=== PATIENT | male | born 1955 | race Asian ===

== ENCOUNTER 2021-05-03 14:34 | Inpatient (IN) | payer OTHER ==
--- NOTE | 2021-05-03 15:52 | Event Note ---
Date of service: 05/03/21 Face to Face: For this encounter I have reviewed the PA/MEAT APPRENTICE documentation, treatment plan, medical decision making, and I had face to face time with this patient. Patient had presented with discoloration of toes on the right foot. This has been an ongoing issue. There was no history of recent travel or trauma. He did complain of localized pain. On exam, patient has warm extremities. The dorsalis pedis and posterior tibial pulses on the right foot cannot be palpated. There appears to be evidence of necrosis with dry gangrene involving the right first and second toes. There is some mild erythema involving the skin proximal. Patient does not have any similar findings on the left foot. Labs and ultrasound have been ordered. 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
--- NOTE | 2021-05-03 16:16 | XRay Report ---
Right foot 3 views INDICATION: Right foot pain without injury IMPRESSION: There is evidence of a wound identified involving the great toe soft tissues with some un derlying soft tissue gas. No underlying fracture, subluxation or osseous destruction is identified. Signer Name: Mike Lynch MD Signed: 05/03/2021 4:12 PM Workstation Name: [id number]
[2021-05-03 16:20] LABS: Basophils # (Auto) 0.1 K/mm3 (0.0-0.1); Basophils % (Auto) 1.1 % (0.0-1.8); Eosinophils # (Auto) 0.2 K/mm3 (0.0-0.4); Eosinophils % (Auto) 2.4 % (0.0-4.3); Hematocrit 37.6 % (35.5-45.6); Hemoglobin 12.5 gm/dl (11.8-15.2); Lymphocytes # (Auto) 1.6 K/mm3 (1.2-5.4); Lymphocytes % (Auto) 16.7 % (13.4-35.0); Mean Corpuscular HGB Conc 33 % (32-34); Mean Corpuscular Volume 93 fl (84-94); Monocytes # (Auto) 0.6 K/mm3 (0.0-0.8); Monocytes % (Auto) 6.2 % (0.0-7.3); Platelet Count 238 K/mm3 (140-440); Red Blood Count 4.05 M/mm3 (3.65-5.03); Red Cell Distribution Width 14.3 % (13.2-15.2)
[2021-05-03 16:28] LABS: INR 0.97 (0.87-1.13)
[2021-05-03 16:29] LABS: Partial Thromboplastin Time 31.3 Sec. (24.2-36.6)
[2021-05-03 16:37] LABS: Alanine Aminotransferase 30 units/L (7-56); Albumin 3.2 g/dL (3.9-5); Blood Urea Nitrogen 8 mg/dL (9-20); Calcium 9.2 mg/dL (8.4-10.2); Hemolysis Index 6
[2021-05-03 16:40] LABS: BUN/Creatinine Ratio 13
--- NOTE | 2021-05-03 18:02 | Vascular Lab Report ---
DUPLEX DOPPLER LOWER EXTREMITY ARTERIAL, RIGHT BILATERAL YANNICK INDICATION / CLINICAL INFORMATION: non palpable pulses, 1st/2nd toe. TECHNIQUE: Arterial duplex examination of both lower extremities performed using B-mode, color flow a nd spectral Doppler assessment. FINDINGS: RIGHT: Common Femoral Artery: PSV 130 cm/sec. Triphasic waveform. Proximal SFA: PSV 115 cm/sec. Triphasic waveform. Mid SFA: PSV 50 cm/sec. Monophasic waveform. Distal SFA: Occluded Popliteal artery: PSV 7 cm/sec. Monophasic waveform. Posterior tibial artery: PSV 18 cm/sec. Monophasic waveform. Dorsalis Pedis Artery: PSV 60 cm/sec. Monophasic waveform. Right YANNICK: 0.47 Left YANNICK: 0.72 IMPRESSION: 1. 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 The ABIs are abnormal bilaterally. Ankle-Brachial Index (YANNICK): - Calcified arteries > 1.4 - Normal = 0.9-1.4 - Mild PAD = 0.7-0.89 - Moderate PAD = 0.51-0.69 - Severe PAD < 0.5 Doppler Waveform: - Triphasic is normal. - Biphasic is abnormal if clear transition from triphasic signal along vascular tree. - Monophasic is abnormal. Signer Name: Estevan Julian MD Signed: 05/03/2021 5:58 PM Workstation Name: [id number]
--- NOTE | 2021-05-03 18:18 | Emergency Department Report ---
- General Chief Complaint: Wound/Laceration Stated Complaint: TOE BLACK Time Seen by Provider: 05/03/21 15:35 Source: patient, family Mode of arrival: Ambulatory Limitations: Language Barrier - History of Present Illness Initial Comments: Patient is a 65-year-old male who presents emergency room with complaints of "black toes." Patient states that initially it began as a small ulcer to his right big toe. States that he was scratching it and did not appear to be healing. He states this initially occurred approximately 3 weeks ago. He states then his toe began to turn black in coloration and he had swelling and redness to the foot. He denies any drainage, fever, vomiting, chills. Past medical history of hypertension. No known allergies. Spoke with patient's sonGume with the patient's permission he provided phone number, and he was able to confirm history - Related Data Allergies Allergy/AdvReac Type Severity Reaction Status Date / Time No Known Allergies Allergy Verified 05/03/21 19:54 ED Review of Systems ROS: Stated complaint: TOE BLACK Other details as noted in HPI Comment: All other systems reviewed and negative ED Past Medical Hx - Past Medical History Previous Medical History?: Yes Hx Hypertension: Yes - Surgical History Past Surgical History?: No - Social History Smoking Status: Former Smoker Substance Use Type: Alcohol ED Physical Exam - General Limitations: Language Barrier General appearance: alert, in no apparent distress - Head Head exam: Present: atraumatic, normocephalic - Eye Eye exam: Present: normal appearance - ENT ENT exam: Present: mucous membranes moist - Extremities Exam Extremities exam: Present: other (there is necrosis present to the entire right big toe, there is necrosis present to half of the distal 2nd toe, erythema and increased warmth present to the right dorsal foot, unable to palpalate dp or pt pulses on exam) - Neurological Exam Neurological exam: Present: alert, oriented X3 - Psychiatric Psychiatric exam: Present: normal affect, normal mood - Skin Skin exam: Present: warm, dry ED Course Vital Signs 05/03/21 05/03/21 05/03/21 16:25 16:31 16:32 Temperature 98.6 F 98.6 F Pulse Rate 96 H 96 H Respiratory 16 16 Rate Blood Pressure 139/70 Blood Pressure 139/70 [Left] O2 Sat by Pulse 100 100 100 Oximetry 05/03/21 18:11 Temperature Pulse Rate 94 H Respiratory 17 Rate Blood Pressure Blood Pressure 146/68 [Left] O2 Sat by Pulse 100 Oximetry - Reevaluation(s) Reevaluation #1: 05/03/21 18:58 Crane Hoist Or Lift Operator paged vascular approximately one hour ago still no callback, she states that she will page again for the second time - Consultations Consultation #1: 05/03/21 19:[address] Soto, vascular surgery regarding patient history and results, advised n.p.o. at midnight, admit to hospitalist service and he will consult on patient tomorrow 05/03/21 19:[address] Wise, hospitalist who will accept and resume care of patient, will admit to hospitalist service ED Medical Decision Making - Lab Data Result diagrams: 05/03/21 15:57 05/03/21 15:57 Lab Results 05/03/21 05/03/21 05/03/21 Range/Units 15:57 15:57 15:57 WBC 9.5 (4.5-11.0) K/mm3 RBC 4.05 (3.65-5.03) M/mm3 Hgb 12.5 (11.8-15.2) gm/dl Hct 37.6 (35.5-45.6) % MCV 93 (84-94) fl MCH 31 (28-32) pg MCHC 33 (32-34) % RDW 14.3 (13.2-15.2) % Plt Count 238 (140-440) K/mm3 Lymph % (Auto) 16.7 (13.4-35.0) % Wagoner % (Auto) 6.2 (0.0-7.3) % Eos % (Auto) 2.4 (0.0-4.3) % Baso % (Auto) 1.1 (0.0-1.8) % Lymph # (Auto) 1.6 (1.2-5.4) K/mm3 Wagoner # (Auto) 0.6 (0.0-0.8) K/mm3 Eos # (Auto) 0.2 (0.0-0.4) K/mm3 Baso # (Auto) 0.1 (0.0-0.1) K/mm3 Seg Neutrophils % 73.6 H (40.0-70.0) % Seg Neutrophils # 7.0 (1.8-7.7) K/mm3 ESR TNR PT 13.5 (12.2-14.9) Sec. INR 0.97 (0.87-1.13) APTT 31.3 (24.2-36.6) Sec. Sodium 133 L (137-145) mmol/L Potassium 4.1 (3.6-5.0) mmol/L Chloride 97.2 L (98-107) mmol/L Carbon Dioxide 22 (22-30) mmol/L Anion Gap 18 mmol/L BUN 8 L (9-20) mg/dL Creatinine 0.6 L (0.8-1.3) mg/dL Estimated GFR > 60 ml/min BUN/Creatinine Ratio 13 % Glucose 227 H (75-100) mg/dL Lactic Acid (0.7-2.0) mmol/L Calcium 9.2 (8.4-10.2) mg/dL Total Bilirubin 0.40 (0.1-1.2) mg/dL AST 23 (5-40) units/L ALT 30 (7-56) units/L Alkaline Phosphatase 99 (35-129) units/L Total Protein 8.3 H (6.3-8.2) g/dL Albumin 3.2 L (3.9-5) g/dL Albumin/Globulin Ratio 0.6 % 05/03/ Range/Units 15:57 WBC (4.5-11.0) K/mm3 RBC (3.65-5.03) M/mm3 Hgb (11.8-15.2) gm/dl Hct (35.5-45.6) % MCV (84-94) fl MCH (28-32) pg MCHC (32-34) % RDW (13.2-15.2) % Plt Count (140-440) K/mm3 Lymph % (Auto) (13.4-35.0) % Wagoner % (Auto) (0.0-7.3) % Eos % (Auto) (0.0-4.3) % Baso % (Auto) (0.0-1.8) % Lymph # (Auto) (1.2-5.4) K/mm3 Wagoner # (Auto) (0.0-0.8) K/mm3 Eos # (Auto) (0.0-0.4) K/mm3 Baso # (Auto) (0.0-0.1) K/mm3 Seg Neutrophils % (40.0-70.0) % Seg Neutrophils # (1.8-7.7) K/mm3 ESR PT (12.2-14.9) Sec. INR (0.87-1.13) APTT (24.2-36.6) Sec. Sodium (137-145) mmol/L Potassium (3.6-5.0) mmol/L Chloride (98-107) mmol/L Carbon Dioxide (22-30) mmol/L Anion Gap mmol/L BUN (9-20) mg/dL Creatinine (0.8-1.3) mg/dL Estimated GFR ml/min BUN/Creatinine Ratio % Glucose (75-100) mg/dL Lactic Acid 1.70 (0.7-2.0) mmol/L Calcium (8.4-10.2) mg/dL Total Bilirubin (0.1-1.2) mg/dL AST (5-40) units/L ALT (7-56) units/L Alkaline Phosphatase (35-129) units/L Total Protein (6.3-8.2) g/dL Albumin (3.9-5) g/dL Albumin/Globulin Ratio % - Radiology Data Radiology results: report reviewed Ordering Physician: ABISAI ALVES Date of Service: 05/03/21 Procedure(s): XR foot 3+V RT Accession Number(s): [id number] cc: ABISAI ALVES Fluoro Time In Minutes: Right foot 3 views INDICATION: Right foot pain without injury IMPRESSION: There is evidence of a wound identified involving the great toe soft tissues with some underlying soft tissue gas. No underlying fracture, subluxation or osseous destruction is identified. Signer Name: Mike Lynch MD Signed: 05/03/2021 4:12 PM Workstation Name: [id number] Transcribed By: Dictated By: Mike Lynch MD Electronically Authenticated By: Mike Lynch MD Signed Date/Time: 05/03/211611 DD/ 10 TD/TT: Ordering Physician: ABISAI ALVES Date of Service: 05/03/21 Procedure(s): VL arterial duplex LE RT Accession Number(s): [id number] cc: ABISAI ALVES DUPLEX DOPPLER LOWER EXTREMITY ARTERIAL, RIGHT BILATERAL YANNICK INDICATION / CLINICAL INFORMATION: non palpable pulses, 1st/2nd toe. TECHNIQUE: Arterial duplex examination of both lower extremities performed using B-mode, color flow and spectral Doppler assessment. FINDINGS: RIGHT: Common Femoral Artery: PSV 130 cm/sec. Triphasic waveform. Proximal SFA: PSV 115 cm/sec. Triphasic waveform. Mid SFA: PSV 50 cm/sec. Monophasic waveform. Distal SFA: Occluded Popliteal artery: PSV 7 cm/sec. Monophasic waveform. Posterior tibial artery: PSV 18 cm/sec. Monophasic waveform. Dorsalis Pedis Artery: PSV 60 cm/sec. Monophasic waveform. Right YANNICK: 0.47 Left YANNICK: 0.72 IMPRESSION: 1. 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 The ABIs are abnormal bilaterally. Ankle-Brachial Index (YANNICK): - Calcified arteries > 1.4 - Normal = 0.9-1.4 - Mild PAD = 0.7-0.89 - Moderate PAD = 0.51-0.69 - Severe PAD < 0.5 Doppler Waveform: - Triphasic is normal. - Biphasic is abnormal if clear transition from triphasic signal along vascular tree. - Monophasic is abnormal. Signer Name: Estevan Julian MD Signed: 05/03/2021 5:58 PM Workstation Name: [id number] Transcribed By: SS Dictated By: Estevan Julian MD Electronically Authenticated By: Estevan Julian MD Signed Date/Time: 05/03/211757 DD/ 54 TD/TT: Print - Medical Decision Making Patient is a 65-year-old male who presents emergency room with complaints of "black toes." Patient states that initially it began as a small ulcer to his right big toe. States that he was scratching it and did not appear to be healing. He states this initially occurred approximately 3 weeks ago. He states then his toe began to turn black in coloration and he had swelling and redness to the foot. He denies any drainage, fever, vomiting, chills. Past medical history of hypertension. No known allergies. Spoke with patient's sonGume with the patient's permission he provided phone number, and he was able to confirm history Vitals are stable. On exam:there is necrosis present to the entire right big toe, there is necrosis present to half of the distal 2nd toe, erythema and increased warmth present to the right dorsal foot, unable to palpalate dp or pt pulses on exam. Lab significant for mild hyponatremia and elevated blood glucose at 227. No leukocytosis, lactic acid is normal. X-ray right foot There is evidence of a wound identified involving the great toe soft tissues with some underlying soft tissue gas. No underlying fracture, subluxation or osseous destruction is identified. Arterial ultrasound of the lower extremity 1. 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 The ABIs are abnormal bilaterally. Spoke to Dr. Soto, vascular surgery regarding patient history and results, advised n.p.o. at midnight, admit to hospitalist service and he will consult on patient tomorrow.Spoke to Dr. Wise, hospitalist who will accept and resume care of patient, will admit to hospitalist service. Dr. Lara, ER attending evaluated patient at bedside and is agreeable with plan. Discussed findings with patient and patient's son with the patient's permission and patient is agreeable with admission. Critical care attestation.: If time is entered above; I have spent that time in minutes in the direct care of this critically ill patient, excluding procedure time. ED Disposition Clinical Impression: Arterial occlusion, Necrotic toes, Hyperglycemia Disposition: ADMITTED INPATIENT Is pt being admited?: Yes Does the pt Need Aspirin: No Condition: Fair Time of Disposition: 19:24
--- NOTE | 2021-05-03 19:23 | History and Physical Report ---
History of Present Illness Chief complaint: My toes are black History of present illness: 65 YO Male with HTN, PVD presents to ED for evaluation. Patient reports "my toes are black". Patient states that he has experienced darkening of his toes over the past 1 month with persistent and worsening symptoms over the same timeframe. Patient states that he has experienced redness and right foot tenderness as well over the past 3 weeks with worsening symptoms over the same timeframe. Patient was seen and evaluated in his primary care physician's office and was instructed to seek further care. Patient transported to [facility] via private vehicle for further care and evaluation of the aforementioned symptoms. The patient was seen and evaluated in the emergency department. All lab and imaging studies reviewed. Patient underwent right lower extremity duplex as well as arterial brachial index measurement and was found to have right lower extremity arterial occlusion complicated by right foot cellulitis, hyponatremia. Patient admitted to medical floor due to increased risk of worsening symptoms. Vascular surgery team con sulted in ED. Patient is pending surgical intervention. Patient initiated on IV antibiotic therapy. Patient has fever, chills, chest pain, palpitation, adductive cough, recent ill contacts, known exposure to COVID-19. No prior admission for review. No medication listed at time of admission for recon ciliation. Advanced care planning conducted in the ED. Past History Past Medical History: hypertension, other (See HPI) Past Surgical History: No surgical history, Other (Reviewed) Social history: , lives with family. denies: smoking, alcohol abuse, prescription drug abuse Family history: diabetes, hypertension Review of Systems Constitutional: no weight loss, no weight gain Ears, nose, mouth and throat: no ear pain, no ear discharge Cardiovascular: no chest pain, no palpitations, no edema, no lightheadedness Respiratory: no cough, no cough with sputum, no shortness of breath, no dyspnea on exertion Gastrointestinal: no abdominal pain, no vomiting, no constipation, no change in bowel habits Genitourinary Male: no dysuria, no hematuria, no flank pain, no urinary frequency, no nocturia, no incontinence Rectal: no pain, no incontinence, no bleeding Musculoskeletal: other (Right foot redness, black toes), no neck stiffness, no shooting arm pain, no arm numbness/tingling, no low back pain Integumentary: no pruritis, no sores, no wounds, no jaundice Neurological: no transient paralysis, no weakness, no numbness, no tingling, no syncope Psychiatric: no anxiety, no change in sleep habits, no insomnia Endocrine: no cold intolerance, no polyphagia, no excessive thirst, no polydipsia, no excessive sweating Hematologic/Lymphatic: no easy bruising, no easy bleeding Allergic/Immunologic: no urticaria, no allergic rhinitis Exam - Constitutional Vitals: Temp Pulse Resp BP Pulse Ox 98.6 F 94 H 17 146/68 100 05/03/21 16:32 05/03/21 18:11 05/03/21 18:11 05/03/21 18:11 05/03/21 18:11 General appearance: Present: mild distress - EENT Eyes: Present: PERRL ENT: hearing intact, clear oral mucosa - Neck Neck: Present: supple, normal ROM - Respiratory Respiratory effort: normal Respiratory: bilateral: CTA - Cardiovascular Heart Sounds: Present: S1 & S2. Absent: rub, click - Extremities Extremities: pulses symmetrical, No edema Extremity abnormal: erythema, black, pulses diminished Peripheral Pulses: abnormal (Right lower extremity pulses absent) - Abdominal General gastrointestinal: Present: soft, non-tender, non-distended, normal bowel sounds Male genitourinary: Present: normal - Integumentary Integumentary: Present: clear, warm, dry - Musculoskeletal Musculoskeletal: gait normal, strength equal bilaterally - Psychiatric Psychiatric: appropriate mood/affect, intact judgment & insight - Neurologic Neurologic: CNII-XII intact, moves all extremities Results - Labs CBC & Chem 7: 05/03/21 15:57 05/03/21 15:57 Labs: Abnormal lab results 05/03/21 05/03/21 Range/Units 15:57 15:57 Seg Neutrophils % 73.6 H (40.0-70.0) % Sodium 133 L (137-145) mmol/L Chloride 97.2 L (98-107) mmol/L BUN 8 L (9-20) mg/dL Creatinine 0.6 L (0.8-1.3) mg/dL Glucose 227 H (75-100) mg/dL Total Protein 8.3 H (6.3-8.2) g/dL Albumin 3.2 L (3.9-5) g/dL Assessment and Plan - Patient Problems (1) Arterial occlusion, lower extremity Status: Acute Plan to address problem: Vascular surgery service consulted, patient pending surgical revascularization procedure in a.m., pain control, supportive care. N.p.o., IV fluid resuscitation therapy. (2) Cellulitis of right foot Status: Acute Plan to address problem: CBC, IV antibiotic therapy, supportive care. Repeat CBC in a.m. (3) Hyponatremia Status: Acute Plan to address problem: IV fluid resuscitation therapy, BMP, repeat BMP in a.m. (4) Diabetes Status: Acute Plan to address problem: Consistent carbohydrate diet, Accu-Chek, insulin protocol, hypoglycemia protocol, hemoglobin A1c (5) DVT prophylaxis Status: Acute Plan to address problem: SCD to bilateral lower extremities, patient pending surgical intervention as per vascular surgery team. (6) Advance care planning Status: Acute Plan to address problem: Disease education conducted, care plan discussed, diagnosis discussed, prognosis discussed, patient is full code, patient knowledges understanding and agreement with care plan, +30 minutes.
[2021-05-03] MEDS ORDERED: ALBUTEROL 2.5 MG/3 ML NEBU IH PRN (19:25)
[2021-05-03] MEDS ORDERED: ONDANSETRON 4 MG/2 ML INJ IV PRN (19:25)
[2021-05-03] MEDS ORDERED: HYDROmorphone 1 MG/1 ML INJ IV PRN ×2 (19:25→19:44)
[2021-05-03] MEDS ORDERED: ACETAMINOPHEN 325 MG TAB PO PRN ×2 (19:25→19:44)
[2021-05-03] MEDS ORDERED: DEXTROSE 50% IN WATER (25GM) 50 ML SYRINGE IV PRN (19:27)
[2021-05-03 19:40] LABS: Erythrocyte Sedimentation Rate TNR mm/Hr (0-20)
[2021-05-03] MEDS ORDERED: VANCOMYCIN 1,500 MG in SODIUM CHLORIDE 0.9% 500 ML 500 ML IV ONE (19:44)
[2021-05-03] MEDS ORDERED: VANCOMYCIN PHARMACY TO DOSE IV SCH (20:00)
--- NOTE | 2021-05-03 20:07 | Consultation ---
History of Present Illness - Reason for Consult Consult date: 05/03/21 Necrotic right toes Requesting physician: YOSELYN RIOS - History of Present Illness 65-year-old male with HTN, PVD presents to ED for evaluation. Patient reports "my toes are black". Patient states that he has experienced darkening of his toes over the past 1 month with persistent and worsening symptoms over the same timeframe. Patient states that he has experienced redness and right foot tende rness as well over the past 3 weeks with worsening symptoms over the same timeframe. Patient was seen and evaluated in his primary care physician's office and was instructed to seek further care. Patient transported to [facility] via private vehicle for further care and evaluation of the aforementioned symptoms. The patient was seen and evaluated in the emergency department. All lab and imaging studies reviewed. Patient underwent right lower extremity duplex as well as arterial brachial index measurement and was found to have right lower extremity arterial occlusion complicated by right foot cellulitis, hyponatremia. Vascular consulted for evaluation. Patient found to have nonpalpable right peda l pulses and necrosis of the right first digit, tip of the second digit, and dorsum of the MTP region with erythema of the rest of the forefoot and midfoot. The area is not very painful. This occurred over the last month, and patient denies pre-existing claudication prior to this event, but history is difficult to obtain due to using telephone fluxer. Discussed endovascular revascularization. Risks, benefits, and alternatives discussed. Patient agrees with procedure. Past History Past Medical History: hypertension, other (See HPI) Past Surgical History: No surgical history, Other (Reviewed) Social history: , lives with family. denies: smoking, alcohol abuse, prescription drug abuse Family history: diabetes, hypertension Review of Systems Constitutional: no weight loss, no weight gain Ears, nose, mouth and throat: no ear pain, no ear discharge Cardiovascular: no chest pain, no palpitations, no edema, no lightheadedness Respiratory: no cough, no cough with sputum, no shortness of breath, no dyspnea on exertion Gastrointestinal: no abdominal pain, no vomiting, no constipation, no change in bowel habits Genitourinary Male: no dysuria, no hematuria, no flank pain, no urinary frequency, no nocturia, no incontinence Rectal: no pain, no incontinence, no bleeding Musculoskeletal: other (Right foot redness, black toes), no neck stiffness, no shooting arm pain, no arm numbness/tingling, no low back pain Integumentary: no pruritis, no sores, no wounds, no jaundice Neurological: no transient paralysis, no weakness, no numbness, no tingling, no syncope Psychiatric: no anxiety, no change in sleep habits, no insomnia Endocrine: no cold intolerance, no polyphagia, no excessive thirst, no polydipsia, no excessive sweating Hematologic/Lymphatic: no easy bruising, no easy bleeding Allergic/Immunologic: no urticaria, no allergic rhinitis Past History Past Medical History: hypertension, other (See HPI) Past Surgical History: No surgical history, Other (Reviewed) Social history: , lives with family. denies: smoking, alcohol abuse, prescription drug abuse Family history: diabetes, hypertension Medications and Allergies Allergies Allergy/AdvReac Type Severity Reaction Status Date / Time No Known Allergies Allergy Verified 05/03/21 19:54 Active Meds: Active Medications Acetaminophen (Acetaminophen 325 Mg Tab) 650 mg PO Q4H PRN PRN Reason: Pain MILD(1-3)/Fever >100.5/PACHECO Acetaminophen (Acetaminophen 325 Mg Tab) 650 mg PO Q6H PRN PRN Reason: Pain, Mild (1-3) Albuterol (Albuterol 2.5 Mg/3 Ml Nebu) 2.5 mg IH Q4HRT PRN PRN Reason: Shortness Of Breath Dextrose (Dextrose 50% In Water (25gm) 50 Ml Syringe) 50 ml IV Q30MIN PRN; Protocol PRN Reason: Hypoglycemia Hydromorphone HCl (Hydromorphone 1 Mg/1 Ml Inj) 0.5 mg IV Q12H PRN PRN Reason: Pain , Severe (7-10) Hydromorphone HCl (Hydromorphone 1 Mg/1 Ml Inj) 0.25 mg IV Q4H PRN PRN Reason: Pain, Moderate (4-6) Sodium Chloride (Nacl 0.9% 1000 Ml) 1,000 mls @ 100 mls/hr IV DIRECT LYNDSAY Vancomycin HCl 1,500 mg/ (Sodium Chloride) 530 mls @ 333 mls/hr IV ONCE ONE; Protocol Stop: 05/03/21 21:19 Piperacillin Sod/Tazobactam Sod (Zosyn/Ns 4.5gm/100ml) 4.5 gm in 100 mls @ 200 mls/hr IV Q8H LYNDSAY; Protocol Insulin Human Regular (Insulin Regular, Human 100 Units/1 Ml) 0 units SUB-Q Q6H LYNDSAY; Protocol Ondansetron HCl (Ondansetron 4 Mg/2 Ml Inj) 4 mg IV Q8H PRN PRN Reason: Nausea And Vomiting Oxycodone/Acetaminophen (Oxycodone /Acetaminophen 5-325mg Tab) 1 tab PO Q6H PRN PRN Reason: Pain, Moderate (4-6) Sodium Chloride (Sodium Chloride 0.9% 10 Ml Flush Syringe) 10 ml IV BID LYNDSAY Sodium Chloride (Sodium Chloride 0.9% 10 Ml Flush Syringe) 10 ml IV PRN PRN PRN Reason: LINE FLUSH Review of Systems All systems: negative (see HPI) Exam - Constitutional Vitals: Temp Pulse Resp BP Pulse Ox 98.6 F 94 H 17 146/68 100 05/03/21 16:32 05/03/21 18:11 05/03/21 18:11 05/03/21 18:11 05/03/21 18:11 General appearance: Present: no acute distress - EENT Eyes: Present: EOM intact ENT: hearing intact - Neck Neck: Present: supple - Respiratory Respiratory effort: normal - Extremities Extremities: abnormal (see HPI) Extremity abnormal: pulses diminished Peripheral Pulses: abnormal - Abdominal General gastrointestinal: Present: deferred, soft - Psychiatric Psychiatric: appropriate mood/affect, cooperative Results - Labs CBC & Chem 7: 05/03/21 15:57 05/03/21 15:57 Labs: Abnormal lab results 05/03/21 05/03/21 05/03/21 Range/Units 15:57 15:57 19:32 Seg Neutrophils % 73.6 H (40.0-70.0) % Sodium 133 L (137-145) mmol/L Chloride 97.2 L (98-107) mmol/L BUN 8 L (9-20) mg/dL Creatinine 0.6 L (0.8-1.3) mg/dL Glucose 227 H (75-100) mg/dL Hemoglobin A1c 10.1 H (4-6) % Total Protein 8.3 H (6.3-8.2) g/dL Albumin 3.2 L (3.9-5) g/dL Assessment and Plan 65-year-old male with gangrene of the right first and second digit compatible with critical limb ischemia. I reviewed the arterial ultrasound demonstrating popliteal artery stenosis and distal superficial femoral artery occlusion. Discussed with patient that he requires revascularization in order to attempt to salvage the foot. Without revascularization, the patient would not even be able to heal a below-knee amputation. Patient has a long history of smoking. Discussed smoking cessation with patient. Patient agrees with smoking cessation. Plan for endovascular revascularization of the right lower extremity tomorrow through left groin and possibly right pedal approach. Risks, benefits, and alternatives discussed. Patient agrees to procedure. Patient will need wound care consult and general surgery consult for management of the gangrene which will require at minimum multiple minor amputations.
[2021-05-03] MEDS: INSULIN REGULAR, HUMAN 100 UNITS/1 ML SUB-Q SCH (21:00)
[2021-05-03] MEDS: PIPERACIL/TAZOBACTA 4.5/NS 100 4.5 GM/100 ML VIAL IV SCH (21:10)
[2021-05-04] MEDS: INSULIN REGULAR, HUMAN 100 UNITS/1 ML SUB-Q SCH ×2 (03:25→22:54)
[2021-05-04] MEDS: PIPERACIL/TAZOBACTA 4.5/NS 100 4.5 GM/100 ML VIAL IV SCH (03:40)
[2021-05-04] MEDS: SODIUM CHLORIDE 0.9% 1000 ML 1,000 ML IV SCH ×2 (04:20→22:54)
[2021-05-04 05:18] LABS: Basophils % (Auto) 0.6 % (0.0-1.8); Eosinophils # (Auto) 0.5 K/mm3 (0.0-0.4); Hematocrit 35.6 % (35.5-45.6); Lymphocytes # (Auto) 1.9 K/mm3 (1.2-5.4); Lymphocytes % (Auto) 25.6 % (13.4-35.0); Mean Corpuscular HGB Conc 34 % (32-34); Mean Corpuscular Volume 92 fl (84-94); Monocytes # (Auto) 0.7 K/mm3 (0.0-0.8); Monocytes % (Auto) 9.1 % (0.0-7.3); Platelet Count 233 K/mm3 (140-440); Red Blood Count 3.87 M/mm3 (3.65-5.03); Red Cell Distribution Width 13.9 % (13.2-15.2)
[2021-05-04 05:37] LABS: Blood Urea Nitrogen 7 mg/dL (9-20); Calcium 8.7 mg/dL (8.4-10.2); Hemolysis Index 4
[2021-05-04 05:42] LABS: BUN/Creatinine Ratio 14
--- NOTE | 2021-05-04 08:54 | Progress Note ---
Assessment and Plan Assessment and plan: 65 YO Male with HTN, PVD presents to ED for evaluation. Patient reports "my toes are black". Patient states that he has experienced darkening of his toes over the past 1 month with persistent and worsening symptoms over the same timeframe. Patient states that he has experienced redness and right foot tenderness as well over the past 3 weeks with worsening symptoms over the same timeframe. Patient was seen and evaluated in his primary care physician's office and was instructed to seek further care. Patient transported to [facility] via private vehicle for further care and evaluation of the aforementioned symptoms. The patient was seen and evaluated in the emergency department. All lab and imaging studies reviewed. Patient underwent right lower extremity duplex as well as arterial brachial index measurement and was found to have right lower extremity arterial occlusion complicated by right foot cellulitis, hyponatremia. Patient admitted to medical floor due to increased risk of worsening symptoms. Vascular surgery team consulted in ED. Patient is pending surgical intervention. Patient initiated on IV antibiotic therapy. Patient has fever, chills, chest pain, palpitation, adductive cough, recent ill contacts, known exposure to COVID-19. No prior admission for review. No medication listed at time of admission for reconciliation. Advanced care planning conducted in the ED. 05/04: Patient seen and examined, will Vascular input noted, Wound care consult, ID and General surgery consult- concern for Osteomylitis. awaiting vascular report. Will continue heparin. (1) Arterial occlusion, lower extremity Status: Acute Plan to address problem: Vascular surgery service consulted, patient pending surgical revascularization procedure in a.m., pain control, supportive care. N.p.o., IV fluid resuscitation therapy. (2) Cellulitis of right foot- ? Gas collection underneath Status: Acute Plan to address problem: CBC, IV antibiotic therapy, supportive care. Repeat CBC in a.m. (3) Hyponatremia Status: Acute Plan to address problem: IV fluid resuscitation therapy, BMP, repeat BMP in a.m. (4) Diabetes Status: Acute Plan to address problem: Consistent carbohydrate diet, Accu-Chek, insulin protocol, hypoglycemia protocol, hemoglobin A1c (5) DVT prophylaxis Status: Acute Plan to address problem: SCD to bilateral lower extremities, patient pending surgical intervention as per vascular surgery team. (6) Advance care planning Status: Acute Plan to address problem: Disease education conducted, care plan discussed, diagnosis discussed, prognosis discussed, patient is full code, patient knowledges understanding and agreement with care plan, +30 minutes. History Interval history: Patient seen and examine Hospitalist Physical - Physical exam Narrative exam: General appearance: Present: mild distress - EENT Eyes: Present: PERRL ENT: hearing intact, clear oral mucosa - Neck Neck: Present: supple, normal ROM - Respiratory Respiratory effort: normal Respiratory: bilateral: CTA - Cardiovascular Heart Sounds: Present: S1 & S2. Absent: rub, click - Extremities Extremities: pulses symmetrical, No edema Extremity abnormal: erythema, black, pulses diminished Peripheral Pulses: abnormal (Right lower extremity pulses absent) - Abdominal General gastrointestinal: Present: soft, non-tender, non-distended, normal bowel sounds Male genitourinary: Present: normal - Integumentary Integumentary: Present: clear, warm, dry - Musculoskeletal Musculoskeletal: gait normal, strength equal bilaterally - Psychiatric Psychiatric: appropriate mood/affect, intact judgment & insight - Neurologic Neurologic: CNII-XII intact, moves all extremities - Constitutional Vitals: Temp Pulse Resp BP Pulse Ox 98.6 F 93 H 17 137/65 100 05/03/21 16:32 05/03/21 23:07 05/03/21 18:11 05/04/21 06:41 05/04/21 06:41 General appearance: Present: no acute distress Results - Labs CBC & Chem 7: 05/04/21 13:39 05/04/21 04:36 Labs: Laboratory Last Values WBC 7.6 K/mm3 (4.5-11.0) 05/04/21 04:36 RBC 3.87 M/mm3 (3.65-5.03) 05/04/21 04:36 Hgb 12.0 gm/dl (11.8-15.2) 05/04/21 04:36 Hct 35.6 % (35.5-45.6) 05/04/21 04:36 MCV 92 fl (84-94) 05/04/21 04:36 MCH 31 pg (28-32) 05/04/21 04:36 MCHC 34 % (32-34) 05/04/21 04:36 RDW 13.9 % (13.2-15.2) 05/04/21 04:36 Plt Count 233 K/mm3 (140-440) 05/04/21 04:36 Lymph % (Auto) 25.6 % (13.4-35.0) 05/04/21 04:36 [place] % (Auto) 9.1 % (0.0-7.3) H 05/04/21 04:36 Eos % (Auto) 7.0 % (0.0-4.3) H 05/04/21 04:36 Baso % (Auto) 0.6 % (0.0-1.8) 05/04/21 04:36 Lymph # (Auto) 1.9 K/mm3 (1.2-5.4) 05/04/21 04:36 [place] # (Auto) 0.7 K/mm3 (0.0-0.8) 05/04/21 04:36 Eos # (Auto) 0.5 K/mm3 (0.0-0.4) H 05/04/21 04:36 Baso # (Auto) 0.0 K/mm3 (0.0-0.1) 05/04/21 04:36 Seg Neutrophils % 57.7 % (40.0-70.0) 05/04/21 04:36 Seg Neutrophils # 4.4 K/mm3 (1.8-7.7) 05/04/21 04:36 ESR TNR 05/03/21 15:57 PT 13.5 Sec. (12.2-14.9) 05/03/21 15:57 INR 0.97 (0.87-1.13) 05/03/21 15:57 APTT 31.3 Sec. (24.2-36.6) 05/03/21 15:57 Sodium 135 mmol/L (137-145) L 05/04/21 04:36 Potassium 3.7 mmol/L (3.6-5.0) 05/04/21 04:36 Chloride 99.5 mmol/L (98-107) 05/04/21 04:36 Carbon Dioxide 24 mmol/L (22-30) 05/04/21 04:36 Anion Gap 15 mmol/L 05/04/21 04:36 BUN 7 mg/dL (9-20) L 05/04/21 04:36 Creatinine 0.5 mg/dL (0.8-1.3) L 05/04/21 04:36 Estimated GFR > 60 ml/min 05/04/21 04:36 BUN/Creatinine Ratio 14 % 05/04/21 04:36 Glucose 165 mg/dL (75-100) H 05/04/21 04:36 POC Glucose 172 mg/dL (70-105) H 05/04/21 03:17 Hemoglobin A1c 10.1 % (4-6) H 05/03/21 19:32 Lactic Acid 1.70 mmol/L (0.7-2.0) 05/03/21 15:57 Calcium 8.7 mg/dL (8.4-10.2) 05/04/21 04:36 Total Bilirubin 0.40 mg/dL (0.1-1.2) 05/03/21 15:57 AST 23 units/L (5-40) 05/03/21 15:57 ALT 30 units/L (7-56) 05/03/21 15:57 Alkaline Phosphatase 99 units/L (35-129) 05/03/21 15:57 Total Protein 8.3 g/dL (6.3-8.2) H 05/03/21 15:57 Albumin 3.2 g/dL (3.9-5) L 05/03/21 15:57 Albumin/Globulin Ratio 0.6 % 05/03/21 15:57 Microbiology: Microbiology 05/03/21 15:57 Peripheral/Venous Blood Culture - Preliminary Culture in Progress 05/03/21 16:05 Peripheral/Venous Blood Culture - Preliminary Culture in Progress Active Medications - Current Medications Current Medications: Generic Name Dose Route Start Last Admin Trade Name Freq PRN Reason Stop Dose Admin Acetaminophen 650 mg 05/03/21 19:25 Acetaminophen 325 Mg Tab PO Q4H PRN Pain MILD(1-3)/Fever >100.5/PACHECO Acetaminophen 650 mg 05/03/21 19:44 Acetaminophen 325 Mg Tab PO Q6H PRN Pain, Mild (1-3) Albuterol 2.5 mg 05/03/21 19:25 Albuterol 2.5 Mg/3 Ml Nebu IH Q4HRT PRN Shortness Of Breath Dextrose 50 ml 05/03/21 19:27 Dextrose 50% In Water (25gm) 50 Ml Syringe IV Q30MIN PRN Hypoglycemia Protocol Hydromorphone HCl 0.5 mg 05/03/21 19:25 Hydromorphone 1 Mg/1 Ml Inj IV Q12H PRN Pain , Severe (7-10) Hydromorphone HCl 0.25 mg 05/03/21 19:44 Hydromorphone 1 Mg/1 Ml Inj IV Q4H PRN Pain, Moderate (4-6) Sodium Chloride 1,000 mls @ 100 mls/hr 05/03/21 19:30 05/04/21 04:20 Nacl 0.9% 1000 Ml IV 100 mls/hr DIRECT LYNDSAY Administration Piperacillin Sod/Tazobactam Sod 4.5 gm in 100 mls @ 200 mls/hr 05/03/21 20:00 05/04/21 03:40 Zosyn/Ns 4.5gm/100ml IV 200 mls/hr Q8H LYNDSAY Administration Protocol Vancomycin HCl 1 gm in 250 mls @ 166.667 mls/hr 05/04/21 10:00 Vancomycin/Ns 1 Gm/250 Ml IV Q12H LYNDSAY Insulin Human Regular 0 units 05/03/21 20:00 05/04/21 03:25 Insulin Regular, Human 100 Units/1 Ml SUB-Q 2 units Q6H LYNDSAY Administration Protocol Ondansetron HCl 4 mg 05/03/21 19:25 Ondansetron 4 Mg/2 Ml Inj IV Q8H PRN Nausea And Vomiting Oxycodone/Acetaminophen 1 tab 05/03/21 19:25 Oxycodone /Acetaminophen 5-325mg Tab PO Q6H PRN Pain, Moderate (4-6) Sodium Chloride 10 ml 05/03/21 22:00 05/03/21 22:00 Sodium Chloride 0.9% 10 Ml Flush Syringe IV 10 ml BID LYNDSAY Administration Sodium Chloride 10 ml 05/03/21 19:25 Sodium Chloride 0.9% 10 Ml Flush Syringe IV PRN PRN LINE FLUSH
[2021-05-04] MEDS ORDERED: HEPARIN 10,000 UNITS/10 ML VIAL ONE (09:12)
[2021-05-04] MEDS ORDERED: HEPARIN/NS 5000 UNIT/500ML 1,000 ML IR ONE (09:12)
[2021-05-04] MEDS ORDERED: VERAPAMIL 5 MG/2 ML INJ ONE (09:12)
[2021-05-04] MEDS ORDERED: LIDOCAINE (2%) 20 MG/1 ML VIAL 20 ML MDV INFILTRATI ONE ×2 (09:13→10:30)
[2021-05-04] MEDS ORDERED: NITROGLYCERIN SYRINGE 3 ML ONE ×4 (09:13→12:08)
[2021-05-04] MEDS ORDERED: fentaNYL 100 MCG/2 ML INJ ONE ×2 (09:37→11:49)
[2021-05-04] MEDS: MIDAZOLAM 2 MG/2 ML INJ ONE ×2 (09:58→10:05)
[2021-05-04] MEDS ORDERED: ceFAZolin/Water 2 GM/20 ML 2 GM/20 ML SYRINGE IV ONE (09:58)
[2021-05-04] MEDS ORDERED: fentaNYL 100 MCG/2 ML INJ IV ONE ×4 (10:05→11:55)
[2021-05-04] MEDS ORDERED: NITROGLYCERIN 600 MCG/3 ML SYRINGE IV ONE (10:38)
[2021-05-04] MEDS ORDERED: VERAPAMIL 5 MG/2 ML INJ IV ONE (10:38)
[2021-05-04] MEDS ORDERED: NITROGLYCERIN 600 MCG/3 ML SYRINGE UD ONE ×3 (10:45→10:55)
[2021-05-04] MEDS ORDERED: HEPARIN 10,000 UNITS/10 ML VIAL IV ONE ×2 (10:47→11:24)
[2021-05-04] MEDS ORDERED: MIDAZOLAM 2 MG/2 ML INJ IV ONE ×3 (10:49→11:55)
[2021-05-04] MEDS ORDERED: MIDAZOLAM 2 MG/2 ML INJ ONE (11:49)
[2021-05-04] MEDS ORDERED: CLOPIDOGREL 300 MG TAB ONE (12:07)
[2021-05-04] MEDS ORDERED: ASPIRIN 81 MG TAB CHEW ONE (12:07)
--- NOTE | 2021-05-04 12:11 | Consultation ---
History of Present Illness - Reason for Consult Consult date: 05/04/21 - History of Present Illness 65-year-old male past medical history hypertension, peripheral vascular disease presented to hospital i complaining of darkening skin color of his toes. He notes this began approximate 1 month prior to admission has been worsening over that timeframe, to the point where his toes are now black. He also complains of redness and right foot tenderness. He went to his primary care doctor, who instructed him to follow-up in the emergency room for therapy. He was evaluated by vascular surgery who was planning on doing a right lower extremity revascularization today. Afebrile, normal white count. Blood cultures no growth so far. Currently on Zosyn and vancomycin. Imaging personally reviewed: Foot x-ray: Evidence of wound with soft tissue infection and gas. Review of Systems: Bold if positive, otherwise negative General: fevers, chills, rigors HEENT: visual disturbance, diplopia, eye pain Respiratory: cough, sputum, hemoptysis, shortness of breath Cardiovascular: chest pain, syncope Gastrointestinal: nausea, vomiting, diarrhea, abdominal pain Genitourinary: dysuria, hematuria, flank pain Musculoskeletal: neck pain, back pain, joint pain, edema Neurologic: headaches, seizures Hematologic: easy bruising or bleeding Endocrine: night sweats, acute weight loss Skin: rash, jaundice, redness Psychiatric: suicidal, homicidal ideation Past History Past Medical History: hypertension, other (See HPI) Past Surgical History: No surgical history, Other (Reviewed) Social history: , lives with family. denies: smoking, alcohol abuse, prescription drug abuse Family history: diabetes, hypertension Medications and Allergies Allergies Allergy/AdvReac Type Severity Reaction Status Date / Time No Known Allergies Allergy Verified 05/03/21 19:54 Active Meds: Active Medications Acetaminophen (Acetaminophen 325 Mg Tab) 650 mg PO Q4H PRN PRN Reason: Pain MILD(1-3)/Fever >100.5/PACHECO Acetaminophen (Acetaminophen 325 Mg Tab) 650 mg PO Q6H PRN PRN Reason: Pain, Mild (1-3) Albuterol (Albuterol 2.5 Mg/3 Ml Nebu) 2.5 mg IH Q4HRT PRN PRN Reason: Shortness Of Breath Dextrose (Dextrose 50% In Water (25gm) 50 Ml Syringe) 50 ml IV Q30MIN PRN; Protocol PRN Reason: Hypoglycemia Hydromorphone HCl (Hydromorphone 1 Mg/1 Ml Inj) 0.5 mg IV Q12H PRN PRN Reason: Pain , Severe (7-10) Hydromorphone HCl (Hydromorphone 1 Mg/1 Ml Inj) 0.25 mg IV Q4H PRN PRN Reason: Pain, Moderate (4-6) Last Admin: 05/04/21 07:25 Dose: 0.25 mg Documented by: Sodium Chloride (Nacl 0.9% 1000 Ml) 1,000 mls @ 100 mls/hr IV DIRECT LYNDSAY Last Admin: 05/04/21 04:20 Dose: 100 mls/hr Documented by: Piperacillin Sod/Tazobactam Sod (Zosyn/Ns 4.5gm/100ml) 4.5 gm in 100 mls @ 200 mls/hr IV Q8H LYNDSAY; Protocol Last Admin: 05/04/21 03:40 Dose: 200 mls/hr Documented by: Vancomycin HCl (Vancomycin/Ns 1 Gm/250 Ml) 1 gm in 250 mls @ 166.667 mls/hr IV Q12H LYNDSAY Insulin Human Regular (Insulin Regular, Human 100 Units/1 Ml) 0 units SUB-Q Q6H LYNDSAY; Protocol Last Admin: 05/04/21 03:25 Dose: 2 units Documented by: Ondansetron HCl (Ondansetron 4 Mg/2 Ml Inj) 4 mg IV Q8H PRN PRN Reason: Nausea And Vomiting Oxycodone/Acetaminophen (Oxycodone /Acetaminophen 5-325mg Tab) 1 tab PO Q6H PRN PRN Reason: Pain, Moderate (4-6) Sodium Chloride (Sodium Chloride 0.9% 10 Ml Flush Syringe) 10 ml IV BID LYNDSAY Last Admin: 05/03/21 22:00 Dose: 10 ml Documented by: Sodium Chloride (Sodium Chloride 0.9% 10 Ml Flush Syringe) 10 ml IV PRN PRN PRN Reason: LINE FLUSH Physical Examination - Physical Exam Narrative exam: Physical Exam: Constitutional: Alert, cooperative. No acute distress Head, Ears, Nose: Normocephalic, atraumatic. External ears, nose normal Eyes: Conjunctivae/corneas clear. No icterus. No ptosis. Neck: Supple, no meningeal signs Oral: dentition fair, no thrush Cardiovascular: S1, S2 normal. Respiratory: Good air entry, clear to auscultation bilaterally GI: Soft, non-tender; bowel sounds normal. No peritoneal signs. Musculoskeletal: Right foot with multiple black toes, wounds. Skin: No rash or abscess Hem/Lymphatic: No palpable cervical or supraclavicular nodes. No lymphangitis Psych: Mood ok. Affect normal Neurological: Awake, alert, oriented. No gross abnormality - Constitutional Vitals: Vital Signs Temp Pulse Resp BP Pulse Ox 98.6 F 93 H 17 137/65 100 05/03/21 16:32 05/03/21 23:07 05/03/21 18:11 05/04/21 06:41 05/04/21 06:41 Temperature -Last 24 Hours Temperature 98.6 F Temperature 98.6 F Results - Labs CBC & Chem 7: 05/04/21 04:36 05/04/21 04:36 Labs: Abnormal lab results 05/03/21 05/03/21 05/03/21 Range/Units 15:57 15:57 19:32 [place] % (Auto) (0.0-7.3) % Eos % (Auto) (0.0-4.3) % Eos # (Auto) (0.0-0.4) K/mm3 Seg Neutrophils % 73.6 H (40.0-70.0) % Sodium 133 L (137-145) mmol/L Chloride 97.2 L (98-107) mmol/L BUN 8 L (9-20) mg/dL Creatinine 0.6 L (0.8-1.3) mg/dL Glucose 227 H (75-100) mg/dL POC Glucose (70-105) mg/dL Hemoglobin A1c 10.1 H (4-6) % Total Protein 8.3 H (6.3-8.2) g/dL Albumin 3.2 L (3.9-5) g/dL 05/03/21 05/04/21 05/04/21 Range/Units 20:54 03:17 04:36 [place] % (Auto) 9.1 H (0.0-7.3) % Eos % (Auto) 7.0 H (0.0-4.3) % Eos # (Auto) 0.5 H (0.0-0.4) K/mm3 Seg Neutrophils % (40.0-70.0) % Sodium (137-145) mmol/L Chloride (98-107) mmol/L BUN (9-20) mg/dL Creatinine (0.8-1.3) mg/dL Glucose (75-100) mg/dL POC Glucose 198 H 172 H (70-105) mg/dL Hemoglobin A1c (4-6) % Total Protein (6.3-8.2) g/dL Albumin (3.9-5) g/dL 05/04/21 Range/Units 04:36 [place] % (Auto) (0.0-7.3) % Eos % (Auto) (0.0-4.3) % Eos # (Auto) (0.0-0.4) K/mm3 Seg Neutrophils % (40.0-70.0) % Sodium 135 L (137-145) mmol/L Chloride (98-107) mmol/L BUN 7 L (9-20) mg/dL Creatinine 0.5 L (0.8-1.3) mg/dL Glucose 165 H (75-100) mg/dL POC Glucose (70-105) mg/dL Hemoglobin A1c (4-6) % Total Protein (6.3-8.2) g/dL Albumin (3.9-5) g/dL Assessment and Plan Cultures: Blood culture no growth so far A/P: 65-year-old male past medical history hypertension, peripheral vascular disease admitted with right foot gangrene #Right foot gangrene: Pending revascularization with vascular surgery. Presumable osteomyelitis, recommend MRI to investigate. #PVD: Pending revascularization #Tobacco abuse: Recommend smoking cessation. Recs: -Continue vancomycin dosed per pharmacy. -De-escalate Zosyn to ceftriaxone -Ordered MRI of the right foot to evaluate for osteomyelitis -Recommend general surgery consult for potential amputation Thank you for the consult, we will continue to follow. MD Jing [facility] ([facility] O: [phone] F: [phone]
[2021-05-04] MEDS ORDERED: CLOPIDOGREL 300 MG TAB PO ONE (12:15)
--- NOTE | 2021-05-04 12:31 | Post Operative Note ---
Date of procedure: 05/04/21 Pre-op diagnosis: Critical limb ischemia Post-op diagnosis: same Procedure: 1. Ultrasound-guided access of the left common femoral artery. 2. Angiography of the left lower extremity. 3. Selection of the abdominal aorta with angiography. 4. Selection of the right external iliac artery, common femoral artery, and profundofemoral artery with angiography of the right lower extremity. 5. Ultrasound-guided access of the right dorsalis pedis artery. 6. Body flossing the right popliteal and proximal tibial occlusion. 7. Penumbra thrombectomy of the right popliteal artery and proximal anterior tibial artery with a CAT Rx device 8. Angioplasty of the right proximal anterior tibial artery and popliteal artery with a 3 mm x 220 mm angioplasty balloon, and 4 mm x 150 mm angioplasty balloon 9. Angioplasty of the right popliteal artery with a 5 mm x 220 mm angioplasty balloon 10. Repeat penumbra thrombectomy of the right popliteal artery and proximal anterior tibial artery with a CAT Rx device 11. Angioplasty of the right proximal anterior tibial artery and distal popliteal artery with a 4 mm x 150 mm iNPACT balloon 12. Angioplasty of the right above the knee and below the knee popliteal artery with a 6 mm x 150 mm iNPACT balloon x 2 13. Closure of the left common femoral artery with a 6 [place] ProGlide Anesthesia: local (With conscious sedation) Surgeon: DAVIDE FRAUSTO Estimated blood loss: minimal Condition: stable Disposition: floor
[2021-05-04] MEDS ORDERED: ALUM-MAG HYDROXIDE-SIMETHICONE 200-200-20MG/5ML ORAL LIQD 30 ML ONE (12:37)
--- NOTE | 2021-05-04 12:49 | Event Note ---
Date: 05/04/21 65-year-old male with severe peripheral vascular disease with critical limb ischemia and necrotic right forefoot. Angiogram demonstrated that thrombus (chronic) is involved with the patient's severe peripheral vascular disease. Suspect this is atheroembolic rather than cardioembolic, but patient will need cardiac work-up. Recommend cardiology consult with echocardiogram and possible Holter monitor as an outpatient. Started patient on heparin drip. Will ultimately need to be transition to Eliquis. This will need to be performed for at least 6 to 12 weeks. Await wound care/general surgery evaluation before transitioning to Eliquis.
[2021-05-04] MEDS ORDERED: CEFEPIME/NS 2 GM/100 ML 2 GM/100 ML BAG IV SCH (13:00)
[2021-05-04] MEDS: HEPARIN/ 0.45% NACL DRIP 25,000 UNIT/500 ML BAG IV SCH (13:35)
[2021-05-04 14:23] LABS: Hematocrit 33.7 % (35.5-45.6); Hemoglobin 11.8 gm/dl (11.8-15.2)
[2021-05-04 14:34] LABS: INR 1.05 (0.87-1.13)
[2021-05-04 14:39] LABS: Partial Thromboplastin Time 65.5 Sec. (24.2-36.6)
[2021-05-04] MEDS ORDERED: HEPARIN 10,000 UNITS/10 ML VIAL IV PRN (18:00)
[2021-05-04] MEDS: CILOSTAZOL 100 MG TAB PO SCH (22:53)
[2021-05-04] MEDS: VANCOMYCIN/NS 1 GM/250 ML 1 GM/250 ML BAG IV SCH (22:56)
[2021-05-05] MEDS: INSULIN REGULAR, HUMAN 100 UNITS/1 ML SUB-Q SCH ×4 (02:38→21:24)
--- NOTE | 2021-05-05 10:06 | Progress Note ---
Assessment and Plan Assessment and plan: 65 YO Male with HTN, PVD presents to ED for evaluation. Patient reports "my toes are black". Patient states that he has experienced darkening of his toes over the past 1 month with persistent and worsening symptoms over the same timeframe. Patient states that he has experienced redness and right foot tenderness as well over the past 3 weeks with worsening symptoms over the same timeframe. Patient was seen and evaluated in his primary care physician's office and was instructed to seek further care. Patient transported to [facility] via private vehicle for further care and evaluation of the aforementioned symptoms. The patient was seen and evaluated in the emergency department. All lab and imaging studies reviewed. Patient underwent right lower extremity duplex as well as arterial brachial index measurement and was found to have right lower extremity arterial occlusion complicated by right foot cellulitis, hyponatremia. Patient admitted to medical floor due to increased risk of worsening symptoms. Vascular surgery team consulted in ED. Patient is pending surgical intervention. Patient initiated on IV antibiotic therapy. Patient has fever, chills, chest pain, palpitation, adductive cough, recent ill contacts, known exposure to COVID-19. No prior admission for review. No medication listed at time of admission for reconciliation. Advanced care planning conducted in the ED. 05/04: Patient seen and examined, will Vascular input noted, Wound care consult, ID and General surgery consult- concern for Osteomylitis. Underwent revascularization and placed on heparin drip awaiting for report and also for vascular (1) Arterial occlusion, lower extremity Status: Acute Plan to address problem: Vascular surgery service consulted, patient pending surgical revascularization procedure in a.m., pain control, supportive care. N.p.o., IV fluid resuscitation therapy. (2) Cellulitis of right foot- ? Gas collection underneath Status: Acute Plan to address problem: CBC, IV antibiotic therapy, supportive care. Repeat CBC in a.m. (3) Hyponatremia Status: Acute Plan to address problem: IV fluid resuscitation therapy, BMP, repeat BMP in a.m. (4) Diabetes Status: Acute Plan to address problem: Consistent carbohydrate diet, Accu-Chek, insulin protocol, hypoglycemia protocol, hemoglobin A1c (5) DVT prophylaxis Status: Acute Plan to address problem: SCD to bilateral lower extremities, patient pending surgical intervention as per vascular surgery team. (6) Advance care planning Status: Acute Plan to address problem: Disease education conducted, care plan discussed, diagnosis discussed, prognosis discussed, patient is full code, patient knowledges understanding and agreement with care plan, +30 minutes. The patient is post procedure day #1 status post revascularization of his right lower extremity. There was evidence of thrombus in his right lower extremity so he will require anticoagulation. He will remain on a heparin drip until he undergoes definitive management of his right foot gangrene. After that has been completed he can be converted to Eliquis 5 mg p.o. twice daily and the duration of treatment will be determined by the work-up and because of his thrombus. History Interval history: Patient seen and examine Hospitalist Physical - Physical exam Narrative exam: General appearance: Present: mild distress - EENT Eyes: Present: PERRL ENT: hearing intact, clear oral mucosa - Neck Neck: Present: supple, normal ROM - Respiratory Respiratory effort: normal Respiratory: bilateral: CTA - Cardiovascular Heart Sounds: Present: S1 & S2. Absent: rub, click - Extremities Extremities: pulses symmetrical, No edema Extremity abnormal: erythema, black, pulses diminished Peripheral Pulses: abnormal (Right lower extremity pulses absent) - Abdominal General gastrointestinal: Present: soft, non-tender, non-distended, normal bowel sounds Male genitourinary: Present: normal - Integumentary Integumentary: Present: clear, warm, dry - Musculoskeletal Musculoskeletal: gait normal, strength equal bilaterally - Psychiatric Psychiatric: appropriate mood/affect, intact judgment & insight - Neurologic Neurologic: CNII-XII intact, moves all extremities - Constitutional Vitals: Temp Pulse Resp BP Pulse Ox 97.7 F 99 H 20 144/71 94 05/05/21 04:51 05/05/21 04:51 05/05/21 04:51 05/05/21 04:51 05/05/21 04:51 General appearance: Present: no acute distress Results - Labs CBC & Chem 7: 05/04/21 13:39 05/04/21 04:36 Labs: Laboratory Last Values WBC 7.6 K/mm3 (4.5-11.0) 05/04/21 04:36 RBC 3.87 M/mm3 (3.65-5.03) 05/04/21 04:36 Hgb 11.8 gm/dl (11.8-15.2) 05/04/21 13:39 Hct 33.7 % (35.5-45.6) L 05/04/21 13:39 MCV 92 fl (84-94) 05/04/21 04:36 MCH 31 pg (28-32) 05/04/21 04:36 MCHC 34 % (32-34) 05/04/21 04:36 RDW 13.9 % (13.2-15.2) 05/04/21 04:36 Plt Count 225 K/mm3 (140-440) 05/04/21 13:39 Lymph % (Auto) 25.6 % (13.4-35.0) 05/04/21 04:36 [place] % (Auto) 9.1 % (0.0-7.3) H 05/04/21 04:36 Eos % (Auto) 7.0 % (0.0-4.3) H 05/04/21 04:36 Baso % (Auto) 0.6 % (0.0-1.8) 05/04/21 04:36 Lymph # (Auto) 1.9 K/mm3 (1.2-5.4) 05/04/21 04:36 [place] # (Auto) 0.7 K/mm3 (0.0-0.8) 05/04/21 04:36 Eos # (Auto) 0.5 K/mm3 (0.0-0.4) H 05/04/21 04:36 Baso # (Auto) 0.0 K/mm3 (0.0-0.1) 05/04/21 04:36 Seg Neutrophils % 57.7 % (40.0-70.0) 05/04/21 04:36 Seg Neutrophils # 4.4 K/mm3 (1.8-7.7) 05/04/21 04:36 ESR TNR 05/03/21 15:57 PT 14.2 Sec. (12.2-14.9) 05/04/21 13:39 INR 1.05 (0.87-1.13) 05/04/21 13:39 APTT 65.5 Sec. (24.2-36.6) H* 05/04/21 13:39 Heparin Anti-Xa Level 0.21 U.I./ml (0.3-0.7) L 05/04/21 19:54 Sodium 135 mmol/L (137-145) L 05/04/21 04:36 Potassium 3.7 mmol/L (3.6-5.0) 05/04/21 04:36 Chloride 99.5 mmol/L (98-107) 05/04/21 04:36 Carbon Dioxide 24 mmol/L (22-30) 05/04/21 04:36 Anion Gap 15 mmol/L 05/04/21 04:36 BUN 7 mg/dL (9-20) L 05/04/21 04:36 Creatinine 0.5 mg/dL (0.8-1.3) L 05/04/21 04:36 Estimated GFR > 60 ml/min 05/04/21 04:36 BUN/Creatinine Ratio 14 % 05/04/21 04:36 Glucose 165 mg/dL (75-100) H 05/04/21 04:36 POC Glucose 82 mg/dL (70-105) 05/05/21 02:08 Hemoglobin A1c 10.1 % (4-6) H 05/03/21 19:32 Lactic Acid 1.70 mmol/L (0.7-2.0) 05/03/21 15:57 Calcium 8.7 mg/dL (8.4-10.2) 05/04/21 04:36 Total Bilirubin 0.40 mg/dL (0.1-1.2) 05/03/21 15:57 AST 23 units/L (5-40) 05/03/21 15:57 ALT 30 units/L (7-56) 05/03/21 15:57 Alkaline Phosphatase 99 units/L (35-129) 05/03/21 15:57 Total Protein 8.3 g/dL (6.3-8.2) H 05/03/21 15:57 Albumin 3.2 g/dL (3.9-5) L 05/03/21 15:57 Albumin/Globulin Ratio 0.6 % 05/03/21 15:57 Microbiology: Microbiology 05/03/21 15:57 Peripheral/Venous Blood Culture - Preliminary NO GROWTH AFTER 24 HOURS 05/03/21 16:05 Peripheral/Venous Blood Culture - Preliminary NO GROWTH AFTER 24 HOURS Active Medications - Current Medications Current Medications: Generic Name Dose Route Start Last Admin Trade Name Freq PRN Reason Stop Dose Admin Acetaminophen 650 mg 05/03/21 19:25 Acetaminophen 325 Mg Tab PO Q4H PRN Pain MILD(1-3)/Fever >100.5/PACHECO Acetaminophen 650 mg 05/03/21 19:44 Acetaminophen 325 Mg Tab PO Q6H PRN Pain, Mild (1-3) Albuterol 2.5 mg 05/03/21 19:25 Albuterol 2.5 Mg/3 Ml Nebu IH Q4HRT PRN Shortness Of Breath Cilostazol 100 mg 05/04/21 22:00 05/04/21 22:53 Cilostazol 100 Mg Tab PO 100 mg BID LYNDSAY Administration Clopidogrel Bisulfate 75 mg 05/05/21 10:00 Clopidogrel 75 Mg Tab PO QDAY LYNDSAY Dextrose 50 ml 05/03/21 19:27 Dextrose 50% In Water (25gm) 50 Ml Syringe IV Q30MIN PRN Hypoglycemia Protocol Heparin Sodium (Porcine) 2,800 unit 05/04/21 18:00 Heparin 10,000 Units/10 Ml Vial 40 unit/kg (2800 unit) IV Q6H PRN Anti-Xa Assay<0.1 units/ml Hydromorphone HCl 0.5 mg 05/03/21 19:25 Hydromorphone 1 Mg/1 Ml Inj IV Q12H PRN Pain , Severe (7-10) Hydromorphone HCl 0.25 mg 05/03/21 19:44 05/04/21 07:25 Hydromorphone 1 Mg/1 Ml Inj IV 0.25 mg Q4H PRN Administration Pain, Moderate (4-6) Sodium Chloride 1,000 mls @ 100 mls/hr 05/03/21 19:30 05/04/21 22:54 Nacl 0.9% 1000 Ml IV 100 mls/hr DIRECT LYNDSAY Administration Vancomycin HCl 1 gm in 250 mls @ 166.667 mls/hr 05/04/21 10:00 05/04/21 22:56 Vancomycin/Ns 1 Gm/250 Ml IV 166.667 mls/hr Q12H LYNDSAY Administration Heparin Sodium/Sodium Chloride 25,000 unit in 500 mls @ 20 mls/hr 05/04/21 13:00 05/04/21 21:10 Heparin/ 0.45% Nacl-25,000 Unit/500 Ml IV 1,050 units/hr TITR LYNDSAY 21 mls/hr Titration Protocol 1,000 UNITS/HR Ceftriaxone Sodium 2 gm in 100 mls @ 200 mls/hr 05/04/21 18:00 Rocephin/Ns 2 Gm/100 Ml IV Q24H [facility] Insulin Human Regular 0 units 05/03/21 20:00 05/05/21 02:38 Insulin Regular, Human 100 Units/1 Ml SUB-Q Not Given Q6H [facility] Protocol Ondansetron HCl 4 mg 05/03/21 19:25 Ondansetron 4 Mg/2 Ml Inj IV Q8H PRN Nausea And Vomiting Oxycodone/Acetaminophen 1 tab 05/03/21 19:25 Oxycodone /Acetaminophen 5-325mg Tab PO Q6H PRN Pain, Moderate (4-6) Pantoprazole Sodium 40 mg 05/04/21 16:30 Pantoprazole 40 Mg Tab PO BIDAC LYNDSAY Sodium Chloride 10 ml 05/03/21 22:00 05/04/21 22:57 Sodium Chloride 0.9% 10 Ml Flush Syringe IV 10 ml BID LYNDSAY Administration Sodium Chloride 10 ml 05/03/21 19:25 Sodium Chloride 0.9% 10 Ml Flush Syringe IV PRN PRN LINE FLUSH
[2021-05-05] MEDS: SODIUM CHLORIDE 0.9% 1000 ML 1,000 ML IV SCH (10:30)
[2021-05-05] MEDS: CLOPIDOGREL 75 MG TAB PO SCH (10:30)
[2021-05-05] MEDS: PANTOPRAZOLE 40 MG TAB PO SCH ×3 (10:31→21:22)
--- NOTE | 2021-05-05 11:02 | Consultation ---
History of Present Illness Consult date: 05/05/21 Chief complaint: Gangrenous right great and 2nd toes - History of present illness History of present illness: 65 yo male with HTN, PVOD and gangrenous right great and 2nd toes. Vascular surgery has seen pt. Past History Past Medical History: hypertension, other (See HPI) Past Surgical History: No surgical history, Other (Reviewed) Social history: , lives with family. denies: smoking, alcohol abuse, prescription drug abuse Family history: diabetes, hypertension Medications and Allergies Allergies Allergy/AdvReac Type Severity Reaction Status Date / Time No Known Allergies Allergy Verified 05/03/21 19:54 Active Meds: Active Medications Acetaminophen (Acetaminophen 325 Mg Tab) 650 mg PO Q4H PRN PRN Reason: Pain MILD(1-3)/Fever >100.5/PACHECO Acetaminophen (Acetaminophen 325 Mg Tab) 650 mg PO Q6H PRN PRN Reason: Pain, Mild (1-3) Albuterol (Albuterol 2.5 Mg/3 Ml Nebu) 2.5 mg IH Q4HRT PRN PRN Reason: Shortness Of Breath Cilostazol (Cilostazol 100 Mg Tab) 100 mg PO BID [facility] Last Admin: 05/04/21 22:53 Dose: 100 mg Documented by: Clopidogrel Bisulfate (Clopidogrel 75 Mg Tab) 75 mg PO QDAY [facility] Last Admin: 05/05/21 10:30 Dose: 75 mg Documented by: Dextrose (Dextrose 50% In Water (25gm) 50 Ml Syringe) 50 ml IV Q30MIN PRN; Protocol PRN Reason: Hypoglycemia Heparin Sodium (Porcine) (Heparin 10,000 Units/10 Ml Vial) 2,800 unit 40 unit/kg (2800 unit) IV Q6H PRN PRN Reason: Anti-Xa Assay<0.1 units/ml Hydromorphone HCl (Hydromorphone 1 Mg/1 Ml Inj) 0.5 mg IV Q12H PRN PRN Reason: Pain , Severe (7-10) Hydromorphone HCl (Hydromorphone 1 Mg/1 Ml Inj) 0.25 mg IV Q4H PRN PRN Reason: Pain, Moderate (4-6) Last Admin: 05/04/21 07:25 Dose: 0.25 mg Documented by: Sodium Chloride (Nacl 0.9% 1000 Ml) 1,000 mls @ 100 mls/hr IV DIRECT [facility] Last Admin: 05/05/21 10:30 Dose: 100 mls/hr Documented by: Vancomycin HCl (Vancomycin/Ns 1 Gm/250 Ml) 1 gm in 250 mls @ 166.667 mls/hr IV Q12H [facility] Last Admin: 05/04/21 22:56 Dose: 166.667 mls/hr Documented by: Heparin Sodium/Sodium Chloride (Heparin/ 0.45% Nacl-25,000 Unit/500 Ml) 25,000 unit in 500 mls @ 20 mls/hr IV TITR [facility]; Protocol Last Titration: 05/04/21 21:10 Dose: 1,050 units/hr, 21 mls/hr Documented by: Ceftriaxone Sodium (Rocephin/Ns 2 Gm/100 Ml) 2 gm in 100 mls @ 200 mls/hr IV Q24H LYNDSAY Insulin Human Regular (Insulin Regular, Human 100 Units/1 Ml) 0 units SUB-Q Q6H [facility]; Protocol Last Admin: 05/05/21 02:38 Dose: Not Given Documented by: Ondansetron HCl (Ondansetron 4 Mg/2 Ml Inj) 4 mg IV Q8H PRN PRN Reason: Nausea And Vomiting Oxycodone/Acetaminophen (Oxycodone /Acetaminophen 5-325mg Tab) 1 tab PO Q6H PRN PRN Reason: Pain, Moderate (4-6) Pantoprazole Sodium (Pantoprazole 40 Mg Tab) 40 mg PO BIDAC [facility] Last Admin: 05/05/21 10:31 Dose: 40 mg Documented by: Sodium Chloride (Sodium Chloride 0.9% 10 Ml Flush Syringe) 10 ml IV BID [facility] Last Admin: 05/04/21 22:57 Dose: 10 ml Documented by: Sodium Chloride (Sodium Chloride 0.9% 10 Ml Flush Syringe) 10 ml IV PRN PRN PRN Reason: LINE FLUSH Review of Systems All systems: negative (none) Exam Vital Signs Temp Pulse Resp BP Pulse Ox 98.6 F 96 H 16 139/70 100 05/03/21 16:25 05/03/21 16:25 05/03/21 16:25 05/03/21 16:25 05/03/21 16:25 - General physical appearance Positive: well developed, well nourished, no distress - Eyes Positive: PERRL, normal occular movement - ENT Positive: normal pinna, normal nares, normal mucosa, no hearing loss, no congestion - Neck Positive: no masses, no bruits, trachea midline, no venous distension - Respiratory Positive: normal expansion, normal respiratory effort, clear to auscultation - Cardiovascular Rhythm: regular Heart Sounds: Present: S1 & S2. Absent: rub, click - Extremities Extremities: no ischemia, pulses symmetrical, No edema - Breasts Breasts: normal, no mass, no skin changes - Abdomen Abdomen: Present: soft, bowel sounds normal. Absent: tender, distended Hernia: none - Genitourinary Male Genitourinary: normal Female Genitourinary: normal - Integumentary no rash, no growths, no abnormal pigmentation, other (There is dry gangrene involving the entire right great toe and distal phalanx of the right 2nd toe.) - Neurologic Neurologic: alert and oriented to time, place and person, motor strength and sensation are grossly intact - Musculoskeletal normal gait, normal posture - Psychiatric Psychiatric: appropriate mood/affect, intact judgment & insight Results - Labs 05/04/21 13:39 05/04/21 04:36 Abnormal lab results 05/04/21 05/04/21 05/04/21 Range/Units 13:39 13:39 19:54 Hct 33.7 L (35.5-45.6) % APTT 65.5 H* (24.2-36.6) Sec. Heparin Anti-Xa Level 0.21 L (0.3-0.7) U.I./ml POC Glucose (70-105) mg/dL 05/04/21 Range/Units 21:10 Hct (35.5-45.6) % APTT (24.2-36.6) Sec. Heparin Anti-Xa Level (0.3-0.7) U.I./ml POC Glucose 314 H (70-105) mg/dL - Imaging Additional studies: X-ray of the right foot was reviewed. 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 3) NPO after MN 4) Hold IV Heparin 4 hours before procedure. 5) I have read all of Dr. Soto's notes, gerardo re the need for outpt cardiology eval to include an echo.
--- NOTE | 2021-05-05 13:52 | Magnetic Resonance Report ---
MRI RIGHT FOOT WITHOUT CONTRAST INDICATION / CLINICAL INFORMATION: eval for osteomyelitis. TECHNIQUE: Multiplanar, multisequence MR images were obtained. COMPARISON: Radiographs dated 05/03/2021. FINDINGS: BONES: No significant bone marrow edema. No fracture. No osseous lesion. Specifically, no MR evidence of osteomyelitis. JOINTS: No significant arthritis. No significant joint effusion or synovitis. MUSCLES: No significant abnormality. FLEXOR TENDONS: Mild edema in the flexor muscles of foot is nonspecific. EXTENSOR TENDONS: No significant abnormality. PERONEAL TENDONS: No significant abnormality. LIGAMENTS: No significant abnormality. SOFT TISSUES: There is soft tissue irregularity of the great toe but no definite ulcer or fluid colle ction seen. ADDITIONAL FINDINGS: None. IMPRESSION: 1. No MR evidence of osteomyelitis. Report dictated by: Blake Kraus MD Report dictated on: 05/05/2021 12:05 PM I have reviewed the images, agree with this report, and edited this report as needed. Signer Name: Hardy Doshi MD Signed: 05/05/2021 1:47 PM Workstation Name: [employer]
--- NOTE | 2021-05-05 14:42 | Anesthesia Consultation ---
Anesthesia Consult and Med Hx Date of service: 05/06/21 - Airway Anesthetic Teeth Evaluation: Edentulous ROM Head & Neck: Adequate Mental/Hyoid Distance: Adequate Mallampati Class: Class II Intubation Access Assessment: Probably Good - Pulmonary Exam CTA: Yes - Cardiac Exam Cardiac Exam: RRR - Pre-Operative Health Status ASA Pre-Surgery Classification: ASA3 Proposed Anesthetic Plan: General - Pulmonary Hx Smoking: No Hx Asthma: No Hx Sleep Apnea: No - Cardiovascular System Hx Hypertension: Yes Hx Peripheral Vascular Disease: Yes - Central Nervous System Hx Neuromuscular Disorder: No - Gastrointestinal Hx Gastroesophageal Reflux Disease: No - Endocrine Hx Renal Disease: No Hx Non-Insulin Dependent Diabetes: Yes (Recently diagnosed) Hx Thyroid Disease: No - Other Systems Hx Alcohol Use: No Hx Substance Use: No Hx Cancer: No Hx Obesity: No - Additional Comments Anesthesia Medical History Comments: No hx of anesthetic complications.
--- NOTE | 2021-05-05 14:43 | Operative Report ---
Operative Report Operative Report: EXAM: 1. Ultrasound-guided access of the left common femoral artery. 2. Angiography of the left lower extremity. 3. Selection of the abdominal aorta with angiography. 4. Selection of the right external iliac artery, common femoral artery, and profundofemoral artery with angiography of the right lower extremity. 5. Ultrasound-guided access of the right dorsalis pedis artery. 6. Body flossing the right popliteal and proximal tibial occlusion. 7. Penumbra thrombectomy of the right popliteal artery and proximal anterior tibial artery with a CAT Rx device 8. Angioplasty of the right proximal anterior tibial artery and popliteal artery with a 3 mm x 220 mm angioplasty balloon, and 4 mm x 150 mm angioplasty balloon 9. Angioplasty of the right popliteal artery with a 5 mm x 220 mm angioplasty balloon 10. Repeat penumbra thrombectomy of the right popliteal artery and proximal anterior tibial artery with a CAT Rx device 11. Angioplasty of the right proximal anterior tibial artery and distal popliteal artery with a 4 mm x 150 mm iNPACT balloon 12. Angioplasty of the right above the knee and below the knee popliteal artery with a 6 mm x 150 mm iNPACT balloon x 2 13. 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 DEVICES: 3 mm x 220 mm angioplasty balloon 4 mm x 150 mm angioplasty balloon 5 mm x 220 mm angioplasty balloon 4 mm 150 mm iNPACT balloon 6 mm x 150 mm iNPACT balloon (x2) Indigo CAT Rx device PROCEDURE: The risks, benefits, and alternatives of the procedure were discussed and written informed consent was obtained. The patient was transported in stable condition to the angiography suite. The groins were prepped and draped in a sterile fashion. Ultrasound was used to evaluate the left common femoral artery which was patent. Under direct ultrasound guidance, the left common femoral artery was accessed with a 21-gauge micropuncture needle. 0.018 inch wire was passed into the aorta. Needle was exchanged for transitional dilator. Wire was exchanged for a 0.035 inch wire. Digital subtraction angiography was performed demonstrating an appropriate puncture, above the bifurcation below the inferior epigastric artery. Digital subtraction angiography demonstrated patency of the left external iliac artery, common femoral artery, proximal superficial femoral artery, and profunda femoral artery. Wire and catheter used to select the abdominal aorta, the right external iliac artery, and the right superficial femoral artery. The infrarenal abdominal aorta is patent. The bilateral common iliac arteries, external iliac arteries, and internal iliac arteries are patent. The right common femoral artery is patent. The right profunda femoral artery is patent. The right proximal superficial femoral artery is patent. The right mid superficial femoral artery is patent. The right distal superficial femoral artery has a 30 to 40% stenosis. The above the knee popliteal artery is occluded. There is reconstitution at the mid popliteal artery which has intermittent high-grade stenosis. The distal popliteal artery is occluded which looks an embolic/thrombotic occlusion. This occlusion extends into the proximal anterior tibial artery and proximal tibioperoneal trunk. The posterior tibial artery is atretic throughout the rest of its course. The peroneal artery is patent, but supplies no significant collateral supply to the foot. The anterior tibial artery is the dominant flow to the foot. The mid to distal anterior tibial artery demonstrates tandem 40% stenoses. Rest of the anterior tibial artery is patent. After the diagnostic imaging was reviewed, I determined the patient required an intervention for limb salvage given his large area of gangrene. The patient was heparinized. Sheath was exchanged for a 7 Estonian sheath positioned in the right superficial femoral artery. Wire and catheter were used to attempt to cross the lesion in an up and over fashion with the use of multiple wires and catheters, but this was ultimately unsuccessful. At that point, I prepped the foot and used ultrasound to evaluate the right dorsalis pedis artery. The right dorsalis pedis artery was patent. Under direct ultrasound guidance, the right dorsalis pedis artery was accessed with a 21-gauge micropuncture needle. 0.018 inch wire was passed into the anterior tibial artery. Needle was exchanged for a inner portion of a transitional dilator. Radial cocktail was then administered. Digital subtraction angiography was performed demonstrating the anterior tibial artery and the occlusive lesion in the proximal anterior tibial artery. With the use of a Gladius wire and a 018 trailblazer, I crossed the anterior ti bial artery occlusion, and the popliteal artery occlusion. The wire was then snared with a 10 mm 4 Estonian snare and subsequently the wire was externalized. CAT Rx device was then advanced over the wire and used to perform thrombectomy of the popliteal artery and proximal anterior tibial artery. Special attention was made to the below the knee popliteal artery. 3 mm x 220 mm angioplasty balloon was then used to predilate the channel with angioplasty performed of the proximal anterior tibial artery and the entire popliteal artery. Next a 4 mm x 150 mm angioplasty balloon was used to perform angioplasty of the popliteal artery. Digital subtraction angiography was performed demonstrating flow through the popliteal artery and proximal anterior tibial artery but residual stenosis due to undersizing. This is likely due to underfilling from lack of inline flow. There appeared to be some residual thrombus in the below the knee popliteal artery and proximal anterior tibial artery. CAT Rx device was then advanced over the wire and used to perform additional thrombectomy of the below the knee popliteal artery and proximal anterior tibial artery. I then decided to use a 4 mm x 150 mm iNPACT balloon in the proximal anterior tibial artery and afterwards a 6 mm x 150 mm iNPACT balloon in the popliteal artery and the distal superficial femoral artery. Final angiogram demonstrates approximately 20 to 30% residual stenosis of the above-knee popliteal artery and 20 to 30% residual stenosis of the below-knee popliteal artery. The anterior tibial artery is proximally patent. The rest of the anterior tibial artery is unchanged with no evidence of distal embolization. There is slight spasm at the dorsalis pedis access site which improved after nitroglycerin infusion. At this point, all wires, catheters, and sheaths were removed. The left femoral site was closed with a ProGlide device which obtained near immediate hemostasis. The right dorsalis pedis access site was closed by removing the micro sheath and holding pressure until hemostasis was achieved. Patient tolerated the procedure well. No immediate postprocedural complications. The right dorsalis pedis artery was palpable at the conclusion of the procedure. IMPRESSION: 1. Successful primary thrombectomy of the right popliteal artery and successful thrombectomy of the right proximal anterior tibial artery. 2. Successful angioplasty of the right popliteal artery and right proximal anterior tibial artery.
[2021-05-05] MEDS: VANCOMYCIN/NS 1 GM/250 ML 1 GM/250 ML BAG IV SCH ×4 (15:17→22:00)
--- NOTE | 2021-05-05 16:17 | Progress Note ---
Assessment and Plan Cultures: Blood culture no growth so far A/P: 65-year-old male past medical history hypertension, peripheral vascular disease admitted with right foot gangrene #Right foot gangrene: Pending revascularization with vascular surgery. Presu shahbaz osteomyelitis, recommend MRI to investigate. #PVD: Pending revascularization #Tobacco abuse: Recommend smoking cessation. Recs: -Continue vancomycin dosed per pharmacy. -ceftriaxone -Pending amputation of first and second toe. -No evidence of osteomyelitis, does not need antibiotics past amputation. Thank you for the consult, we will continue to follow. Chriss Parmar MD [facility], [place], [facility] ([facility]) O: [phone] F: [phone] Subjective Date of service: 05/05/21 Interval history: Afebrile, normal white count. Imaging personally reviewed: Right foot MRI with no osteomyelitis. Objective - Exam Narrative Exam: Physical Exam: Constitutional: Alert, cooperative. No acute distress Head, Ears, Nose: Normocephalic, atraumatic. External ears, nose normal Eyes: Conjunctivae/corneas clear. No icterus. No ptosis. Neck: Supple, no meningeal signs Oral: dentition fair, no thrush Cardiovascular: S1, S2 normal. Respiratory: Good air entry, clear to auscultation bilaterally GI: Soft, non-tender; bowel sounds normal. No peritoneal signs. Musculoskeletal: Right foot with multiple black toes, wounds. Skin: No rash or abscess Hem/Lymphatic: No palpable cervical or supraclavicular nodes. No lymphangitis Psych: Mood ok. Affect normal Neurological: Awake, alert, oriented. No gross abnormality - Constitutional Vitals: Vital Signs Temp Pulse Resp BP Pulse Ox 98.7 F 106 H 20 138/76 100 05/05/21 15:13 05/05/21 15:13 05/05/21 15:13 05/05/21 15:13 05/05/21 15:13 Temperature -Last 24 Hours Temperature 98.7 F Temperature 97.7 F Temperature 99.1 F - Labs CBC & Chem 7: 05/04/21 13:39 05/04/21 04:36 Labs: Abnormal lab results 05/04/21 05/04/21 05/05/21 Range/Units 19:54 21:10 13:08 Heparin Anti-Xa Level 0.21 L < 0.10 L (0.3-0.7) U.I./ml POC Glucose 314 H (70-105) mg/dL 05/05/21 Range/Units 15:12 Heparin Anti-Xa Level (0.3-0.7) U.I./ml POC Glucose 316 H (70-105) mg/dL
--- NOTE | 2021-05-05 16:43 | Progress Note ---
Assessment and Plan The patient is post procedure day #1 status post revascularization of his right lower extremity. There was evidence of thrombus in his right lower extremity so he will require anticoagulation. He will remain on a heparin drip until he un dergoes definitive management of his right foot gangrene. After that has been completed he can be converted to Eliquis 5 mg p.o. twice daily and the duration of treatment will be determined by the work-up and because of his thrombus. Subjective Date of service: 05/05/21 Interval history: The patient has no current complaints. He states his right foot feels good and he denies any pain. Objective - Constitutional Vitals: Vital Signs - 12hr 05/05/21 05/05/21 05/05/21 04:51 13:00 15:13 Temperature 97.7 F 98.7 F Pulse Rate 99 H 106 H Respiratory 20 20 Rate Blood Pressure 144/71 138/76 O2 Sat by Pulse 94 94 100 Oximetry General appearance: Present: no acute distress Extremities: pulses intact (Palpable right dorsalis pedis pulse) Extremity abnormal: other (Left femoral access site is soft and without evidence of hematoma or pseudoaneurysm) - Labs CBC & Chem 7: 05/04/21 13:39 05/04/21 04:36 Labs: Abnormal lab results 05/04/21 05/04/21 05/05/21 Range/Units 19:54 21:10 13:08 Heparin Anti-Xa Level 0.21 L < 0.10 L (0.3-0.7) U.I./ml POC Glucose 314 H (70-105) mg/dL 05/05/21 Range/Units 15:12 Heparin Anti-Xa Level (0.3-0.7) U.I./ml POC Glucose 316 H (70-105) mg/dL Medications & Allergies - Medications Allergies/Adverse Reactions: Allergies No Known Allergies Allergy (Verified 05/03/21 19:54) Active Medications: Generic Name Dose Route Start Last Admin Trade Name Freq PRN Reason Stop Dose Admin Acetaminophen 650 mg 05/03/21 19:25 Acetaminophen 325 Mg Tab PO Q4H PRN Pain MILD(1-3)/Fever >100.5/PACHECO Acetaminophen 650 mg 05/03/21 19:44 Acetaminophen 325 Mg Tab PO Q6H PRN Pain, Mild (1-3) Albuterol 2.5 mg 05/03/21 19:25 Albuterol 2.5 Mg/3 Ml Nebu IH Q4HRT PRN Shortness Of Breath Cilostazol 100 mg 05/04/21 22:00 05/04/21 22:53 Cilostazol 100 Mg Tab PO 100 mg BID LYNDSAY Administration Clopidogrel Bisulfate 75 mg 05/05/21 10:00 05/05/21 10:30 Clopidogrel 75 Mg Tab PO 75 mg QDAY LYNDSAY Administration Dextrose 50 ml 05/03/21 19:27 Dextrose 50% In Water (25gm) 50 Ml Syringe IV Q30MIN PRN Hypoglycemia Protocol Heparin Sodium (Porcine) 2,800 unit 05/04/21 18:00 Heparin 10,000 Units/10 Ml Vial 40 unit/kg (2800 unit) IV Q6H PRN Anti-Xa Assay<0.1 units/ml Hydromorphone HCl 0.5 mg 05/03/21 19:25 Hydromorphone 1 Mg/1 Ml Inj IV Q12H PRN Pain , Severe (7-10) Hydromorphone HCl 0.25 mg 05/03/21 19:44 05/04/21 07:25 Hydromorphone 1 Mg/1 Ml Inj IV 0.25 mg Q4H PRN Administration Pain, Moderate (4-6) Sodium Chloride 1,000 mls @ 100 mls/hr 05/03/21 19:30 05/05/21 10:30 Nacl 0.9% 1000 Ml IV 100 mls/hr DIRECT LYNDSAY Administration Vancomycin HCl 1 gm in 250 mls @ 166.667 mls/hr 05/04/21 10:00 05/05/21 15:19 Vancomycin/Ns 1 Gm/250 Ml IV 166.667 mls/hr Q12H LYNDSAY Administration Heparin Sodium/Sodium Chloride 25,000 unit in 500 mls @ 20 mls/hr 05/04/21 13:00 05/05/21 15:43 Heparin/ 0.45% Nacl-25,000 Unit/500 Ml IV Infused TITR LYNDSAY Titration Protocol 1,000 UNITS/HR Ceftriaxone Sodium 2 gm in 100 mls @ 200 mls/hr 05/04/21 18:00 Rocephin/Ns 2 Gm/100 Ml IV Q24H LYNDSAY Insulin Human Regular 0 units 05/03/21 20:00 05/05/21 15:31 Insulin Regular, Human 100 Units/1 Ml SUB-Q 6 units Q6H LYNDSAY Administration Protocol Ondansetron HCl 4 mg 05/03/21 19:25 Ondansetron 4 Mg/2 Ml Inj IV Q8H PRN Nausea And Vomiting Oxycodone/Acetaminophen 1 tab 05/03/21 19:25 Oxycodone /Acetaminophen 5-325mg Tab PO Q6H PRN Pain, Moderate (4-6) Pantoprazole Sodium 40 mg 05/04/21 16:30 05/05/21 15:34 Pantoprazole 40 Mg Tab PO 40 mg BIDAC LYNDSAY Administration Sodium Chloride 10 ml 05/03/21 22:00 05/05/21 15:19 Sodium Chloride 0.9% 10 Ml Flush Syringe IV Not Given BID LYNDSAY Sodium Chloride 10 ml 05/03/21 19:25 Sodium Chloride 0.9% 10 Ml Flush Syringe IV PRN PRN LINE FLUSH
[2021-05-05] MEDS: HEPARIN/ 0.45% NACL DRIP 25,000 UNIT/500 ML BAG IV SCH (19:27)
[2021-05-05] MEDS: cefTRIAXone/NS 2 GM/100 ML 2 GM/100 ML BAG IV SCH ×2 (20:10→21:59)
[2021-05-05] MEDS: CILOSTAZOL 100 MG TAB PO SCH ×2 (21:24→22:23)
[2021-05-05] MEDS: oxyCODONE /ACETAMINOPHEN 5-325MG TAB PO PRN (22:00)
[2021-05-06] MEDS: INSULIN REGULAR, HUMAN 100 UNITS/1 ML SUB-Q SCH ×5 (00:03→22:13)
[2021-05-06] MEDS: VANCOMYCIN/NS 1 GM/250 ML 1 GM/250 ML BAG IV SCH ×3 (00:06→18:00)
[2021-05-06] MEDS: PANTOPRAZOLE 40 MG TAB PO SCH ×2 (07:52→16:55)
[2021-05-06 08:41] LABS: Hematocrit 31.7 % (35.5-45.6); Hemoglobin 10.7 gm/dl (11.8-15.2)
[2021-05-06 08:57] LABS: Blood Urea Nitrogen 5 mg/dL (9-20); Calcium 8.4 mg/dL (8.4-10.2); Hemolysis Index 1
[2021-05-06 09:06] LABS: BUN/Creatinine Ratio 10
[2021-05-06] MEDS: CLOPIDOGREL 75 MG TAB PO SCH ×2 (10:30→10:42)
[2021-05-06] MEDS: CILOSTAZOL 100 MG TAB PO SCH ×2 (10:30→22:12)
--- NOTE | 2021-05-06 12:34 | Progress Note ---
Assessment and Plan Patient doing well status post revascularization. Noted that he has planned amputation today with Dr. Monterroso. The patient to follow-up in our office after discharge. Subjective Date of service: 05/06/21 Principal diagnosis: PVD with gangrene Interval history: Patient resting comfortably in bed. Postop day 2 status post revascularization for gangrene of his first and second toes. Palpable dorsalis pedis pulse. Patient has no complaints at this time. Objective - Constitutional Vitals: Vital Signs - 12hr 05/06/21 05/06/21 05/06/21 01:00 04:42 12:23 Temperature 98.8 F 99.0 F Pulse Rate 101 H 98 H Respiratory 18 18 Rate Blood Pressure 147/79 138/70 O2 Sat by Pulse 94 98 100 Oximetry General appearance: Present: no acute distress - EENT Eyes: EOM intact ENT: hearing intact - Neck Neck: supple - Respiratory Respiratory effort: normal Extremities: abnormal - Gastrointestinal General gastrointestinal: Present: deferred Rectal Exam: deferred - Genitourinary Male genitourinary: deferred - Psychiatric Psychiatric: appropriate mood/affect, cooperative - Labs CBC & Chem 7: 05/06/21 08:20 05/06/21 08:20 Labs: Abnormal lab results 05/05/21 05/05/21 05/05/21 Range/Units 13:08 15:12 17:46 Hgb (11.8-15.2) gm/dl Hct (35.5-45.6) % Heparin Anti-Xa Level < 0.10 L (0.3-0.7) U.I./ml Sodium (137-145) mmol/L BUN (9-20) mg/dL Creatinine (0.8-1.3) mg/dL Glucose (75-100) mg/dL POC Glucose 316 H 172 H (70-105) mg/dL Vancomycin Trough (5.0-20.0) ug/mL 05/05/21 05/05/21 05/06/21 Range/Units 23:05 23:30 05:25 Hgb (11.8-15.2) gm/dl Hct (35.5-45.6) % Heparin Anti-Xa Level 0.16 L (0.3-0.7) U.I./ml Sodium (137-145) mmol/L BUN (9-20) mg/dL Creatinine (0.8-1.3) mg/dL Glucose (75-100) mg/dL POC Glucose 295 H 139 H (70-105) mg/dL Vancomycin Trough (5.0-20.0) ug/mL 05/06/21 05/06/21 05/06/21 Range/Units 08:20 08:20 08:20 Hgb 10.7 L (11.8-15.2) gm/dl Hct 31.7 L (35.5-45.6) % Heparin Anti-Xa Level (0.3-0.7) U.I./ml Sodium 136 L (137-145) mmol/L BUN 5 L (9-20) mg/dL Creatinine 0.5 L (0.8-1.3) mg/dL Glucose 171 H (75-100) mg/dL POC Glucose (70-105) mg/dL Vancomycin Trough 21.6 H (5.0-20.0) ug/mL 05/06/21 05/06/21 Range/Units 08:20 12:21 Hgb (11.8-15.2) gm/dl Hct (35.5-45.6) % Heparin Anti-Xa Level < 0.10 L (0.3-0.7) U.I./ml Sodium (137-145) mmol/L BUN (9-20) mg/dL Creatinine (0.8-1.3) mg/dL Glucose (75-100) mg/dL POC Glucose 191 H (70-105) mg/dL Vancomycin Trough (5.0-20.0) ug/mL Medications & Allergies - Medications Allergies/Adverse Reactions: Allergies No Known Allergies Allergy (Verified 05/03/21 19:54) Active Medications: Generic Name Dose Route Start Last Admin Trade Name Freq PRN Reason Stop Dose Admin Acetaminophen 650 mg 05/03/21 19:25 Acetaminophen 325 Mg Tab PO Q4H PRN Pain MILD(1-3)/Fever >100.5/PACHECO Acetaminophen 650 mg 05/03/21 19:44 Acetaminophen 325 Mg Tab PO Q6H PRN Pain, Mild (1-3) Albuterol 2.5 mg 05/03/21 19:25 Albuterol 2.5 Mg/3 Ml Nebu IH Q4HRT PRN Shortness Of Breath Cilostazol 100 mg 05/04/21 22:00 05/06/21 10:30 Cilostazol 100 Mg Tab PO 100 mg BID LYNDSAY Administration Clopidogrel Bisulfate 75 mg 05/05/21 10:00 05/06/21 10:42 Clopidogrel 75 Mg Tab PO Not Given QDAY LYNDSAY Dextrose 50 ml 05/03/21 19:27 Dextrose 50% In Water (25gm) 50 Ml Syringe IV Q30MIN PRN Hypoglycemia Protocol Heparin Sodium (Porcine) 2,800 unit 05/04/21 18:00 Heparin 10,000 Units/10 Ml Vial 40 unit/kg (2800 unit) IV Q6H PRN Anti-Xa Assay<0.1 units/ml Hydromorphone HCl 0.5 mg 05/03/21 19:25 Hydromorphone 1 Mg/1 Ml Inj IV Q12H PRN Pain , Severe (7-10) Hydromorphone HCl 0.25 mg 05/03/21 19:44 05/04/21 07:25 Hydromorphone 1 Mg/1 Ml Inj IV 0.25 mg Q4H PRN Administration Pain, Moderate (4-6) Sodium Chloride 1,000 mls @ 100 mls/hr 05/03/21 19:30 05/05/21 21:26 Nacl 0.9% 1000 Ml IV Infused DIRECT LYNDSAY Infusion Heparin Sodium/Sodium Chloride 25,000 unit in 500 mls @ 20 mls/hr 05/04/21 13:00 05/06/21 02:31 Heparin/ 0.45% Nacl-25,000 Unit/500 Ml IV 1,200 units/hr TITR LYNDSAY 24 mls/hr Titration Protocol 1,000 UNITS/HR Ceftriaxone Sodium 2 gm in 100 mls @ 200 mls/hr 05/04/21 18:00 05/05/21 21:59 Rocephin/Ns 2 Gm/100 Ml IV Not Given Q24H LYNDSAY Vancomycin HCl 1 gm in 250 mls @ 167.007 mls/hr 05/06/21 18:00 Vancomycin/Ns 1 Gm/250 Ml IV Q12H [facility] Insulin Human Regular 0 units 05/03/21 20:00 05/06/21 09:21 Insulin Regular, Human 100 Units/1 Ml SUB-Q Not Given Q6H [facility] Protocol Ondansetron HCl 4 mg 05/03/21 19:25 Ondansetron 4 Mg/2 Ml Inj IV Q8H PRN Nausea And Vomiting Oxycodone/Acetaminophen 1 tab 05/03/21 19:25 05/05/21 22:00 Oxycodone /Acetaminophen 5-325mg Tab PO 1 tab Q6H PRN Administration Pain, Moderate (4-6) Pantoprazole Sodium 40 mg 05/04/21 16:30 05/06/21 07:52 Pantoprazole 40 Mg Tab PO Not Given BIDAC LYNDSAY Sodium Chloride 10 ml 05/03/21 22:00 05/06/21 10:31 Sodium Chloride 0.9% 10 Ml Flush Syringe IV 10 ml BID LYNDSAY Administration Sodium Chloride 10 ml 05/03/21 19:25 Sodium Chloride 0.9% 10 Ml Flush Syringe IV PRN PRN LINE FLUSH
--- NOTE | 2021-05-06 15:26 | Progress Note ---
Assessment and Plan Cultures: Blood culture no growth so far A/P: 65-year-old male past medical history hypertension, peripheral vascular disease admitted with right foot gangrene #Right foot gangrene: Pending revascularization with vascular surgery. Presu shahbaz osteomyelitis, recommend MRI to investigate. #PVD: Pending revascularization #Tobacco abuse: Recommend smoking cessation. Recs: -Continue vancomycin dosed per pharmacy. -ceftriaxone -Pending amputation of first and second toe. -No evidence of osteomyelitis, does not need antibiotics past amputation. Thank you for the consult, we will continue to follow. Chriss Parmar MD [facility] ([facility]) O: [phone] F: [phone] Subjective Date of service: 05/06/21 Principal diagnosis: PVD with gangrene Interval history: Afebrile, white count 10.7. Had YANNICK performed yesterday. Plan for amputation. Objective - Exam Narrative Exam: Physical Exam: Constitutional: Alert, cooperative. No acute distress Head, Ears, Nose: Normocephalic, atraumatic. External ears, nose normal Eyes: Conjunctivae/corneas clear. No icterus. No ptosis. Neck: Supple, no meningeal signs Oral: dentition fair, no thrush Cardiovascular: S1, S2 normal. Respiratory: Good air entry, clear to auscultation bilaterally GI: Soft, non-tender; bowel sounds normal. No peritoneal signs. Musculoskeletal: Right foot with multiple black toes, wounds. Skin: No rash or abscess Hem/Lymphatic: No palpable cervical or supraclavicular nodes. No lymphangitis Psych: Mood ok. Affect normal Neurological: Awake, alert, oriented. No gross abnormality - Constitutional Vitals: Vital Signs Temp Pulse Resp BP Pulse Ox 99.0 F 98 H 18 138/70 100 05/06/21 12:23 05/06/21 12:23 05/06/21 12:23 05/06/21 12:23 05/06/21 12:23 Temperature -Last 24 Hours Temperature 99.0 F Temperature 98.8 F Temperature 99.1 F Temperature 98.1 F - Labs CBC & Chem 7: 05/06/21 08:20 05/06/21 08:20 Labs: Abnormal lab results 05/05/21 05/05/21 05/05/21 Range/Units 17:46 23:05 23:30 Hgb (11.8-15.2) gm/dl Hct (35.5-45.6) % Heparin Anti-Xa Level 0.16 L (0.3-0.7) U.I./ml Sodium (137-145) mmol/L BUN (9-20) mg/dL Creatinine (0.8-1.3) mg/dL Glucose (75-100) mg/dL POC Glucose 172 H 295 H (70-105) mg/dL Vancomycin Trough (5.0-20.0) ug/mL 05/06/21 05/06/21 05/06/21 Range/Units 05:25 08:20 08:20 Hgb 10.7 L (11.8-15.2) gm/dl Hct 31.7 L (35.5-45.6) % Heparin Anti-Xa Level (0.3-0.7) U.I./ml Sodium 136 L (137-145) mmol/L BUN 5 L (9-20) mg/dL Creatinine 0.5 L (0.8-1.3) mg/dL Glucose 171 H (75-100) mg/dL POC Glucose 139 H (70-105) mg/dL Vancomycin Trough (5.0-20.0) ug/mL 05/06/21 05/06/21 05/06/21 Range/Units 08:20 08:20 12:21 Hgb (11.8-15.2) gm/dl Hct (35.5-45.6) % Heparin Anti-Xa Level < 0.10 L (0.3-0.7) U.I./ml Sodium (137-145) mmol/L BUN (9-20) mg/dL Creatinine (0.8-1.3) mg/dL Glucose (75-100) mg/dL POC Glucose 191 H (70-105) mg/dL Vancomycin Trough 21.6 H (5.0-20.0) ug/mL
--- NOTE | 2021-05-06 16:01 | Progress Note ---
Assessment and Plan Assessment and plan: 65 YO Male with HTN, PVD presents to ED for evaluation. Patient reports "my toes are black". Patient states that he has experienced darkening of his toes over the past 1 month with persistent and worsening symptoms over the same timeframe. Patient states that he has experienced redness and right foot tenderness as well over the past 3 weeks with worsening symptoms over the same timeframe. Patient was seen and evaluated in his primary care physician's office and was instructed to seek further care. Patient transported to [facility] via private vehicle for further care and evaluation of the aforementioned symptoms. The patient was seen and evaluated in the emergency department. All lab and imaging studies reviewed. Patient underwent right lower extremity duplex as well as arterial brachial index measurement and was found to have right lower extremity arterial occlusion complicated by right foot cellulitis, hyponatremia. Patient admitted to medical floor due to increased risk of worsening symptoms. Vascular surgery team consulted in ED. Patient is pending surgical intervention. Patient initiated on IV antibiotic therapy. Patient has fever, chills, chest pain, palpitation, adductive cough, recent ill contacts, known exposure to COVID-19. No prior admission for review. No medication listed at time of admission for reconciliation. Advanced care planning conducted in the ED. 05/05: Patient seen and examined, will Vascular input noted, Wound care consult, ID and General surgery consult- concern for Osteomylitis. awaiting vascular report. Will continue heparin. 05/06: Patient seen and examined resting comfortably. His palpitation today he is doing well post revascularization. Antibiotics per ID. Discharge based on recommendation by ID and surgery. Patient will be discharged on Eliquis 5 mg p.o. twice daily on discharge. Will need to follow with vascular, ID and surgery outpatient (1) Arterial occlusion, lower extremity Status: Acute Plan to address problem: Vascular surgery service consulted, patient pending surgical revascularization procedure in a.m., pain control, supportive care. N.p.o., IV fluid resuscitation therapy. (2) Cellulitis of right foot- ? Gas collection underneath Status: Acute Plan to address problem: CBC, IV antibiotic therapy, supportive care. Repeat CBC in a.m. (3) Hyponatremia Status: Acute Plan to address problem: IV fluid resuscitation therapy, BMP, repeat BMP in a.m. (4) Diabetes Status: Acute Plan to address problem: Consistent carbohydrate diet, Accu-Chek, insulin protocol, hypoglycemia protocol, hemoglobin A1c (5) DVT prophylaxis Status: Acute Plan to address problem: SCD to bilateral lower extremities, patient pending surgical intervention as per vascular surgery team. (6) Advance care planning Status: Acute Plan to address problem: Disease education conducted, care plan discussed, diagnosis discussed, prognosis discussed, patient is full code, patient knowledges understanding and agreement with care plan, +30 minutes. History Interval history: Patient seen and examine no new complaints, continues to await amputation Hospitalist Physical - Physical exam Narrative exam: General appearance: Present: mild distress - EENT Eyes: Present: PERRL ENT: hearing intact, clear oral mucosa - Neck Neck: Present: supple, normal ROM - Respiratory Respiratory effort: normal Respiratory: bilateral: CTA - Cardiovascular Heart Sounds: Present: S1 & S2. Absent: rub, click - Extremities Extremities: pulses symmetrical, No edema Extremity abnormal: erythema, black right foot first two toes pulses diminished Peripheral Pulses: abnormal (Right lower extremity pulses absent) - Abdominal General gastrointestinal: Present: soft, non-tender, non-distended, normal bowel sounds Male genitourinary: Present: normal - Integumentary Integumentary: Present: clear, warm, dry - Musculoskeletal Musculoskeletal: gait normal, strength equal bilaterally - Psychiatric Psychiatric: appropriate mood/affect, intact judgment & insight - Neurologic Neurologic: CNII-XII intact, moves all extremities - Constitutional Vitals: Temp Pulse Resp BP Pulse Ox 99.0 F 98 H 18 138/70 100 05/06/21 12:23 05/06/21 12:23 05/06/21 12:23 05/06/21 12:23 05/06/21 12:23 General appearance: Present: no acute distress Results - Labs CBC & Chem 7: 05/06/21 08:20 05/06/21 08:20 Labs: Laboratory Last Values WBC 7.6 K/mm3 (4.5-11.0) 05/04/21 04:36 RBC 3.87 M/mm3 (3.65-5.03) 05/04/21 04:36 Hgb 10.7 gm/dl (11.8-15.2) L 05/06/21 08:20 Hct 31.7 % (35.5-45.6) L 05/06/21 08:20 MCV 92 fl (84-94) 05/04/21 04:36 MCH 31 pg (28-32) 05/04/21 04:36 MCHC 34 % (32-34) 05/04/21 04:36 RDW 13.9 % (13.2-15.2) 05/04/21 04:36 Plt Count 255 K/mm3 (140-440) 05/06/21 08:20 Lymph % (Auto) 25.6 % (13.4-35.0) 05/04/21 04:36 Davie % (Auto) 9.1 % (0.0-7.3) H 05/04/21 04:36 Eos % (Auto) 7.0 % (0.0-4.3) H 05/04/21 04:36 Baso % (Auto) 0.6 % (0.0-1.8) 05/04/21 04:36 Lymph # (Auto) 1.9 K/mm3 (1.2-5.4) 05/04/21 04:36 Davie # (Auto) 0.7 K/mm3 (0.0-0.8) 05/04/21 04:36 Eos # (Auto) 0.5 K/mm3 (0.0-0.4) H 05/04/21 04:36 Baso # (Auto) 0.0 K/mm3 (0.0-0.1) 05/04/21 04:36 Seg Neutrophils % 57.7 % (40.0-70.0) 05/04/21 04:36 Seg Neutrophils # 4.4 K/mm3 (1.8-7.7) 05/04/21 04:36 ESR TNR 05/03/21 15:57 PT 14.2 Sec. (12.2-14.9) 05/04/21 13:39 INR 1.05 (0.87-1.13) 05/04/21 13:39 APTT 65.5 Sec. (24.2-36.6) H* 05/04/21 13:39 Heparin Anti-Xa Level < 0.10 U.I./ml (0.3-0.7) L 05/06/21 08:20 Sodium 136 mmol/L (137-145) L 05/06/21 08:20 Potassium 3.9 mmol/L (3.6-5.0) 05/06/21 08:20 Chloride 100.7 mmol/L (98-107) 05/06/21 08:20 Carbon Dioxide 24 mmol/L (22-30) 05/06/21 08:20 Anion Gap 15 mmol/L 05/06/21 08:20 BUN 5 mg/dL (9-20) L 05/06/21 08:20 Creatinine 0.5 mg/dL (0.8-1.3) L 05/06/21 08:20 Estimated GFR > 60 ml/min 05/06/21 08:20 BUN/Creatinine Ratio 10 % 05/06/21 08:20 Glucose 171 mg/dL (75-100) H 05/06/21 08:20 POC Glucose 191 mg/dL (70-105) H 05/06/21 12:21 Hemoglobin A1c 10.1 % (4-6) H 05/03/21 19:32 Lactic Acid 1.70 mmol/L (0.7-2.0) 05/03/21 15:57 Calcium 8.4 mg/dL (8.4-10.2) 05/06/21 08:20 Total Bilirubin 0.40 mg/dL (0.1-1.2) 05/03/21 15:57 AST 23 units/L (5-40) 05/03/21 15:57 ALT 30 units/L (7-56) 05/03/21 15:57 Alkaline Phosphatase 99 units/L (35-129) 05/03/21 15:57 Total Protein 8.3 g/dL (6.3-8.2) H 05/03/21 15:57 Albumin 3.2 g/dL (3.9-5) L 05/03/21 15:57 Albumin/Globulin Ratio 0.6 % 05/03/21 15:57 Vancomycin Trough 21.6 ug/mL (5.0-20.0) H 05/06/21 08:20 Microbiology: Microbiology 05/03/21 15:57 Peripheral/Venous Blood Culture - Preliminary NO GROWTH AFTER 48 HOURS 05/03/21 16:05 Peripheral/Venous Blood Culture - Preliminary NO GROWTH AFTER 48 HOURS Doss/IV: Voiding Method Urinal Active Medications - Current Medications Current Medications: Generic Name Dose Route Start Last Admin Trade Name Freq PRN Reason Stop Dose Admin Acetaminophen 650 mg 05/03/21 19:25 Acetaminophen 325 Mg Tab PO Q4H PRN Pain MILD(1-3)/Fever >100.5/PACHECO Acetaminophen 650 mg 05/03/21 19:44 Acetaminophen 325 Mg Tab PO Q6H PRN Pain, Mild (1-3) Albuterol 2.5 mg 05/03/21 19:25 Albuterol 2.5 Mg/3 Ml Nebu IH Q4HRT PRN Shortness Of Breath Cilostazol 100 mg 05/04/21 22:00 05/06/21 10:30 Cilostazol 100 Mg Tab PO 100 mg BID LYNDSAY Administration Clopidogrel Bisulfate 75 mg 05/05/21 10:00 05/06/21 10:42 Clopidogrel 75 Mg Tab PO Not Given QDAY LYNDSAY Dextrose 50 ml 05/03/21 19:27 Dextrose 50% In Water (25gm) 50 Ml Syringe IV Q30MIN PRN Hypoglycemia Protocol Heparin Sodium (Porcine) 2,800 unit 05/04/21 18:00 Heparin 10,000 Units/10 Ml Vial 40 unit/kg (2800 unit) IV Q6H PRN Anti-Xa Assay<0.1 units/ml Hydromorphone HCl 0.5 mg 05/03/21 19:25 Hydromorphone 1 Mg/1 Ml Inj IV Q12H PRN Pain , Severe (7-10) Hydromorphone HCl 0.25 mg 05/03/21 19:44 05/04/21 07:25 Hydromorphone 1 Mg/1 Ml Inj IV 0.25 mg Q4H PRN Administration Pain, Moderate (4-6) Sodium Chloride 1,000 mls @ 100 mls/hr 05/03/21 19:30 05/05/21 21:26 Nacl 0.9% 1000 Ml IV Infused DIRECT [facility] Infusion Heparin Sodium/Sodium Chloride 25,000 unit in 500 mls @ 20 mls/hr 05/04/21 13:00 05/06/21 02:31 Heparin/ 0.45% Nacl-25,000 Unit/500 Ml IV 1,200 units/hr TITR LYNDSAY 24 mls/hr Titration Protocol 1,000 UNITS/HR Ceftriaxone Sodium 2 gm in 100 mls @ 200 mls/hr 05/04/21 18:00 05/05/21 21:59 Rocephin/Ns 2 Gm/100 Ml IV Not Given Q24H LYNDSAY Vancomycin HCl 1 gm in 250 mls @ 167.007 mls/hr 05/06/21 18:00 Vancomycin/Ns 1 Gm/250 Ml IV Q12H [facility] Insulin Human Regular 0 units 05/03/21 20:00 05/06/21 14:50 Insulin Regular, Human 100 Units/1 Ml SUB-Q Not Given Q6H [facility] Protocol Ondansetron HCl 4 mg 05/03/21 19:25 Ondansetron 4 Mg/2 Ml Inj IV Q8H PRN Nausea And Vomiting Oxycodone/Acetaminophen 1 tab 05/03/21 19:25 05/05/21 22:00 Oxycodone /Acetaminophen 5-325mg Tab PO 1 tab Q6H PRN Administration Pain, Moderate (4-6) Pantoprazole Sodium 40 mg 05/04/21 16:30 05/06/21 07:52 Pantoprazole 40 Mg Tab PO Not Given BIDAC LYNDSAY Sodium Chloride 10 ml 05/03/21 22:00 05/06/21 10:31 Sodium Chloride 0.9% 10 Ml Flush Syringe IV 10 ml BID LYNDSAY Administration Sodium Chloride 10 ml 05/03/21 19:25 Sodium Chloride 0.9% 10 Ml Flush Syringe IV PRN PRN LINE FLUSH
[2021-05-06] MEDS: cefTRIAXone/NS 2 GM/100 ML 2 GM/100 ML BAG IV SCH (17:02)
[2021-05-06] MEDS ORDERED: HYDROmorphone 1 MG/1 ML INJ ONE (18:49)
[2021-05-06] MEDS ORDERED: LIDOCAINE MPF (2%) 20 MG/1 ML VIAL 5 ML ONE (18:50)
[2021-05-06] MEDS ORDERED: propofoL 200 MG/20 ML VIAL IV ONE (18:50)
[2021-05-06] MEDS ORDERED: LIDOCAINE (1%) 10 MG/1 ML VIAL 20 ML MDV ONE (18:57)
[2021-05-06] MEDS ORDERED: BUPIVACAINE/PF (0.5%) 5 MG/1 ML 30 ML VIAL INFILTRATI ONE (18:58)
[2021-05-06] MEDS ORDERED: PHENYLEPHRINE/NS 1,000 MCG/10 ML SYRINGE (OR USE) IV ONE (19:20)
[2021-05-06] MEDS ORDERED: SODIUM CHLORIDE 0.9% IRR 1,500 ML BOTTLE IR ONE ×2 (19:26)
[2021-05-06] MEDS ORDERED: HYDROmorphone 1 MG/1 ML INJ IV PRN (19:26)
--- NOTE | 2021-05-06 19:26 | Anesthesia Day of Surgery ---
Anesthesia Day of Surgery - Day of Surgery Patient Examined: Yes Patient H&P Reviewed: Yes Patient is NPO: Yes
[2021-05-06] MEDS ORDERED: ONDANSETRON 4 MG/2 ML INJ ONE (20:04)
[2021-05-06] MEDS ORDERED: SODIUM CHLORIDE 0.9% 1000 ML 1,000 ML ONE (20:04)
--- NOTE | 2021-05-06 20:12 | Procedure Note ---
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 General anesthesia was administered. Right foot was prepped and draped. A tear drop incision was made about the right great and 2nd toes and the toes amputated at the MTP joints. Hemostasis of bleeding was obtained with the Bovie. Periosteum was elevated off of the distal 1st and 2nd metatarsal shafts and the metatarsal heads amputated with a bone saw. Wound was irrigated with warm saline. The wound was then closed with several interrupted vertical mattress sutures of 3-0 Nylon with Iodoform wick placed between the Nylon sutures. Wound was covered with dry 4 X 4's, Kerlix wrap and Coban wrap. Pt tolerated the procedure well. Pt was taken to PACU in stable condition. Anesthesia: other (LMA) Surgeon: ARMAND JUSTIN Estimated blood loss: minimal Pathology: list (1) Right great and 2nd toes 2) Right 1st metatarsal head 3) Right 2nd metatarsal head) Specimen disposition: to lab Condition: stable Disposition: PACU
--- NOTE | 2021-05-06 20:47 | Post Anesthesia Evaluation ---
- Post Anesthesia Evaluation Patient Participated: Yes Airway Patent: Yes Stable Respiratory Function: Yes Nausea/Vomiting: No Temp > 96.8F: Yes Pain Manageable: Yes Adequeate Hydration: Yes Anesthesia Complications: No
[2021-05-07] MEDS: INSULIN REGULAR, HUMAN 100 UNITS/1 ML SUB-Q SCH ×2 (02:14→08:49)
[2021-05-07] MEDS: VANCOMYCIN/NS 1 GM/250 ML 1 GM/250 ML BAG IV SCH (05:46)
[2021-05-07] MEDS: SODIUM CHLORIDE 0.9% 1000 ML 1,000 ML IV SCH (05:47)
[2021-05-07 08:35] LABS: Blood Urea Nitrogen 6 mg/dL (9-20); Calcium 8.4 mg/dL (8.4-10.2); Hemolysis Index 8
[2021-05-07 08:45] LABS: BUN/Creatinine Ratio 12
--- NOTE | 2021-05-07 08:57 | Discharge Summary ---
Providers - Providers Date of Admission: 05/03/21 19:25 Attending physician: MAURO FROST MD 05/03/21 19:21 Consult to Physician [CONS] Stat Comment: Consulting Provider: DAVIDE FRAUSTO Physician Instructions: Reason For Exam: arterial occlusion, necrotic toes 05/04/21 08:51 Consult to Physician [CONS] Routine Comment: Consulting Provider: ARMAND JUSTIN Physician Instructions: Reason For Exam: RIGHT TOE INFECTION 05/04/21 08:52 Consult to Physician [CONS] Routine Comment: Consulting Provider: ALLA QUINTERO Physician Instructions: Reason For Exam: POSSIBLE OSTEOMYLITIS Consult to Wound/ET Nurse [CONS] Routine Reason For Exam: wound eval Primary care physician: MANAGER OF [facility]ULATORY AFFAIRS Hospitalization Reason for admission: Gangrene right first and second toe Condition: Stable Hospital course: 65 YO Male with HTN, PVD presents to ED for evaluation. Patient reports "my toes are black". Patient states that he has experienced darkening of his toes over the past 1 month with persistent and worsening symptoms over the same timeframe. Patient states that he has experienced redness and right foot tenderness as well over the past 3 weeks with worsening symptoms over the same timeframe. Patient was seen and evaluated in his primary care physician's office and was instructed to seek further care. Patient transported to [facility] via private vehicle for further care and evaluation of the aforementioned symptoms. The patient was seen and evaluated in the emergency department. All lab and imaging studies reviewed. Patient underwent right lower extremity duplex as well as arterial brachial index measurement and was found to have right lower extremity arterial occlusion complicated by right foot cellulitis, hyponatremia. Patient admitted to medical floor due to increased risk of worsening symptoms. Vascular surgery team consulted in ED. Patient is pending surgical intervention. Patient initiated on IV antibiotic therapy. Patient has fever, chills, chest pain, palpitation, adductive cough, recent ill contacts, known exposure to COVID-19. No prior admission for review. No medication listed at time of admission for reconciliation. Advanced care planning conducted in the ED. 05/05: Patient seen and examined, will Vascular input noted, Wound care consult, ID and General surgery consult- concern for Osteomylitis. awaiting vascular report. Will continue heparin. 05/06: Patient seen and examined resting comfortably. His palpitation today he is doing well post revascularization. Antibiotics per ID. Discharge based on recommendation by ID and surgery. Patient will be discharged on Eliquis 5 mg p.o. twice daily on discharge. Will need to follow with vascular, ID and surgery outpatient 05/07: Patient is postop day 1 of successful 1) TMA of right great toe, and 2) TMA of right 2nd toe. I discussed with surgery today and he recommended patient can be discharged. ID did not recommend any further antibiotics as no osteomyelitis was noted. Counseling and follow-ups were discussed extensively with the patient he verbalized understanding. He was placed on Eliquis on discharge counseling on the medication use was also provided patient verbalized understanding. (1) Arterial occlusion, lower extremity Status: Acute Plan to address problem: Vascular surgery service consulted, patient pending surgical revascularization procedure in a.m., pain control, supportive care. N.p.o., IV fluid resuscitation therapy. (2) Cellulitis of right foot- ? Gas collection underneath Status: Acute Plan to address problem: CBC, IV antibiotic therapy, supportive care. Repeat CBC in a.m. (3) Hyponatremia Status: Acute Plan to address problem: IV fluid resuscitation therapy, BMP, repeat BMP in a.m. (4) Diabetes Status: Acute Plan to address problem: Consistent carbohydrate diet, Accu-Chek, insulin protocol, hypoglycemia protocol, hemoglobin A1c (5) right first and second great toe gangrene status post amputation Disposition: [address] [place] [address] CARE SERVICE Final Discharge Diagnosis (Prints w/discharge instructions): Arterial occlusion, lower extremity with critical limb ischemia status post amputation of right second toe Time spent for discharge: 35 minutes Core Measure Documentation - Palliative Care Palliative Care/ Comfort Measures: Not Applicable - Core Measures Any of the following diagnoses?: none Exam - Physical Exam Narrative exam: General appearance: Present: mild distress - EENT Eyes: Present: PERRL ENT: hearing intact, clear oral mucosa - Neck Neck: Present: supple, normal ROM - Respiratory Respiratory effort: normal Respiratory: bilateral: CTA - Cardiovascular Heart Sounds: Present: S1 & S2. Absent: rub, click - Extremities Extremities: pulses symmetrical, No edema Extremity abnormal: Status post amputation right first and second toe dressing in place Peripheral Pulses: abnormal (Right lower extremity pulses absent) - Abdominal General gastrointestinal: Present: soft, non-tender, non-distended, normal bowel sounds Male genitourinary: Present: normal - Integumentary Integumentary: Present: clear, warm, dry - Musculoskeletal Musculoskeletal: gait normal, strength equal bilaterally - Psychiatric Psychiatric: appropriate mood/affect, intact judgment & insight - Neurologic Neurologic: CNII-XII intact, moves all extremities - Constitutional Vitals: Temp Pulse Resp BP Pulse Ox 98.8 F 119 H 18 140/64 96 05/07/21 05:23 05/07/21 05:23 05/07/21 05:23 05/07/21 05:23 05/07/21 05:23 Plan Activity: advance as tolerated, fall precautions Diet: diabetic Wound: per your surgeon's advice, per wound nurse instructions Special Instructions: record daily weights, record daily BP diary, record blood sugar diary, physical therapy, occupational therapy, home health RN Follow up with: PRIMARY CARE, [Primary Care Provider] - 7 Days ARMAND JUSTIN MD [Staff Physician] - 7 Days DAVIDE FREY MD [Staff Physician] - 7 Days Prescriptions: Apixaban [Eliquis] 5 mg PO BID #60 tablet oxyCODONE /ACETAMINOPHEN [Percocet 5/325 mg] 1 tab PO Q6H PRN #10 tablet PRN Reason: Pain, Moderate (4-6) Clopidogrel [Plavix] 75 mg PO QDAY #30 tablet cilostazoL [Pletal] 100 mg PO BID #60 tablet Pantoprazole [Protonix TAB] 40 mg PO DAILY #60 tablet
[2021-05-07] MEDS ORDERED: APIXABAN 5 MG TAB PO SCH (10:00)
[2021-05-07 10:10] LABS: Hematocrit 30.9 % (35.5-45.6); Mean Corpuscular HGB Conc 36 % (32-34); Mean Corpuscular Volume 89 fl (84-94); Platelet Count 255 K/mm3 (140-440); Red Blood Count 3.49 M/mm3 (3.65-5.03); Red Cell Distribution Width 13.9 % (13.2-15.2)
[2021-05-07] MEDS: CLOPIDOGREL 75 MG TAB PO SCH (10:37)
[2021-05-07] MEDS: PANTOPRAZOLE 40 MG TAB PO SCH (10:37)
[2021-05-07] MEDS: CILOSTAZOL 100 MG TAB PO SCH (11:04)
[2021-05-07 11:18] LABS: Hematocrit 32.8 % (35.5-45.6); Hemoglobin 11.2 gm/dl (11.8-15.2); Mean Corpuscular HGB Conc 34 % (32-34); Mean Corpuscular Volume 90 fl (84-94); Platelet Count 283 K/mm3 (140-440); Red Blood Count 3.66 M/mm3 (3.65-5.03); Red Cell Distribution Width 13.8 % (13.2-15.2)
[2021-05-07 11:39] LABS: INR 0.98 (0.87-1.13)
[2021-05-07 11:40] LABS: Partial Thromboplastin Time 31.4 Sec. (24.2-36.6)
[2021-05-07 12:13] VITALS: BP 149/77
[2021-05-07] MEDS: oxyCODONE /ACETAMINOPHEN 5-325MG TAB PO PRN (12:37)
== END 2021-05-07 14:17 | disposition home health service (06) | DRG 240 ==
LOC: ED 14:34 → 3A 19:25
PROVIDERS: ADMIT Internal Medicine; ATTEND Internal Medicine
PROC: 04CM0ZZ Extirpation of Matter from Right Popliteal Artery, Open Approach (ICD-10-PCS; principal; 2021-05-05)
PROC: 04CP0ZZ Extirpation of Matter from Right Anterior Tibial Artery, Open Approach (ICD-10-PCS; 2021-05-05)
PROC: 047 Lower Arteries, Dilation (ICD-10-PCS; 2021-05-05)
PROC: 047 Lower Arteries, Dilation (ICD-10-PCS; 2021-05-05)
PROC: 0Y6M0Z9 Detachment at Right Foot, Partial 1st Ray, Open Approach (ICD-10-PCS; 2021-05-06)
PROC: 0Y6M0ZB Detachment at Right Foot, Partial 2nd Ray, Open Approach (ICD-10-PCS; 2021-05-06)
DX: I70.261 Atherosclerosis of native arteries of extremities with gangrene, right leg (principal); L03.115 Cellulitis of right lower limb; E87.1 Hypo-osmolality and hyponatremia; E11.51 Type 2 diabetes mellitus with diabetic peripheral angiopathy without gangrene; I10 Essential (primary) hypertension; Z83.3 Family history of diabetes mellitus; Z82.49 Family history of ischemic heart disease and other diseases of the circulatory system; Z20.822 Contact with and (suspected) exposure to COVID-19
CPT/HCPCS: 36415; 37184; 37185; 37224; 37228; 75710; 76937; 80048; 80053; 80202; 82140; 82565; 82962; 83036; 85014; 85018; 85025; 85027; 85049; 85520; 85610; 85730; 87040; 88302; 88304; 88305; 88307; 88311; 93922; 99406; G0378; C1725; C1760; C1769; C1773; C1887; C1894; C2623; J0690; J0696; J1170; J1644; J1815; J2250; J2370; J2405; J2543; J2704; J3010; J3370; J7030; J7040; Q9967

== ENCOUNTER 2021-06-03 04:01 | Emergency (ER) | payer OTHER ==
--- NOTE | 2021-06-03 04:16 | Emergency Department Report ---
ED Shortness of Breath HPI - General Stated Complaint: SHORTNESS OF BREATH Time Seen by Provider: 06/03/21 04:05 Source: patient, EMS - History of Present Illness Initial Comments: Patient is 65 years old male with history of asthma, hypertension and diabetes. Patient brought to the emergency room via EMS for evaluation of shortness of breath that started last night. Patient stated that he is out of his rescue inhaler. EMS stated that patient initial oxygen saturation was 98% on room air. Patient denied any fever or chills. No chest pain. No nausea or vomiting. No bilateral lower extremity swelling. MD Complaint: shortness of breath -: Last night Known History Of: asthma, diabetes Associated Symptoms: denies other symptoms - Related Data Previous Rx's Medication Instructions Recorded Last Taken Type Apixaban [Eliquis] 5 mg PO BID #60 tablet 05/07/21 Unknown Rx Clopidogrel [Plavix] 75 mg PO QDAY #30 tablet 05/07/21 Unknown Rx Pantoprazole [Protonix TAB] 40 mg PO DAILY #60 tablet 05/07/21 Unknown Rx cilostazoL [Pletal] 100 mg PO BID #60 tablet 05/07/21 Unknown Rx oxyCODONE /ACETAMINOPHEN [Percocet 1 tab PO Q6H PRN #10 tablet 05/07/21 Unknown Rx 5/325 mg] Albuterol Mdi (or & Nicu Only) 2 puff IH QID PRN #1 inhalation 06/03/21 Unknown Rx [ProAir HFA Inhaler] Furosemide [Lasix TAB] 40 mg PO QDAY #30 tablet 06/03/21 Unknown Rx Potassium Chloride [K-Dur] 10 meq PO QDAY #30 tablet 06/03/21 Unknown Rx Allergies Allergy/AdvReac Type Severity Reaction Status Date / Time No Known Allergies Allergy Verified 06/03/21 04:15 ED Review of Systems ROS: Stated complaint: SHORTNESS OF BREATH Other details as noted in HPI Comment: All other systems reviewed and negative Constitutional: denies: chills, fever Respiratory: shortness of breath, SOB with exertion, SOB at rest, wheezing. de nies: cough Cardiovascular: denies: chest pain, palpitations Gastrointestinal: denies: abdominal pain, nausea, vomiting Musculoskeletal: denies: back pain Neurological: denies: headache, weakness ED Past Medical Hx - Past Medical History Hx Hypertension: Yes Hx Congestive Heart Failure: No Hx Diabetes: Yes Hx Renal Disease: No Hx Asthma: No Hx COPD: No - Social History Smoking Status: Current Every Day Smoker - Medications Home Medications: Home Medications Medication Instructions Recorded Confirmed Last Taken Type Apixaban [Eliquis] 5 mg PO BID #60 tablet 05/07/21 Unknown Rx Clopidogrel [Plavix] 75 mg PO QDAY #30 tablet 05/07/21 Unknown Rx Pantoprazole [Protonix TAB] 40 mg PO DAILY #60 tablet 05/07/21 Unknown Rx cilostazoL [Pletal] 100 mg PO BID #60 tablet 05/07/21 Unknown Rx oxyCODONE /ACETAMINOPHEN [Percocet 1 tab PO Q6H PRN #10 tablet 05/07/21 Unknown Rx 5/325 mg] Albuterol Mdi (or & Nicu Only) 2 puff IH QID PRN #1 inhalation 06/03/21 Unknown Rx [ProAir HFA Inhaler] Furosemide [Lasix TAB] 40 mg PO QDAY #30 tablet 06/03/21 Unknown Rx Potassium Chloride [K-Dur] 10 meq PO QDAY #30 tablet 06/03/21 Unknown Rx ED Physical Exam - General General appearance: alert, in no apparent distress - Head Head exam: Present: atraumatic, normocephalic, normal inspection - Eye Eye exam: Present: normal appearance, PERRL - ENT ENT exam: Present: normal exam, normal orophraynx, mucous membranes moist - Neck Neck exam: Present: normal inspection, full ROM. Absent: tenderness, meningismus - Respiratory Respiratory exam: Present: normal lung sounds bilaterally. Absent: respiratory distress, wheezes, rales, rhonchi, stridor, chest wall tenderness, accessory muscle use, decreased breath sounds, prolonged expiratory - Cardiovascular Cardiovascular Exam: Present: regular rate, normal rhythm, normal heart sounds - GI/Abdominal GI/Abdominal exam: Present: soft, normal bowel sounds. Absent: distended, tenderness, guarding, rebound, rigid, organomegaly, mass, bruit, pulsatile mass, hernia - Extremities Exam Extremities exam: Present: normal inspection, normal capillary refill. Absent: pedal edema - Back Exam Back exam: Present: normal inspection, full ROM. Absent: CVA tenderness (R), CVA tenderness (L) - Neurological Exam Neurological exam: Present: alert, oriented X3, CN II-XII intact - Psychiatric Psychiatric exam: Present: normal mood - Skin Skin exam: Present: warm, intact, normal color ED Course Vital Signs 06/03/21 06/03/21 04:14 04:43 Temperature 98.6 F Pulse Rate 111 H Respiratory 19 Rate Blood Pressure 149/62 [Left] O2 Sat by Pulse 100 100 Oximetry ED Medical Decision Making - Lab Data Result diagrams: 06/03/21 04:18 06/03/21 04:18 - EKG Data -: EKG Interpreted by Co EKG shows normal: sinus rhythm Rate: normal - EKG Data Interpretation: no acute changes - Radiology Data Radiology results: report reviewed - Medical Decision Making Patient is 65 years old male with history of asthma, hypertension and diabetes. Patient brought to the emergency room via EMS for evaluation of shortness of breath that started last night. Patient stated that he is out of his rescue inhaler. EMS stated that patient initial oxygen saturation was 98% on room air. Patient denied any fever or chills. No chest pain. No nausea or vomiting. No bilateral lower extremity swelling. Patient remained stable in the ER with a stable vital sign and oxygen saturation of 100% on room air. Chest x-ray showed mild pulmonary edema. BNP is more than 2000. Patient given prescription for Lasix and albuterol and advised to follow- up with his primary care physician for outpatient cardiac work-up and to return to the ER if he develop any new symptoms. Critical care attestation.: If time is entered above; I have spent that time in minutes in the direct care of this critically ill patient, excluding procedure time. ED Disposition Clinical Impression: Acute exacerbation of CHF (congestive heart failure), Asthma exacerbation Disposition: 01 HOME / SELF CARE / HOMELESS Is pt being admited?: No Condition: Stable Instructions: Asthma, Adult, Heart Failure Exacerbation Prescriptions: Potassium Chloride [K-Dur] 10 meq PO QDAY #30 tablet Furosemide [Lasix TAB] 40 mg PO QDAY #30 tablet Albuterol Mdi (or & Nicu Only) [ProAir HFA Inhaler] 2 puff IH QID PRN #1 inhalation PRN Reason: Shortness Of Breath Referrals: GARRICK PRESLEY MD [Staff Physician] - 3-5 Days
[2021-06-03 04:39] LABS: Basophils # (Auto) 0.1 K/mm3 (0.0-0.1); Basophils % (Auto) 0.9 % (0.0-1.8); Eosinophils # (Auto) 0.1 K/mm3 (0.0-0.4); Eosinophils % (Auto) 1.6 % (0.0-4.3); Hematocrit 29.5 % (35.5-45.6); Lymphocytes # (Auto) 1.4 K/mm3 (1.2-5.4); Lymphocytes % (Auto) 18.1 % (13.4-35.0); Mean Corpuscular HGB Conc 34 % (32-34); Mean Corpuscular Volume 88 fl (84-94); Monocytes # (Auto) 0.7 K/mm3 (0.0-0.8); Monocytes % (Auto) 8.3 % (0.0-7.3); Platelet Count 276 K/mm3 (140-440); Red Blood Count 3.36 M/mm3 (3.65-5.03); Red Cell Distribution Width 14.3 % (13.2-15.2)
--- NOTE | 2021-06-03 04:59 | XRay Report ---
CHEST 1 VIEW 06/03/2021 3:41 AM INDICATION / CLINICAL INFORMATION: Dyspnea. COMPARISON: None available. FINDINGS: SUPPORT DEVICES: None. HEART / MEDIASTINUM: Heart is upper normal size. LUNGS / PLEURA: Mild bilateral pulmonary opacities. No pneumothorax. ADDITIONAL FINDINGS: No significant additional findings. IMPRESSION: 1. Mild bilateral pulmonary opacities which could represent early edema or atypical pneumonia. Signer Name: Morgan Granados MD Signed: 06/03/2021 4:54 AM Workstation Name: [id number]
[2021-06-03 05:02] LABS: Alanine Aminotransferase 32 units/L (7-56); Albumin 3.3 g/dL (3.9-5); Blood Urea Nitrogen 8 mg/dL (9-20); Calcium 8.7 mg/dL (8.4-10.2); Hemolysis Index 0
[2021-06-03 05:06] LABS: BUN/Creatinine Ratio 13; Bilirubin,Direct < 0.2 mg/dL (0-0.2)
[2021-06-03 06:32] VITALS: BP 138/69
--- NOTE | 2021-06-03 12:00 | Electrocardiograph Report ---
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
== END 2021-06-03 06:32 | disposition home or self-care (01) ==
LOC: ED 04:01
DX: I50.21 Acute systolic (congestive) heart failure (principal); J45.901 Unspecified asthma with (acute) exacerbation; I10 Essential (primary) hypertension; E11.8 Type 2 diabetes mellitus with unspecified complications; F17.200 Nicotine dependence, unspecified, uncomplicated
CPT/HCPCS: 36415; 71045; 80048; 80076; 83880; 84484; 85025; 93005; 99284

== ENCOUNTER 2021-08-20 11:40 | Emergency (ER) | payer SELFPAY ==
--- NOTE | 2021-08-20 11:45 | Emergency Department Report ---
Stated Complaint: MED REFILL Time Seen by Provider: 08/20/21 11:43 - HPI History of Present Illness: 65-year-old [place] male presents to the emergency room stating he was discharged yesterday with no pain medication. Patient reports he had a right AKA done on August 122016 and was discharged from our facility on August 19, 2021. Spoke with Dr. Monterroso surgeon he states he wanted patient on Percocet 10 mg p.o. every 4 hours dispense 40. Patient will follow up with Dr. Monterroso in 10 days. - Exam Physical Exam: General: Awake, appropriately interactive, no acute distress. Neck: Supple. Full range of motion intact. Cardiovascular: Normal peripheral perfusion. Pulmonary: No respiratory distress. Patient is speaking normally without use of accessory muscles. Skin: No apparent rashes or lesions. Neurological: No facial asymmetry. Speech is clear. Follows commands. Patient is alert and oriented. Musculoskeletal: Right AKA justa are still intact, not erythematous mild tenderness to touch patient is cooperative no pain distress nontoxic in appearance accompanied with family MSE screening note: Focused history and physical exam performed. Due to findings the following was ordered: Patient discussed with doctor:: RADHA ARZATE (Spoke with Dr. Arzate regarding patient's case of needing a refill. Attending agreed to sign prescription.) ED Disposition for MSE Clinical Impression: Right thigh pain, Ischemia of right BKA site, Peripheral arterial disease Disposition: HOME / SELF CARE / HOMELESS Is pt being admited?: No Does the pt Need Aspirin: No Condition: Stable Additional Instructions: Take medication as prescribed. Keep appointment with your surgeon in 14 days. Increase fluids. Prescriptions: Oxycodone HCl/Acetaminophen [Oxycodone-Acetaminophen 10-325] 1 each PO Q4H PRN 10 Days #40 tab PRN Reason: Pain , Severe (7-10) Referrals: ARMAND MONTERROSO MD [Staff Physician] - 3-5 Days Time of Disposition: 11:55
[2021-08-20 11:46] VITALS: BP 152/83
== END 2021-08-20 12:25 | disposition home or self-care (01) ==
LOC: ED 11:40
DX: I73.9 Peripheral vascular disease, unspecified (principal); Z89.511 Acquired absence of right leg below knee
CPT/HCPCS: 99282

== ENCOUNTER 2021-09-08 14:24 | Outpatient (CLI) | payer OTHER ==
--- NOTE | 2021-09-08 16:23 | Vascular Lab Report ---
DUPLEX DOPPLER LOWER EXTREMITY ARTERIAL, LEFT INDICATION / CLINICAL INFORMATION: LEFT LEG PAIN I70.202. TECHNIQUE: Arterial duplex examination of both lower extremities performed using B-mode, color flow a nd spectral Doppler assessment. FINDINGS: LEFT: - Atherosclerotic Plaque: No significant atherosclerotic plaque. - Elevated Velocity (>200 cm/s): None. - Abnormal Waveform: Abnormal waveforms are noted from the proximal superficial femoral artery to the ankle. ADDITIONAL FINDINGS: There is minimal flow noted from the mid superficial femoral artery to the ankle vasculature Left YANNICK: Not performed IMPRESSION: 1. Advanced peripheral vascular disease of the left lower extremity as above.Dr. Monterroso was notified at 2435. Ankle-Brachial Index (YANNICK): - Calcified arteries > 1.4 - Normal = 0.9-1.4 - Mild PAD = 0.7-0.89 - Moderate PAD = 0.51-0.69 - Severe PAD < 0.5 Doppler Waveform: - Triphasic is normal. - Biphasic is abnormal if clear transition from triphasic signal along vascular tree. - Monophasic is abnormal. Signer Name: Hiram Art DO Signed: 09/08/2021 4:18 PM Workstation Name: [id number]
== END 2021-09-08 14:25 | disposition home or self-care (01) ==
LOC: VAS 14:24
PROVIDERS: ATTEND Surgery
DX: I70.202 Unspecified atherosclerosis of native arteries of extremities, left leg (principal)

== ENCOUNTER 2021-10-21 22:09 | Inpatient (IN) | payer OTHER ==
--- NOTE | 2021-10-21 22:59 | Emergency Department Report ---
ED General Adult HPI - General Chief complaint: Pain General Stated complaint: EDEMA/GENERAL PAIN Time Seen by Provider: 10/21/21 22:46 Source: EMS Mode of arrival: Stretcher Limitations: Language Barrier - History of Present Illness Initial comments: This patient presents to the emergency department for evaluation of swelling from his feet to his abdomen. The patient has a history of congestive heart failure. He complains of pain secondary to the swelling. At the time of evaluation initially the patient denied chest pain. He is [place] and co mmunication is difficult. It is not clear whether or not the patient is compliant with his medications. -: Gradual Severity scale (0 -10): 10 Improves with: none Worsens with: none - Related Data Home Medications Medication Instructions Recorded Confirmed Last Taken Multivit-Min/Iron/Folic Acid/K 1 tab PO DAILY 08/11/21 10/23/21 10/20/21 [Adults Multivitamin Caplet] Omeprazole 40 mg PO DAILY 08/11/21 10/23/21 10/20/21 Dextran 70/Hypromellose [Natural 1 drop OU QDAY 08/19/21 10/23/21 10/20/21 Balance Tears Eye Drop] Previous Rx's Medication Instructions Recorded Last Taken Type Albuterol Mdi (or & Nicu Only) 2 puff IH QID PRN #1 inhalation 06/03/21 10/20/21 Rx [ProAir HFA Inhaler] Aspirin EC [Halfprin EC] 81 mg PO QDAY #30 tablet 07/08/21 10/20/21 Rx Apixaban [Eliquis] 5 mg PO Q12HR 30 Days #60 tablet 10/28/21 Unknown Rx AtorvaSTATin [Lipitor] 40 mg PO QHS 30 Days #30 tablet 10/28/21 Unknown Rx Clopidogrel [Plavix] 75 mg PO QDAY 30 Days #30 tablet 10/28/21 Unknown Rx Furosemide [Lasix TAB] 40 mg PO QDAY #30 tablet 10/28/21 Unknown Rx Metoprolol [Lopressor TAB] 25 mg PO BID 30 Days #60 tablet 10/28/21 Unknown Rx Potassium Chloride [K-Dur] 40 meq PO QDAY 3 Days #3 tablet 10/28/21 Unknown Rx Spironolactone [Aldactone] 25 mg PO QDAY 30 Days #30 tablet 10/28/21 Unknown Rx lisinopriL [Zestril TAB] 5 mg PO QDAY 30 Days #30 tablet 10/28/21 Unknown Rx Allergies Allergy/AdvReac Type Severity Reaction Status Date / Time No Known Allergies Allergy Verified 08/19/21 15:15 ED Review of Systems ROS: Stated complaint: EDEMA/GENERAL PAIN Other details as noted in HPI Comment: Unobtainable due to pts medical conditions Constitutional: denies: chills, fever Eyes: denies: eye pain, eye discharge, vision change ENT: denies: ear pain, throat pain Respiratory: denies: cough, shortness of breath, wheezing Cardiovascular: denies: chest pain, palpitations Endocrine: no symptoms reported Gastrointestinal: abdominal pain. denies: nausea, vomiting Genitourinary: denies: urgency, dysuria, frequency Musculoskeletal: denies: back pain, joint swelling, arthralgia Skin: denies: rash, lesions Neurological: denies: headache, weakness, paresthesias Psychiatric: denies: anxiety, depression Hematological/Lymphatic: denies: easy bleeding ED Past Medical Hx - Past Medical History Hx Hypertension: Yes (Had acute CHF exacerbation 06/2021) Hx Heart Attack/AMI: Yes (02/10) Hx Congestive Heart Failure: Yes (H/X CHF. RESOLVED NOW.) Hx Diabetes: Yes (DOES NOT USE INSULIN DUE TO COST) Hx Deep Vein Thrombosis: Yes (RIGHT LEG) Hx Renal Disease: No Hx Asthma: Yes Hx COPD: No Hx HIV: No - Social History Smoking Status: Never Smoker - Medications Home Medications: Home Medications Medication Instructions Recorded Confirmed Last Taken Type Albuterol Mdi (or & Nicu Only) 2 puff IH QID PRN #1 inhalation 06/03/21 10/23/21 10/20/21 Rx [ProAir HFA Inhaler] Aspirin EC [Halfprin EC] 81 mg PO QDAY #30 tablet 07/08/21 10/23/21 10/20/21 Rx Multivit-Min/Iron/Folic Acid/K 1 tab PO DAILY 08/11/21 10/23/21 10/20/21 History [Adults Multivitamin Caplet] Omeprazole 40 mg PO DAILY 08/11/21 10/23/21 10/20/21 History Dextran 70/Hypromellose [Natural 1 drop OU QDAY 08/19/21 10/23/21 10/20/21 History Balance Tears Eye Drop] Apixaban [Eliquis] 5 mg PO Q12HR 30 Days #60 tablet 10/28/21 Unknown Rx AtorvaSTATin [Lipitor] 40 mg PO QHS 30 Days #30 tablet 10/28/21 Unknown Rx Clopidogrel [Plavix] 75 mg PO QDAY 30 Days #30 tablet 10/28/21 Unknown Rx Furosemide [Lasix TAB] 40 mg PO QDAY #30 tablet 10/28/21 Unknown Rx Metoprolol [Lopressor TAB] 25 mg PO BID 30 Days #60 tablet 10/28/21 Unknown Rx Potassium Chloride [K-Dur] 40 meq PO QDAY 3 Days #3 tablet 10/28/21 Unknown Rx Spironolactone [Aldactone] 25 mg PO QDAY 30 Days #30 tablet 10/28/21 Unknown Rx lisinopriL [Zestril TAB] 5 mg PO QDAY 30 Days #30 tablet 10/28/21 Unknown Rx ED Physical Exam - General Limitations: Language Barrier General appearance: alert, obtunded - Head Head exam: Present: atraumatic, normocephalic - Eye Eye exam: Present: normal appearance, PERRL, EOMI - ENT ENT exam: Present: mucous membranes moist - Neck Neck exam: Present: normal inspection, full ROM. Absent: tenderness - Respiratory Respiratory exam: Present: rales (At the bases of his lungs). Absent: respiratory distress - Cardiovascular Cardiovascular Exam: Present: regular rate, normal rhythm. Absent: systolic murmur, diastolic murmur, rubs, gallop - GI/Abdominal GI/Abdominal exam: Present: soft, tenderness (Mild and generalized), normal bowel sounds. Absent: guarding, rebound - Rectal Rectal exam: Present: deferred - Extremities Exam Extremities exam: Present: other (There is swelling of the lower extremities including the stump, the scrotum and the lower abdominal wall) - Neurological Exam Neurological exam: Present: alert, oriented X3 - Psychiatric Psychiatric exam: Present: normal affect, normal mood - Skin Skin exam: Present: warm, dry, intact, normal color. Absent: rash ED Course Vital Signs 10/21/21 10/21/21 10/22/21 22:27 23:58 03:42 Temperature 97.8 F Pulse Rate 95 H 93 H Respiratory 16 16 16 Rate Blood Pressure 146/87 147/95 [Right] O2 Sat by Pulse 97 98 98 Oximetry 10/22/21 06:04 Temperature Pulse Rate 95 H Respiratory 16 Rate Blood Pressure 148/79 [Right] O2 Sat by Pulse 98 Oximetry ED Medical Decision Making - Lab Data Result diagrams: 10/26/21 05:13 10/28/21 06:06 reviewed - EKG Data EKG shows normal: sinus rhythm, QRS complexes (low voltage) Rate: normal (95) - EKG Data Interpretation: no acute changes - Radiology Data Radiology results: report reviewed, image reviewed The patient's chest x-ray was consistent with congestive heart failure. - Medical Decision Making Based on this patient's evaluation with the swelling of the lower extremities and involving the abdomen as well as the back overlying the lumbar spine is patient is in need for diuresis. This was explained to the patient and he understood. The patient was given 40 mg of Lasix while being evaluated in the emergency department. His cardiac enzymes showed a slight bump in the troponin. I discussed the case with the hospitalist service and there is agreement to admission of the patient Critical Care Time: Yes Critical care time in (mins) excluding proc time.: 40 Critical care attestation.: If time is entered above; I have spent that time in minutes in the direct care of this critically ill patient, excluding procedure time. ED Disposition Clinical Impression: Anasarca, Lower extremity pain, bilateral Congestive heart failure Qualifiers: Heart failure type: combined systolic and diastolic Heart failure chronicity: acute on chronic Qualified Code(s): I50.43 - Acute on chronic combined systolic (congestive) and diastolic (congestive) heart failure Disposition: 09 ADMITTED INPATIENT Is pt being admited?: Yes Condition: Stable
[2021-10-21] MEDS ORDERED: FUROSEMIDE 40 MG/4 ML INJ IV ONE (23:12)
[2021-10-21 23:53] LABS: Basophils % (Auto) 0.9 % (0.0-1.8); Eosinophils # (Auto) 0.4 K/mm3 (0.0-0.4); Eosinophils % (Auto) 8.7 % (0.0-4.3); Hematocrit 42.5 % (35.5-45.6); Hemoglobin 13.7 gm/dl (11.8-15.2); Lymphocytes # (Auto) 0.9 K/mm3 (1.2-5.4); Lymphocytes % (Auto) 17.7 % (13.4-35.0); Mean Corpuscular HGB Conc 32 % (32-34); Mean Corpuscular Volume 89 fl (84-94); Monocytes # (Auto) 0.3 K/mm3 (0.0-0.8); Monocytes % (Auto) 6.5 % (0.0-7.3); Platelet Count 148 K/mm3 (140-440); Red Blood Count 4.78 M/mm3 (3.65-5.03); Red Cell Distribution Width 17.4 % (13.2-15.2)
--- NOTE | 2021-10-21 23:56 | XRay Report ---
CHEST 1 VIEW INDICATION / CLINICAL INFORMATION: Altered mental status. COMPARISON: Chest x-ray 06/23/2021 FINDINGS: SUPPORT DEVICES: None. HEART / MEDIASTINUM: Heart size appears enlarged, this is likely an close follow lung volumes and AP technique. LUNGS / PLEURA: Bilateral interstitial and airspace opacities in the bases are more prevalent on the left. Trace fluid minor fissure with blunting of the right costophrenic angle [id number] left pleural effusion. No pneumothorax. BONES: No significant osseous abnormality. ADDITIONAL FINDINGS: No significant additional findings. IMPRESSION: 1. Differential considerations for the appearance of the chest could include infectious etiologies as well as pulmonary edema. Left greater than right pleural effusions are present. A component of atele ctasis is also thought to be likely. Signer Name: Trev Soni II, MD Signed: 10/21/2021 11:51 PM Workstation Name: [id number]
[2021-10-22 00:09] LABS: Alanine Aminotransferase 54 units/L (7-56); Albumin 3.3 g/dL (3.9-5); BUN/Creatinine Ratio 19; Blood Urea Nitrogen 19 mg/dL (9-20); Calcium 8.5 mg/dL (8.4-10.2); Hemolysis Index 41
[2021-10-22 03:24] LABS: Chol/HDL Ratio 2.26 %
[2021-10-22] MEDS ORDERED: ASPIRIN 325 MG TAB PO ONE (04:40)
[2021-10-22] MEDS ORDERED: ACETAMINOPHEN 325 MG TAB PO PRN (05:22)
[2021-10-22] MEDS ORDERED: ONDANSETRON 4 MG/2 ML INJ IV PRN (05:22)
[2021-10-22] MEDS ORDERED: ALBUTEROL 2.5 MG/3 ML NEBU IH PRN ×2 (05:22→12:00)
--- NOTE | 2021-10-22 05:32 | History and Physical Report ---
History of Present Illness Date of examination: 10/22/21 Date of admission: 10/22/21 Chief complaint: Leg edema Pain History of present illness: 65 years old male with history of hypertension, hyperlipidemia, GERD, peripheral vascular disease and diabetes was brought to the hospital because of leg edema and generalized pain. Patient also complained of shortness of breath. Subsequently patient is brought to the ER in the ER patient is found to have acute CHF exacerbation. Patient BNP is 9831 and troponin 0 0.037. We are going to admit the patient we will put the patient on CHF pathway Past History Past Medical History: diabetes, hypertension, hyperlipidemia, PVD Past Surgical History: Other (Right AKA)) Social history: other (single. denies: smoking, alcohol abuse, prescription drug abuse) Family history: hypertension Medications and Allergies Allergies Allergy/AdvReac Type Severity Reaction Status Date / Time No Known Allergies Allergy Verified 08/19/21 15:15 Home Medications Medication Instructions Recorded Confirmed Last Taken Type Albuterol Mdi (or & Nicu Only) 2 puff IH QID PRN #1 inhalation 06/03/21 08/11/21 Unknown Rx [ProAir HFA Inhaler] Apixaban [Eliquis] 5 mg PO Q12HR #60 tablet 07/08/21 08/16/21 08/09/21 09:00 Rx Aspirin EC [Halfprin EC] 81 mg PO QDAY #30 tablet 07/08/21 08/16/21 08/09/21 09:00 Rx Clopidogrel [Plavix] 75 mg PO QDAY #30 tablet 07/08/21 08/16/21 08/09/21 09:00 Rx Furosemide [Lasix TAB] 40 mg PO QDAY #30 tablet 07/08/21 08/16/21 08/15/21 09:00 Rx HYDROcodone/APAP 7.5-325 [[place] 1 each PO Q6H PRN #30 tablet 07/08/21 08/16/21 08/16/21 07:00 Rx 7.5-325 mg TAB] Metoprolol [Lopressor TAB] 25 mg PO BID #60 tablet 07/08/21 08/16/21 08/16/21 07:00 Rx lisinopriL [Zestril TAB] 5 mg PO QDAY #30 tablet 07/08/21 08/16/21 08/15/21 09:00 Rx Multivit-Min/Iron/Folic Acid/K 1 tab PO DAILY 08/11/21 08/16/21 08/15/21 09:00 History [Adults Multivitamin Caplet] Omeprazole 40 mg PO DAILY 08/11/21 08/16/21 08/16/21 07:00 History Dextran 70/Hypromellose [Natural 1 drop OU QDAY 08/19/21 08/19/21 Unknown History Balance Tears Eye Drop] Oxycodone HCl/Acetaminophen 1 each PO Q4H PRN 10 Days #40 tab 08/20/21 Unknown Rx [Oxycodone-Acetaminophen 10-325] AtorvaSTATin [Lipitor] 40 mg PO QHS #30 tablet 09/09/21 Unknown Rx cephALEXin [Keflex] 500 mg PO Q8HR #15 cap 09/09/21 Unknown Rx Active Meds: Active Medications Acetaminophen (Acetaminophen 325 Mg Tab) 650 mg PO Q4H PRN PRN Reason: Pain MILD(1-3)/Fever >100.5/PACHECO Albuterol (Albuterol 2.5 Mg/3 Ml Nebu) 2.5 mg IH Q3HRT PRN PRN Reason: Shortness Of Breath Albuterol/Ipratropium (Ipratropium/Albuterol Sulfate 3 Ml Ampul.Neb) 1 ampul IH Q6HRT LYNDSAY Aspirin (Aspirin Ec 81 Mg Tab) 81 mg PO QDAY LYNDSAY Atorvastatin Calcium (Atorvastatin 40 Mg Tab) 40 mg PO QHS LYNDSAY Cephalexin (Cephalexin 500 Mg Cap) 500 mg PO Q8HR LYNDSAY; Protocol Clopidogrel Bisulfate (Clopidogrel 75 Mg Tab) 75 mg PO QDAY LYNDSAY Dextrose (Dextrose 50% In Water (25gm) 50 Ml Syringe) 50 ml IV Q30MIN PRN; Protocol PRN Reason: Hypoglycemia Famotidine (Famotidine 20 Mg Tab) 20 mg PO BID LYNDSAY Furosemide (Furosemide 40 Mg/4 Ml Inj) 40 mg IV BID@0600,1800 LYNDSAY Heparin Sodium (Porcine) (Heparin 5,000 Unit/1 Ml Vial) 5,000 unit SUB-Q Q12HR LYNDSAY Hydromorphone HCl (Hydromorphone 1 Mg/1 Ml Inj) 0.5 mg IV Q3H PRN PRN Reason: Pain , Severe (7-10) Insulin Human Lispro (Insulin Lispro 100 Unit/Ml) 0 unit SUB-Q ACHS LYNDSAY; Prot ocol Lisinopril (Lisinopril 5 Mg Tab) 5 mg PO QDAY LYNDSAY Metoprolol Tartrate (Metoprolol Tartrate 25 Mg Tab) 25 mg PO BID LYNDSAY Miscellaneous Medication (Apixaban) 5 mg PO Q12HR LYNDSAY Morphine Sulfate (Morphine 2 Mg/1 Ml Inj) 2 mg IV Q4H PRN PRN Reason: Pain, Moderate (4-6) Ondansetron HCl (Ondansetron 4 Mg/2 Ml Inj) 4 mg IV Q8H PRN PRN Reason: Nausea And Vomiting Sodium Chloride (Sodium Chloride 0.9% 10 Ml Flush Syringe) 10 ml IV BID LYNDSAY Sodium Chloride (Sodium Chloride 0.9% 10 Ml Flush Syringe) 10 ml IV PRN PRN PRN Reason: LINE FLUSH Review of Systems All systems: negative Cardiovascular: edema, shortness of breath, dyspnea on exertion, leg edema Respiratory: shortness of breath, dyspnea on exertion Exam - Constitutional Vitals: Temp Pulse Resp BP Pulse Ox 97.8 F 93 H 16 147/95 98 10/21/21 22:27 10/22/21 03:42 10/22/21 03:42 10/22/21 03:42 10/22/21 03:42 General appearance: Present: no acute distress, well-nourished - EENT Eyes: Present: PERRL ENT: hearing intact, clear oral mucosa - Neck Neck: Present: supple, normal ROM - Respiratory Respiratory effort: normal Respiratory: bilateral: rales - Cardiovascular Heart Sounds: Present: S1 & S2. Absent: rub, click - Extremities Extremities: pulses symmetrical, No edema Extremity abnormal: edema Peripheral Pulses: within normal limits - Abdominal General gastrointestinal: Present: soft, non-tender, non-distended, normal bowel sounds Male genitourinary: Present: normal - Integumentary Integumentary: Present: clear, warm, dry - Musculoskeletal Musculoskeletal: gait normal, strength equal bilaterally - Psychiatric Psychiatric: appropriate mood/affect, intact judgment & insight - Neurologic Neurologic: CNII-XII intact, moves all extremities HEART Score - HEART Score Troponin: Troponin T 0.037 ng/mL (0.00-0.029) H 10/22/21 02:20 Results - Labs CBC & Chem 7: 10/21/21 23:16 10/21/21 23:16 Labs: Laboratory Last Values WBC 4.9 K/mm3 (4.5-11.0) 10/21/21 23:16 RBC 4.78 M/mm3 (3.65-5.03) 10/21/21 23:16 Hgb 13.7 gm/dl (11.8-15.2) 10/21/21 23:16 Hct 42.5 % (35.5-45.6) 10/21/21 23:16 MCV 89 fl (84-94) 10/21/21 23:16 MCH 29 pg (28-32) 10/21/21 23:16 MCHC 32 % (32-34) 10/21/21 23:16 RDW 17.4 % (13.2-15.2) H 10/21/21 23:16 Plt Count 148 K/mm3 (140-440) 10/21/21 23:16 Lymph % (Auto) 17.7 % (13.4-35.0) 10/21/21 23:16 [place] % (Auto) 6.5 % (0.0-7.3) 10/21/21 23:16 Eos % (Auto) 8.7 % (0.0-4.3) H 10/21/21 23:16 Baso % (Auto) 0.9 % (0.0-1.8) 10/21/21 23:16 Lymph # (Auto) 0.9 K/mm3 (1.2-5.4) L 10/21/21 23:16 [place] # (Auto) 0.3 K/mm3 (0.0-0.8) 10/21/21 23:16 Eos # (Auto) 0.4 K/mm3 (0.0-0.4) 10/21/21 23:16 Baso # (Auto) 0.0 K/mm3 (0.0-0.1) 10/21/21 23:16 Seg Neutrophils % 66.2 % (40.0-70.0) 10/21/21 23:16 Seg Neutrophils # 3.2 K/mm3 (1.8-7.7) 10/21/21 23:16 Sodium 138 mmol/L (137-145) 10/21/21 23:16 Potassium 3.8 mmol/L (3.6-5.0) 10/21/21 23:16 Chloride 100.2 mmol/L (98-107) 10/21/21 23:16 Carbon Dioxide 27 mmol/L (22-30) 10/21/21 23:16 Anion Gap 15 mmol/L 10/21/21 23:16 BUN 19 mg/dL (9-20) 10/21/21 23:16 Creatinine 1.0 mg/dL (0.8-1.3) 10/21/21 23:16 Estimated GFR > 60 ml/min 10/21/21 23:16 BUN/Creatinine Ratio 19 % 10/21/21 23:16 Glucose 274 mg/dL (75-100) H 10/21/21 23:16 Calcium 8.5 mg/dL (8.4-10.2) 10/21/21 23:16 Total Bilirubin 0.60 mg/dL (0.1-1.2) 10/21/21 23:16 AST 57 units/L (5-40) H 10/21/21 23:16 ALT 54 units/L (7-56) 10/21/21 23:16 Alkaline Phosphatase 189 units/L (35-129) H 10/21/21 23:16 Troponin T 0.037 ng/mL (0.00-0.029) H 10/22/21 02:20 NT-Pro-B Natriuret Pep 9831 pg/mL (0-900) H 10/21/21 23:16 Total Protein 7.7 g/dL (6.3-8.2) 10/21/21 23:16 Albumin 3.3 g/dL (3.9-5) L 10/21/21 23:16 Albumin/Globulin Ratio 0.8 % 10/21/21 23:16 Triglycerides 131 mg/dL (2-149) 10/22/21 02:20 Cholesterol 156 mg/dL (50-199) 10/22/21 02:20 LDL Cholesterol Direct 74 mg/dL (50-130) 10/22/21 02:20 HDL Cholesterol 69 mg/dL (40-59) H 10/22/21 02:20 Cholesterol/HDL Ratio 2.26 % 10/22/21 02:20 - Imaging and Cardiology Chest x-ray: report reviewed Assessment and Plan VTE prophylaxis?: Chemical Plan of care discussed with patient/family: Yes - Patient Problems (1) Acute HFrEF (heart failure with reduced ejection fraction) Current Visit: No Status: Acute Plan to address problem: Admit the patient to the medical floor. Cardiac diet. Lasix 40 mg IV every 12 hours. DuoNeb by nebulizer every 4 hours. Maintain input output. Daily weight. Fluid restriction. Echocardiogram. Consult cardiology if needed (2) Asthma Current Visit: No Status: Acute Plan to address problem: Oxygen by nasal cannula 3 L/min. DuoNeb by nebulizer every 4 hours. Albuterol via nebulizer every 4 hours as needed (3) Diabetes Current Visit: No Status: Acute (4) Hyperlipidemia Current Visit: No Status: Acute Qualifiers: Plan to address problem: Lipitor 40 mg p.o. daily. We will recheck the lipid panel (5) Hypertension Current Visit: No Status: Acute Qualifiers: Plan to address problem: Lisinopril 5 mg p.o. daily. Lopressor 25 mg p.o. twice daily. We continue the home medication (6) Peripheral vascular disease Current Visit: No Status: Acute Plan to address problem: Supportive care, continue medical management. Vascular surgery follow-up as outpatient (7) GERD (gastroesophageal reflux disease) Current Visit: No Status: Acute Qualifiers: Esophagitis presence: without esophagitis Qualified Code(s): K21.9 - Gastro-esophageal reflux disease without esophagitis Plan to address problem: Pepcid 20 mg p.o. twice daily for GI prophylaxis. We will continue the home medication (8) DVT prophylaxis Current Visit: No Status: Acute Plan to address problem: Apixaban 5 mg p.o. twice daily for the DVT prophylaxis. Pepcid 20 mg p.o. twice daily for GI prophylaxis. Patient is a full code
[2021-10-22] MEDS ORDERED: DEXTROSE 10% *Hypoglycemia IV PRN (05:34)
[2021-10-22] MEDS ORDERED: IPRATROPIUM/ALBUTEROL SULFATE 3 ML AMPUL.NEB IH SCH (08:00)
[2021-10-22] MEDS: FUROSEMIDE 40 MG/4 ML INJ IV SCH ×2 (08:09→17:38)
[2021-10-22] MEDS: cephALEXin 500 MG CAP PO SCH ×3 (08:09→21:27)
[2021-10-22] MEDS: INSULIN LISPRO 100 UNIT/ML SUB-Q SCH ×4 (08:18→21:31)
[2021-10-22] MEDS ORDERED: ASPIRIN 325 MG TAB PO SCH (10:00)
[2021-10-22] MEDS ORDERED: HEPARIN 5,000 UNIT/1 ML VIAL SUB-Q SCH (10:00)
[2021-10-22] MEDS: FAMOTIDINE 20 MG TAB PO SCH ×2 (10:10→21:27)
[2021-10-22] MEDS: ASPIRIN EC 81 MG TAB PO SCH (10:10)
[2021-10-22] MEDS: CLOPIDOGREL 75 MG TAB PO SCH (10:10)
[2021-10-22] MEDS: APIXABAN 5 MG TAB PO SCH ×2 (10:11→21:27)
[2021-10-22] MEDS: LISINOPRIL 5 MG TAB PO SCH (10:11)
[2021-10-22] MEDS: METOPROLOL TARTRATE 25 MG TAB PO SCH ×2 (10:11→21:27)
--- NOTE | 2021-10-22 10:18 | Progress Note ---
Assessment and Plan Assessment and plan: 65 years old male with history of hypertension, hyperlipidemia, GERD, peripheral vascular disease and diabetes was brought to the hospital because of leg edema and generalized pain. Patient also complained of shortness of breath. Subsequently patient is brought to the ER in the ER patient is found to have acute CHF exacerbation. 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 We will continue the patient on the heart failure pathway. Continue Lasix 40 mg IV twice daily, Zestril 5 mg daily and metoprolol 25 mg p.o. twice daily. Patient had a previous echocardiogram June 2021 that revealed LVEF of 30-35% with some impaired relaxation. Await cardiology consultation. Continue Accu-Cheks and SSRI. Resume statin History Interval history: No new issues overnight Hospitalist Physical - Constitutional Vitals: Temp Pulse Resp BP Pulse Ox 97.5 F L 88 18 148/87 99 10/22/21 09:12 10/22/21 09:16 10/22/21 09:16 10/22/21 09:12 10/22/21 09:25 General appearance: Present: no acute distress, well-nourished - EENT Eyes: Present: PERRL, EOM intact ENT: hearing intact, clear oral mucosa, dentition normal - Neck Neck: Present: supple, normal ROM - Respiratory Respiratory effort: normal Respiratory: bilateral: CTA - Cardiovascular Rhythm: regular Heart Sounds: Present: S1 & S2. Absent: gallop, rub - Extremities Extremities: no ischemia, No edema, Full ROM - Abdominal General gastrointestinal: soft, non-tender, non-distended, normal bowel sounds - Integumentary Integumentary: Present: clear, warm, dry - Neurologic Neurologic: CNII-XII intact, moves all extremities HEART Score - HEART Score Troponin: Troponin T 0.037 ng/mL (0.00-0.029) H 10/22/21 02:20 Results - Labs CBC & Chem 7: 10/21/21 23:16 10/21/21 23:16 Labs: Laboratory Last Values WBC 4.9 K/mm3 (4.5-11.0) 10/21/21 23:16 RBC 4.78 M/mm3 (3.65-5.03) 10/21/21 23:16 Hgb 13.7 gm/dl (11.8-15.2) 10/21/21 23:16 Hct 42.5 % (35.5-45.6) 10/21/21 23:16 MCV 89 fl (84-94) 10/21/21 23:16 MCH 29 pg (28-32) 10/21/21 23:16 MCHC 32 % (32-34) 10/21/21 23:16 RDW 17.4 % (13.2-15.2) H 10/21/21 23:16 Plt Count 148 K/mm3 (140-440) 10/21/21 23:16 Lymph % (Auto) 17.7 % (13.4-35.0) 10/21/21 23:16 [place] % (Auto) 6.5 % (0.0-7.3) 10/21/21 23:16 Eos % (Auto) 8.7 % (0.0-4.3) H 10/21/21 23:16 Baso % (Auto) 0.9 % (0.0-1.8) 10/21/21 23:16 Lymph # (Auto) 0.9 K/mm3 (1.2-5.4) L 10/21/21 23:16 [place] # (Auto) 0.3 K/mm3 (0.0-0.8) 10/21/21 23:16 Eos # (Auto) 0.4 K/mm3 (0.0-0.4) 10/21/21 23:16 Baso # (Auto) 0.0 K/mm3 (0.0-0.1) 10/21/21 23:16 Seg Neutrophils % 66.2 % (40.0-70.0) 10/21/21 23:16 Seg Neutrophils # 3.2 K/mm3 (1.8-7.7) 10/21/21 23:16 Sodium 138 mmol/L (137-145) 10/21/21 23:16 Potassium 3.8 mmol/L (3.6-5.0) 10/21/21 23:16 Chloride 100.2 mmol/L (98-107) 10/21/21 23:16 Carbon Dioxide 27 mmol/L (22-30) 10/21/21 23:16 Anion Gap 15 mmol/L 10/21/21 23:16 BUN 19 mg/dL (9-20) 10/21/21 23:16 Creatinine 1.0 mg/dL (0.8-1.3) 10/21/21 23:16 Estimated GFR > 60 ml/min 10/21/21 23:16 BUN/Creatinine Ratio 19 % 10/21/21 23:16 Glucose 274 mg/dL (75-100) H 10/21/21 23:16 Calcium 8.5 mg/dL (8.4-10.2) 10/21/21 23:16 Total Bilirubin 0.60 mg/dL (0.1-1.2) 10/21/21 23:16 AST 57 units/L (5-40) H 10/21/21 23:16 ALT 54 units/L (7-56) 10/21/21 23:16 Alkaline Phosphatase 189 units/L (35-129) H 10/21/21 23:16 Troponin T 0.037 ng/mL (0.00-0.029) H 10/22/21 02:20 NT-Pro-B Natriuret Pep 9831 pg/mL (0-900) H 10/21/21 23:16 Total Protein 7.7 g/dL (6.3-8.2) 10/21/21 23:16 Albumin 3.3 g/dL (3.9-5) L 10/21/21 23:16 Albumin/Globulin Ratio 0.8 % 10/21/21 23:16 Triglycerides 131 mg/dL (2-149) 10/22/21 02:20 Cholesterol 156 mg/dL (50-199) 10/22/21 02:20 LDL Cholesterol Direct 74 mg/dL (50-130) 10/22/21 02:20 HDL Cholesterol 69 mg/dL (40-59) H 10/22/21 02:20 Cholesterol/HDL Ratio 2.26 % 10/22/21 02:20 Doss/IV: Voiding Method Urinal Active Medications - Current Medications Current Medications: Generic Name Dose Route Start Last Admin Trade Name Freq PRN Reason Stop Dose Admin Acetaminophen 650 mg 10/22/21 05:22 Acetaminophen 325 Mg Tab PO Q4H PRN Pain MILD(1-3)/Fever >100.5/PACHECO Albuterol 2.5 mg 10/22/21 05:22 Albuterol 2.5 Mg/3 Ml Nebu IH Q3HRT PRN Shortness Of Breath Albuterol/Ipratropium 1 ampul 10/22/21 08:00 10/22/21 09:16 Ipratropium/Albuterol Sulfate 3 Ml Ampul.Neb IH 1 ampul Q6HRT LYNDSAY Administration Apixaban 5 mg 10/22/21 10:00 10/22/21 10:11 Apixaban 5 Mg Tab PO 5 mg Q12HR LYNDSAY Administration Aspirin 81 mg 10/22/21 10:00 10/22/21 10:10 Aspirin Ec 81 Mg Tab PO 81 mg QDAY LYNDSAY Administration Atorvastatin Calcium 40 mg 10/22/21 22:00 Atorvastatin 40 Mg Tab PO QHS LYNDSAY Cephalexin 500 mg 10/22/21 06:00 10/22/21 08:09 Cephalexin 500 Mg Cap PO Not Given Q8HR LYNDSAY Protocol Clopidogrel Bisulfate 75 mg 10/22/21 10:00 10/22/21 10:10 Clopidogrel 75 Mg Tab PO 75 mg QDAY LYNDSAY Administration Dextrose 0 ml 10/22/21 05:34 Dextrose 10% *Hypoglycemia IV DIRECT PRN Hypoglycemia Protocol Famotidine 20 mg 10/22/21 10:00 10/22/21 10:10 Famotidine 20 Mg Tab PO 20 mg BID LYNDSAY Administration Furosemide 40 mg 10/22/21 06:00 10/22/21 08:09 Furosemide 40 Mg/4 Ml Inj IV 40 mg BID@0600,1800 LYNDSAY Administration Hydromorphone HCl 0.5 mg 10/22/21 05:22 Hydromorphone 1 Mg/1 Ml Inj IV Q3H PRN Pain , Severe (7-10) Insulin Human Lispro 0 unit 10/22/21 07:30 10/22/21 08:18 Insulin Lispro 100 Unit/Ml SUB-Q 6 unit ACHS LYNDSAY Administration Protocol Lisinopril 5 mg 10/22/21 10:00 10/22/21 10:11 Lisinopril 5 Mg Tab PO 5 mg QDAY LYNDSAY Administration Metoprolol Tartrate 25 mg 10/22/21 10:00 10/22/21 10:11 Metoprolol Tartrate 25 Mg Tab PO 25 mg BID LYNDSAY Administration Morphine Sulfate 2 mg 10/22/21 05:22 Morphine 2 Mg/1 Ml Inj IV Q4H PRN Pain, Moderate (4-6) Ondansetron HCl 4 mg 10/22/21 05:22 Ondansetron 4 Mg/2 Ml Inj IV Q8H PRN Nausea And Vomiting Sodium Chloride 10 ml 10/22/21 10:00 10/22/21 10:11 Sodium Chloride 0.9% 10 Ml Flush Syringe IV 10 ml BID LYNDSAY Administration Sodium Chloride 10 ml 10/22/21 05:22 Sodium Chloride 0.9% 10 Ml Flush Syringe IV PRN PRN LINE FLUSH
--- NOTE | 2021-10-22 13:21 | Consultation ---
History of Present Illness Consult date: 10/22/21 Requesting physician: KADI OCASIO Consult reason: congestive heart failure History of present illness: Patient is a 65-year-old male with past medical history of HFrEF, hypertension, hyperlipidemia, peripheral vascular disease s/p BKA, GERD who reports to the hospital due to lower extremity edema and shortness of breath. Patient did not clarify how long he is the shortness of breath and lower extremity edema he would just say for a long time. Patient denies any complaints of chest pain, nausea, vomiting, diaphoresis, or palpitations. Patient does report orthopnea. Of note patient was found to have elevated BNP. Patient was previously seen by our practice during admission in June however patient never followed up as an outpatient. Cardiology is consulted for CHF exacerbation. Past History Past Medical History: diabetes, hypertension, hyperlipidemia, PVD Past Surgical History: Other (Right AKA)) Social history: other (single. denies: smoking, alcohol abuse, prescription drug abuse) Family history: hypertension Medications and Allergies Allergies Allergy/AdvReac Type Severity Reaction Status Date / Time No Known Allergies Allergy Verified 08/19/21 15:15 Home Medications Medication Instructions Recorded Confirmed Last Taken Type Albuterol Mdi (or & Nicu Only) 2 puff IH QID PRN #1 inhalation 06/03/21 08/11/21 Unknown Rx [ProAir HFA Inhaler] Apixaban [Eliquis] 5 mg PO Q12HR #60 tablet 07/08/21 08/16/21 08/09/21 09:00 Rx Aspirin EC [Halfprin EC] 81 mg PO QDAY #30 tablet 07/08/21 08/16/21 08/09/21 09:00 Rx Clopidogrel [Plavix] 75 mg PO QDAY #30 tablet 07/08/21 08/16/21 08/09/21 09:00 Rx Furosemide [Lasix TAB] 40 mg PO QDAY #30 tablet 07/08/21 08/16/21 08/15/21 09:00 Rx HYDROcodone/APAP 7.5-325 [Allen 1 each PO Q6H PRN #30 tablet 07/08/21 08/16/21 08/16/21 07:00 Rx 7.5-325 mg TAB] Metoprolol [Lopressor TAB] 25 mg PO BID #60 tablet 07/08/21 08/16/2122 07:00 Rx lisinopriL [Zestril TAB] 5 mg PO QDAY #30 tablet 07/08/21 08/16/21 08/15/21 09:00 Rx Multivit-Min/Iron/Folic Acid/K 1 tab PO DAILY 08/11/21 08/16/21 08/15/21 09:00 History [Adults Multivitamin Caplet] Omeprazole 40 mg PO DAILY 08/11/21 08/16/21 08/16/21 07:00 History Dextran 70/Hypromellose [Natural 1 drop OU QDAY 08/19/21 08/19/21 Unknown Histo ry Balance Tears Eye Drop] Oxycodone HCl/Acetaminophen 1 each PO Q4H PRN 10 Days #40 tab 08/20/21 Unknown Rx [Oxycodone-Acetaminophen 10-325] AtorvaSTATin [Lipitor] 40 mg PO QHS #30 tablet 09/09/21 Unknown Rx cephALEXin [Keflex] 500 mg PO Q8HR #15 cap 09/09/21 Unknown Rx Active Meds: Active Medications Acetaminophen (Acetaminophen 325 Mg Tab) 650 mg PO Q4H PRN PRN Reason: Pain MILD(1-3)/Fever >100.5/PACHECO Albuterol (Albuterol 2.5 Mg/3 Ml Nebu) 2.5 mg IH Q4HRT PRN PRN Reason: Shortness Of Breath Albuterol/Ipratropium (Ipratropium/Albuterol Sulfate 3 Ml Ampul.Neb) 1 ampul IH BIDRT [facility] Apixaban (Apixaban 5 Mg Tab) 5 mg PO Q12HR [facility] Last Admin: 10/22/21 10:11 Dose: 5 mg Aspirin (Aspirin Ec 81 Mg Tab) 81 mg PO QDAY [facility] Last Admin: 10/22/21 10:10 Dose: 81 mg Atorvastatin Calcium (Atorvastatin 40 Mg Tab) 40 mg PO QHS [facility] Cephalexin (Cephalexin 500 Mg Cap) 500 mg PO Q8HR [facility]; Protocol Last Admin: 10/22/21 08:09 Dose: Not Given Clopidogrel Bisulfate (Clopidogrel 75 Mg Tab) 75 mg PO QDAY [facility] Last Admin: 10/22/21 10:10 Dose: 75 mg Dextrose (Dextrose 10% *Hypoglycemia) 0 ml IV DIRECT PRN; Protocol PRN Reason: Hypoglycemia Famotidine (Famotidine 20 Mg Tab) 20 mg PO BID [facility] Last Admin: 10/22/21 10:10 Dose: 20 mg Furosemide (Furosemide 40 Mg/4 Ml Inj) 40 mg IV BID@0600,1800 [facility] Last Admin: 10/22/21 08:09 Dose: 40 mg Hydromorphone HCl (Hydromorphone 1 Mg/1 Ml Inj) 0.5 mg IV Q3H PRN PRN Reason: Pain , Severe (7-10) Insulin Human Lispro (Insulin Lispro 100 Unit/Ml) 0 unit SUB-Q ACHS [facility]; Protocol Last Admin: 10/22/21 08:18 Dose: 6 unit Lisinopril (Lisinopril 5 Mg Tab) 5 mg PO QDAY [facility] Last Admin: 10/22/21 10:11 Dose: 5 mg Metoprolol Tartrate (Metoprolol Tartrate 25 Mg Tab) 25 mg PO BID [facility] Last Admin: 10/22/21 10:11 Dose: 25 mg Morphine Sulfate (Morphine 2 Mg/1 Ml Inj) 2 mg IV Q4H PRN PRN Reason: Pain, Moderate (4-6) Ondansetron HCl (Ondansetron 4 Mg/2 Ml Inj) 4 mg IV Q8H PRN PRN Reason: Nausea And Vomiting Sodium Chloride (Sodium Chloride 0.9% 10 Ml Flush Syringe) 10 ml IV BID [facility] Last Admin: 10/22/21 10:11 Dose: 10 ml Sodium Chloride (Sodium Chloride 0.9% 10 Ml Flush Syringe) 10 ml IV PRN PRN PRN Reason: LINE FLUSH Review of Systems Constitutional: no weight loss, no weight gain Ears, nose, mouth and throat: no nasal discharge, no sinus pressure, no sinus pain Cardiovascular: orthopnea, edema, shortness of breath, no chest pain, no palpitations, no rapid/irregular heart beat, no lightheadedness Respiratory: shortness of breath, no cough with sputum, no excessive sputum Gastrointestinal: no abdominal pain, no nausea, no vomiting Musculoskeletal: no neck stiffness, no neck pain Integumentary: no rash, no pruritis, no redness Neurological: no transient paralysis, no paralysis Psychiatric: no anxiety, no memory loss Endocrine: no cold intolerance, no heat intolerance Hematologic/Lymphatic: no easy bruising, no easy bleeding Physical Examination Vital Signs Temp Pulse Resp BP Pulse Ox 97.8 F 95 H 16 146/87 97 10/21/21 22:27 10/21/21 22:27 10/21/21 22:27 10/21/21 22:27 10/21/21 22:27 General appearance: no acute distress HEENT: Positive: PERRL Neck: Positive: trachea midline Cardiac: Positive: Reg Rate and Rhythm Lungs: Positive: Decreased Breath Sounds Neuro: Positive: Grossly Intact Abdomen: Positive: Soft Skin: Negative: Rash Extremities: Present: upper extr. pulses, edema Results 10/21/21 23:16 10/21/21 23:16 Cardiac Enzymes 10/21/21 Range/Units 23:16 AST 57 H (5-40) units/L Lipids 10/22/21 Range/Units 02:20 Triglycerides 131 (2-149) mg/dL Cholesterol 156 (50-199) mg/dL HDL Cholesterol 69 H (40-59) mg/dL Cholesterol/HDL Ratio 2.26 % CBC 10/21/21 Range/Units 23:16 WBC 4.9 (4.5-11.0) K/mm3 RBC 4.78 (3.65-5.03) M/mm3 Hgb 13.7 (11.8-15.2) gm/dl Hct 42.5 (35.5-45.6) % Plt Count 148 (140-440) K/mm3 Lymph # (Auto) 0.9 L (1.2-5.4) K/mm3 [place] # (Auto) 0.3 (0.0-0.8) K/mm3 Eos # (Auto) 0.4 (0.0-0.4) K/mm3 Baso # (Auto) 0.0 (0.0-0.1) K/mm3 Comprehensive Metabolic Panel 10/21/21 Range/Units 23:16 Sodium 138 (137-145) mmol/L Potassium 3.8 (3.6-5.0) mmol/L Chloride 100.2 (98-107) mmol/L Carbon Dioxide 27 (22-30) mmol/L BUN 19 (9-20) mg/dL Creatinine 1.0 (0.8-1.3) mg/dL Glucose 274 H (75-100) mg/dL Calcium 8.5 (8.4-10.2) mg/dL AST 57 H (5-40) units/L ALT 54 (7-56) units/L Alkaline Phosphatase 189 H (35-129) units/L Total Protein 7.7 (6.3-8.2) g/dL Albumin 3.3 L (3.9-5) g/dL - Imaging and Cardiology Echo: report reviewed EKG interpretations - Telemetry EKG Rhythm: Sinus Rhythm - EKG Sinus rhythms and dysrhythmias: sinus rhythm Assessment and Plan Patient is a 65-year-old male with past medical history of HFrEF, hypertension, hyperlipidemia, peripheral vascular disease s/p BKA, GERD who reports to the hospital due to lower extremity edema and shortness of breath Acute on chronic HFrEF Hypertension Acute respiratory failure COPD Peripheral vascular disease s/p BKA GERD Diabetes Echo 06/23/2021-EF 30 to 35%, left ventricle is mildly dilated moderate global hypokinesis of LV. Left atrium is mildly dilated. Right ventricle systolic function is normal Plan: EKG shows sinus rhythm 95 no acute ischemic changes. Troponins minimally elevated 0.0 3 repeat cardiac enzyme pending. Patient denies any complaints of chest pain Suspect troponin leakage as a result of acute exacerbation of CHF BNP noted to be elevated, patient reports shortness of breath, patient has lower extremity edema. Agree with Lasix for diuresis. Repeat BMP in the a.m. strict I&O's Patient currently on Eliquis, aspirin, Lipitor, Plavix, lisinopril, metoprolol Patient seen in conjunction with Dr. Ayala who agrees with this plan of care - Patient Problems (1) Diabetes Current Visit: No Status: Acute (2) Acute HFrEF (heart failure with reduced ejection fraction) Current Visit: No Status: Acute (3) Dilated cardiomyopathy Current Visit: No Status: Acute (4) Peripheral arterial disease Current Visit: No Status: Chronic (5) COPD (chronic obstructive pulmonary disease) Current Visit: No Status: Chronic Qualifiers: Emphysema type: unspecified (6) Peripheral vascular disease Current Visit: No Status: Acute (7) Hypertension Current Visit: No Status: Acute Qualifiers:
--- NOTE | 2021-10-22 18:07 | Electrocardiograph Report ---
[facility] Test Date: 2021-10-22 Test Time: 00:14:30 Pat Name: LYNDSEY PERALTA Department: Room: A466 1 Gender: M Registered Nurse Bone Marrow Transplant: COLLETTE : 1955 Requested By: ANN MARIE LEMUS Order Number: [id number] Reading MD: Nii Lieberman Measurements Intervals [place] Rate: 95 P: 61 MT: 188 QRS: 98 QRSD: 101 T: -10 QT: 345 QTc: 435 Interpretive Statements Sinus rhythm Atrial premature complex Anterior infarct, old Low voltage QRS Compared to ECG 06/23/2021 05:20:10 Findings of old anterior infarct is new Electronically Signed On 10-22-2021 18:06:17 EDT by Nii Lieberman
[2021-10-22] MEDS: IPRATROPIUM/ALBUTEROL SULFATE 3 ML AMPUL.NEB IH SCH (21:33)
[2021-10-23] MEDS: HYDROmorphone 1 MG/1 ML INJ IV PRN ×3 (02:13→15:03)
[2021-10-23 05:22] LABS: Basophils % (Auto) 0.8 % (0.0-1.8); Eosinophils # (Auto) 0.6 K/mm3 (0.0-0.4); Eosinophils % (Auto) 13.6 % (0.0-4.3); Hematocrit 40.8 % (35.5-45.6); Hemoglobin 12.8 gm/dl (11.8-15.2); Lymphocytes # (Auto) 0.7 K/mm3 (1.2-5.4); Lymphocytes % (Auto) 16.1 % (13.4-35.0); Mean Corpuscular HGB Conc 31 % (32-34); Mean Corpuscular Volume 89 fl (84-94); Monocytes # (Auto) 0.3 K/mm3 (0.0-0.8); Monocytes % (Auto) 8.5 % (0.0-7.3); Platelet Count 117 K/mm3 (140-440); Red Blood Count 4.57 M/mm3 (3.65-5.03); Red Cell Distribution Width 17.1 % (13.2-15.2)
[2021-10-23] MEDS: cephALEXin 500 MG CAP PO SCH (05:42)
[2021-10-23] MEDS: FUROSEMIDE 40 MG/4 ML INJ IV SCH ×2 (05:42→17:38)
[2021-10-23 05:44] LABS: BUN/Creatinine Ratio 28; Blood Urea Nitrogen 22 mg/dL (9-20); Calcium 8.2 mg/dL (8.4-10.2); Hemolysis Index 94
[2021-10-23] MEDS: INSULIN LISPRO 100 UNIT/ML SUB-Q SCH ×4 (07:45→21:40)
[2021-10-23] MEDS: IPRATROPIUM/ALBUTEROL SULFATE 3 ML AMPUL.NEB IH SCH ×2 (09:13→21:06)
[2021-10-23] MEDS: CLOPIDOGREL 75 MG TAB PO SCH (10:34)
[2021-10-23] MEDS: APIXABAN 5 MG TAB PO SCH ×2 (10:34→21:24)
[2021-10-23] MEDS: ASPIRIN EC 81 MG TAB PO SCH (10:34)
[2021-10-23] MEDS: FAMOTIDINE 20 MG TAB PO SCH ×2 (10:34→21:25)
[2021-10-23] MEDS: METOPROLOL TARTRATE 25 MG TAB PO SCH ×2 (10:35→21:24)
[2021-10-23] MEDS: LISINOPRIL 5 MG TAB PO SCH (10:35)
--- NOTE | 2021-10-23 10:38 | Progress Note ---
Assessment and Plan Patient is a 65-year-old male with past medical history of HFrEF, hypertension, hyperlipidemia, peripheral vascular disease s/p BKA, GERD who reports to the hospital due to lower extremity edema and shortness of breath Acute on chronic HFrEF Hypertension Acute respiratory failure COPD Peripheral vascular disease s/p BKA GERD Diabetes Echo 06/23/2021-EF 30 to 35%, left ventricle is mildly dilated moderate global hypokinesis of LV. Left atrium is mildly dilated. Right ventricle systolic function is normal Plan: EKG shows sinus rhythm 95 no acute ischemic changes. Troponins minimally elevated 0.0 3 repeat cardiac enzyme pending. Patient denies any complaints of chest pain Suspect troponin leakage as a result of acute exacerbation of CHF BNP noted to be elevated, patient reports shortness of breath, patient has lower extremity edema. Agree with IV Lasix for diuresis. Repeat BMP in the a.m. strict I&O's Patient currently on Eliquis, aspirin, Lipitor, Plavix, lisinopril, metoprolol Subjective Date of service: 10/23/21 Interval history: Swelling a bit better. Objective Vital Signs Temp Pulse Pulse Resp Resp BP Pulse Ox 10/23/21 09:14 100 10/23/21 09:00 98.4 F 18 117/76 10/23/21 08:00 79 17 10/23/21 03:57 98.2 F 80 20 117/78 99 10/23/21 01:00 18 99 10/22/21 22:58 98.2 F 76 20 125/83 100 10/22/21 21:33 98 10/22/21 20:35 97.4 F L 78 19 126/78 100 10/22/21 20:00 86 18 10/22/21 16:29 98.7 F 78 18 139/83 99 10/22/21 14:55 98 10/22/21 12:13 98.6 F 78 18 127/81 95 10/22/21 10:50 96 - Physical Examination HEENT: Positive: PERRL Neck: Positive: trachea midline Neuro: Positive: Grossly Intact Abdomen: Positive: Soft Skin: Negative: Rash Extremities: Present: upper extr. pulses, edema - Labs and Meds Cardiac Enzymes 10/21/21 10/21/21 10/22/21 Range/Units 23:16 23:16 02:20 WBC 4.9 (4.5-11.0) K/mm3 RBC 4.78 (3.65-5.03) M/mm3 Hgb 13.7 (11.8-15.2) gm/dl Hct 42.5 (35.5-45.6) % MCV 89 (84-94) fl MCH 29 (28-32) pg MCHC 32 (32-34) % RDW 17.4 H (13.2-15.2) % Plt Count 148 (140-440) K/mm3 Lymph % (Auto) 17.7 (13.4-35.0) % [place] % (Auto) 6.5 (0.0-7.3) % Eos % (Auto) 8.7 H (0.0-4.3) % Baso % (Auto) 0.9 (0.0-1.8) % Lymph # (Auto) 0.9 L (1.2-5.4) K/mm3 [place] # (Auto) 0.3 (0.0-0.8) K/mm3 Eos # (Auto) 0.4 (0.0-0.4) K/mm3 Baso # (Auto) 0.0 (0.0-0.1) K/mm3 Seg Neutrophils % 66.2 (40.0-70.0) % Seg Neutrophils # 3.2 (1.8-7.7) K/mm3 Sodium 138 (137-145) mmol/L Potassium 3.8 (3.6-5.0) mmol/L Chloride 100.2 (98-107) mmol/L Carbon Dioxide 27 (22-30) mmol/L Anion Gap 15 mmol/L BUN 19 (9-20) mg/dL Creatinine 1.0 (0.8-1.3) mg/dL Estimated GFR > 60 ml/min BUN/Creatinine Ratio 19 % Glucose 274 H (75-100) mg/dL POC Glucose (70-105) mg/dL Calcium 8.5 (8.4-10.2) mg/dL Total Bilirubin 0.60 (0.1-1.2) mg/dL ALT 54 (7-56) units/L Alkaline Phosphatase 189 H (35-129) units/L Troponin T 0.037 H (0.00-0.029) ng/mL NT-Pro-B Natriuret Pep 9831 H (0-900) pg/mL Total Protein 7.7 (6.3-8.2) g/dL Albumin 3.3 L (3.9-5) g/dL Albumin/Globulin Ratio 0.8 % Triglycerides 131 (2-149) mg/dL Cholesterol 156 (50-199) mg/dL LDL Cholesterol Direct 74 (50-130) mg/dL HDL Cholesterol 69 H (40-59) mg/dL Cholesterol/HDL Ratio 2.26 % 10/22/21 10/22/21 10/22/21 Range/Units 08:15 16:28 20:49 WBC (4.5-11.0) K/mm3 RBC (3.65-5.03) M/mm3 Hgb (11.8-15.2) gm/dl Hct (35.5-45.6) % MCV (84-94) fl MCH (28-32) pg MCHC (32-34) % RDW (13.2-15.2) % Plt Count (140-440) K/mm3 Lymph % (Auto) (13.4-35.0) % [place] % (Auto) (0.0-7.3) % Eos % (Auto) (0.0-4.3) % Baso % (Auto) (0.0-1.8) % Lymph # (Auto) (1.2-5.4) K/mm3 [place] # (Auto) (0.0-0.8) K/mm3 Eos # (Auto) (0.0-0.4) K/mm3 Baso # (Auto) (0.0-0.1) K/mm3 Seg Neutrophils % (40.0-70.0) % Seg Neutrophils # (1.8-7.7) K/mm3 Sodium (137-145) mmol/L Potassium (3.6-5.0) mmol/L Chloride (98-107) mmol/L Carbon Dioxide (22-30) mmol/L Anion Gap mmol/L BUN (9-20) mg/dL Creatinine (0.8-1.3) mg/dL Estimated GFR ml/min BUN/Creatinine Ratio % Glucose (75-100) mg/dL POC Glucose 313 H 193 H (70-105) mg/dL Calcium (8.4-10.2) mg/dL Total Bilirubin (0.1-1.2) mg/dL ALT (7-56) units/L Alkaline Phosphatase (35-129) units/L Troponin T 0.016 (0.00-0.029) ng/mL NT-Pro-B Natriuret Pep (0-900) pg/mL Total Protein (6.3-8.2) g/dL Albumin (3.9-5) g/dL Albumin/Globulin Ratio % Triglycerides (2-149) mg/dL Cholesterol (50-199) mg/dL LDL Cholesterol Direct (50-130) mg/dL HDL Cholesterol (40-59) mg/dL Cholesterol/HDL Ratio % 10/22/21 10/23/21 10/23/21 Range/Units 21:31 04:50 04:50 WBC 4.1 L (4.5-11.0) K/mm3 RBC 4.57 (3.65-5.03) M/mm3 Hgb 12.8 (11.8-15.2) gm/dl Hct 40.8 (35.5-45.6) % MCV 89 (84-94) fl MCH 28 (28-32) pg MCHC 31 L (32-34) % RDW 17.1 H (13.2-15.2) % Plt Count 117 L (140-440) K/mm3 Lymph % (Auto) 16.1 (13.4-35.0) % [place] % (Auto) 8.5 H (0.0-7.3) % Eos % (Auto) 13.6 H (0.0-4.3) % Baso % (Auto) 0.8 (0.0-1.8) % Lymph # (Auto) 0.7 L (1.2-5.4) K/mm3 [place] # (Auto) 0.3 (0.0-0.8) K/mm3 Eos # (Auto) 0.6 H (0.0-0.4) K/mm3 Baso # (Auto) 0.0 (0.0-0.1) K/mm3 Seg Neutrophils % 61.0 (40.0-70.0) % Seg Neutrophils # 2.5 (1.8-7.7) K/mm3 Sodium 137 (137-145) mmol/L Potassium 4.0 (3.6-5.0) mmol/L Chloride 100.1 (98-107) mmol/L Carbon Dioxide 29 (22-30) mmol/L Anion Gap 12 mmol/L BUN 22 H (9-20) mg/dL Creatinine 0.8 (0.8-1.3) mg/dL Estimated GFR > 60 ml/min BUN/Creatinine Ratio 28 % Glucose 165 H (75-100) mg/dL POC Glucose 212 H (70-105) mg/dL Calcium 8.2 L (8.4-10.2) mg/dL Total Bilirubin (0.1-1.2) mg/dL ALT (7-56) units/L Alkaline Phosphatase (35-129) units/L Troponin T (0.00-0.029) ng/mL NT-Pro-B Natriuret Pep (0-900) pg/mL Total Protein (6.3-8.2) g/dL Albumin (3.9-5) g/dL Albumin/Globulin Ratio % Triglycerides (2-149) mg/dL Cholesterol (50-199) mg/dL LDL Cholesterol Direct (50-130) mg/dL HDL Cholesterol (40-59) mg/dL Cholesterol/HDL Ratio % CBC 10/23/21 Range/Units 04:50 WBC 4.1 L (4.5-11.0) K/mm3 RBC 4.57 (3.65-5.03) M/mm3 Hgb 12.8 (11.8-15.2) gm/dl Hct 40.8 (35.5-45.6) % Plt Count 117 L (140-440) K/mm3 Lymph # (Auto) 0.7 L (1.2-5.4) K/mm3 [place]yer # (Auto) 0.3 (0.0-0.8) K/mm3 Eos # (Auto) 0.6 H (0.0-0.4) K/mm3 Baso # (Auto) 0.0 (0.0-0.1) K/mm3 Comprehensive Metabolic Panel 10/23/21 Range/Units 04:50 Sodium 137 (137-145) mmol/L Potassium 4.0 (3.6-5.0) mmol/L Chloride 100.1 (98-107) mmol/L Carbon Dioxide 29 (22-30) mmol/L BUN 22 H (9-20) mg/dL Creatinine 0.8 (0.8-1.3) mg/dL Glucose 165 H (75-100) mg/dL Calcium 8.2 L (8.4-10.2) mg/dL - Imaging and Cardiology Echo: report reviewed - EKG Sinus rhythms and dysrhythmias: sinus rhythm
--- NOTE | 2021-10-23 11:40 | Progress Note ---
Assessment and Plan Assessment and plan: 65 years old male with history of hypertension, hyperlipidemia, GERD, peripheral vascular disease and diabetes was brought to the hospital because of leg edema and generalized pain. Patient also complained of shortness of breath. Subsequently patient is brought to the ER in the ER patient is found to have acute CHF exacerbation. 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 We will continue the patient on the heart failure pathway. Continue Lasix 40 mg IV twice daily, Zestril 5 mg daily and metoprolol 25 mg p.o. twice daily. Patient had a previous echocardiogram June 2021 that revealed LVEF of 30-35% with some impaired relaxation. Await cardiology consultation. Continue Accu-Cheks and SSRI. Resume statin 10/23/2021. Continue medications of Eliquis, aspirin, Lipitor, Plavix, lisinopril and metoprolol. Continue IV Lasix for diuresis. Follow-up BMP in a.m. History Interval history: No new issues overnight Hospitalist Physical - Constitutional Vitals: Temp Pulse Resp BP Pulse Ox 98.4 F 79 18 117/76 100 10/23/21 09:00 10/23/21 08:00 10/23/21 09:00 10/23/21 09:00 10/23/21 09:14 General appearance: Present: no acute distress - EENT Eyes: Present: PERRL, EOM intact ENT: hearing intact, clear oral mucosa, dentition normal - Neck Neck: Present: supple, normal ROM - Respiratory Respiratory effort: normal Respiratory: bilateral: CTA - Cardiovascular Rhythm: regular Heart Sounds: Present: S1 & S2. Absent: gallop, rub - Extremities Extremities: no ischemia, No edema, Full ROM - Abdominal General gastrointestinal: soft, non-tender, non-distended, normal bowel sounds - Integumentary Integumentary: Present: clear, warm, dry - Neurologic Neurologic: CNII-XII intact, moves all extremities HEART Score - HEART Score Troponin: Troponin T 0.016 ng/mL (0.00-0.029) 10/22/21 20:49 Results - Labs CBC & Chem 7: 10/23/21 04:50 10/23/21 04:50 Labs: Laboratory Last Values WBC 4.1 K/mm3 (4.5-11.0) L 10/23/21 04:50 RBC 4.57 M/mm3 (3.65-5.03) 10/23/21 04:50 Hgb 12.8 gm/dl (11.8-15.2) 10/23/21 04:50 Hct 40.8 % (35.5-45.6) 10/23/21 04:50 MCV 89 fl (84-94) 10/23/21 04:50 MCH 28 pg (28-32) 10/23/21 04:50 MCHC 31 % (32-34) L 10/23/21 04:50 RDW 17.1 % (13.2-15.2) H 10/23/21 04:50 Plt Count 117 K/mm3 (140-440) L 10/23/21 04:50 Lymph % (Auto) 16.1 % (13.4-35.0) 10/23/21 04:50 [place] % (Auto) 8.5 % (0.0-7.3) H 10/23/21 04:50 Eos % (Auto) 13.6 % (0.0-4.3) H 10/23/21 04:50 Baso % (Auto) 0.8 % (0.0-1.8) 10/23/21 04:50 Lymph # (Auto) 0.7 K/mm3 (1.2-5.4) L 10/23/21 04:50 [place] # (Auto) 0.3 K/mm3 (0.0-0.8) 10/23/21 04:50 Eos # (Auto) 0.6 K/mm3 (0.0-0.4) H 10/23/21 04:50 Baso # (Auto) 0.0 K/mm3 (0.0-0.1) 10/23/21 04:50 Seg Neutrophils % 61.0 % (40.0-70.0) 10/23/21 04:50 Seg Neutrophils # 2.5 K/mm3 (1.8-7.7) 10/23/21 04:50 Sodium 137 mmol/L (137-145) 10/23/21 04:50 Potassium 4.0 mmol/L (3.6-5.0) 10/23/21 04:50 Chloride 100.1 mmol/L (98-107) 10/23/21 04:50 Carbon Dioxide 29 mmol/L (22-30) 10/23/21 04:50 Anion Gap 12 mmol/L 10/23/21 04:50 BUN 22 mg/dL (9-20) H 10/23/21 04:50 Creatinine 0.8 mg/dL (0.8-1.3) 10/23/21 04:50 Estimated GFR > 60 ml/min 10/23/21 04:50 BUN/Creatinine Ratio 28 % 10/23/21 04:50 Glucose 165 mg/dL (75-100) H 10/23/21 04:50 POC Glucose 212 mg/dL (70-105) H 10/22/21 21:31 Calcium 8.2 mg/dL (8.4-10.2) L 10/23/21 04:50 Total Bilirubin 0.60 mg/dL (0.1-1.2) 10/21/21 23:16 AST 57 units/L (5-40) H 10/21/21 23:16 ALT 54 units/L (7-56) 10/21/21 23:16 Alkaline Phosphatase 189 units/L (35-129) H 10/21/21 23:16 Troponin T 0.016 ng/mL (0.00-0.029) 10/22/21 20:49 NT-Pro-B Natriuret Pep 9831 pg/mL (0-900) H 10/21/21 23:16 Total Protein 7.7 g/dL (6.3-8.2) 10/21/21 23:16 Albumin 3.3 g/dL (3.9-5) L 10/21/21 23:16 Albumin/Globulin Ratio 0.8 % 10/21/21 23:16 Triglycerides 131 mg/dL (2-149) 10/22/21 02:20 Cholesterol 156 mg/dL (50-199) 10/22/21 02:20 LDL Cholesterol Direct 74 mg/dL (50-130) 10/22/21 02:20 HDL Cholesterol 69 mg/dL (40-59) H 10/22/21 02:20 Cholesterol/HDL Ratio 2.26 % 10/22/21 02:20 Doss/IV: Voiding Method Urinal Active Medications - Current Medications Current Medications: Generic Name Dose Route Start Last Admin Trade Name Freq PRN Reason Stop Dose Admin Acetaminophen 650 mg 10/22/21 05:22 Acetaminophen 325 Mg Tab PO Q4H PRN Pain MILD(1-3)/Fever >100.5/PACHECO Albuterol 2.5 mg 10/22/21 12:00 Albuterol 2.5 Mg/3 Ml Nebu IH Q4HRT PRN Shortness Of Breath Albuterol/Ipratropium 1 ampul 10/22/21 20:00 10/23/21 09:13 Ipratropium/Albuterol Sulfate 3 Ml Ampul.Neb IH 1 ampul BIDRT LYNDSAY Administration Apixaban 5 mg 10/22/21 10:00 10/23/21 10:34 Apixaban 5 Mg Tab PO 5 mg Q12HR LYNDSAY Administration Aspirin 81 mg 10/22/21 10:00 10/23/21 10:34 Aspirin Ec 81 Mg Tab PO 81 mg QDAY LYNDSAY Administration Atorvastatin Calcium 40 mg 10/22/21 22:00 10/22/21 21:28 Atorvastatin 40 Mg Tab PO 40 mg QHS LYNDSAY Administration Cephalexin 500 mg 10/22/21 06:00 10/23/21 05:42 Cephalexin 500 Mg Cap PO 500 mg Q8HR LYNDSAY Administration Protocol Clopidogrel Bisulfate 75 mg 10/22/21 10:00 10/23/21 10:34 Clopidogrel 75 Mg Tab PO 75 mg QDAY LYNDSAY Administration Dextrose 0 ml 10/22/21 05:34 Dextrose 10% *Hypoglycemia IV DIRECT PRN Hypoglycemia Protocol Famotidine 20 mg 10/22/21 10:00 10/23/21 10:34 Famotidine 20 Mg Tab PO 20 mg BID LYNDSAY Administration Furosemide 40 mg 10/22/21 06:00 10/23/21 05:42 Furosemide 40 Mg/4 Ml Inj IV 40 mg BID@0600,1800 LYNDSAY Administration Hydromorphone HCl 0.5 mg 10/22/21 05:22 10/23/21 10:35 Hydromorphone 1 Mg/1 Ml Inj IV 0.5 mg Q3H PRN Administration Pain , Severe (7-10) Insulin Human Lispro 0 unit 10/22/21 07:30 10/22/21 21:31 Insulin Lispro 100 Unit/Ml SUB-Q 3 unit ACHS LYNDSAY Administration Protocol Lisinopril 5 mg 10/22/21 10:00 10/23/21 10:35 Lisinopril 5 Mg Tab PO 5 mg QDAY LYNDSAY Administration Metoprolol Tartrate 25 mg 10/22/21 10:00 10/23/21 10:35 Metoprolol Tartrate 25 Mg Tab PO 25 mg BID LYNDSAY Administration Morphine Sulfate 2 mg 10/22/21 05:22 Morphine 2 Mg/1 Ml Inj IV Q4H PRN Pain, Moderate (4-6) Ondansetron HCl 4 mg 10/22/21 05:22 Ondansetron 4 Mg/2 Ml Inj IV Q8H PRN Nausea And Vomiting Sodium Chloride 10 ml 10/22/21 10:00 10/22/21 21:28 Sodium Chloride 0.9% 10 Ml Flush Syringe IV 10 ml BID LYNDSAY Administration Sodium Chloride 10 ml 10/22/21 05:22 Sodium Chloride 0.9% 10 Ml Flush Syringe IV PRN PRN LINE FLUSH Nutrition/Malnutrition Assess - Dietary Evaluation Nutrition/Malnutrition Findings: Nutrition Notes Start: 10/22/21 12:04 Freq: Status: Active Protocol: Document 10/22/21 12:04 ERICK (Rec: 10/22/21 12:12 ERICK [email or web address]) Nutrition Notes Need for Assessment generated from: MD Order,Education Initial or Follow up Brief Note Current Diagnosis Diabetes,Hypertension, Hyperlipidemia Other Pertinent Diagnosis CHF, HFrEF, PVD, LE Edema, s/p R-AKA, Asthma. Current Diet Cardiac/Consistent Carbohydrates Diet (since B ). Height 5 ft 6 in Weight 90.718 kg [place] Body Weight (kg) 64.54 BMI 32.3 Intake Prior to Admission Good Weight change and time frame Pt denies having loss body weight [employer]. Weight Status Obese Subjective/Other Information RD consult for nutrition education. No reports available on Pt's PO intake of meals at the time , will assess at F/U. Pt still in critical condition , not a candidate for Nutrition Education at the time, will assess feasibility on F/U. Percent of energy/protein needs met: Prescribed Cardiac/Consistent Carbohydrates Diet provides for energy/protein needs (1, 977 Kcal/86 g) during LOS. Nutrition Intervention Follow-Up By: 10/29/21 Additional Comments Nutrition education will be provided on F/U, if feasible. Continue monitoring food tolerance, %PO intake of meals , and BM.
[2021-10-24] MEDS: FUROSEMIDE 40 MG/4 ML INJ IV SCH ×2 (05:10→17:14)
[2021-10-24] MEDS: INSULIN LISPRO 100 UNIT/ML SUB-Q SCH ×4 (07:50→22:42)
[2021-10-24] MEDS: IPRATROPIUM/ALBUTEROL SULFATE 3 ML AMPUL.NEB IH SCH ×2 (09:01→21:17)
[2021-10-24] MEDS: METOPROLOL TARTRATE 25 MG TAB PO SCH ×2 (10:04→21:28)
[2021-10-24] MEDS: ASPIRIN EC 81 MG TAB PO SCH (10:04)
[2021-10-24] MEDS: CLOPIDOGREL 75 MG TAB PO SCH (10:05)
[2021-10-24] MEDS: APIXABAN 5 MG TAB PO SCH ×2 (10:05→21:28)
[2021-10-24] MEDS: LISINOPRIL 5 MG TAB PO SCH (10:05)
[2021-10-24] MEDS: FAMOTIDINE 20 MG TAB PO SCH ×2 (10:05→21:28)
--- NOTE | 2021-10-24 11:10 | Progress Note ---
Assessment and Plan Patient is a 65-year-old male with past medical history of HFrEF, hypertension, hyperlipidemia, peripheral vascular disease s/p BKA, GERD who reports to the hospital due to lower extremity edema and shortness of breath Acute on chronic HFrEF Hypertension Acute respiratory failure COPD Peripheral vascular disease s/p BKA GERD Diabetes Echo 06/23/2021-EF 30 to 35%, left ventricle is mildly dilated moderate global hypokinesis of LV. Left atrium is mildly dilated. Right ventricle systolic function is normal Plan: Continue with diuresis. Patient is improving slowly. Follow-up labs. Subjective Interval history: Swelling a bit better. Objective Vital Signs Temp Pulse Pulse Resp Resp BP BP 10/24/21 10:49 18 10/24/21 09:02 10/24/21 08:18 97.9 F 77 18 134/84 10/24/21 08:00 80 17 10/24/21 03:35 98.0 F 75 19 113/80 10/23/21 23:41 98.4 F 72 19 109/75 10/23/21 21:06 82 18 10/23/21 21:05 10/23/21 20:00 98.5 F 83 18 115/60 10/23/21 19:54 75 10/23/21 15:35 98.4 F 70 16 106/69 10/23/21 13:00 18 Pulse Ox 10/24/21 10:49 99 10/24/21 09:02 100 10/24/21 08:18 100 10/24/21 08:00 10/24/21 03:35 100 10/23/21 23:41 100 10/23/21 21:06 10/23/21 21:05 98 10/23/21 20:00 99 10/23/21 19:54 98 10/23/21 15:35 97 10/23/21 13:00 99 - Physical Examination HEENT: Positive: PERRL Neck: Positive: trachea midline Neuro: Positive: Grossly Intact Abdomen: Positive: Soft Skin: Negative: Rash Extremities: Present: upper extr. pulses, edema - Imaging and Cardiology Echo: report reviewed - EKG Sinus rhythms and dysrhythmias: sinus rhythm
[2021-10-24] MEDS: HYDROmorphone 1 MG/1 ML INJ IV PRN (11:36)
--- NOTE | 2021-10-24 11:58 | Progress Note ---
Assessment and Plan Assessment and plan: 65 years old male with history of hypertension, hyperlipidemia, GERD, peripheral vascular disease and diabetes was brought to the hospital because of leg edema and generalized pain. Patient also complained of shortness of breath. Subsequently patient is brought to the ER in the ER patient is found to have acute CHF exacerbation. 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 We will continue the patient on the heart failure pathway. Continue Lasix 40 mg IV twice daily, Zestril 5 mg daily and metoprolol 25 mg p.o. twice daily. Patient had a previous echocardiogram June 2021 that revealed LVEF of 30-35% with some impaired relaxation. Await cardiology consultation. Continue Accu-Cheks and SSRI. Resume statin 10/23/2021. Continue medications of Eliquis, aspirin, Lipitor, Plavix, lisinopril and metoprolol. Continue IV Lasix for diuresis. Follow-up BMP in a.m. 10/24/2021. Continue GDMT for heart failure. Patient is exhibiting some mild improvement. Continue diuresis History Interval history: No new issues overnight Hospitalist Physical - Constitutional Vitals: Temp Pulse Resp BP Pulse Ox 97.9 F 86 18 119/81 100 10/24/21 08:18 10/24/21 11:17 10/24/21 11:17 10/24/21 11:17 10/24/21 11:17 General appearance: Present: no acute distress - EENT Eyes: Present: PERRL, EOM intact ENT: hearing intact, clear oral mucosa, dentition normal - Neck Neck: Present: supple, normal ROM - Respiratory Respiratory effort: normal Respiratory: bilateral: CTA - Cardiovascular Rhythm: regular Heart Sounds: Present: S1 & S2. Absent: gallop, rub - Extremities Extremities: no ischemia, No edema, Full ROM - Abdominal General gastrointestinal: soft, non-tender, non-distended, normal bowel sounds - Integumentary Integumentary: Present: clear, warm, dry - Neurologic Neurologic: CNII-XII intact, moves all extremities HEART Score - HEART Score Troponin: Troponin T 0.016 ng/mL (0.00-0.029) 10/22/21 20:49 Results - Labs CBC & Chem 7: 10/23/21 04:50 10/23/21 04:50 Labs: Laboratory Last Values WBC 4.1 K/mm3 (4.5-11.0) L 10/23/21 04:50 RBC 4.57 M/mm3 (3.65-5.03) 10/23/21 04:50 Hgb 12.8 gm/dl (11.8-15.2) 10/23/21 04:50 Hct 40.8 % (35.5-45.6) 10/23/21 04:50 MCV 89 fl (84-94) 10/23/21 04:50 MCH 28 pg (28-32) 10/23/21 04:50 MCHC 31 % (32-34) L 10/23/21 04:50 RDW 17.1 % (13.2-15.2) H 10/23/21 04:50 Plt Count 117 K/mm3 (140-440) L 10/23/21 04:50 Lymph % (Auto) 16.1 % (13.4-35.0) 10/23/21 04:50 [place] % (Auto) 8.5 % (0.0-7.3) H 10/23/21 04:50 Eos % (Auto) 13.6 % (0.0-4.3) H 10/23/21 04:50 Baso % (Auto) 0.8 % (0.0-1.8) 10/23/21 04:50 Lymph # (Auto) 0.7 K/mm3 (1.2-5.4) L 10/23/21 04:50 [place] # (Auto) 0.3 K/mm3 (0.0-0.8) 10/23/21 04:50 Eos # (Auto) 0.6 K/mm3 (0.0-0.4) H 10/23/21 04:50 Baso # (Auto) 0.0 K/mm3 (0.0-0.1) 10/23/21 04:50 Seg Neutrophils % 61.0 % (40.0-70.0) 10/23/21 04:50 Seg Neutrophils # 2.5 K/mm3 (1.8-7.7) 10/23/21 04:50 Sodium 137 mmol/L (137-145) 10/23/21 04:50 Potassium 4.0 mmol/L (3.6-5.0) 10/23/21 04:50 Chloride 100.1 mmol/L (98-107) 10/23/21 04:50 Carbon Dioxide 29 mmol/L (22-30) 10/23/21 04:50 Anion Gap 12 mmol/L 10/23/21 04:50 BUN 22 mg/dL (9-20) H 10/23/21 04:50 Creatinine 0.8 mg/dL (0.8-1.3) 10/23/21 04:50 Estimated GFR > 60 ml/min 10/23/21 04:50 BUN/Creatinine Ratio 28 % 10/23/21 04:50 Glucose 165 mg/dL (75-100) H 10/23/21 04:50 POC Glucose 150 mg/dL (70-105) H 10/24/21 08:16 Calcium 8.2 mg/dL (8.4-10.2) L 10/23/21 04:50 Total Bilirubin 0.60 mg/dL (0.1-1.2) 10/21/21 23:16 AST 57 units/L (5-40) H 10/21/21 23:16 ALT 54 units/L (7-56) 10/21/21 23:16 Alkaline Phosphatase 189 units/L (35-129) H 10/21/21 23:16 Troponin T 0.016 ng/mL (0.00-0.029) 10/22/21 20:49 NT-Pro-B Natriuret Pep 9831 pg/mL (0-900) H 10/21/21 23:16 Total Protein 7.7 g/dL (6.3-8.2) 10/21/21 23:16 Albumin 3.3 g/dL (3.9-5) L 10/21/21 23:16 Albumin/Globulin Ratio 0.8 % 10/21/21 23:16 Triglycerides 131 mg/dL (2-149) 10/22/21 02:20 Cholesterol 156 mg/dL (50-199) 10/22/21 02:20 LDL Cholesterol Direct 74 mg/dL (50-130) 10/22/21 02:20 HDL Cholesterol 69 mg/dL (40-59) H 10/22/21 02:20 Cholesterol/HDL Ratio 2.26 % 10/22/21 02:20 Doss/IV: Voiding Method Urinal Active Medications - Current Medications Current Medications: Generic Name Dose Route Start Last Admin Trade Name Freq PRN Reason Stop Dose Admin Acetaminophen 650 mg 10/22/21 05:22 Acetaminophen 325 Mg Tab PO Q4H PRN Pain MILD(1-3)/Fever >100.5/PACHECO Albuterol 2.5 mg 10/22/21 12:00 Albuterol 2.5 Mg/3 Ml Nebu IH Q4HRT PRN Shortness Of Breath Albuterol/Ipratropium 1 ampul 10/22/21 20:00 10/24/21 09:01 Ipratropium/Albuterol Sulfate 3 Ml Ampul.Neb IH 1 ampul BIDRT LYNDSAY Administration Apixaban 5 mg 10/22/21 10:00 10/24/21 10:05 Apixaban 5 Mg Tab PO 5 mg Q12HR LYNDSAY Administration Aspirin 81 mg 10/22/21 10:00 10/24/21 10:04 Aspirin Ec 81 Mg Tab PO 81 mg QDAY LYNDSAY Administration Atorvastatin Calcium 40 mg 10/22/21 22:00 10/23/21 21:24 Atorvastatin 40 Mg Tab PO 40 mg QHS LYNDSAY Administration Clopidogrel Bisulfate 75 mg 10/22/21 10:00 10/24/21 10:05 Clopidogrel 75 Mg Tab PO 75 mg QDAY LYNDSAY Administration Dextrose 0 ml 10/22/21 05:34 Dextrose 10% *Hypoglycemia IV DIRECT PRN Hypoglycemia Protocol Famotidine 20 mg 10/22/21 10:00 10/24/21 10:05 Famotidine 20 Mg Tab PO 20 mg BID LYNDSAY Administration Furosemide 40 mg 10/22/21 06:00 10/24/21 05:10 Furosemide 40 Mg/4 Ml Inj IV 40 mg BID@0600,1800 LYNDSAY Administration Hydromorphone HCl 0.5 mg 10/22/21 05:22 10/24/21 11:36 Hydromorphone 1 Mg/1 Ml Inj IV 0.5 mg Q3H PRN Administration Pain , Severe (7-10) Insulin Human Lispro 0 unit 10/22/21 07:30 10/24/21 11:36 Insulin Lispro 100 Unit/Ml SUB-Q 2 unit ACHS LYNDSAY Administration Protocol Lisinopril 5 mg 10/22/21 10:00 10/24/21 10:05 Lisinopril 5 Mg Tab PO 5 mg QDAY LYNDSAY Administration Metoprolol Tartrate 25 mg 10/22/21 10:00 10/24/21 10:04 Metoprolol Tartrate 25 Mg Tab PO 25 mg BID LYNDSAY Administration Morphine Sulfate 2 mg 10/22/21 05:22 Morphine 2 Mg/1 Ml Inj IV Q4H PRN Pain, Moderate (4-6) Ondansetron HCl 4 mg 10/22/21 05:22 Ondansetron 4 Mg/2 Ml Inj IV Q8H PRN Nausea And Vomiting Sodium Chloride 10 ml 10/22/21 10:00 10/24/21 10:05 Sodium Chloride 0.9% 10 Ml Flush Syringe IV 10 ml BID LYNDSAY Administration Sodium Chloride 10 ml 10/22/21 05:22 Sodium Chloride 0.9% 10 Ml Flush Syringe IV PRN PRN LINE FLUSH Nutrition/Malnutrition Assess - Dietary Evaluation Nutrition/Malnutrition Findings: Nutrition Notes Start: 10/22/21 12:04 Freq: Status: Active Protocol: Document 10/22/21 12:04 ERICK (Rec: 10/22/21 12:12 ERICK [email or web address]) Nutrition Notes Need for Assessment generated from: MD Order,Education Initial or Follow up Brief Note Current Diagnosis Diabetes,Hypertension, Hyperlipidemia Other Pertinent Diagnosis CHF, HFrEF, PVD, LE Edema, s/p R-AKA, Asthma. Current Diet Cardiac/Consistent Carbohydrates Diet (since B ). Height 5 ft 6 in Weight 90.718 kg [place] Body Weight (kg) 64.54 BMI 32.3 Intake Prior to Admission Good Weight change and time frame Pt denies having loss body weight [employer]. Weight Status Obese Subjective/Other Information RD consult for nutrition education. No reports available on Pt's PO intake of meals at the time , will assess at F/U. Pt still in critical condition , not a candidate for Nutrition Education at the time, will assess feasibility on F/U. Percent of energy/protein needs met: Prescribed Cardiac/Consistent Carbohydrates Diet provides for energy/protein needs (1, 977 Kcal/86 g) during LOS. Nutrition Intervention Follow-Up By: 10/29/21 Additional Comments Nutrition education will be provided on F/U, if feasible. Continue monitoring food tolerance, %PO intake of meals , and BM.
[2021-10-24] MEDS: MORPHINE 2 MG/1 ML INJ IV PRN (23:34)
[2021-10-25] MEDS: FUROSEMIDE 40 MG/4 ML INJ IV SCH ×2 (05:07→17:44)
[2021-10-25 06:16] LABS: Basophils % (Auto) 0.8 % (0.0-1.8); Eosinophils # (Auto) 0.6 K/mm3 (0.0-0.4); Eosinophils % (Auto) 13.9 % (0.0-4.3); Hematocrit 44.4 % (35.5-45.6); Hemoglobin 14.3 gm/dl (11.8-15.2); Lymphocytes # (Auto) 1.1 K/mm3 (1.2-5.4); Lymphocytes % (Auto) 27.2 % (13.4-35.0); Mean Corpuscular HGB Conc 32 % (32-34); Mean Corpuscular Volume 89 fl (84-94); Monocytes # (Auto) 0.3 K/mm3 (0.0-0.8); Monocytes % (Auto) 8.1 % (0.0-7.3); Red Cell Distribution Width 17.2 % (13.2-15.2)
[2021-10-25 06:24] LABS: BUN/Creatinine Ratio 35; Blood Urea Nitrogen 28 mg/dL (9-20); Hemolysis Index 33
[2021-10-25 06:37] LABS: Platelet Count 141 K/mm3 (140-440)
[2021-10-25] MEDS: INSULIN LISPRO 100 UNIT/ML SUB-Q SCH ×4 (07:31→22:57)
[2021-10-25] MEDS: IPRATROPIUM/ALBUTEROL SULFATE 3 ML AMPUL.NEB IH SCH ×2 (08:59→20:49)
[2021-10-25] MEDS: ASPIRIN EC 81 MG TAB PO SCH (09:14)
[2021-10-25] MEDS: FAMOTIDINE 20 MG TAB PO SCH ×2 (09:15→22:58)
[2021-10-25] MEDS: METOPROLOL TARTRATE 25 MG TAB PO SCH ×2 (09:15→22:57)
[2021-10-25] MEDS: LISINOPRIL 5 MG TAB PO SCH (09:15)
[2021-10-25] MEDS: CLOPIDOGREL 75 MG TAB PO SCH (09:15)
[2021-10-25] MEDS: MORPHINE 2 MG/1 ML INJ IV PRN (09:15)
[2021-10-25] MEDS: APIXABAN 5 MG TAB PO SCH ×2 (09:15→22:57)
--- NOTE | 2021-10-25 11:46 | XRay Report ---
CHEST 1 VIEW 10/25/2021 10:10 AM INDICATION / CLINICAL INFORMATION: CHF. COMPARISON: 10/21/2021 FINDINGS: SUPPORT DEVICES: None. HEART / MEDIASTINUM: No significant abnormality. LUNGS / PLEURA: Diffuse opacities in bilateral lungs with bilateral effusions No pneumothorax. ADDITIONAL FINDINGS: No significant additional findings. IMPRESSION: 1. Diffuse bilateral pulmonary opacities/effusions persist Signer Name: Cuong Baum MD Signed: 10/25/2021 11:42 AM Workstation Name: [id number]
[2021-10-25] MEDS: DOBUTamine/D5W 500 MG/250 ML 500 MG/250 ML BAG IV SCH (12:10)
--- NOTE | 2021-10-25 13:06 | Progress Note ---
Assessment and Plan Assessment and plan: 65 years old male with history of hypertension, hyperlipidemia, GERD, peripheral vascular disease and diabetes was brought to the hospital because of leg edema and generalized pain. Patient also complained of shortness of breath. Subsequently patient is brought to the ER in the ER patient is found to have acute CHF exacerbation. 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 We will continue the patient on the heart failure pathway. Continue Lasix 40 mg IV twice daily, Zestril 5 mg daily and metoprolol 25 mg p.o. twice daily. Patient had a previous echocardiogram June 2021 that revealed LVEF of 30-35% with some impaired relaxation. Await cardiology consultation. Continue Accu-Cheks and SSRI. Resume statin 10/23/2021. Continue medications of Eliquis, aspirin, Lipitor, Plavix, lisinopril and metoprolol. Continue IV Lasix for diuresis. Follow-up BMP in a.m. 10/24/2021. Continue GDMT for heart failure. Patient is exhibiting some mild improvement. Continue diuresis 10/25/2021. Continue aspirin, Plavix, Eliquis, Lipitor, lisinopril and m etoprolol. Continue IV diuresis with Lasix. Continue Accu-Cheks and sliding scale insulin. Patient still has significant lower extremity edema but somewhat improved. Continue current management per cardiology recommendations. History Interval history: No new issues overnight Hospitalist Physical - Constitutional Vitals: Temp Pulse Resp BP Pulse Ox 93.8 F L 85 20 136/87 100 10/25/21 06:00 10/25/21 09:00 10/25/21 09:00 10/25/21 05:37 10/25/21 09:02 General appearance: Present: no acute distress - EENT Eyes: Present: PERRL, EOM intact ENT: hearing intact, clear oral mucosa, dentition normal - Neck Neck: Present: supple, normal ROM - Respiratory Respiratory effort: normal Respiratory: bilateral: CTA - Cardiovascular Rhythm: regular Heart Sounds: Present: S1 & S2. Absent: gallop, rub - Extremities Extremities: no ischemia, No edema, Full ROM - Abdominal General gastrointestinal: soft, non-tender, non-distended, normal bowel sounds - Integumentary Integumentary: Present: clear, warm, dry - Neurologic Neurologic: CNII-XII intact, moves all extremities HEART Score - HEART Score Troponin: Troponin T 0.016 ng/mL (0.00-0.029) 10/22/21 20:49 Results - Labs CBC & Chem 7: 10/25/21 05:25 10/25/21 05:25 Labs: Laboratory Last Values WBC 4.0 K/mm3 (4.5-11.0) L 10/25/21 05:25 RBC 5.00 M/mm3 (3.65-5.03) 10/25/21 05:25 Hgb 14.3 gm/dl (11.8-15.2) 10/25/21 05:25 Hct 44.4 % (35.5-45.6) 10/25/21 05:25 MCV 89 fl (84-94) 10/25/21 05:25 MCH 29 pg (28-32) 10/25/21 05:25 MCHC 32 % (32-34) 10/25/21 05:25 RDW 17.2 % (13.2-15.2) H 10/25/21 05:25 Plt Count 141 K/mm3 (140-440) 10/25/21 05:25 Lymph % (Auto) 27.2 % (13.4-35.0) 10/25/21 05:25 [place] % (Auto) 8.1 % (0.0-7.3) H 10/25/21 05:25 Eos % (Auto) 13.9 % (0.0-4.3) H 10/25/21 05:25 Baso % (Auto) 0.8 % (0.0-1.8) 10/25/21 05:25 Lymph # (Auto) 1.1 K/mm3 (1.2-5.4) L 10/25/21 05:25 [place] # (Auto) 0.3 K/mm3 (0.0-0.8) 10/25/21 05:25 Eos # (Auto) 0.6 K/mm3 (0.0-0.4) H 10/25/21 05:25 Baso # (Auto) 0.0 K/mm3 (0.0-0.1) 10/25/21 05:25 Seg Neutrophils % 50.0 % (40.0-70.0) 10/25/21 05:25 Seg Neutrophils # 2.0 K/mm3 (1.8-7.7) 10/25/21 05:25 Sodium 139 mmol/L (137-145) 10/25/21 05:25 Potassium 4.0 mmol/L (3.6-5.0) 10/25/21 05:25 Chloride 99.5 mmol/L (98-107) 10/25/21 05:25 Carbon Dioxide 26 mmol/L (22-30) 10/25/21 05:25 Anion Gap 18 mmol/L 10/25/21 05:25 BUN 28 mg/dL (9-20) H 10/25/21 05:25 Creatinine 0.8 mg/dL (0.8-1.3) 10/25/21 05:25 Estimated GFR > 60 ml/min 10/25/21 05:25 BUN/Creatinine Ratio 35 % 10/25/21 05:25 Glucose 97 mg/dL (75-100) 10/25/21 05:25 POC Glucose 83 mg/dL (70-105) 10/25/21 08:10 Calcium 9.0 mg/dL (8.4-10.2) 10/25/21 05:25 Total Bilirubin 0.60 mg/dL (0.1-1.2) 10/21/21 23:16 AST 57 units/L (5-40) H 10/21/21 23:16 ALT 54 units/L (7-56) 10/21/21 23:16 Alkaline Phosphatase 189 units/L (35-129) H 10/21/21 23:16 Troponin T 0.016 ng/mL (0.00-0.029) 10/22/21 20:49 NT-Pro-B Natriuret Pep 9831 pg/mL (0-900) H 10/21/21 23:16 Total Protein 7.7 g/dL (6.3-8.2) 10/21/21 23:16 Albumin 3.3 g/dL (3.9-5) L 10/21/21 23:16 Albumin/Globulin Ratio 0.8 % 10/21/21 23:16 Triglycerides 131 mg/dL (2-149) 10/22/21 02:20 Cholesterol 156 mg/dL (50-199) 10/22/21 02:20 LDL Cholesterol Direct 74 mg/dL (50-130) 10/22/21 02:20 HDL Cholesterol 69 mg/dL (40-59) H 10/22/21 02:20 Cholesterol/HDL Ratio 2.26 % 10/22/21 02:20 Doss/IV: Voiding Method Urinal Active Medications - Current Medications Current Medications: Generic Name Dose Route Start Last Admin Trade Name Freq PRN Reason Stop Dose Admin Acetaminophen 650 mg 10/22/21 05:22 Acetaminophen 325 Mg Tab PO Q4H PRN Pain MILD(1-3)/Fever >100.5/PACHECO Albuterol 2.5 mg 10/22/21 12:00 Albuterol 2.5 Mg/3 Ml Nebu IH Q4HRT PRN Shortness Of Breath Albuterol/Ipratropium 1 ampul 10/22/21 20:00 10/25/21 08:59 Ipratropium/Albuterol Sulfate 3 Ml Ampul.Neb IH 1 ampul BIDRT LYNDSAY Administration Apixaban 5 mg 10/22/21 10:00 10/25/21 09:15 Apixaban 5 Mg Tab PO 5 mg Q12HR LYNDSAY Administration Aspirin 81 mg 10/22/21 10:00 10/25/21 09:14 Aspirin Ec 81 Mg Tab PO 81 mg QDAY LYNDSAY Administration Atorvastatin Calcium 40 mg 10/22/21 22:00 10/24/21 21:28 Atorvastatin 40 Mg Tab PO 40 mg QHS LYNDSAY Administration Clopidogrel Bisulfate 75 mg 10/22/21 10:00 10/25/21 09:15 Clopidogrel 75 Mg Tab PO 75 mg QDAY LYNDSAY Administration Dextrose 0 ml 10/22/21 05:34 Dextrose 10% *Hypoglycemia IV DIRECT PRN Hypoglycemia Protocol Famotidine 20 mg 10/22/21 10:00 10/25/21 09:15 Famotidine 20 Mg Tab PO 20 mg BID LYNDSAY Administration Furosemide 40 mg 10/22/21 06:00 10/25/21 05:07 Furosemide 40 Mg/4 Ml Inj IV 40 mg BID@0600,1800 LYNDSAY Administration Hydromorphone HCl 0.5 mg 10/22/21 05:22 10/24/21 11:36 Hydromorphone 1 Mg/1 Ml Inj IV 0.5 mg Q3H PRN Administration Pain , Severe (7-10) Dobutamine HCl/Dextrose 500 mg in 250 mls @ 6.804 mls/hr 10/25/21 12:00 10/25/21 12:10 Dobutrex Drip 500mg/D5w 250ml IV 2.5 mcg/kg/min DIRECT LYNDSAY 6.804 mls/hr Administration Protocol 2.5 MCG/KG/MIN Insulin Human Lispro 0 unit 10/22/21 07:30 10/25/21 12:26 Insulin Lispro 100 Unit/Ml SUB-Q Not Given ACHS LYNDSAY Protocol Lisinopril 5 mg 10/22/21 10:00 10/25/21 09:15 Lisinopril 5 Mg Tab PO 5 mg QDAY LYNDSAY Administration Metoprolol Tartrate 25 mg 10/22/21 10:00 10/25/21 09:15 Metoprolol Tartrate 25 Mg Tab PO 25 mg BID LYNDSAY Administration Morphine Sulfate 2 mg 10/22/21 05:22 10/25/21 09:15 Morphine 2 Mg/1 Ml Inj IV 2 mg Q4H PRN Administration Pain, Moderate (4-6) Ondansetron HCl 4 mg 10/22/21 05:22 Ondansetron 4 Mg/2 Ml Inj IV Q8H PRN Nausea And Vomiting Sodium Chloride 10 ml 10/22/21 10:00 10/25/21 09:31 Sodium Chloride 0.9% 10 Ml Flush Syringe IV Not Given BID LYNDSAY Sodium Chloride 10 ml 10/22/21 05:22 Sodium Chloride 0.9% 10 Ml Flush Syringe IV PRN PRN LINE FLUSH Nutrition/Malnutrition Assess - Dietary Evaluation Nutrition/Malnutrition Findings: Nutrition Notes Start: 10/22/21 12:04 Freq: Status: Active Protocol: Document 10/22/21 12:04 ERICK (Rec: 10/22/21 12:12 ERICK [email or web address]) Nutrition Notes Need for Assessment generated from: MD Order,Education Initial or Follow up Brief Note Current Diagnosis Diabetes,Hypertension, Hyperlipidemia Other Pertinent Diagnosis CHF, HFrEF, PVD, LE Edema, s/p R-AKA, Asthma. Current Diet Cardiac/Consistent Carbohydrates Diet (since B ). Height 5 ft 6 in Weight 90.718 kg [place] Body Weight (kg) 64.54 BMI 32.3 Intake Prior to Admission Good Weight change and time frame Pt denies having loss body weight [employer]INE[employer]. Weight Status Obese Subjective/Other Information RD consult for nutrition education. No reports available on Pt's PO intake of meals at the time , will assess at F/U. Pt still in critical condition , not a candidate for Nutrition Education at the time, will assess feasibility on F/U. Percent of energy/protein needs met: Prescribed Cardiac/Consistent Carbohydrates Diet provides for energy/protein needs (1, 977 Kcal/86 g) during LOS. Nutrition Intervention Follow-Up By: 10/29/21 Additional Comments Nutrition education will be provided on F/U, if feasible. Continue monitoring food tolerance, %PO intake of meals , and BM.
--- NOTE | 2021-10-25 14:35 | Progress Note ---
Assessment and Plan Patient is a 65-year-old male with past medical history of HFrEF, hypertension, hyperlipidemia, peripheral vascular disease s/p BKA, GERD who reports to the hospital due to lower extremity edema and shortness of breath Assessment: Acute on chronic HFrEF Hypertension Acute respiratory failure COPD Peripheral vascular disease s/p right AKA GERD Diabetes *Cardiographics: Echo 06/23/2021-EF 30 to 35%, left ventricle is mildly dilated moderate global hypokinesis of LV. Left atrium is mildly dilated. Right ventricle systolic function is normal Plan: Patient feels cool and wet on exam today. Not responding as we would like to IV Lasix. Only 500 cc out overnight We will start IV dobutamine. Repeat chest x-ray today Consider dose increase of diuretic tomorrow Strict I&O's, Daily weights Currently On GDMT (aspirin, atorvastatin, eliquis, plavix, Lasix 40 mg IV BID, lisinopril 5 mg PO Qday, metoprolol 25 mg PO BID) Patient seen in conjunction with Dr. Neely who agrees with the assessment and management of this patient. - Patient Problems (1) Acute on chronic HFrEF (heart failure with reduced ejection fraction) Current Visit: Yes Status: Acute (2) Acute HFrEF (heart failure with reduced ejection fraction) Current Visit: No Status: Acute (3) Diabetes Current Visit: No Status: Acute (4) Hyperlipidemia Current Visit: No Status: Acute Qualifiers: (5) Hypertension Current Visit: No Status: Acute Qualifiers: (6) COPD (chronic obstructive pulmonary disease) Current Visit: No Status: Chronic Qualifiers: Emphysema type: unspecified (7) Hypertension Current Visit: No Status: Chronic Qualifiers: Hypertension type: primary hypertension Qualified Code(s): I10 - Essential (primary) hypertension (8) Peripheral arterial disease Current Visit: No Status: Chronic Subjective Date of service: 10/25/21 Principal diagnosis: Acute on Chronic HFrEF Interval history: Patient seen in hospital room today. He appears slightly tachypneic. Currently receiving breathing treatment. He is cool and wet on exam. Telemetry: Sinus rhythm Objective Vital Signs Temp Pulse Pulse Resp Resp BP BP 10/25/21 09:02 10/25/21 09:00 85 20 10/25/21 07:12 10/25/21 06:00 93.8 F L 10/25/21 05:46 74 10/25/21 05:37 16 136/87 10/25/21 01:20 10/25/21 00:59 16 118/50 10/24/21 21:28 71 128/83 10/24/21 21:27 95.8 F L 10/24/21 21:20 10/24/21 21:19 75 20 10/24/21 21:15 71 16 128/83 10/24/21 20:00 111 H 16 136/87 10/24/21 16:26 98.6 F 83 18 110/75 Pulse Ox 10/25/21 09:02 100 10/25/21 09:00 10/25/21 07:12 98 10/25/21 06:00 10/25/21 05:46 100 10/25/21 05:37 10/25/21 01:20 98 10/25/21 00:59 10/24/21 21:28 10/24/21 21:27 10/24/21 21:20 100 10/24/21 21:19 10/24/21 21:15 100 10/24/21 20:00 53 L 10/24/21 16:26 100 - Physical Examination General: Other (Tired and slightly tachypneic) HEENT: Positive: Normocephaly Neck: Positive: trachea midline Cardiac: Positive: S1/S2 Lungs: Positive: Decreased Breath Sounds, Rhonchi (Posterior lung base) Neuro: Positive: Grossly Intact Abdomen: Positive: Soft, Other (Edematous) /Rectal: Other (Edematous) Skin: Positive: Cool (Left lower extremity cool to touch). Negative: Rash Extremities: Present: upper extr. pulses (1+), +2 Edema, Cool (Left lower extremity pitting edema. Cool to touch) - Labs and Meds CBC 10/25/21 Range/Units 05:25 WBC 4.0 L (4.5-11.0) K/mm3 RBC 5.00 (3.65-5.03) M/mm3 Hgb 14.3 (11.8-15.2) gm/dl Hct 44.4 (35.5-45.6) % Plt Count 141 (140-440) K/mm3 Lymph # (Auto) 1.1 L (1.2-5.4) K/mm3 [place] # (Auto) 0.3 (0.0-0.8) K/mm3 Eos # (Auto) 0.6 H (0.0-0.4) K/mm3 Baso # (Auto) 0.0 (0.0-0.1) K/mm3 Comprehensive Metabolic Panel 10/25/21 Range/Units 05:25 Sodium 139 (137-145) mmol/L Potassium 4.0 (3.6-5.0) mmol/L Chloride 99.5 (98-107) mmol/L Carbon Dioxide 26 (22-30) mmol/L BUN 28 H (9-20) mg/dL Creatinine 0.8 (0.8-1.3) mg/dL Glucose 97 (75-100) mg/dL Calcium 9.0 (8.4-10.2) mg/dL - Imaging and Cardiology EKG: report reviewed Echo: report reviewed - Telemetry EKG Rhythm: Sinus Rhythm - EKG Sinus rhythms and dysrhythmias: sinus rhythm - Allied health notes Allied health notes reviewed: nursing
[2021-10-26] MEDS: PHENYLEPHRINE 0.25% NASAL SPRAY 15ML NS PRN ×3 (02:03→11:50)
[2021-10-26] MEDS: FUROSEMIDE 40 MG/4 ML INJ IV SCH ×2 (05:40→22:19)
[2021-10-26 06:08] LABS: Basophils % (Auto) 0.8 % (0.0-1.8); Eosinophils # (Auto) 0.4 K/mm3 (0.0-0.4); Eosinophils % (Auto) 9.6 % (0.0-4.3); Hematocrit 41.4 % (35.5-45.6); Hemoglobin 13.2 gm/dl (11.8-15.2); Lymphocytes # (Auto) 0.8 K/mm3 (1.2-5.4); Lymphocytes % (Auto) 17.9 % (13.4-35.0); Mean Corpuscular HGB Conc 32 % (32-34); Mean Corpuscular Volume 87 fl (84-94); Monocytes # (Auto) 0.3 K/mm3 (0.0-0.8); Monocytes % (Auto) 7.5 % (0.0-7.3); Platelet Count 131 K/mm3 (140-440); Red Blood Count 4.76 M/mm3 (3.65-5.03); Red Cell Distribution Width 17.1 % (13.2-15.2)
[2021-10-26 06:44] LABS: BUN/Creatinine Ratio 34; Blood Urea Nitrogen 27 mg/dL (9-20); Calcium 8.3 mg/dL (8.4-10.2); Hemolysis Index 5
--- NOTE | 2021-10-26 08:16 | Progress Note ---
Assessment and Plan Assessment and plan: History of present illness: 65 years old male with history of hypertension, hyperlipidemia, GERD, peripheral vascular disease and diabetes was brought to the hospital because of leg edema and generalized pain. Patient also complained of shortness of breath. Subsequently patient is brought to the ER in the ER patient is found to have acute CHF exacerbation. Patient BNP is 9831 and troponin 0 0.037. We are going to admit the patient we will put the patient on CHF pathway Hospital Course: 10/22/2021. We will continue the patient on the heart failure pathway. Continue Lasix 40 mg IV twice daily, Zestril 5 mg daily and metoprolol 25 mg p.o. twice daily. Patient had a previous echocardiogram June 2021 that revealed LVEF of 30-35% with some impaired relaxation. Await cardiology consultation. Continue Accu-Cheks and SSRI. Resume statin 10/23/2021. Continue medications of Eliquis, aspirin, Lipitor, Plavix, lisinopril and metoprolol. Continue IV Lasix for diuresis. Follow-up BMP in a.m. 10/24/2021. Continue GDMT for heart failure. Patient is exhibiting some mild improvement. Continue diuresis 10/25/2021. Continue aspirin, Plavix, Eliquis, Lipitor, lisinopril and metoprolol. Continue IV diuresis with Lasix. Continue Accu-Cheks and sliding scale insulin. Patient still has significant lower extremity edema but somewhat improved. Continue current management per cardiology recommendations. 10/26/2021: Initiated on spironolactone for optimization of CHF with GDMT. Patient lower extremity edema still persists however cardiopulmonary exam is improved despite chest x-ray findings yesterday. Cardiology is initiated patient on dobutamine IV. Will follow along with plan for today regarding diuresis and continuation of inotrope. Assessment and plan: #Acute Decompensated HFrEF, ejection fraction 30 to 35% per echocardiogram read, GDMT as outlined above. Cardiology following #Diabetes mellitus type 2 with hyperglycemia, continue sliding scale insulin #Hypertension, continue lisinopril and metoprolol spironolactone Lasix #Hyperlipidemia, continue aspirin Plavix atorvastatin #PVD, continue aspirin Plavix #History of right AKA #GERD, continue famotidine History Interval history: Patient resting comfortably on encounter. No acute overnight events. Patient states that he still does not feel well and states that he feels weak. Hospitalist Physical - Physical exam Narrative exam: Physical Exam: VITAL SIGNS: Reviewed. GENERAL: The patient appears normally developed, Vital signs as documented. HEAD: No signs of head trauma. EYES: Pupils are equal. Extraocular motions intact. EARS: Hearing grossly intact. MOUTH: Oropharynx is normal. NECK: No adenopathy, no JVD. CHEST: Chest with clear breath sounds bilaterally. No wheezes, rales, or rhonchi. CARDIAC: Regular rate and rhythm. S1 and S2, without murmurs, gallops, or rubs. VASCULAR: No Edema. Peripheral pulses normal and equal in all extremities. ABDOMEN: Soft, non tender and non distended. No rebound or guarding, and no masses palpated. Bowel Sounds normal. MUSCULOSKELETAL: Good range of motion of all major joints. Extremities without clubbing, cyanosis or edema. NEUROLOGIC EXAM: Alert and oriented x 4. no focal sensory or strength deficits. PSYCHIATRIC: Mood normal. SKIN: detail exam as documented in skin assessment - Constitutional Vitals: Temp Pulse Resp BP Pulse Ox 98.2 F 85 20 136/68 92 10/26/21 08:00 10/26/21 08:00 10/26/21 08:00 10/26/21 08:00 10/26/21 08:00 General appearance: Present: no acute distress HEART Score - HEART Score Troponin: Troponin T 0.016 ng/mL (0.00-0.029) 10/22/21 20:49 Results - Labs CBC & Chem 7: 10/26/21 05:13 10/26/21 05:13 Labs: Laboratory Last Values WBC 4.4 K/mm3 (4.5-11.0) L 10/26/21 05:13 RBC 4.76 M/mm3 (3.65-5.03) 10/26/21 05:13 Hgb 13.2 gm/dl (11.8-15.2) 10/26/21 05:13 Hct 41.4 % (35.5-45.6) 10/26/21 05:13 MCV 87 fl (84-94) 10/26/21 05:13 MCH 28 pg (28-32) 10/26/21 05:13 MCHC 32 % (32-34) 10/26/21 05:13 RDW 17.1 % (13.2-15.2) H 10/26/21 05:13 Plt Count 131 K/mm3 (140-440) L 10/26/21 05:13 Lymph % (Auto) 17.9 % (13.4-35.0) 10/26/21 05:13 [place] % (Auto) 7.5 % (0.0-7.3) H 10/26/21 05:13 Eos % (Auto) 9.6 % (0.0-4.3) H 10/26/21 05:13 Baso % (Auto) 0.8 % (0.0-1.8) 10/26/21 05:13 Lymph # (Auto) 0.8 K/mm3 (1.2-5.4) L 10/26/21 05:13 [place] # (Auto) 0.3 K/mm3 (0.0-0.8) 10/26/21 05:13 Eos # (Auto) 0.4 K/mm3 (0.0-0.4) 10/26/21 05:13 Baso # (Auto) 0.0 K/mm3 (0.0-0.1) 10/26/21 05:13 Seg Neutrophils % 64.2 % (40.0-70.0) 10/26/21 05:13 Seg Neutrophils # 2.8 K/mm3 (1.8-7.7) 10/26/21 05:13 Sodium 139 mmol/L (137-145) 10/26/21 05:13 Potassium 3.6 mmol/L (3.6-5.0) 10/26/21 05:13 Chloride 99.6 mmol/L (98-107) 10/26/21 05:13 Carbon Dioxide 27 mmol/L (22-30) 10/26/21 05:13 Anion Gap 16 mmol/L 10/26/21 05:13 BUN 27 mg/dL (9-20) H 10/26/21 05:13 Creatinine 0.8 mg/dL (0.8-1.3) 10/26/21 05:13 Estimated GFR > 60 ml/min 10/26/21 05:13 BUN/Creatinine Ratio 34 % 10/26/21 05:13 Glucose 229 mg/dL (75-100) H 10/26/21 05:13 POC Glucose 169 mg/dL (70-105) H 10/25/21 21:54 Calcium 8.3 mg/dL (8.4-10.2) L 10/26/21 05:13 Total Bilirubin 0.60 mg/dL (0.1-1.2) 10/21/21 23:16 AST 57 units/L (5-40) H 10/21/21 23:16 ALT 54 units/L (7-56) 10/21/21 23:16 Alkaline Phosphatase 189 units/L (35-129) H 10/21/21 23:16 Troponin T 0.016 ng/mL (0.00-0.029) 10/22/21 20:49 NT-Pro-B Natriuret Pep 9831 pg/mL (0-900) H 10/21/21 23:16 Total Protein 7.7 g/dL (6.3-8.2) 10/21/21 23:16 Albumin 3.3 g/dL (3.9-5) L 10/21/21 23:16 Albumin/Globulin Ratio 0.8 % 10/21/21 23:16 Triglycerides 131 mg/dL (2-149) 10/22/21 02:20 Cholesterol 156 mg/dL (50-199) 10/22/21 02:20 LDL Cholesterol Direct 74 mg/dL (50-130) 10/22/21 02:20 HDL Cholesterol 69 mg/dL (40-59) H 10/22/21 02:20 Cholesterol/HDL Ratio 2.26 % 10/22/21 02:20 Doss/IV: Voiding Method Urinal Active Medications - Current Medications Current Medications: Generic Name Dose Route Start Last Admin Trade Name Freq PRN Reason Stop Dose Admin Acetaminophen 650 mg 10/22/21 05:22 Acetaminophen 325 Mg Tab PO Q4H PRN Pain MILD(1-3)/Fever >100.5/PACHECO Albuterol 2.5 mg 10/22/21 12:00 Albuterol 2.5 Mg/3 Ml Nebu IH Q4HRT PRN Shortness Of Breath Albuterol/Ipratropium 1 ampul 10/22/21 20:00 10/25/21 20:49 Ipratropium/Albuterol Sulfate 3 Ml Ampul.Neb IH 1 ampul BIDRT LYNDSAY Administration Apixaban 5 mg 10/22/21 10:00 10/25/21 22:57 Apixaban 5 Mg Tab PO 5 mg Q12HR LYNDSAY Administration Aspirin 81 mg 10/22/21 10:00 10/25/21 09:14 Aspirin Ec 81 Mg Tab PO 81 mg QDAY LYNDSAY Administration Atorvastatin Calcium 40 mg 10/22/21 22:00 10/25/21 22:57 Atorvastatin 40 Mg Tab PO 40 mg QHS LYNDSAY Administration Clopidogrel Bisulfate 75 mg 10/22/21 10:00 10/25/21 09:15 Clopidogrel 75 Mg Tab PO 75 mg QDAY LYNDSAY Administration Dextrose 0 ml 10/22/21 05:34 Dextrose 10% *Hypoglycemia IV DIRECT PRN Hypoglycemia Protocol Famotidine 20 mg 10/22/21 10:00 10/25/21 22:58 Famotidine 20 Mg Tab PO 20 mg BID LYNDSAY Administration Furosemide 40 mg 10/22/21 06:00 10/26/21 05:40 Furosemide 40 Mg/4 Ml Inj IV 40 mg BID@0600,1800 LYNDSAY Administration Hydromorphone HCl 0.5 mg 10/22/21 05:22 10/24/21 11:36 Hydromorphone 1 Mg/1 Ml Inj IV 0.5 mg Q3H PRN Administration Pain , Severe (7-10) Dobutamine HCl/Dextrose 500 mg in 250 mls @ 6.804 mls/hr 10/25/21 12:00 10/25/21 12:10 Dobutrex Drip 500mg/D5w 250ml IV 2.5 mcg/kg/min DIRECT LYNDSAY 6.804 mls/hr Administration Protocol 2.5 MCG/KG/MIN Insulin Human Lispro 0 unit 10/22/21 07:30 10/25/21 22:57 Insulin Lispro 100 Unit/Ml SUB-Q 2 unit ACHS LYNDSAY Administration Protocol Lisinopril 5 mg 10/22/21 10:00 10/25/21 09:15 Lisinopril 5 Mg Tab PO 5 mg QDAY LYNDSAY Administration Metoprolol Tartrate 25 mg 10/22/21 10:00 10/25/21 22:57 Metoprolol Tartrate 25 Mg Tab PO 25 mg BID LYNDSAY Administration Morphine Sulfate 2 mg 10/22/21 05:22 10/25/21 09:15 Morphine 2 Mg/1 Ml Inj IV 2 mg Q4H PRN Administration Pain, Moderate (4-6) Ondansetron HCl 4 mg 10/22/21 05:22 Ondansetron 4 Mg/2 Ml Inj IV Q8H PRN Nausea And Vomiting Phenylephrine HCl 2 spray 10/26/21 01:46 10/26/21 05:42 Phenylephrine 0.25% Nasal [place] 15ml NS 2 spray Q4H PRN Administration Congestion Sodium Chloride 10 ml 10/22/21 10:00 10/25/21 22:58 Sodium Chloride 0.9% 10 Ml Flush Syringe IV 10 ml BID LYNDSAY Administration Sodium Chloride 10 ml 10/22/21 05:22 10/26/21 05:40 Sodium Chloride 0.9% 10 Ml Flush Syringe IV 10 ml PRN PRN Administration LINE FLUSH Spironolactone 25 mg 10/26/21 10:00 Spironolactone 25 Mg Tab PO QDAY LYNDSAY Nutrition/Malnutrition Assess - Dietary Evaluation Nutrition/Malnutrition Findings: Nutrition Notes Start: 10/22/21 12:04 Freq: Status: Active Protocol: Document 10/22/21 12:04 ERICK (Rec: 10/22/21 12:12 ERICK [id number]) Nutrition Notes Need for Assessment generated from: MD Order,Education Initial or Follow up Brief Note Current Diagnosis Diabetes,Hypertension, Hyperlipidemia Other Pertinent Diagnosis CHF, HFrEF, PVD, LE Edema, s/p R-AKA, Asthma. Current Diet Cardiac/Consistent Carbohydrates Diet (since B ). Height 5 ft 6 in Weight 90.718 kg [place] Body Weight (kg) 64.54 BMI 32.3 Intake Prior to Admission Good Weight change and time frame Pt denies having loss body weight [employer]. Weight Status Obese Subjective/Other Information RD consult for nutrition education. No reports available on Pt's PO intake of meals at the time , will assess at F/U. Pt still in critical condition , not a candidate for Nutrition Education at the time, will assess feasibility on F/U. Percent of energy/protein needs met: Prescribed Cardiac/Consistent Carbohydrates Diet provides for energy/protein needs (1, 977 Kcal/86 g) during LOS. Nutrition Intervention Follow-Up By: 10/29/21 Additional Comments Nutrition education will be provided on F/U, if feasible. Continue monitoring food tolerance, %PO intake of meals , and BM.
[2021-10-26] MEDS: INSULIN LISPRO 100 UNIT/ML SUB-Q SCH ×4 (09:12→22:40)
[2021-10-26] MEDS: SPIRONOLACTONE 25 MG TAB PO SCH (09:14)
[2021-10-26] MEDS: LISINOPRIL 5 MG TAB PO SCH (09:15)
[2021-10-26] MEDS: FAMOTIDINE 20 MG TAB PO SCH ×2 (09:15→21:11)
[2021-10-26] MEDS: IPRATROPIUM/ALBUTEROL SULFATE 3 ML AMPUL.NEB IH SCH ×2 (09:52→20:57)
[2021-10-26] MEDS: METOPROLOL TARTRATE 25 MG TAB PO SCH ×2 (10:22→21:12)
[2021-10-26] MEDS ORDERED: FUROSEMIDE 40 MG/4 ML INJ IV ONE (11:11)
[2021-10-26] MEDS: ASPIRIN EC 81 MG TAB PO SCH (11:12)
[2021-10-26] MEDS: CLOPIDOGREL 75 MG TAB PO SCH (11:41)
[2021-10-26] MEDS: APIXABAN 5 MG TAB PO SCH ×2 (11:41→21:12)
[2021-10-26] MEDS ORDERED: POTASSIUM CHLORIDE ER 20 MEQ TAB PO NR (12:00)
--- NOTE | 2021-10-26 14:00 | Progress Note ---
Assessment and Plan Patient is a 65-year-old male with past medical history of HFrEF, hypertension, hyperlipidemia, peripheral vascular disease s/p BKA, GERD who reports to the hospital due to lower extremity edema and shortness of breath Assessment: Acute on chronic HFrEF Hypertension Acute respiratory failure COPD Peripheral vascular disease s/p right AKA GERD Diabetes *Cardiographics: Echo 06/23/2021-EF 30 to 35%, left ventricle is mildly dilated moderate global hypokinesis of LV. Left atrium is mildly dilated. Right ventricle systolic function is normal Plan: Repeat chest x-ray revealed diffuse bilateral pulmonary opacities/effusions. However, patient appears to be improving with IV dobutamine. Now warm, with slight improvement in lower extremity swelling UOP okay overnight. However, would like to see an increase given his remaining edema. Will increase Lasix to 80 mg IV twice daily. Potassium slightly low this morning. we will give 40 mEq K-dur p.o. BMP in a.m. Strict I&O's, Daily weights Currently On GDMT (aspirin, atorvastatin, eliquis, plavix, Lasix 40 mg IV BID, l isinopril 5 mg PO Qday, metoprolol 25 mg PO BID) Patient seen in conjunction with Dr. Neely who agrees with the assessment and management of this patient. - Patient Problems (1) Acute on chronic HFrEF (heart failure with reduced ejection fraction) Current Visit: Yes Status: Acute (2) Acute HFrEF (heart failure with reduced ejection fraction) Current Visit: No Status: Acute (3) Diabetes Current Visit: No Status: Acute (4) Hyperlipidemia Current Visit: No Status: Acute Qualifiers: (5) Hypertension Current Visit: No Status: Acute Qualifiers: (6) COPD (chronic obstructive pulmonary disease) Current Visit: No Status: Chronic Qualifiers: Emphysema type: unspecified (7) Hypertension Current Visit: No Status: Chronic Qualifiers: Hypertension type: primary hypertension Qualified Code(s): I10 - Essential (primary) hypertension (8) Peripheral arterial disease Current Visit: No Status: Chronic Subjective Date of service: 10/26/21 Principal diagnosis: Acute on Chronic HFrEF Interval history: Patient seen in hospital room today. Resting comfortably in bed, receiving a breathing treatment. Looks improved today, is now warm on exam in the slightly less edematous. Urine output okay overnight. Overall, inotrope seems to be helping. Telemetry: Sinus rhythm 80's Intake & Output 10/25/21 10/26/21 10/26/21 23:59 07:59 15:59 Intake Total 0 40 Output Total 300 400 690 Balance -300 -400 -650 Objective Vital Signs Temp Pulse Pulse Resp Resp BP BP 10/26/21 13:00 18 10/26/21 11:25 141/76 10/26/21 09:15 85 138/68 10/26/21 09:14 85 138/68 10/26/21 08:00 98.2 F 85 88 20 18 136/68 10/26/21 07:30 98.2 F 20 138/68 10/26/21 04:23 97.6 F 20 124/62 10/26/21 01:00 10/26/21 00:33 97.4 F L 74 16 120/72 10/25/21 22:57 82 10/25/21 20:50 10/25/21 20:00 88 18 10/25/21 19:30 98.2 F 82 18 138/77 Pulse Ox 10/26/21 13:00 97 10/26/21 11:25 10/26/21 09:15 10/26/21 09:14 10/26/21 08:00 92 10/26/21 07:30 10/26/21 04:23 10/26/21 01:00 98 10/26/21 00:33 100 10/25/21 22:57 10/25/21 20:50 97 10/25/21 20:00 10/25/21 19:30 93 - Physical Examination General: Appears Well, No Apparent Distress HEENT: Positive: Normocephaly Neck: Positive: trachea midline Cardiac: Positive: Reg Rate and Rhythm, S1/S2 Lungs: Positive: Decreased Breath Sounds (Clear to auscultation in the anterior lobes; Diminished posterior lower lobe) Neuro: Positive: Grossly Intact Abdomen: Positive: Soft, Other (Edematous) /Rectal: Other (Edematous) Skin: Negative: Rash Extremities: Present: upper extr. pulses (1+), +2 Edema, warm - Labs and Meds CBC 10/26/21 Range/Units 05:13 WBC 4.4 L (4.5-11.0) K/mm3 RBC 4.76 (3.65-5.03) M/mm3 Hgb 13.2 (11.8-15.2) gm/dl Hct 41.4 (35.5-45.6) % Plt Count 131 L (140-440) K/mm3 Lymph # (Auto) 0.8 L (1.2-5.4) K/mm3 [place] # (Auto) 0.3 (0.0-0.8) K/mm3 Eos # (Auto) 0.4 (0.0-0.4) K/mm3 Baso # (Auto) 0.0 (0.0-0.1) K/mm3 Comprehensive Metabolic Panel 10/26/21 Range/Units 05:13 Sodium 139 (137-145) mmol/L Potassium 3.6 (3.6-5.0) mmol/L Chloride 99.6 (98-107) mmol/L Carbon Dioxide 27 (22-30) mmol/L BUN 27 H (9-20) mg/dL Creatinine 0.8 (0.8-1.3) mg/dL Glucose 229 H (75-100) mg/dL Calcium 8.3 L (8.4-10.2) mg/dL - Imaging and Cardiology EKG: report reviewed Echo: report reviewed - EKG Sinus rhythms and dysrhythmias: sinus rhythm - Allied health notes Allied health notes reviewed: nursing
[2021-10-26] MEDS ORDERED: ZIPRASIDONE MESYLATE 20 MG VIAL IM STA (20:07)
[2021-10-26] MEDS: INSULIN GLARGINE 100 UNITS/ML SUB-Q SCH (22:41)
[2021-10-26] MEDS ORDERED: LORazepam 2 MG/ML VIAL IV ONE (23:26)
[2021-10-27] MEDS: FUROSEMIDE 40 MG/4 ML INJ IV SCH ×2 (06:38→18:23)
[2021-10-27 06:41] LABS: BUN/Creatinine Ratio 28; Blood Urea Nitrogen 22 mg/dL (9-20); Hemolysis Index 29
--- NOTE | 2021-10-27 07:27 | Progress Note ---
Assessment and Plan Assessment and plan: History of present illness: 65 years old male with history of hypertension, hyperlipidemia, GERD, peripheral vascular disease and diabetes was brought to the hospital because of leg edema and generalized pain. Patient also complained of shortness of breath. Subsequently patient is brought to the ER in the ER patient is found to have acute CHF exacerbation. Patient BNP is 9831 and troponin 0 0.037. We are going to admit the patient we will put the patient on CHF pathway Hospital Course: 10/22/2021. We will continue the patient on the heart failure pathway. Continue Lasix 40 mg IV twice daily, Zestril 5 mg daily and metoprolol 25 mg p.o. twice daily. Patient had a previous echocardiogram June 2021 that revealed LVEF of 30-35% with some impaired relaxation. Await cardiology consultation. Continue Accu-Cheks and SSRI. Resume statin 10/23/2021. Continue medications of Eliquis, aspirin, Lipitor, Plavix, lisinopril and metoprolol. Continue IV Lasix for diuresis. Follow-up BMP in a.m. 10/24/2021. Continue GDMT for heart failure. Patient is exhibiting some mild improvement. Continue diuresis 10/25/2021. Continue aspirin, Plavix, Eliquis, Lipitor, lisinopril and metoprolol. Continue IV diuresis with Lasix. Continue Accu-Cheks and sliding scale insulin. Patient still has significant lower extremity edema but somewhat improved. Continue current management per cardiology recommendations. 10/26/2021: Initiated on spironolactone for optimization of CHF with GDMT. Patient lower extremity edema still persists however cardiopulmonary exam is improved despite chest x-ray findings yesterday. Cardiology is initiated patient on dobutamine IV. Will follow along with plan for today regarding diuresis and continuation of inotrope. 10/27/2021: Patient agitated overnight. Required Ativan and Geodon. Ordered Seroquel nightly. Patient pulled IV and staff development coordinator rn had difficulty placing. Will order PICC line so patient can receive dobutamine infusion. Will follow cardiology recommendations regarding its continuation. Assessment and plan: #Acute Decompensated HFrEF, ejection fraction 30 to 35% per echocardiogram read, GDMT as outlined above. Cardiology following #Diabetes mellitus type 2 with hyperglycemia, continue sliding scale insulin #Hypertension, continue lisinopril and metoprolol spironolactone Lasix #Hyperlipidemia, continue aspirin Plavix atorvastatin #PVD, continue aspirin Plavix #History of right AKA #GERD, continue famotidine History Interval history: Agitated overnight. When questioned about patient's name he was able to answer this correctly. When asked about where he was, [place] When asked what month it was, he stated "I do not know". Hospitalist Physical - Physical exam Narrative exam: Physical Exam: VITAL SIGNS: Reviewed. GENERAL: The patient appears normally developed, Vital signs as documented. Agitation and restraints. HEAD: No signs of head trauma. EYES: Pupils are equal. Extraocular motions intact. EARS: Hearing grossly intact. MOUTH: Oropharynx is normal. NECK: No adenopathy, no JVD. CHEST: Chest with clear breath sounds bilaterally. No wheezes, rales, or rhonchi. CARDIAC: Regular rate and rhythm. S1 and S2, without murmurs, gallops, or rubs. VASCULAR: No Edema. Peripheral pulses normal and equal in all extremities. ABDOMEN: Soft, non tender and non distended. No rebound or guarding, and no masses palpated. Bowel Sounds normal. MUSCULOSKELETAL: Good range of motion of all major joints. Extremities without clubbing, cyanosis or edema. NEUROLOGIC EXAM: Alert and oriented x 1. no focal sensory or strength deficits. PSYCHIATRIC: Mood normal. SKIN: detail exam as documented in skin assessment - Constitutional Vitals: Temp Pulse Resp BP Pulse Ox 97.5 F L 82 20 140/74 97 10/26/21 23:08 10/26/21 23:08 10/26/21 23:08 10/26/21 23:08 10/27/21 01:00 General appearance: Present: no acute distress HEART Score - HEART Score Troponin: Troponin T 0.016 ng/mL (0.00-0.029) 10/22/21 20:49 Results - Labs CBC & Chem 7: 10/26/21 05:13 10/27/21 05:44 Labs: Laboratory Last Values WBC 4.4 K/mm3 (4.5-11.0) L 10/26/21 05:13 RBC 4.76 M/mm3 (3.65-5.03) 10/26/21 05:13 Hgb 13.2 gm/dl (11.8-15.2) 10/26/21 05:13 Hct 41.4 % (35.5-45.6) 10/26/21 05:13 MCV 87 fl (84-94) 10/26/21 05:13 MCH 28 pg (28-32) 10/26/21 05:13 MCHC 32 % (32-34) 10/26/21 05:13 RDW 17.1 % (13.2-15.2) H 10/26/21 05:13 Plt Count 131 K/mm3 (140-440) L 10/26/21 05:13 Lymph % (Auto) 17.9 % (13.4-35.0) 10/26/21 05:13 [place] % (Auto) 7.5 % (0.0-7.3) H 10/26/21 05:13 Eos % (Auto) 9.6 % (0.0-4.3) H 10/26/21 05:13 Baso % (Auto) 0.8 % (0.0-1.8) 10/26/21 05:13 Lymph # (Auto) 0.8 K/mm3 (1.2-5.4) L 10/26/21 05:13 [place] # (Auto) 0.3 K/mm3 (0.0-0.8) 10/26/21 05:13 Eos # (Auto) 0.4 K/mm3 (0.0-0.4) 10/26/21 05:13 Baso # (Auto) 0.0 K/mm3 (0.0-0.1) 10/26/21 05:13 Seg Neutrophils % 64.2 % (40.0-70.0) 10/26/21 05:13 Seg Neutrophils # 2.8 K/mm3 (1.8-7.7) 10/26/21 05:13 Sodium 142 mmol/L (137-145) 10/27/21 05:44 Potassium 3.3 mmol/L (3.6-5.0) L 10/27/21 05:44 Chloride 100.4 mmol/L (98-107) 10/27/21 05:44 Carbon Dioxide 30 mmol/L (22-30) 10/27/21 05:44 Anion Gap 15 mmol/L 10/27/21 05:44 BUN 22 mg/dL (9-20) H 10/27/21 05:44 Creatinine 0.8 mg/dL (0.8-1.3) 10/27/21 05:44 Estimated GFR > 60 ml/min 10/27/21 05:44 BUN/Creatinine Ratio 28 % 10/27/21 05:44 Glucose 127 mg/dL (75-100) H 10/27/21 05:44 POC Glucose 177 mg/dL (70-105) H 10/26/21 22:30 Calcium 9.0 mg/dL (8.4-10.2) 10/27/21 05:44 Magnesium 1.90 mg/dL (1.7-2.3) 10/27/21 05:44 Total Bilirubin 0.60 mg/dL (0.1-1.2) 10/21/21 23:16 AST 57 units/L (5-40) H 10/21/21 23:16 ALT 54 units/L (7-56) 10/21/21 23:16 Alkaline Phosphatase 189 units/L (35-129) H 10/21/21 23:16 Troponin T 0.016 ng/mL (0.00-0.029) 10/22/21 20:49 NT-Pro-B Natriuret Pep 9831 pg/mL (0-900) H 10/21/21 23:16 Total Protein 7.7 g/dL (6.3-8.2) 10/21/21 23:16 Albumin 3.3 g/dL (3.9-5) L 10/21/21 23:16 Albumin/Globulin Ratio 0.8 % 10/21/21 23:16 Triglycerides 131 mg/dL (2-149) 10/22/21 02:20 Cholesterol 156 mg/dL (50-199) 10/22/21 02:20 LDL Cholesterol Direct 74 mg/dL (50-130) 10/22/21 02:20 HDL Cholesterol 69 mg/dL (40-59) H 10/22/21 02:20 Cholesterol/HDL Ratio 2.26 % 10/22/21 02:20 Doss/IV: Voiding Method Incontinent Active Medications - Current Medications Current Medications: Generic Name Dose Route Start Last Admin Trade Name Freq PRN Reason Stop Dose Admin Acetaminophen 650 mg 10/22/21 05:22 Acetaminophen 325 Mg Tab PO Q4H PRN Pain MILD(1-3)/Fever >100.5/PACHECO Albuterol 2.5 mg 10/22/21 12:00 Albuterol 2.5 Mg/3 Ml Nebu IH Q4HRT PRN Shortness Of Breath Albuterol/Ipratropium 1 ampul 10/22/21 20:00 10/26/21 20:57 Ipratropium/Albuterol Sulfate 3 Ml Ampul.Neb IH 1 ampul BIDRT LYNDSAY Administration Apixaban 5 mg 10/22/21 10:00 10/26/21 21:12 Apixaban 5 Mg Tab PO 5 mg Q12HR LYNDSAY Administration Atorvastatin Calcium 40 mg 10/22/21 22:00 10/26/21 21:12 Atorvastatin 40 Mg Tab PO 40 mg QHS LYNDSAY Administration Clopidogrel Bisulfate 75 mg 10/22/21 10:00 10/26/21 11:41 Clopidogrel 75 Mg Tab PO 75 mg QDAY LYNDSAY Administration Dextrose 0 ml 10/22/21 05:34 Dextrose 10% *Hypoglycemia IV DIRECT PRN Hypoglycemia Protocol Famotidine 20 mg 10/22/21 10:00 10/26/21 21:11 Famotidine 20 Mg Tab PO 20 mg BID LYNDSAY Administration Furosemide 80 mg 10/26/21 18:00 10/27/21 06:38 Furosemide 40 Mg/4 Ml Inj IV 80 mg BID@0600,1800 LYNDSAY Administration Hydromorphone HCl 0.5 mg 10/22/21 05:22 10/24/21 11:36 Hydromorphone 1 Mg/1 Ml Inj IV 0.5 mg Q3H PRN Administration Pain , Severe (7-10) Dobutamine HCl/Dextrose 500 mg in 250 mls @ 6.804 mls/hr 10/25/21 12:00 10/25/21 12:10 Dobutrex Drip 500mg/D5w 250ml IV 2.5 mcg/kg/min DIRECT LYNDSAY 6.804 mls/hr Administration Protocol 2.5 MCG/KG/MIN Insulin Glargine 10 units 10/26/21 22:00 10/26/21 22:41 Insulin Glargine 100 Units/Ml SUB-Q 10 units QHS LYNDSAY Administration Insulin Human Lispro 0 unit 10/22/21 07:30 10/26/21 22:40 Insulin Lispro 100 Unit/Ml SUB-Q 2 unit ACHS LYNDSAY Administration Protocol Lisinopril 5 mg 10/22/21 10:00 10/26/21 09:15 Lisinopril 5 Mg Tab PO 5 mg QDAY LYNDSAY Administration Metoprolol Tartrate 25 mg 10/22/21 10:00 10/26/21 21:12 Metoprolol Tartrate 25 Mg Tab PO 25 mg BID LYNDSAY Administration Morphine Sulfate 2 mg 10/22/21 05:22 10/25/21 09:15 Morphine 2 Mg/1 Ml Inj IV 2 mg Q4H PRN Administration Pain, Moderate (4-6) Ondansetron HCl 4 mg 10/22/21 05:22 Ondansetron 4 Mg/2 Ml Inj IV Q8H PRN Nausea And Vomiting Phenylephrine HCl 2 spray 10/26/21 01:46 10/26/21 11:50 Phenylephrine 0.25% Nasal [place] 15ml NS 2 spray Q4H PRN Administration Congestion Sodium Chloride 10 ml 10/22/21 10:00 10/26/21 22:36 Sodium Chloride 0.9% 10 Ml Flush Syringe IV 10 ml BID LYNDSAY Administration Sodium Chloride 10 ml 10/22/21 05:22 10/26/21 05:40 Sodium Chloride 0.9% 10 Ml Flush Syringe IV 10 ml PRN PRN Administration LINE FLUSH Spironolactone 25 mg 10/26/21 10:00 10/26/21 09:14 Spironolactone 25 Mg Tab PO 25 mg QDAY LYNDSAY Administration Nutrition/Malnutrition Assess - Dietary Evaluation Nutrition/Malnutrition Findings: Nutrition Notes Start: 10/22/21 12:04 Freq: Status: Active Protocol: Document 10/22/21 12:04 ERICK (Rec: 10/22/21 12:12 ERICK [id number]) Nutrition Notes Need for Assessment generated from: MD Order,Education Initial or Follow up Brief Note Current Diagnosis Diabetes,Hypertension, Hyperlipidemia Other Pertinent Diagnosis CHF, HFrEF, PVD, LE Edema, s/p R-AKA, Asthma. Current Diet Cardiac/Consistent Carbohydrates Diet (since B ). 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 Weight Status Obese Subjective/Other Information RD consult for nutrition education. No reports available on Pt's PO intake of meals at the time , will assess at F/U. Pt still in critical condition , not a candidate for Nutrition Education at the time, will assess feasibility on F/U. Percent of energy/protein needs met: Prescribed Cardiac/Consistent Carbohydrates Diet provides for energy/protein needs (1, 977 Kcal/86 g) during LOS. Nutrition Intervention Follow-Up By: 10/29/21 Additional Comments Nutrition education will be provided on F/U, if feasible. Continue monitoring food tolerance, %PO intake of meals , and BM.
[2021-10-27] MEDS: INSULIN LISPRO 100 UNIT/ML SUB-Q SCH ×4 (07:50→21:30)
[2021-10-27] MEDS: IPRATROPIUM/ALBUTEROL SULFATE 3 ML AMPUL.NEB IH SCH ×2 (09:17→20:33)
[2021-10-27] MEDS: CLOPIDOGREL 75 MG TAB PO SCH (12:01)
[2021-10-27] MEDS: APIXABAN 5 MG TAB PO SCH ×2 (12:01→21:26)
[2021-10-27] MEDS: SPIRONOLACTONE 25 MG TAB PO SCH (12:01)
[2021-10-27] MEDS: METOPROLOL TARTRATE 25 MG TAB PO SCH ×2 (12:02→21:31)
[2021-10-27] MEDS: FAMOTIDINE 20 MG TAB PO SCH ×2 (12:02→21:26)
[2021-10-27] MEDS: LISINOPRIL 5 MG TAB PO SCH (12:02)
[2021-10-27] MEDS: DOBUTamine/D5W 500 MG/250 ML 500 MG/250 ML BAG IV SCH (12:08)
[2021-10-27] MEDS ORDERED: POTASSIUM CHLORIDE ER 20 MEQ TAB PO ONE (12:43)
--- NOTE | 2021-10-27 12:51 | Progress Note ---
Assessment and Plan Patient is a 65-year-old male with past medical history of HFrEF, hypertension, hyperlipidemia, peripheral vascular disease s/p BKA, GERD who reports to the hospital due to lower extremity edema and shortness of breath Assessment: Acute on chronic HFrEF Hypertension Acute respiratory failure COPD Peripheral vascular disease s/p right AKA GERD Diabetes *Cardiographics: Echo 06/23/2021-EF 30 to 35%, left ventricle is mildly dilated moderate global hypokinesis of LV. Left atrium is mildly dilated. Right ventricle systolic function is normal Plan: Multiple peripheral IVs were pulled out by patient overnight and dobutamine had to be stopped. Patient now with PICC line/midline. Left lower extremity slightly cool on exam this morning. Dobutamine to be restarted after PICC line/midline in place. Adequate urine output overnight with increase in Lasix. Potassium slightly low this morning. will give 40 mEq K-dur p.o. BMP in a.m. Strict I&O's, Daily weights Currently On GDMT (aspirin, atorvastatin, eliquis, plavix, Lasix 40 mg IV BID, lisinopril 5 mg PO Qday, metoprolol 25 mg PO BID) Patient seen in conjunction with Dr. Neely who agrees with the assessment and management of this patient. - Patient Problems (1) Acute on chronic HFrEF (heart failure with reduced ejection fraction) Current Visit: Yes Status: Acute (2) Acute HFrEF (heart failure with reduced ejection fraction) Current Visit: No Status: Acute (3) Diabetes Current Visit: No Status: Acute (4) Hyperlipidemia Current Visit: No Status: Acute Qualifiers: (5) Hypertension Current Visit: No Status: Acute Qualifiers: (6) COPD (chronic obstructive pulmonary disease) Current Visit: No Status: Chronic Qualifiers: Emphysema type: unspecified (7) Hypertension Current Visit: No Status: Chronic Qualifiers: Hypertension type: primary hypertension Qualified Code(s): I10 - Essential (primary) hypertension (8) Peripheral arterial disease Current Visit: No Status: Chronic Subjective Date of service: 10/27/21 Principal diagnosis: Acute on Chronic HFrEF Interval history: Patient seen in hospital room today. Patient resting comfortably, slightly sleepy. Will answer questions to verbal command. Per review of nursing note documentation. Patient became increasingly aggressive and noncompliant with staff overnight. He reportedly pulled out multiple IVs and ultimately required mitten restraints. This morning, after speaking with bedside RN, Plan was for patient to receive midline/PICC line given his recent noncompliance with peripheral IVs. Dobutamine to be restarted once midline/PICC line established. Telemetry: Sinus rhythm 90's Intake & Output 10/26/21 10/27/21 10/27/21 23:59 07:59 15:59 Intake Total 200 250 Output Total 500 Balance -300 250 Objective Vital Signs Temp Pulse Pulse Resp Resp BP BP 10/27/21 10:00 10/27/21 09:17 97 H 18 10/27/21 09:06 98.3 F 96 H 180/112 10/27/21 01:00 10/26/21 23:08 97.5 F L 82 20 140/74 10/26/21 20:57 86 16 10/26/21 20:55 10/26/21 19:30 97.6 F 86 20 142/73 10/26/21 16:54 97.9 F 78 20 144/73 10/26/21 13:00 18 Pulse Ox 10/27/21 10:00 96 10/27/21 09:17 10/27/21 09:06 97 10/27/21 01:00 97 10/26/21 23:08 97 10/26/21 20:57 10/26/21 20:55 100 10/26/21 19:30 95 10/26/21 16:54 98 10/26/21 13:00 97 - Physical Examination General: No Apparent Distress (Slightly sleepy) HEENT: Positive: Normocephaly Neck: Positive: trachea midline Cardiac: Positive: Reg Rate and Rhythm, S1/S2 Lungs: Positive: Decreased Breath Sounds, Rhonchi Neuro: Positive: Grossly Intact (However, patient is sleepy from Geodon and Ativan overnight), Other Abdomen: Positive: Soft, Other (Edematous) /Rectal: Other (Edematous) Skin: Negative: Rash Extremities: Present: upper extr. pulses (1+), +2 Edema (Edema somewhat improving. However since dobutamine has been off, left lower extremity slightly cool today), Cool - Labs and Meds Comprehensive Metabolic Panel 10/27/21 Range/Units 05:44 Sodium 142 (137-145) mmol/L Potassium 3.3 L (3.6-5.0) mmol/L Chloride 100.4 (98-107) mmol/L Carbon Dioxide 30 (22-30) mmol/L BUN 22 H (9-20) mg/dL Creatinine 0.8 (0.8-1.3) mg/dL Glucose 127 H (75-100) mg/dL Calcium 9.0 (8.4-10.2) mg/dL - Imaging and Cardiology EKG: report reviewed Echo: report reviewed - Telemetry EKG Rhythm: Sinus Rhythm - EKG Sinus rhythms and dysrhythmias: sinus rhythm - Allied health notes Allied health notes reviewed: nursing
[2021-10-27] MEDS: INSULIN GLARGINE 100 UNITS/ML SUB-Q SCH (21:27)
[2021-10-28] MEDS: FUROSEMIDE 40 MG/4 ML INJ IV SCH (06:00)
[2021-10-28 07:19] LABS: BUN/Creatinine Ratio 23; Blood Urea Nitrogen 18 mg/dL (9-20); Calcium 8.6 mg/dL (8.4-10.2); Hemolysis Index 4
[2021-10-28] MEDS: INSULIN LISPRO 100 UNIT/ML SUB-Q SCH (08:00)
--- NOTE | 2021-10-28 08:45 | Progress Note ---
Assessment and Plan Assessment and plan: History of present illness: 65 years old male with history of hypertension, hyperlipidemia, GERD, peripheral vascular disease and diabetes was brought to the hospital because of leg edema and generalized pain. Patient also complained of shortness of breath. Subsequently patient is brought to the ER in the ER patient is found to have acute CHF exacerbation. Patient BNP is 9831 and troponin 0 0.037. We are going to admit the patient we will put the patient on CHF pathway Hospital Course: 10/22/2021. We will continue the patient on the heart failure pathway. Continue Lasix 40 mg IV twice daily, Zestril 5 mg daily and metoprolol 25 mg p.o. twice daily. Patient had a previous echocardiogram June 2021 that revealed LVEF of 30-35% with some impaired relaxation. Await cardiology consultation. Continue Accu-Cheks and SSRI. Resume statin 10/23/2021. Continue medications of Eliquis, aspirin, Lipitor, Plavix, lisinopril and metoprolol. Continue IV Lasix for diuresis. Follow-up BMP in a.m. 10/24/2021. Continue GDMT for heart failure. Patient is exhibiting some mild improvement. Continue diuresis 10/25/2021. Continue aspirin, Plavix, Eliquis, Lipitor, lisinopril and metoprolol. Continue IV diuresis with Lasix. Continue Accu-Cheks and sliding scale insulin. Patient still has significant lower extremity edema but somewhat improved. Continue current management per cardiology recommendations. 10/26/2021: Initiated on spironolactone for optimization of CHF with GDMT. Patient lower extremity edema still persists however cardiopulmonary exam is improved despite chest x-ray findings yesterday. Cardiology is initiated patient on dobutamine IV. Will follow along with plan for today regarding diuresis and continuation of inotrope. 10/27/2021: Patient agitated overnight. Required Ativan and Geodon. Ordered Seroquel nightly. Patient pulled IV and technical staff assistant had difficulty placing. Will order PICC line so patient can receive dobutamine infusion. Will follow cardiology recommendations regarding its continuation. Assessment and plan: #Acute Decompensated HFrEF, ejection fraction 30 to 35% per echocardiogram read, GDMT as outlined above. Cardiology following #Diabetes mellitus type 2 with hyperglycemia, continue sliding scale insulin #Hypertension, continue lisinopril and metoprolol spironolactone Lasix #Hyperlipidemia, continue aspirin Plavix atorvastatin #PVD, continue aspirin Plavix #History of right AKA #GERD, continue famotidine Hospitalist Physical - Physical exam Narrative exam: Physical Exam: VITAL SIGNS: Reviewed. GENERAL: The patient appears normally developed, Vital signs as documented. Agitation and restraints. HEAD: No signs of head trauma. EYES: Pupils are equal. Extraocular motions intact. EARS: Hearing grossly intact. MOUTH: Oropharynx is normal. NECK: No adenopathy, no JVD. CHEST: Chest with clear breath sounds bilaterally. No wheezes, rales, or rhonchi. CARDIAC: Regular rate and rhythm. S1 and S2, without murmurs, gallops, or rubs. VASCULAR: No Edema. Peripheral pulses normal and equal in all extremities. ABDOMEN: Soft, non tender and non distended. No rebound or guarding, and no masses palpated. Bowel Sounds normal. MUSCULOSKELETAL: Good range of motion of all major joints. Extremities without clubbing, cyanosis or edema. NEUROLOGIC EXAM: Alert and oriented x 1. no focal sensory or strength deficits. PSYCHIATRIC: Mood normal. SKIN: detail exam as documented in skin assessment - Constitutional Vitals: Temp Pulse Resp BP Pulse Ox 97.8 F 79 18 136/81 99 10/28/21 07:52 10/28/21 07:52 10/28/21 07:52 10/28/21 07:52 10/28/21 07:52 General appearance: Present: no acute distress HEART Score - HEART Score Troponin: Troponin T 0.016 ng/mL (0.00-0.029) 10/22/21 20:49 Results - Labs CBC & Chem 7: 10/26/21 05:13 10/28/21 06:06 Labs: Laboratory Last Values WBC 4.4 K/mm3 (4.5-11.0) L 10/26/21 05:13 RBC 4.76 M/mm3 (3.65-5.03) 10/26/21 05:13 Hgb 13.2 gm/dl (11.8-15.2) 10/26/21 05:13 Hct 41.4 % (35.5-45.6) 10/26/21 05:13 MCV 87 fl (84-94) 10/26/21 05:13 MCH 28 pg (28-32) 10/26/21 05:13 MCHC 32 % (32-34) 10/26/21 05:13 RDW 17.1 % (13.2-15.2) H 10/26/21 05:13 Plt Count 131 K/mm3 (140-440) L 10/26/21 05:13 Lymph % (Auto) 17.9 % (13.4-35.0) 10/26/21 05:13 Levy % (Auto) 7.5 % (0.0-7.3) H 10/26/21 05:13 Eos % (Auto) 9.6 % (0.0-4.3) H 10/26/21 05:13 Baso % (Auto) 0.8 % (0.0-1.8) 10/26/21 05:13 Lymph # (Auto) 0.8 K/mm3 (1.2-5.4) L 10/26/21 05:13 Levy # (Auto) 0.3 K/mm3 (0.0-0.8) 10/26/21 05:13 Eos # (Auto) 0.4 K/mm3 (0.0-0.4) 10/26/21 05:13 Baso # (Auto) 0.0 K/mm3 (0.0-0.1) 10/26/21 05:13 Seg Neutrophils % 64.2 % (40.0-70.0) 10/26/21 05:13 Seg Neutrophils # 2.8 K/mm3 (1.8-7.7) 10/26/21 05:13 Sodium 143 mmol/L (137-145) 10/28/21 06:06 Potassium 3.4 mmol/L (3.6-5.0) L 10/28/21 06:06 Chloride 102.6 mmol/L (98-107) 10/28/21 06:06 Carbon Dioxide 30 mmol/L (22-30) 10/28/21 06:06 Anion Gap 14 mmol/L 10/28/21 06:06 BUN 18 mg/dL (9-20) 10/28/21 06:06 Creatinine 0.8 mg/dL (0.8-1.3) 10/28/21 06:06 Estimated GFR > 60 ml/min 10/28/21 06:06 BUN/Creatinine Ratio 23 % 10/28/21 06:06 Glucose 64 mg/dL (75-100) L 10/28/21 06:06 POC Glucose 66 mg/dL (70-105) L 10/28/21 07:40 Calcium 8.6 mg/dL (8.4-10.2) 10/28/21 06:06 Magnesium 1.90 mg/dL (1.7-2.3) 10/27/21 05:44 Total Bilirubin 0.60 mg/dL (0.1-1.2) 10/21/21 23:16 AST 57 units/L (5-40) H 10/21/21 23:16 ALT 54 units/L (7-56) 10/21/21 23:16 Alkaline Phosphatase 189 units/L (35-129) H 10/21/21 23:16 Troponin T 0.016 ng/mL (0.00-0.029) 10/22/21 20:49 NT-Pro-B Natriuret Pep 9831 pg/mL (0-900) H 10/21/21 23:16 Total Protein 7.7 g/dL (6.3-8.2) 10/21/21 23:16 Albumin 3.3 g/dL (3.9-5) L 10/21/21 23:16 Albumin/Globulin Ratio 0.8 % 10/21/21 23:16 Triglycerides 131 mg/dL (2-149) 10/22/21 02:20 Cholesterol 156 mg/dL (50-199) 10/22/21 02:20 LDL Cholesterol Direct 74 mg/dL (50-130) 10/22/21 02:20 HDL Cholesterol 69 mg/dL (40-59) H 10/22/21 02:20 Cholesterol/HDL Ratio 2.26 % 10/22/21 02:20 Doss/IV: Voiding Method Condom Catheter Active Medications - Current Medications Current Medications: Generic Name Dose Route Start Last Admin Trade Name Freq PRN Reason Stop Dose Admin Acetaminophen 650 mg 10/22/21 05:22 Acetaminophen 325 Mg Tab PO Q4H PRN Pain MILD(1-3)/Fever >100.5/PACHECO Albuterol 2.5 mg 10/22/21 12:00 Albuterol 2.5 Mg/3 Ml Nebu IH Q4HRT PRN Shortness Of Breath Albuterol/Ipratropium 1 ampul 10/22/21 20:00 10/27/21 20:33 Ipratropium/Albuterol Sulfate 3 Ml Ampul.Neb IH 1 ampul BIDRT LYNDSAY Administration Apixaban 5 mg 10/22/21 10:00 10/27/21 21:26 Apixaban 5 Mg Tab PO 5 mg Q12HR LYNDSAY Administration Atorvastatin Calcium 40 mg 10/22/21 22:00 10/27/21 21:26 Atorvastatin 40 Mg Tab PO 40 mg QHS LYNDSAY Administration Clopidogrel Bisulfate 75 mg 10/22/21 10:00 10/27/21 12:01 Clopidogrel 75 Mg Tab PO 75 mg QDAY LYNDSAY Administration Dextrose 0 ml 10/22/21 05:34 Dextrose 10% *Hypoglycemia IV DIRECT PRN Hypoglycemia Protocol Famotidine 20 mg 10/22/21 10:00 10/27/21 21:26 Famotidine 20 Mg Tab PO 20 mg BID LYNDSAY Administration Furosemide 80 mg 10/26/21 18:00 10/28/21 06:00 Furosemide 40 Mg/4 Ml Inj IV 80 mg BID@0600,1800 LYNDSAY Administration Hydromorphone HCl 0.5 mg 10/22/21 05:22 10/24/21 11:36 Hydromorphone 1 Mg/1 Ml Inj IV 0.5 mg Q3H PRN Administration Pain , Severe (7-10) Dobutamine HCl/Dextrose 500 mg in 250 mls @ 6.804 mls/hr 10/25/21 12:00 10/27/21 12:08 Dobutrex Drip 500mg/D5w 250ml IV 2.5 mcg/kg/min DIRECT LYNDSAY 6.804 mls/hr Administration Protocol 2.5 MCG/KG/MIN Insulin Glargine 10 units 10/26/21 22:00 10/27/21 21:27 Insulin Glargine 100 Units/Ml SUB-Q 10 units QHS LYNDSAY Administration Insulin Human Lispro 0 unit 10/22/21 07:30 10/27/21 21:30 Insulin Lispro 100 Unit/Ml SUB-Q 3 unit ACHS LYNDSAY Administration Protocol Lisinopril 5 mg 10/22/21 10:00 10/27/21 12:02 Lisinopril 5 Mg Tab PO 5 mg QDAY LYNDSAY Administration Metoprolol Tartrate 25 mg 10/22/21 10:00 10/27/21 21:31 Metoprolol Tartrate 25 Mg Tab PO 25 mg BID LYNDSAY Administration Morphine Sulfate 2 mg 10/22/21 05:22 10/25/21 09:15 Morphine 2 Mg/1 Ml Inj IV 2 mg Q4H PRN Administration Pain, Moderate (4-6) Ondansetron HCl 4 mg 10/22/21 05:22 Ondansetron 4 Mg/2 Ml Inj IV Q8H PRN Nausea And Vomiting Phenylephrine HCl 2 spray 10/26/21 01:46 10/26/21 11:50 Phenylephrine 0.25% Nasal [place] 15ml NS 2 spray Q4H PRN Administration Congestion Potassium Chloride 40 meq 10/28/21 10:00 Potassium Chloride Er 20 Meq Tab PO QDAY LYNDSAY Sodium Chloride 10 ml 10/22/21 10:00 10/27/21 21:26 Sodium Chloride 0.9% 10 Ml Flush Syringe IV 10 ml BID LYNDSAY Administration Sodium Chloride 10 ml 10/22/21 05:22 10/26/21 05:40 Sodium Chloride 0.9% 10 Ml Flush Syringe IV 10 ml PRN PRN Administration LINE FLUSH Spironolactone 25 mg 10/26/21 10:00 10/27/21 12:01 Spironolactone 25 Mg Tab PO 25 mg QDAY LYNDSAY Administration Nutrition/Malnutrition Assess - Dietary Evaluation Nutrition/Malnutrition Findings: Nutrition Notes Start: 10/22/21 12:04 Freq: Status: Active Protocol: Document 10/22/21 12:04 ERICK (Rec: 10/22/21 12:12 ERICK [id number]) Nutrition Notes Need for Assessment generated from: MD Order,Education Initial or Follow up Brief Note Current Diagnosis Diabetes,Hypertension, Hyperlipidemia Other Pertinent Diagnosis CHF, HFrEF, PVD, LE Edema, s/p R-AKA, Asthma. Current Diet Cardiac/Consistent Carbohydrates Diet (since B ). Height 5 ft 6 in Weight 90.[address] Body Weight (kg) 64.54 BMI 32.3 Intake Prior to Admission Good Weight change and time frame Pt denies having loss body weight [employer]. Weight Status Obese Subjective/Other Information RD consult for nutrition education. No reports available on Pt's PO intake of meals at the time , will assess at F/U. Pt still in critical condition , not a candidate for Nutrition Education at the time, will assess feasibility on F/U. Percent of energy/protein needs met: Prescribed Cardiac/Consistent Carbohydrates Diet provides for energy/protein needs (1, 977 Kcal/86 g) during LOS. Nutrition Intervention Follow-Up By: 10/29/21 Additional Comments Nutrition education will be provided on F/U, if feasible. Continue monitoring food tolerance, %PO intake of meals , and BM.
[2021-10-28] MEDS: IPRATROPIUM/ALBUTEROL SULFATE 3 ML AMPUL.NEB IH SCH (08:50)
[2021-10-28] MEDS ORDERED: DEXTROSE 50% IN WATER (25GM) 50 ML SYRINGE IV PRN (09:00)
[2021-10-28] MEDS ORDERED: POTASSIUM CHLORIDE ER 20 MEQ TAB PO SCH (10:00)
[2021-10-28] MEDS: APIXABAN 5 MG TAB PO SCH (10:55)
[2021-10-28] MEDS: FAMOTIDINE 20 MG TAB PO SCH (10:56)
[2021-10-28] MEDS: SPIRONOLACTONE 25 MG TAB PO SCH (10:57)
[2021-10-28] MEDS: LISINOPRIL 5 MG TAB PO SCH (10:58)
[2021-10-28] MEDS: CLOPIDOGREL 75 MG TAB PO SCH (10:59)
[2021-10-28] MEDS: METOPROLOL TARTRATE 25 MG TAB PO SCH (10:59)
[2021-10-28 12:14] VITALS: BP 135/68
--- NOTE | 2021-10-28 12:33 | Discharge Summary ---
Providers - Providers Date of Admission: 10/22/21 05:22 Date of discharge: 10/28/21 Attending physician: FARIDA RAPP MD 10/22/21 05:22 Consult to Dietitian/Nutrition [CONS] Routine Physician Instructions: Reason For Exam: Reason for Consult: Diet education 10/22/21 10:16 Consult to Physician [CONS] Routine Comment: Consulting Provider: SHRAVAN TABARES Physician Instructions: Reason For Exam: CHF Physical Therapy Evaluation and Treat [CONS] Routine Comment: Reason For Exam: Deconditioning Speech Therapy Evaluation and Treat [CONS] Routine Reason For Exam: Swallow 10/27/21 09:05 Midline [Consult to PICC Line RN] [CONS] Urgent Reason For Exam: hard stick Type Line:: PICC Primary care physician: GRIND OPERATOR Hospitalization Reason for admission: shortness of breath, leg edema Condition: Stable Hospital course: History of present illness: 65 years old male with history of hypertension, hyperlipidemia, GERD, peripheral vascular disease and diabetes was brought to the hospital because of leg edema and generalized pain. Patient also complained of shortness of breath. Subsequently patient is brought to the ER in the ER patient is found to have acute CHF exacerbation. Patient BNP is 9831 and troponin 0 0.037. We are going to admit the patient we will put the patient on CHF pathway Hospital Course: 10/22/2021. We will continue the patient on the heart failure pathway. Continue Lasix 40 mg IV twice daily, Zestril 5 mg daily and metoprolol 25 mg p.o. twice daily. Patient had a previous echocardiogram June 2021 that revealed LVEF of 30-35% with some impaired relaxation. Await cardiology consultation. Continue Accu-Cheks and SSRI. Resume statin 10/23/2021. Continue medications of Eliquis, aspirin, Lipitor, Plavix, lisinopril and metoprolol. Continue IV Lasix for diuresis. Follow-up BMP in a.m. 10/24/2021. Continue GDMT for heart failure. Patient is exhibiting some mild improvement. Continue diuresis 10/25/2021. Continue aspirin, Plavix, Eliquis, Lipitor, lisinopril and metoprolol. Continue IV diuresis with Lasix. Continue Accu-Cheks and sliding scale insulin. Patient still has significant lower extremity edema but somewhat improved. Continue current management per cardiology recommendations. 10/26/2021: Initiated on spironolactone for optimization of CHF with GDMT. Patient lower extremity edema still persists however cardiopulmonary exam is improved despite chest x-ray findings yesterday. Cardiology is initiated patient on dobutamine IV. Will follow along with plan for today regarding diuresis and continuation of inotrope. 10/27/2021: Patient agitated overnight. Required Ativan and Geodon. Ordered Seroquel nightly. Patient pulled IV and waitstaff had difficulty placing. Will order PICC line so patient can receive dobutamine infusion. Will follow cardiology recommendations regarding its continuation. 10/28/2021: Discontinued off dobutamine. D/w cardiology ok with discharge. Will rx home: apixaban, atorvastatin, plavix, lisinopril, metoprolol, spironalactone, furosemide, potassium chloride 40 MEQ x 3. Assessment and plan: #Acute Decompensated HFrEF, ejection fraction 30 to 35% per echocardiogram read, GDMT as outlined above. Cardiology following #Diabetes mellitus type 2 with hyperglycemia, continue sliding scale insulin #Hypertension, continue lisinopril and metoprolol spironolactone Lasix #Hyperlipidemia, continue aspirin Plavix atorvastatin #PVD, continue aspirin Plavix #History of right AKA #GERD, continue famotidine Disposition: HOME / SELF CARE / HOMELESS Final Discharge Diagnosis (Prints w/discharge instructions): Acute decompensated heart failure, acute systolic heart failure. Time spent for discharge: 35 Core Measure Documentation - Palliative Care Palliative Care/ Comfort Measures: Not Applicable - Core Measures Any of the following diagnoses?: heart failure - Heart Failure Discharge Requirements DARIAN/ARB for LVSD if EF <40%: Yes Beta mary at discharge: Yes Exam - Physical Exam Narrative exam: Physical Exam: VITAL SIGNS: Reviewed. GENERAL: The patient appears normally developed, Vital signs as documented. Agitation and restraints. HEAD: No signs of head trauma. EYES: Pupils are equal. Extraocular motions intact. EARS: Hearing grossly intact. MOUTH: Oropharynx is normal. NECK: No adenopathy, no JVD. CHEST: Chest with clear breath sounds bilaterally. No wheezes, rales, or rhonchi. CARDIAC: Regular rate and rhythm. S1 and S2, without murmurs, gallops, or rubs. VASCULAR: No Edema. Peripheral pulses normal and equal in all extremities. ABDOMEN: Soft, non tender and non distended. No rebound or guarding, and no masses palpated. Bowel Sounds normal. MUSCULOSKELETAL: Good range of motion of all major joints. Extremities without clubbing, cyanosis or edema. NEUROLOGIC EXAM: Alert and oriented x 1. no focal sensory or strength deficits. PSYCHIATRIC: Mood normal. SKIN: detail exam as documented in skin assessment - Constitutional Vitals: Temp Pulse Resp BP Pulse Ox 99.2 F 83 18 135/68 98 10/28/21 11:29 10/28/21 11:29 10/28/21 11:29 10/28/21 11:29 10/28/21 11:29 Plan Follow up with: PRIMARY CAREMD [Primary Care Provider] - 7 Days
--- NOTE | 2021-10-28 12:46 | Progress Note ---
Assessment and Plan Patient is a 65-year-old male with past medical history of HFrEF, hypertension, hyperlipidemia, peripheral vascular disease s/p BKA, GERD who reports to the hospital due to lower extremity edema and shortness of breath Acute on chronic HFrEF Hypertension Acute respiratory failure COPD Peripheral vascular disease s/p right AKA GERD Diabetes Echo 06/23/2021-EF 30 to 35%, left ventricle is mildly dilated moderate global hypokinesis of LV. Left atrium is mildly dilated. Right ventricle systolic function is normal Plan: Patient appears near euvolemic on exam. Patient swelling has significantly decreased. Stop dobutamine Urine output documented that patient had voided numerous times however exact measurement not documented Continue GDMT (aspirin, atorvastatin, eliquis, plavix, Lasix, lisinopril 5 mg PO Qday, metoprolol 25 mg PO BID) Patient is follow-up with their primary deck mechanic in 1 to 2 weeks after discharge. Patient may also follow-up with Dr. Neely, [facility] plastic surgery specialist, in 1 to 2 weeks after discharge. Phone #[phone] Patient seen in conjunction with Dr. Neely who agrees with the assessment and management of this patient. - Patient Problems (1) Diabetes Current Visit: No Status: Acute (2) Acute HFrEF (heart failure with reduced ejection fraction) Current Visit: No Status: Acute (3) Dilated cardiomyopathy Current Visit: No Status: Acute (4) Peripheral arterial disease Current Visit: No Status: Chronic (5) COPD (chronic obstructive pulmonary disease) Current Visit: No Status: Chronic Qualifiers: Emphysema type: unspecified (6) Peripheral vascular disease Current Visit: No Status: Acute (7) Hypertension Current Visit: No Status: Acute Qualifiers: Subjective Date of service: 10/28/21 Principal diagnosis: Acute on Chronic HFrEF Interval history: Patient lying in bed in no acute distress. Patient reports feeling better this a.m. Patient sinus 80s on monitor with no events Objective Vital Signs Temp Pulse Pulse Resp Resp BP Pulse Ox 10/28/21 11:29 99.2 F 83 18 135/68 98 10/28/21 10:59 99 H 10/28/21 10:58 99 H 111/76 10/28/21 10:57 93 H 111/76 10/28/21 07:52 97.8 F 79 18 136/81 99 10/28/21 03:26 97.4 F L 18 141/75 10/28/21 03:23 98 10/27/21 23:19 98.2 F 79 18 126/74 94 10/27/21 21:31 98 H 157/79 10/27/21 20:39 100 10/27/21 20:38 88 18 10/27/21 19:06 97.3 F L 18 157/79 10/27/21 16:37 98.0 F 85 20 146/92 99 10/27/21 13:00 97 - Physical Examination General: No Apparent Distress (Slightly sleepy) HEENT: Positive: Normocephaly Neck: Positive: trachea midline Cardiac: Positive: Reg Rate and Rhythm Lungs: Positive: Normal Breath Sounds Neuro: Positive: Grossly Intact (However, patient is sleepy from Geodon and Ativan overnight), Other Abdomen: Positive: Soft, Other (Edematous) /Rectal: Other (Edematous) Skin: Negative: Rash Extremities: Present: upper extr. pulses, edema, Cool - Labs and Meds Comprehensive Metabolic Panel 10/28/21 Range/Units 06:06 Sodium 143 (137-145) mmol/L Potassium 3.4 L (3.6-5.0) mmol/L Chloride 102.6 (98-107) mmol/L Carbon Dioxide 30 (22-30) mmol/L BUN 18 (9-20) mg/dL Creatinine 0.8 (0.8-1.3) mg/dL Glucose 64 L (75-100) mg/dL Calcium 8.6 (8.4-10.2) mg/dL - Imaging and Cardiology EKG: report reviewed Echo: report reviewed - Telemetry EKG Rhythm: Sinus Rhythm - EKG Sinus rhythms and dysrhythmias: sinus rhythm - Allied health notes Allied health notes reviewed: nursing
== END 2021-10-28 16:00 | disposition home or self-care (01) | DRG 291 ==
LOC: ED 22:09 → 4A 10-22 05:22
PROVIDERS: ADMIT Hospitalist; ATTEND Internal Medicine
DX: I11.0 Hypertensive heart disease with heart failure (principal); J96.00 Acute respiratory failure, unspecified whether with hypoxia or hypercapnia; I50.43 Acute on chronic combined systolic (congestive) and diastolic (congestive) heart failure; K21.9 Gastro-esophageal reflux disease without esophagitis; J45.909 Unspecified asthma, uncomplicated; J44.9 Chronic obstructive pulmonary disease, unspecified; I73.9 Peripheral vascular disease, unspecified; E11.65 Type 2 diabetes mellitus with hyperglycemia; I25.2 Old myocardial infarction; R60.1 Generalized edema; E78.5 Hyperlipidemia, unspecified; Z82.49 Family history of ischemic heart disease and other diseases of the circulatory system; Z89.611 Acquired absence of right leg above knee
CPT/HCPCS: 36415; 71045; 80048; 80053; 80061; 82962; 83735; 83880; 84484; 85025; 93005; 94640; 94760; G0378; Q9967; J1170; J1250; J1815; J1940; J2060; J2270; J3486

== ENCOUNTER 2022-01-17 13:20 | Inpatient (IN) | payer OTHER ==
[2022-01-17] MEDS ORDERED: FUROSEMIDE 40 MG/4 ML INJ IV ONE (15:24)
--- NOTE | 2022-01-17 15:39 | XRay Report ---
CHEST 1 VIEW 01/17/2022 3:14 PM INDICATION / CLINICAL INFORMATION: Dyspnea. COMPARISON: 10/25/2021 FINDINGS: SUPPORT DEVICES: None. HEART / MEDIASTINUM: Stable cardiomegaly. LUNGS / PLEURA: Interstitial pulmonary edema with small pleural effusions. No pneumothorax. ADDITIONAL FINDINGS: No significant additional findings. Signer Name: Ravi Haro MD Signed: 01/17/2022 3:34 PM Workstation Name: [employer]
[2022-01-17 15:41] LABS: Basophils # (Auto) 0.1 K/mm3 (0.0-0.1); Basophils % (Auto) 0.9 % (0.0-1.8); Eosinophils # (Auto) 0.5 K/mm3 (0.0-0.4); Hematocrit 42.4 % (35.5-45.6); Hemoglobin 13.8 gm/dl (11.8-15.2); Lymphocytes # (Auto) 0.7 K/mm3 (1.2-5.4); Lymphocytes % (Auto) 10.5 % (13.4-35.0); Mean Corpuscular HGB Conc 33 % (32-34); Mean Corpuscular Volume 92 fl (84-94); Monocytes # (Auto) 0.4 K/mm3 (0.0-0.8); Monocytes % (Auto) 6.3 % (0.0-7.3); Platelet Count 145 K/mm3 (140-440); Red Blood Count 4.61 M/mm3 (3.65-5.03); Red Cell Distribution Width 17.7 % (13.2-15.2)
[2022-01-17 16:06] LABS: Alanine Aminotransferase 25 units/L (7-56); Albumin 3.4 g/dL (3.9-5); BUN/Creatinine Ratio 20; Blood Urea Nitrogen 18 mg/dL (9-20); Calcium 9.1 mg/dL (8.4-10.2); Hemolysis Index 18
[2022-01-17 16:18] LABS: Chol/HDL Ratio 2.04 %; HDL Cholesterol 65 mg/dL (40-59); LDL Cholesterol,Direct 60 mg/dL (50-130)
--- NOTE | 2022-01-17 16:24 | Emergency Department Report ---
ED Shortness of Breath HPI - General Chief Complaint: Dyspnea/Respdistress Stated Complaint: MALA Time Seen by Provider: 01/17/22 15:09 Source: patient, EMS Mode of arrival: Stretcher Limitations: Physical Limitation - History of Present Illness Initial Comments: Patient is a 66-year-old male with history of CHF presenting with complaint of shortness of breath and diffuse body swelling. - Related Data Home Medications Medication Instructions Recorded Confirmed Last Taken Multivit-Min/Iron/Folic Acid/K 1 tab PO DAILY 08/11/21 10/23/21 10/20/21 [Adults Multivitamin Caplet] Omeprazole 40 mg PO DAILY 08/11/21 10/23/21 10/20/21 Dextran 70/Hypromellose [Natural 1 drop OU QDAY 08/19/21 10/23/21 10/20/21 Balance Tears Eye Drop] Previous Rx's Medication Instructions Recorded Last Taken Type Albuterol Mdi (or & Nicu Only) 2 puff IH QID PRN #1 inhalation 06/03/21 10/20/21 Rx [ProAir HFA Inhaler] Aspirin EC [Halfprin EC] 81 mg PO QDAY #30 tablet 07/08/21 10/20/21 Rx Apixaban [Eliquis] 5 mg PO Q12HR 30 Days #60 tablet 10/28/21 Unknown Rx AtorvaSTATin [Lipitor] 40 mg PO QHS 30 Days #30 tablet 10/28/21 Unknown Rx Clopidogrel [Plavix] 75 mg PO QDAY 30 Days #30 tablet 10/28/21 Unknown Rx Furosemide [Lasix TAB] 40 mg PO QDAY #30 tablet 10/28/21 Unknown Rx Metoprolol [Lopressor TAB] 25 mg PO BID 30 Days #60 tablet 10/28/21 Unknown Rx Potassium Chloride [K-Dur] 40 meq PO QDAY 3 Days #3 tablet 10/28/21 Unknown Rx Spironolactone [Aldactone] 25 mg PO QDAY 30 Days #30 tablet 10/28/21 Unknown Rx lisinopriL [Zestril TAB] 5 mg PO QDAY 30 Days #30 tablet 10/28/21 Unknown Rx Allergies Allergy/AdvReac Type Severity Reaction Status Date / Time No Known Allergies Allergy Verified 08/19/21 15:15 ED Review of Systems ROS: Stated complaint: MALA Other details as noted in HPI Comment: All other systems reviewed and negative Constitutional: denies: chills, fever Respiratory: shortness of breath Cardiovascular: edema Gastrointestinal: denies: abdominal pain, nausea, diarrhea Musculoskeletal: denies: back pain, joint swelling, arthralgia Skin: denies: rash, lesions Neurological: denies: headache, weakness, paresthesias Psychiatric: denies: anxiety, depression ED Past Medical Hx - Past Medical History Previous Medical History?: Yes Hx Hypertension: Yes (Had acute CHF exacerbation 06/2021) Hx Heart Attack/AMI: Yes (02/10) Hx Congestive Heart Failure: Yes (H/X CHF. RESOLVED NOW.) Hx Diabetes: Yes (DOES NOT USE INSULIN DUE TO COST) Hx Deep Vein Thrombosis: Yes (RIGHT LEG) Hx Renal Disease: No Hx Asthma: Yes Hx COPD: No Hx HIV: No - Surgical History Past Surgical History?: Yes Additional Surgical History: right leg amputation 2020 - Social History Smoking Status: Never Smoker - Medications Home Medications: Home Medications Medication Instructions Recorded Confirmed Last Taken Type Albuterol Mdi (or & Nicu Only) 2 puff IH QID PRN #1 inhalation 06/03/21 10/23/21 10/20/21 Rx [ProAir HFA Inhaler] Aspirin EC [Halfprin EC] 81 mg PO QDAY #30 tablet 07/08/21 10/23/21 10/20/21 Rx Multivit-Min/Iron/Folic Acid/K 1 tab PO DAILY 08/11/21 10/23/21 10/20/21 History [Adults Multivitamin Caplet] Omeprazole 40 mg PO DAILY 08/11/21 10/23/21 10/20/21 History Dextran 70/Hypromellose [Natural 1 drop OU QDAY 08/19/21 10/23/21 10/20/21 History Balance Tears Eye Drop] Apixaban [Eliquis] 5 mg PO Q12HR 30 Days #60 tablet 10/28/21 Unknown Rx AtorvaSTATin [Lipitor] 40 mg PO QHS 30 Days #30 tablet 10/28/21 Unknown Rx Clopidogrel [Plavix] 75 mg PO QDAY 30 Days #30 tablet 10/28/21 Unknown Rx Furosemide [Lasix TAB] 40 mg PO QDAY #30 tablet 10/28/21 Unknown Rx Metoprolol [Lopressor TAB] 25 mg PO BID 30 Days #60 tablet 10/28/21 Unknown Rx Potassium Chloride [K-Dur] 40 meq PO QDAY 3 Days #3 tablet 10/28/21 Unknown Rx Spironolactone [Aldactone] 25 mg PO QDAY 30 Days #30 tablet 10/28/21 Unknown Rx lisinopriL [Zestril TAB] 5 mg PO QDAY 30 Days #30 tablet 10/28/21 Unknown Rx ED Physical Exam - General Limitations: Physical Limitation General appearance: alert, in no apparent distress - Head Head exam: Present: atraumatic, normocephalic - Neck Neck exam: Present: normal inspection - Respiratory Respiratory exam: Present: decreased breath sounds. Absent: respiratory distress - Cardiovascular Cardiovascular Exam: Present: regular rate, normal rhythm - GI/Abdominal GI/Abdominal exam: Present: soft, other (Abdominal wall edema) - Rectal Rectal exam: Present: deferred - Extremities Exam Extremities exam: Present: pedal edema. Absent: tenderness - Neurological Exam Neurological exam: Present: alert, oriented X3 - Psychiatric Psychiatric exam: Present: normal affect, normal mood - Skin Skin exam: Present: warm, dry, intact, normal color ED Course Vital Signs 01/17/22 01/17/22 13:25 14:55 Temperature 98.3 F Pulse Rate 105 H 100 H Respiratory 16 22 Rate Blood Pressure 156/93 154/96 [Left] O2 Sat by Pulse 97 100 Oximetry ED Medical Decision Making - Lab Data Result diagrams: 01/17/22 15:19 01/17/22 15:19 - EKG Data EKG shows normal: sinus rhythm (Sinus tachycardia with ventricular rate of 100 bpm. Decreased voltage.) - Radiology Data Radiology results: report reviewed Interstitial edema with bilateral small pleural effusions present. - Medical Decision Making EKG and chest x-ray as above. CBC grossly unremarkable. Troponin 0.040. Patient given 40 mg of IV Lasix. Nephrology consulted. Will admit to hospitalist. Critical care attestation.: If time is entered above; I have spent that time in minutes in the direct care of this critically ill patient, excluding procedure time. ED Disposition Clinical Impression: Volume overload, Pulmonary edema, Pleural effusion, bilateral Disposition: HOME / SELF CARE / HOMELESS Is pt being admited?: Yes Condition: Stable Instructions: Pulmonary Edema (ED)
--- NOTE | 2022-01-17 19:29 | History and Physical Report ---
History of Present Illness Date of examination: 01/17/22 Date of admission: 01/17/2022 Chief complaint: Increasing shortness of breath for the last 3 days and swelling of both the legs History of present illness: 66-year-old male with history of hypertension, hyperlipidemia and coronary artery disease comes in for increasing shortness of breath and swelling of both the legs for the last 3 days. Patient has orthopnea. Patient has class IV NYHA symptoms. No diaphoresis. No chest pain no palpitations. Dyspnea on minimal exertion. Not a good historian. Unable to tell me the past history. But patient seems to be having CHF because patient is on Lasix and Aldactone. Patient also has a history of hypertension. No fever or chills. No exposure to COVID virus. - Past Medical History --Previous Medical History?: Yes --Hypertension: Yes (Had acute CHF exacerbation 06/2021) --Heart Attack/AMI: Yes (02/10) --Congestive Heart Failure: Yes (H/X CHF. RESOLVED NOW.) --Diabetes: Yes (DOES NOT USE INSULIN DUE TO COST) --Deep Vein Thrombosis: Yes (RIGHT LEG) --Asthma: Yes - Surgical History --Past Surgical History?: Yes --Additional Surgical History: right leg amputation 2020 - Social History --Smoking Status: Never Smoker -Family history Htn Review of Systems ROS: Constitutional no weight loss or weight gain no fever or chills HEENT no sore throat no post nasal drip no diplopia Neck no neck stiffness no lymph gland enlargement Chest and lungs shortness of breath on minimal exertion GI no nausea no vomiting no diarrhea Genitourinary system no dysuria no flank pain Musculoskeletal system swelling of both the legs [employer] no syncope no seizures Skin no rash no itching Psychiatric no depression no homicidal or suicidal tendencies Hematologic no lymphedema or bruising Endocrine no polydipsia no polyuria no cold intolerance no heat intolerance Medications and Allergies Allergies Allergy/AdvReac Type Severity Reaction Status Date / Time No Known Allergies Allergy Verified 08/19/21 15:15 Home Medications Medication Instructions Recorded Confirmed Last Taken Type Albuterol Mdi (or & Nicu Only) 2 puff IH QID PRN #1 inhalation 06/03/21 01/18/22 10/20/21 Rx [ProAir HFA Inhaler] Aspirin EC [Halfprin EC] 81 mg PO QDAY #30 tablet 07/08/21 01/18/22 10/20/21 Rx Multivit-Min/Iron/Folic Acid/K 1 tab PO DAILY 08/11/21 01/18/22 10/20/21 History [Adults Multivitamin Caplet] Omeprazole 40 mg PO DAILY 08/11/21 01/18/22 10/20/21 10:00 History Dextran 70/Hypromellose [Natural 1 drop OU QDAY 08/19/21 01/18/22 10/20/21 History Balance Tears Eye Drop] Apixaban [Eliquis] 5 mg PO Q12HR 30 Days #60 tablet 10/28/21 01/18/22 Unknown Rx AtorvaSTATin [Lipitor] 40 mg PO QHS 30 Days #30 tablet 10/28/21 01/18/22 Unknown Rx Clopidogrel [Plavix] 75 mg PO QDAY 30 Days #30 tablet 10/28/21 01/18/22 Unknown Rx Furosemide [Lasix TAB] 40 mg PO QDAY #30 tablet 10/28/21 01/18/22 Unknown Rx Metoprolol [Lopressor TAB] 25 mg PO BID 30 Days #60 tablet 10/28/21 01/18/22 Unknown Rx Potassium Chloride [K-Dur] 40 meq PO QDAY 3 Days #3 tablet 10/28/21 01/18/22 Unknown Rx Spironolactone [Aldactone] 25 mg PO QDAY 30 Days #30 tablet 10/28/21 01/18/22 Unknown Rx lisinopriL [Zestril TAB] 5 mg PO QDAY 30 Days #30 tablet 10/28/21 01/18/22 Unknown Rx Exam - Constitutional Vitals: Temp Pulse Resp BP Pulse Ox 98.3 F 85 16 121/78 98 01/17/22 13:25 01/17/22 18:32 01/17/22 18:32 01/17/22 18:32 01/17/22 18:32 General appearance: Present: no acute distress, well-nourished - EENT Eyes: Present: PERRL ENT: hearing intact, clear oral mucosa - Neck Neck: Present: supple, normal ROM - Respiratory Respiratory effort: normal Respiratory: bilateral: rales - Cardiovascular Heart rate: 78 Rhythm: regular Heart Sounds: Present: S1 & S2. Absent: rub, click - Extremities Extremities: no ischemia, pulses symmetrical, No edema Extremity abnormal: edema Peripheral Pulses: within normal limits - Abdominal General gastrointestinal: Present: soft, non-tender, non-distended, normal bowel sounds Male genitourinary: Present: normal - Integumentary Integumentary: Present: clear, warm, dry - Musculoskeletal Musculoskeletal: gait normal, strength equal bilaterally - Psychiatric Psychiatric: appropriate mood/affect, intact judgment & insight - Neurologic Neurologic: CNII-XII intact, moves all extremities HEART Score - HEART Score History: Moderately suspicious Age: 45-65 Risk factors: > 3 risk factors or hx of atherosclerotic disease Troponin: Troponin T 0.040 ng/mL (0.00-0.029) H 01/17/22 15:19 Troponin: 1-3x normal limit - Critical Actions Critical Actions: 4-6 pts:12-16.6% risk of adverse cardiac event. Should be admitted Results - Labs CBC & Chem 7: 01/17/22 15:19 01/17/22 15:19 Labs: Laboratory Last Values WBC 6.5 K/mm3 (4.5-11.0) 01/17/22 15:19 RBC 4.61 M/mm3 (3.65-5.03) 01/17/22 15:19 Hgb 13.8 gm/dl (11.8-15.2) 01/17/22 15:19 Hct 42.4 % (35.5-45.6) 01/17/22 15:19 MCV 92 fl (84-94) 01/17/22 15:19 MCH 30 pg (28-32) 01/17/22 15:19 MCHC 33 % (32-34) 01/17/22 15:19 RDW 17.7 % (13.2-15.2) H 01/17/22 15:19 Plt Count 145 K/mm3 (140-440) 01/17/22 15:19 Lymph % (Auto) 10.5 % (13.4-35.0) L 01/17/22 15:19 [place] % (Auto) 6.3 % (0.0-7.3) 01/17/22 15:19 Eos % (Auto) 7.0 % (0.0-4.3) H 01/17/22 15:19 Baso % (Auto) 0.9 % (0.0-1.8) 01/17/22 15:19 Lymph # (Auto) 0.7 K/mm3 (1.2-5.4) L 01/17/22 15:19 [place] # (Auto) 0.4 K/mm3 (0.0-0.8) 01/17/22 15:19 Eos # (Auto) 0.5 K/mm3 (0.0-0.4) H 01/17/22 15:19 Baso # (Auto) 0.1 K/mm3 (0.0-0.1) 01/17/22 15:19 Seg Neutrophils % 75.3 % (40.0-70.0) H 01/17/22 15:19 Seg Neutrophils # 4.9 K/mm3 (1.8-7.7) 01/17/22 15:19 Sodium 142 mmol/L (137-145) 01/17/22 15:19 Potassium 3.9 mmol/L (3.6-5.0) 01/17/22 15:19 Chloride 101.6 mmol/L (98-107) 01/17/22 15:19 Carbon Dioxide 28 mmol/L (22-30) 01/17/22 15:19 Anion Gap 16 mmol/L 01/17/22 15:19 BUN 18 mg/dL (9-20) 01/17/22 15:19 Creatinine 0.9 mg/dL (0.8-1.3) 01/17/22 15:19 Estimated GFR > 60 ml/min 01/17/22 15:19 BUN/Creatinine Ratio 20 % 01/17/22 15:19 Glucose 255 mg/dL (75-100) H 01/17/22 15:19 Calcium 9.1 mg/dL (8.4-10.2) 01/17/22 15:19 Total Bilirubin 0.90 mg/dL (0.1-1.2) 01/17/22 15:19 AST 31 units/L (5-40) 01/17/22 15:19 ALT 25 units/L (7-56) 01/17/22 15:19 Alkaline Phosphatase 117 units/L (35-129) 01/17/22 15:19 Troponin T 0.040 ng/mL (0.00-0.029) H 01/17/22 15:19 NT-Pro-B Natriuret Pep 8436 pg/mL (0-900) H 01/17/22 15:19 Total Protein 8.2 g/dL (6.3-8.2) 01/17/22 15:19 Albumin 3.4 g/dL (3.9-5) L 01/17/22 15:19 Albumin/Globulin Ratio 0.7 % 01/17/22 15:19 Triglycerides 58 mg/dL (2-149) 01/17/22 15:19 Cholesterol 133 mg/dL (50-199) 01/17/22 15:19 LDL Cholesterol Direct 60 mg/dL (50-130) 01/17/22 15:19 HDL Cholesterol 65 mg/dL (40-59) H 01/17/22 15:19 Cholesterol/HDL Ratio 2.04 % 01/17/22 15:19 Short CBC 01/17/22 Range/Units 15:19 WBC 6.5 (4.5-11.0) K/mm3 Hgb 13.8 (11.8-15.2) gm/dl Hct 42.4 (35.5-45.6) % Plt Count 145 (140-440) K/mm3 BMP 01/17/22 15:19 Sodium 142 Potassium 3.9 Chloride 101.6 Carbon Dioxide 28 BUN 18 Creatinine 0.9 Glucose 255 H Calcium 9.1 Cardiac Enzymes 01/17/22 Range/Units 15:19 Troponin T 0.040 H (0.00-0.029) ng/mL Liver Function 01/17/22 Range/Units 15:19 Total Bilirubin 0.90 (0.1-1.2) mg/dL AST 31 (5-40) units/L ALT 25 (7-56) units/L Alkaline Phosphatase 117 (35-129) units/L Albumin 3.4 L (3.9-5) g/dL - Imaging and Cardiology EKG: report reviewed (Sinus tachycardia, heart rate of 101-minute, anterior infarct) Assessment and Plan Advance Directives: Yes (Full code) VTE prophylaxis?: Chemical Plan of care discussed with patient/family: Yes - Patient Problems (1) Acute respiratory failure with hypoxia Current Visit: Yes Status: Acute Plan to address problem: Patient is hypoxic initially at the time of admission to the emergency room Sats were in the 88-89 which were not documented Titrate oxygen supplementation to keep the sats over 92 (2) Acute HFrEF (heart failure with reduced ejection fraction) Current Visit: No Status: Acute Plan to address problem: IV Lasix every 12 and Aldactone Daily intake and output Daily weights Echocardiogram for ejection fraction wall motion abnormalities and valve function Cardiology consult requested (3) Hypertension Current Visit: No Status: Chronic Qualifiers: Hypertension type: primary hypertension Plan to address problem: Continue antihypertensives and adjust medications (4) Hyperlipidemia Current Visit: Yes Status: Acute (5) Coronary artery disease Current Visit: Yes Status: Chronic Qualifiers: Coronary Disease-Associated Artery/Lesion type: [place] artery [place] vs. transplanted heart: [place] heart Plan to address problem: Continue Plavix and aspirin (6) GERD (gastroesophageal reflux disease) Current Visit: Yes Status: Chronic Plan to address problem: On PPIs (7) DVT prophylaxis Current Visit: No Status: Acute Plan to address problem: Anticoagulation and GI prophylaxis (8) Advance care planning Current Visit: No Status: Acute Plan to address problem: Disease education conducted, care plan discussed, diagnosis discussed, prognosis discussed. Patient is full code. Patient acknowledges understanding and agreement with care plan. +30 minutes.
[2022-01-17] MEDS ORDERED: ALBUTEROL 8.5 GM MDI INHALATION IH PRN (21:11)
[2022-01-17] MEDS ORDERED: ONDANSETRON 4 MG/2 ML INJ IV PRN (21:13)
[2022-01-17] MEDS ORDERED: ASPIRIN EC 81 MG TAB PO SCH (22:00)
[2022-01-17] MEDS ORDERED: HEPARIN 5,000 UNIT/1 ML VIAL SUB-Q SCH (22:00)
[2022-01-17] MEDS ORDERED: SPIRONOLACTONE 25 MG TAB PO SCH (22:00)
[2022-01-17] MEDS: POTASSIUM CHLORIDE ER 20 MEQ TAB PO SCH (22:25)
[2022-01-17] MEDS: CLOPIDOGREL 75 MG TAB PO SCH (22:25)
[2022-01-17] MEDS: METOPROLOL TARTRATE 25 MG TAB PO SCH (22:25)
[2022-01-17] MEDS: APIXABAN 5 MG TAB PO SCH (22:25)
[2022-01-17] MEDS: LISINOPRIL 5 MG TAB PO SCH (22:25)
[2022-01-17] MEDS: FUROSEMIDE 40 MG TAB PO SCH ×2 (23:52→23:58)
[2022-01-18] MEDS: ALUM-MAG HYDROXIDE-SIMETHICONE 200-200-20MG/5ML ORAL LIQD 30 ML PO PRN ×2 (02:57→21:59)
[2022-01-18] MEDS: oxyCODONE /ACETAMINOPHEN 5-325MG TAB PO PRN ×3 (06:07→21:59)
[2022-01-18] MEDS ORDERED: SPIRONOLACTONE 25 MG TAB PO SCH (07:43)
[2022-01-18 08:11] LABS: Eosinophils # (Auto) 0.4 K/mm3 (0.0-0.4); Eosinophils % (Auto) 7.4 % (0.0-4.3); Hematocrit 40.3 % (35.5-45.6); Hemoglobin 13.1 gm/dl (11.8-15.2); Lymphocytes # (Auto) 0.7 K/mm3 (1.2-5.4); Lymphocytes % (Auto) 14.2 % (13.4-35.0); Mean Corpuscular HGB Conc 32 % (32-34); Mean Corpuscular Volume 92 fl (84-94); Monocytes # (Auto) 0.4 K/mm3 (0.0-0.8); Monocytes % (Auto) 8.3 % (0.0-7.3); Platelet Count 131 K/mm3 (140-440)
[2022-01-18 08:32] LABS: Alanine Aminotransferase 29 units/L (7-56); Albumin 3.1 g/dL (3.9-5); BUN/Creatinine Ratio 19; Blood Urea Nitrogen 19 mg/dL (9-20); Hemolysis Index 0
--- NOTE | 2022-01-18 10:09 | Event Note ---
Date: 01/18/[address] Radha Ayala who consulted on prior visit a month and a half ago, please refer to his service for continued cardiac care.
[2022-01-18] MEDS: PANTOPRAZOLE 40 MG TAB PO SCH (10:19)
[2022-01-18] MEDS: APIXABAN 5 MG TAB PO SCH ×2 (10:20→21:58)
[2022-01-18] MEDS: FUROSEMIDE 40 MG/4 ML INJ IV SCH ×2 (10:20→17:32)
[2022-01-18] MEDS: CLOPIDOGREL 75 MG TAB PO SCH (10:20)
[2022-01-18] MEDS: MULTIVITAMINS ,THERAPEUTIC TAB PO SCH (10:20)
[2022-01-18] MEDS: POTASSIUM CHLORIDE ER 20 MEQ TAB PO SCH (10:20)
[2022-01-18] MEDS: METOPROLOL TARTRATE 25 MG TAB PO SCH ×2 (10:55→21:58)
[2022-01-18] MEDS: SPIRONOLACTONE 50 MG TAB PO SCH (10:55)
[2022-01-18] MEDS: LISINOPRIL 5 MG TAB PO SCH (10:56)
--- NOTE | 2022-01-18 11:36 | Consultation ---
History of Present Illness Consult date: 01/18/22 Requesting physician: BEST URIBE Consult reason: congestive heart failure History of present illness: Patient is a 66-year-old male with past medical history of HFrEF, hypertension, hyperlipidemia, peripheral vascular disease s/p AKA, GERD who came to the hospital via EMS shortness of breath which has been ongoing for 1 month. History is difficult to obtain due to patient being poor historian. Patient repeats that it is difficult to breathe and he reports lower extremity swelling, abdominal swelling, and swelling in his upper extremities. He also states he has felt bloated. Patient does not report any complaints of chest pain, nausea, vomiting, diaphoresis, or palpitations. Patient does report orthopnea. Patient was found to have elevated BNP, minimally elevated troponins, and chest x-ray showed pulmonary edema and pleural effusions. Patient was previously seen by our practice during admission during this past October and June however patient never followed up as an outpatient. Is unclear if patient is compliant with medications or fluid and salt restrictions. Cardiology is consulted for CHF exacerbation Past History Past Medical History: diabetes, GERD, heart failure, hypertension, hyperlipidemia, PVD Past Surgical History: Other (AKA) Social history: single Family history: hypertension Medications and Allergies Allergies Allergy/AdvReac Type Severity Reaction Status Date / Time No Known Allergies Allergy Verified 08/19/21 15:15 Home Medications Medication Instructions Recorded Confirmed Last Taken Type Albuterol Mdi (or & Nicu Only) 2 puff IH QID PRN #1 inhalation 06/03/21 01/18/22 10/20/21 Rx [ProAir HFA Inhaler] Aspirin EC [Halfprin EC] 81 mg PO QDAY #30 tablet 07/08/21 01/18/22 10/20/21 Rx Multivit-Min/Iron/Folic Acid/K 1 tab PO DAILY 08/11/21 01/18/22 10/20/21 History [Adults Multivitamin Caplet] Omeprazole 40 mg PO DAILY 08/11/21 01/18/22 10/20/21 10:00 History Dextran 70/Hypromellose [Natural 1 drop OU QDAY 08/19/21 01/18/22 10/20/21 History Balance Tears Eye Drop] Apixaban [Eliquis] 5 mg PO Q12HR 30 Days #60 tablet 10/28/21 01/18/22 Unknown Rx AtorvaSTATin [Lipitor] 40 mg PO QHS 30 Days #30 tablet 10/28/21 01/18/22 Unknown Rx Clopidogrel [Plavix] 75 mg PO QDAY 30 Days #30 tablet 10/28/21 01/18/22 Unknown Rx Furosemide [Lasix TAB] 40 mg PO QDAY #30 tablet 10/28/21 01/18/22 Unknown Rx Metoprolol [Lopressor TAB] 25 mg PO BID 30 Days #60 tablet 10/28/21 01/18/22 Unknown Rx Potassium Chloride [K-Dur] 40 meq PO QDAY 3 Days #3 tablet 10/28/21 01/18/22 Unknown Rx Spironolactone [Aldactone] 25 mg PO QDAY 30 Days #30 tablet 10/28/21 01/18/22 Unknown Rx lisinopriL [Zestril TAB] 5 mg PO QDAY 30 Days #30 tablet 10/28/21 01/18/22 Unknown Rx Active Meds: Active Medications Acetaminophen (Acetaminophen 325 Mg Tab) 650 mg PO Q4H PRN PRN Reason: Pain MILD(1-3)/Fever >100.5/PACHECO Al Hydrox/Mg Hydrox/Simethicone (Alum-Mag Hydroxide-Simethicone [id number]/5ml Oral Liqd 30 Ml) 30 ml PO Q6H PRN PRN Reason: Indigestion Last Admin: 01/18/22 02:57 Dose: 30 ml Albuterol (Albuterol 8.5 Gm Mdi Inhalation) 2 puff IH QIDRT PRN PRN Reason: Shortness Of Breath Apixaban (Apixaban 5 Mg Tab) 5 mg PO Q12HR [facility] Last Admin: 01/18/22 10:20 Dose: 5 mg Artificial Tears (Hypromellose 0.5% Ophth Soln 15 Ml) 1 drops OU QDAY [facility] Atorvastatin Calcium (Atorvastatin 40 Mg Tab) 40 mg PO QHS [facility] Last Admin: 01/17/22 22:25 Dose: 40 mg Clopidogrel Bisulfate (Clopidogrel 75 Mg Tab) 75 mg PO QDAY [facility] Last Admin: 01/18/22 10:20 Dose: 75 mg Furosemide (Furosemide 40 Mg/4 Ml Inj) 40 mg IV 0600,1800 [facility] Last Admin: 01/18/22 10:20 Dose: 40 mg Lisinopril (Lisinopril 5 Mg Tab) 5 mg PO QDAY [facility] Last Admin: 01/18/22 10:56 Dose: Not Given Metoprolol Tartrate (Metoprolol Tartrate 25 Mg Tab) 25 mg PO BID [facility] Last Admin: 01/18/22 10:55 Dose: Not Given Multivitamins (Multivitamins ,Therapeutic Tab) 1 each PO DAILY [facility] Last Admin: 01/18/22 10:20 Dose: 1 each Ondansetron HCl (Ondansetron 4 Mg/2 Ml Inj) 4 mg IV Q8H PRN PRN Reason: Nausea And Vomiting Oxycodone/Acetaminophen (Oxycodone /Acetaminophen 5-325mg Tab) 1 tab PO Q6H PRN PRN Reason: Pain, Moderate (4-6) Last Admin: 01/18/22 06:07 Dose: 1 tab Pantoprazole Sodium (Pantoprazole 40 Mg Tab) 40 mg PO DAILY [facility] Last Admin: 01/18/22 10:19 Dose: 40 mg Potassium Chloride (Potassium Chloride Er 20 Meq Tab) 40 meq PO QDAY [facility] Last Admin: 01/18/22 10:20 Dose: 40 meq Sodium Chloride (Sodium Chloride 0.9% 10 Ml Flush Syringe) 10 ml IV BID [facility] Last Admin: 01/18/22 10:21 Dose: 10 ml Sodium Chloride (Sodium Chloride 0.9% 10 Ml Flush Syringe) 10 ml IV PRN PRN PRN Reason: LINE FLUSH Spironolactone (Spironolactone 50 Mg Tab) 50 mg PO QDAY [facility] Last Admin: 01/18/22 10:55 Dose: Not Given Review of Systems Constitutional: no weight loss, no weight gain Ears, nose, mouth and throat: no sinus pressure, no sinus pain Cardiovascular: edema, shortness of breath, dyspnea on exertion, no chest pain Respiratory: shortness of breath, dyspnea on exertion Gastrointestinal: loss of appetite, indigestion, belching, excessive gas, dyspepsia/bloating, no abdominal pain, no nausea, no vomiting Musculoskeletal: no neck stiffness, no neck pain Integumentary: no rash, no pruritis, no redness Neurological: no head injury, no transient paralysis Psychiatric: no anxiety, no memory loss Endocrine: no cold intolerance, no heat intolerance Hematologic/Lymphatic: no easy bruising, no easy bleeding Physical Examination Vital Signs Temp Pulse Resp BP Pulse Ox 98.3 F 105 H 16 156/93 97 01/17/22 13:25 01/17/22 13:25 01/17/22 13:25 01/17/22 13:25 01/17/22 13:25 General appearance: no acute distress HEENT: Positive: PERRL, Normocephaly Neck: Positive: trachea midline Cardiac: Positive: Reg Rate and Rhythm Lungs: Positive: Normal Breath Sounds Neuro: Positive: Grossly Intact Abdomen: Positive: Distended Skin: Negative: Rash, Suspicious Lesions, Ulceration Extremities: Present: upper extr. pulses, edema (Anasarca) Results 01/18/22 07:58 01/18/22 07:58 Cardiac Enzymes 01/17/22 01/18/22 Range/Units 15:19 07:58 AST 31 40 (5-40) units/L Lipids 01/17/22 Range/Units 15:19 Triglycerides 58 (2-149) mg/dL Cholesterol 133 (50-199) mg/dL HDL Cholesterol 65 H (40-59) mg/dL Cholesterol/HDL Ratio 2.04 % CBC 01/17/22 01/18/22 Range/Units 15:19 07:58 WBC 6.5 5.0 (4.5-11.0) K/mm3 RBC 4.61 4.40 (3.65-5.03) M/mm3 Hgb 13.8 13.1 (11.8-15.2) gm/dl Hct 42.4 40.3 (35.5-45.6) % Plt Count 145 131 L (140-440) K/mm3 Lymph # (Auto) 0.7 L 0.7 L (1.2-5.4) K/mm3 [place] # (Auto) 0.4 0.4 (0.0-0.8) K/mm3 Eos # (Auto) 0.5 H 0.4 (0.0-0.4) K/mm3 Baso # (Auto) 0.1 0.0 (0.0-0.1) K/mm3 Comprehensive Metabolic Panel 01/17/22 01/18/22 Range/Units 15:19 07:58 Sodium 142 139 (137-145) mmol/L Potassium 3.9 4.6 (3.6-5.0) mmol/L Chloride 101.6 100.0 (98-107) mmol/L Carbon Dioxide 28 31 H (22-30) mmol/L BUN 18 19 (9-20) mg/dL Creatinine 0.9 1.0 (0.8-1.3) mg/dL Glucose 255 H 221 H (75-100) mg/dL Calcium 9.1 9.0 (8.4-10.2) mg/dL AST 31 40 (5-40) units/L ALT 25 29 (7-56) units/L Alkaline Phosphatase 117 100 (35-129) units/L Total Protein 8.2 7.3 (6.3-8.2) g/dL Albumin 3.4 L 3.1 L (3.9-5) g/dL - Imaging and Cardiology Echo: report reviewed EKG interpretations - Telemetry EKG Rhythm: Sinus Rhythm - EKG Sinus rhythms and dysrhythmias: sinus rhythm Myocardial infarction: anterior MT (old age or i Assessment and Plan Patient is a 66-year-old male with past medical history of HFrEF, hypertension, hyperlipidemia, peripheral vascular disease s/p AKA, GERD who came to the hospital via EMS shortness of breath which has been ongoing for 1 month Acute on chronic HFrEF Hypertension Acute respiratory failure COPD Peripheral vascular disease s/p AKA GERD Diabetes Thrombocytopenia Medical noncompliance Echo 06/23/2021-EF 30 to 35%, left ventricle is mildly dilated moderate global hypokinesis of LV. Left atrium is mildly dilated. Right ventricle systolic function is normal Plan: EKG shows sinus 100 no acute ischemic changes. Troponins minimally elevated 0.0 4 repeat cardiac enzyme pending. Patient denies any complaints of chest pain Suspect troponin leakage as a result of acute on chronic HFrEF BNP noted to be elevated, patient reports shortness of breath, patient has lower extremity edema. Agree with Lasix for diuresis. Repeat BMP in the a.m. strict I&O's Patient currently on Eliquis, Lipitor, Plavix, lisinopril, metoprolol, Aldactone Patient currently on regular diet will change to cardiac diet Order placed for patient to be monitored on telemetry Patient seen in conjunction with Dr. Neely who agrees with this plan of care - Patient Problems (1) Acute respiratory failure with hypoxia Current Visit: Yes Status: Acute (2) Hyperlipidemia Current Visit: Yes Status: Acute (3) Pleural effusion, bilateral Current Visit: Yes Status: Acute (4) Volume overload Current Visit: Yes Status: Acute (5) GERD (gastroesophageal reflux disease) Current Visit: Yes Status: Chronic (6) Acute on chronic HFrEF (heart failure with reduced ejection fraction) Current Visit: No Status: Acute (7) Anasarca Current Visit: No Status: Acute (8) Diabetes Current Visit: No Status: Acute (9) Dilated cardiomyopathy Current Visit: No Status: Acute (10) Hyperlipidemia Current Visit: No Status: Acute Qualifiers: (11) Peripheral vascular disease Current Visit: No Status: Acute
--- NOTE | 2022-01-18 12:15 | Electrocardiograph Report ---
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
[2022-01-18] MEDS: HYPROMELLOSE 0.5% OPHTH SOLN 15 ML OU SCH (17:33)
--- NOTE | 2022-01-18 19:02 | Progress Note ---
Assessment and Plan - Patient Problems (1) Acute respiratory failure with hypoxia Current Visit: Yes Status: Acute Plan to address problem: Patient is hypoxic initially at the time of admission to the emergency room Sats were in the 88-89 which were not documented Titrate oxygen supplementation to keep the sats over 92 (2) Acute HFrEF (heart failure with reduced ejection fraction) Current Visit: No Status: Acute Plan to address problem: IV Lasix every 12 and Aldactone Daily intake and output Daily weights Echocardiogram for ejection fraction wall motion abnormalities and valve function Cardiology consult requested (3) Hypertension Current Visit: No Status: Chronic Qualifiers: Hypertension type: primary hypertension Plan to address problem: Continue antihypertensives and adjust medications (4) Hyperlipidemia Current Visit: Yes Status: Chronic Qualifiers: Hyperlipidemia type: mixed hyperlipidemia Qualified Code(s): E78.2 - Mixed hyperlipidemia Plan to address problem: Continue statin (5) Coronary artery disease Current Visit: Yes Status: Chronic Qualifiers: Coronary Disease-Associated Artery/Lesion type: [place] artery [place] vs. transplanted heart: [place] heart Plan to address problem: Continue Plavix and aspirin (6) GERD (gastroesophageal reflux disease) Current Visit: Yes Status: Chronic Plan to address problem: On PPIs (7) DVT prophylaxis Current Visit: No Status: Acute Plan to address problem: Anticoagulation and GI prophylaxis (8) Advance care planning Current Visit: No Status: Acute Plan to address problem: Disease education conducted, care plan discussed, diagnosis discussed, prognosis discussed. Patient is full code. Patient acknowledges understanding and agreement with care plan. +30 minutes. Subjective Date of service: 01/18/22 Objective - Constitutional Vitals: Vital Signs - 12hr 01/18/22 01/18/22 01/18/22 07:07 09:00 10:40 Temperature 98.0 F Pulse Rate 74 Respiratory 18 20 20 Rate Blood Pressure 104/79 O2 Sat by Pulse 98 94 Oximetry 01/18/22 01/18/22 01/18/22 10:55 10:56 17:15 Temperature 98.6 F Pulse Rate 72 72 68 Respiratory 20 Rate Blood Pressure 104/79 104/79 100/68 O2 Sat by Pulse 96 Oximetry General appearance: Present: no acute distress, well-nourished - EENT Eyes: PERRL, EOM intact ENT: hearing intact, clear oral mucosa Ears: bilateral: normal - Neck Neck: supple, normal ROM - Respiratory Respiratory effort: normal Respiratory: bilateral: CTA - Breasts Breasts: normal - Cardiovascular Rhythm: regular Heart Sounds: Present: S1 & S2. Absent: gallop, rub Extremities: pulses intact, No edema, normal color, Full ROM - Gastrointestinal General gastrointestinal: Present: soft, non-tender, non-distended, normal bowel sounds - Genitourinary Male genitourinary: normal - Integumentary Integumentary: clear, warm, dry - Musculoskeletal Musculoskeletal: 1, strength equal bilaterally - Neurologic Neurologic: moves all extremities - Psychiatric Psychiatric: memory intact, appropriate mood/affect, intact judgment & insight - Labs CBC & Chem 7: 01/18/22 07:58 01/18/22 07:58 Labs: Abnormal lab results 01/18/22 01/18/22 01/18/22 Range/Units 07:58 07:58 14:50 RDW 17.0 H (13.2-15.2) % Plt Count 131 L (140-440) K/mm3 [place] % (Auto) 8.3 H (0.0-7.3) % Eos % (Auto) 7.4 H (0.0-4.3) % Lymph # (Auto) 0.7 L (1.2-5.4) K/mm3 Carbon Dioxide 31 H (22-30) mmol/L Glucose 221 H (75-100) mg/dL Troponin T 0.053 H D (0.00-0.029) ng/mL Albumin 3.1 L (3.9-5) g/dL HEART Score - HEART Score Age: 45-65 Risk factors: > 3 risk factors or hx of atherosclerotic disease Troponin: Troponin T 0.053 ng/mL (0.00-0.029) H D 01/18/22 14:50 Troponin: 1-3x normal limit - Critical Actions Critical Actions: 4-6 pts:12-16.6% risk of adverse cardiac event. Should be admitted
[2022-01-18] MEDS: INSULIN REGULAR, HUMAN 100 UNITS/1 ML SUB-Q SCH (21:57)
[2022-01-19] MEDS: ALUM-MAG HYDROXIDE-SIMETHICONE 200-200-20MG/5ML ORAL LIQD 30 ML PO PRN ×3 (05:29→18:35)
[2022-01-19] MEDS: FUROSEMIDE 40 MG/4 ML INJ IV SCH ×2 (05:29→18:17)
[2022-01-19] MEDS: oxyCODONE /ACETAMINOPHEN 5-325MG TAB PO PRN (05:30)
[2022-01-19] MEDS ORDERED: ALBUTEROL 2.5 MG/3 ML NEBU IH ONE (07:27)
[2022-01-19] MEDS ORDERED: ALBUTEROL 2.5 MG/3 ML NEBU IH PRN (07:38)
[2022-01-19] MEDS: INSULIN REGULAR, HUMAN 100 UNITS/1 ML SUB-Q SCH ×4 (09:02→21:30)
--- NOTE | 2022-01-19 09:57 | Progress Note ---
Assessment and Plan Patient is a 66-year-old male with past medical history of HFrEF, hypertension, hyperlipidemia, peripheral vascular disease s/p AKA, GERD who came to the hospital via EMS shortness of breath which has been ongoing for 1 month Acute on chronic HFrEF Hypertension Acute respiratory failure COPD Peripheral vascular disease s/p AKA GERD Diabetes Thrombocytopenia Medical noncompliance Echo 06/23/2021-EF 30 to 35%, left ventricle is mildly dilated moderate global hypokinesis of LV. Left atrium is mildly dilated. Right ventricle systolic function is normal Plan: EKG shows sinus 100 no acute ischemic changes. Troponins minimally elevated 0.04 and stable. Patient denies any complaints of chest pain Suspect troponin leakage as a result of acute on chronic HFrEF Patient reports poor urine output. No daily weight today and unclear if I&O's are accurate. RN reported that patient has not had any urine output today During prior admission patient was seen volume overloaded patient need inotropic therapy. At this time do not believe patient requires inotropic therapy however, will increase to Lasix 80 mg IV twice daily and one-time additional dose of Lasix 40 mg IV. Repeat BMP in the a.m., strict I&O's, and daily weights Patient currently on Eliquis, Lipitor, Plavix, lisinopril, metoprolol, Aldactone Patient seen in conjunction with Dr. Neely who agrees with this plan of care - Patient Problems (1) Acute respiratory failure with hypoxia Current Visit: Yes Status: Acute (2) Hyperlipidemia Current Visit: Yes Status: Chronic Qualifiers: Hyperlipidemia type: mixed hyperlipidemia Qualified Code(s): E78.2 - Mixed hyperlipidemia (3) Pleural effusion, bilateral Current Visit: Yes Status: Acute (4) Volume overload Current Visit: Yes Status: Acute (5) GERD (gastroesophageal reflux disease) Current Visit: Yes Status: Chronic (6) Acute on chronic HFrEF (heart failure with reduced ejection fraction) Current Visit: No Status: Acute (7) Anasarca Current Visit: No Status: Acute (8) Diabetes Current Visit: No Status: Acute (9) Dilated cardiomyopathy Current Visit: No Status: Acute (10) Hyperlipidemia Current Visit: No Status: Acute Qualifiers: (11) Peripheral vascular disease Current Visit: No Status: Acute Subjective Date of service: 01/19/22 Principal diagnosis: Acute on chronic HFrEF Interval history: Patient sitting in bed in no acute distress Patient sinus 70s on monitor with no event Objective Vital Signs Temp Pulse Pulse Resp Resp Resp BP 01/19/22 09:04 20 01/19/22 08:11 01/19/22 07:45 70 18 01/19/22 06:30 17 01/19/22 05:30 18 01/19/22 04:13 98.6 F 64 20 115/80 01/18/22 22:59 18 01/18/22 22:00 19 01/18/22 21:59 19 01/18/22 21:58 80 123/84 01/18/22 21:26 97.5 F L 80 16 123/84 01/18/22 21:00 19 01/18/22 17:15 98.6 F 68 20 100/68 01/18/22 10:56 72 104/79 01/18/22 10:55 72 104/79 01/18/22 10:40 98.0 F 74 20 104/79 Pulse Ox 01/19/22 09:04 95 01/19/22 08:11 100 01/19/22 07:45 01/19/22 06:30 01/19/22 05:30 01/19/22 04:13 90 01/18/22 22:59 01/18/22 22:00 01/18/22 21:59 01/18/22 21:58 01/18/22 21:26 99 01/18/22 21:00 96 01/18/22 17:15 96 01/18/22 10:56 01/18/22 10:55 01/18/22 10:40 94 - Physical Examination HEENT: Positive: PERRL, Normocephaly Neck: Positive: trachea midline Cardiac: Positive: Reg Rate and Rhythm Lungs: Positive: Normal Breath Sounds Neuro: Positive: Grossly Intact Abdomen: Positive: Distended Skin: Negative: Rash, Suspicious Lesions, Ulceration Extremities: Present: upper extr. pulses, edema (Anasarca) - Imaging and Cardiology EKG: report reviewed (Sinus tachycardia, heart rate of 101-minute, anterior infarct) Echo: report reviewed - Telemetry EKG Rhythm: Sinus Rhythm - EKG Sinus rhythms and dysrhythmias: sinus rhythm Myocardial infarction: anterior [place] (old age or i
[2022-01-19] MEDS: CLOPIDOGREL 75 MG TAB PO SCH (09:58)
[2022-01-19] MEDS: APIXABAN 5 MG TAB PO SCH ×2 (09:58→23:23)
[2022-01-19] MEDS: PANTOPRAZOLE 40 MG TAB PO SCH (09:58)
[2022-01-19] MEDS: MULTIVITAMINS ,THERAPEUTIC TAB PO SCH (09:59)
[2022-01-19] MEDS: POTASSIUM CHLORIDE ER 20 MEQ TAB PO SCH (09:59)
[2022-01-19] MEDS ORDERED: FUROSEMIDE 40 MG/4 ML INJ IV NR (10:00)
[2022-01-19] MEDS: HYPROMELLOSE 0.5% OPHTH SOLN 15 ML OU SCH (10:00)
[2022-01-19 10:18] LABS: BUN/Creatinine Ratio 22; Blood Urea Nitrogen 26 mg/dL (9-20); Hemolysis Index 9
[2022-01-19] MEDS: SPIRONOLACTONE 50 MG TAB PO SCH (12:27)
[2022-01-19] MEDS: ESCITALOPRAM 10 MG TAB PO SCH (12:38)
[2022-01-19] MEDS: METOPROLOL TARTRATE 25 MG TAB PO SCH ×2 (14:08→23:24)
[2022-01-19] MEDS: LISINOPRIL 5 MG TAB PO SCH (14:08)
[2022-01-19] MEDS: ACETAMINOPHEN 325 MG TAB PO PRN (18:21)
--- NOTE | 2022-01-19 19:23 | Progress Note ---
Assessment and Plan - Patient Problems (1) Acute respiratory failure with hypoxia Current Visit: Yes Status: Acute Plan to address problem: Patient is hypoxic initially at the time of admission to the emergency room Sats were in the 88-89 which were not documented Titrate oxygen supplementation to keep the sats over 92 (2) Acute HFrEF (heart failure with reduced ejection fraction) Current Visit: No Status: Acute Plan to address problem: IV Lasix every 12 and Aldactone Daily intake and output Daily weights Echocardiogram for ejection fraction wall motion abnormalities and valve function Cardiology consult appreciated Lasix dose is increased If clinically improved possible discharge tomorrow Strict intake and output documentation Daily weights (3) Hypertension Current Visit: No Status: Chronic Qualifiers: Hypertension type: primary hypertension Qualified Code(s): I10 - Essential (primary) hypertension Plan to address problem: Continue antihypertensives and adjust medications (4) Hyperlipidemia Current Visit: Yes Status: Chronic Qualifiers: Hyperlipidemia type: mixed hyperlipidemia Qualified Code(s): E78.2 - Mixed hyperlipidemia Plan to address problem: Continue statin (5) Coronary artery disease Current Visit: Yes Status: Chronic Qualifiers: Coronary Disease-Associated Artery/Lesion type: [place] artery [place] vs. transplanted heart: [place] heart Plan to address problem: Continue Plavix and aspirin (6) GERD (gastroesophageal reflux disease) Current Visit: Yes Status: Chronic Plan to address problem: On PPIs (7) DVT prophylaxis Current Visit: No Status: Acute Plan to address problem: Anticoagulation and GI prophylaxis (8) Advance care planning Current Visit: No Status: Acute Plan to address problem: Disease education conducted, care plan discussed, diagnosis discussed, prognosis discussed. Patient is full code. Patient acknowledges understanding and agreement with care plan. +30 minutes. Subjective Date of service: 01/19/22 Principal diagnosis: Acute on chronic HFrEF Interval history: Increase the Lasix dosage to 80 mg Patient still short of breath Cardiology follow-up appreciated Objective - Constitutional Vitals: Vital Signs - 12hr 01/19/22 01/19/22 01/19/22 07:45 08:11 09:04 Temperature Pulse Rate Pulse Rate [ 70 Anterior Bilateral Throughout] Respiratory 20 Rate Respiratory 18 Rate [Anterior Bilateral Throughout] Blood Pressure Blood Pressure [Left] O2 Sat by Pulse 100 95 Oximetry 01/19/22 01/19/22 01/19/22 10:01 11:48 14:08 Temperature 97.6 F Pulse Rate 73 80 80 Pulse Rate [ Anterior Bilateral Throughout] Respiratory 22 Rate Respiratory Rate [Anterior Bilateral Throughout] Blood Pressure 126/84 139/92 Blood Pressure 114/75 [Left] O2 Sat by Pulse 99 Oximetry 01/19/22 01/19/22 14:09 17:09 Temperature 96.3 F L Pulse Rate 68 Pulse Rate [ Anterior Bilateral Throughout] Respiratory 20 Rate Respiratory Rate [Anterior Bilateral Throughout] Blood Pressure 139/92 122/77 Blood Pressure [Left] O2 Sat by Pulse 93 Oximetry General appearance: Present: no acute distress, well-nourished - EENT Eyes: PERRL, EOM intact ENT: hearing intact, clear oral mucosa Ears: bilateral: normal - Neck Neck: supple, normal ROM - Respiratory Respiratory effort: normal Respiratory: bilateral: CTA - Breasts Breasts: normal - Cardiovascular Heart rate: 78 Rhythm: regular Heart Sounds: Present: S1 & S2. Absent: gallop, rub Extremities: pulses intact, No edema, normal color, Full ROM - Gastrointestinal General gastrointestinal: Present: soft, non-tender, non-distended, normal bowel sounds - Genitourinary Male genitourinary: normal - Integumentary Integumentary: clear, warm, dry - Musculoskeletal Musculoskeletal: 1, strength equal bilaterally - Neurologic Neurologic: moves all extremities - Psychiatric Psychiatric: memory intact, appropriate mood/affect, intact judgment & insight - Labs CBC & Chem 7: 01/18/22 07:58 01/20/22 06:41 Labs: Abnormal lab results 01/18/22 01/18/22 01/19/22 Range/Units 21:33 22:33 09:41 BUN 26 H (9-20) mg/dL Glucose 133 H (75-100) mg/dL POC Glucose 187 H (70-105) mg/dL Troponin T 0.043 H (0.00-0.029) ng/mL 01/19/22 01/19/22 Range/Units 11:45 16:07 BUN (9-20) mg/dL Glucose (75-100) mg/dL POC Glucose 178 H 136 H (70-105) mg/dL Troponin T (0.00-0.029) ng/mL HEART Score - HEART Score Age: 45-65 Risk factors: > 3 risk factors or hx of atherosclerotic disease Troponin: Troponin T 0.043 ng/mL (0.00-0.029) H 01/18/22 22:33 Troponin: 1-3x normal limit - Critical Actions Critical Actions: 4-6 pts:12-16.6% risk of adverse cardiac event. Should be admitted
[2022-01-20] MEDS: FUROSEMIDE 40 MG/4 ML INJ IV SCH ×2 (05:06→17:05)
[2022-01-20 07:34] LABS: BUN/Creatinine Ratio 26; Blood Urea Nitrogen 31 mg/dL (9-20); Hemolysis Index 1
[2022-01-20] MEDS: INSULIN REGULAR, HUMAN 100 UNITS/1 ML SUB-Q SCH ×4 (07:36→22:00)
[2022-01-20] MEDS: PANTOPRAZOLE 40 MG TAB PO SCH (09:22)
[2022-01-20] MEDS: SPIRONOLACTONE 50 MG TAB PO SCH (09:22)
[2022-01-20] MEDS: LISINOPRIL 5 MG TAB PO SCH (09:22)
[2022-01-20] MEDS: APIXABAN 5 MG TAB PO SCH ×2 (09:22→21:57)
[2022-01-20] MEDS: POTASSIUM CHLORIDE ER 20 MEQ TAB PO SCH (09:22)
[2022-01-20] MEDS: METOPROLOL TARTRATE 25 MG TAB PO SCH ×2 (09:22→22:00)
[2022-01-20] MEDS: ESCITALOPRAM 10 MG TAB PO SCH (09:22)
[2022-01-20] MEDS: HYPROMELLOSE 0.5% OPHTH SOLN 15 ML OU SCH (09:23)
[2022-01-20] MEDS: MULTIVITAMINS ,THERAPEUTIC TAB PO SCH (09:26)
[2022-01-20] MEDS: CLOPIDOGREL 75 MG TAB PO SCH (09:26)
--- NOTE | 2022-01-20 11:55 | Progress Note ---
Assessment and Plan Patient is a 66-year-old male with past medical history of HFrEF, hypertension, hyperlipidemia, peripheral vascular disease s/p AKA, GERD who came to the hospital via EMS shortness of breath which has been ongoing for 1 month Acute on chronic HFrEF Hypertension Acute respiratory failure COPD Peripheral vascular disease s/p AKA GERD Diabetes Thrombocytopenia Medical noncompliance Echo 06/23/2021-EF 30 to 35%, left ventricle is mildly dilated moderate global hypokinesis of LV. Left atrium is mildly dilated. Right ventricle systolic function is normal Plan: EKG shows sinus 100 no acute ischemic changes. Troponins minimally elevated 0.04 and stable. Patient denies any complaints of chest pain Suspect troponin leakage as a result of acute on chronic HFrEF Patient still has significant edema will continue diueresis Lasix 80 mg IV twice daily Repeat BMP in the a.m., strict I&O's, and daily weights Patient currently on Eliquis, Lipitor, Plavix, lisinopril, metoprolol, Aldactone Patient seen in conjunction with Dr. Neely who agrees with this plan of care - Patient Problems (1) Acute respiratory failure with hypoxia Current Visit: Yes Status: Acute (2) Hyperlipidemia Current Visit: Yes Status: Chronic Qualifiers: Hyperlipidemia type: mixed hyperlipidemia Qualified Code(s): E78.2 - Mixed hyperlipidemia (3) Pleural effusion, bilateral Current Visit: Yes Status: Acute (4) Volume overload Current Visit: Yes Status: Acute (5) GERD (gastroesophageal reflux disease) Current Visit: Yes Status: Chronic (6) Acute on chronic HFrEF (heart failure with reduced ejection fraction) Current Visit: No Status: Acute (7) Anasarca Current Visit: No Status: Acute (8) Diabetes Current Visit: No Status: Acute (9) Dilated cardiomyopathy Current Visit: No Status: Acute (10) Hyperlipidemia Current Visit: No Status: Acute Qualifiers: (11) Peripheral vascular disease Current Visit: No Status: Acute Subjective Date of service: 01/20/22 Principal diagnosis: Acute on chronic HFrEF Interval history: Patient sitting in bed in no acute distress Patient sinus 70s on monitor with no event Objective Vital Signs Temp Pulse Pulse Resp Resp BP Pulse Ox 01/20/22 07:27 97 01/20/22 05:29 98.4 F 66 22 111/73 100 01/20/22 01:00 68 20 100 01/19/22 23:24 72 122/81 01/19/22 23:09 98.4 F 72 22 122/81 100 01/19/22 21:00 100 01/19/22 17:09 96.3 F L 68 20 122/77 93 01/19/22 14:09 139/92 01/19/22 14:08 80 139/92 - Physical Examination HEENT: Positive: PERRL, Normocephaly Neck: Positive: trachea midline Cardiac: Positive: Reg Rate and Rhythm Lungs: Positive: Normal Breath Sounds Neuro: Positive: Grossly Intact Abdomen: Positive: Distended Skin: Negative: Rash, Suspicious Lesions, Ulceration Extremities: Present: upper extr. pulses, edema (Anasarca) - Labs and Meds Comprehensive Metabolic Panel 01/20/22 Range/Units 06:41 Sodium 138 (137-145) mmol/L Potassium 5.1 H (3.6-5.0) mmol/L Chloride 98.1 (98-107) mmol/L Carbon Dioxide 27 (22-30) mmol/L BUN 31 H (9-20) mg/dL Creatinine 1.2 (0.8-1.3) mg/dL Glucose 137 H (75-100) mg/dL Calcium 9.0 (8.4-10.2) mg/dL - Imaging and Cardiology EKG: report reviewed (Sinus tachycardia, heart rate of 101-minute, anterior infarct) Echo: report reviewed - Telemetry EKG Rhythm: Sinus Rhythm - EKG Sinus rhythms and dysrhythmias: sinus rhythm Myocardial infarction: anterior [place] (old age or i
[2022-01-20] MEDS: oxyCODONE /ACETAMINOPHEN 5-325MG TAB PO PRN ×2 (15:36→21:57)
--- NOTE | 2022-01-20 16:25 | Progress Note ---
Assessment and Plan - Patient Problems (1) Acute respiratory failure with hypoxia Current Visit: Yes Status: Acute Plan to address problem: Improved (2) Acute HFrEF (heart failure with reduced ejection fraction) Current Visit: No Status: Acute Plan to address problem: IV Lasix every 12 and Aldactone Daily intake and output Daily weights Echocardiogram --EF 30 to 35%, left ventricle is mildly dilated moderate global hypokinesis of LV. Left atrium is mildly dilated. Right ventricle systolic function is normal Cardiology consult appreciated Lasix dose is increased If clinically improved possible discharge tomorrow Strict intake and output documentation Daily weights (3) Hypertension Current Visit: No Status: Chronic Qualifiers: Hypertension type: primary hypertension Qualified Code(s): I10 - Essential (primary) hypertension Plan to address problem: Continue antihypertensives and adjust medications (4) Hyperlipidemia Current Visit: Yes Status: Chronic Qualifiers: Hyperlipidemia type: mixed hyperlipidemia Qualified Code(s): E78.2 - Mixed hyperlipidemia Plan to address problem: Continue statin (5) Coronary artery disease Current Visit: Yes Status: Chronic Qualifiers: Coronary Disease-Associated Artery/Lesion type: [place] artery [place] vs. transplanted heart: [place] heart Plan to address problem: Continue Plavix and aspirin (6) GERD (gastroesophageal reflux disease) Current Visit: Yes Status: Chronic Plan to address problem: On PPIs (7) DVT prophylaxis Current Visit: No Status: Acute Plan to address problem: Anticoagulation and GI prophylaxis (8) Advance care planning Current Visit: No Status: Acute Plan to address problem: Disease education conducted, care plan discussed, diagnosis discussed, prognosis discussed. Patient is full code. Patient acknowledges understanding and agreement with care plan. +30 minutes. Subjective Date of service: 01/20/22 Principal diagnosis: Acute on chronic HFrEF Interval history: Increase the Lasix dosage to 80 mg Patient still short of breath Cardiology follow-up appreciated Patient continues to have swelling of both lower extremities IV Lasix to be continued Objective - Constitutional Vitals: Vital Signs - 12hr 01/20/22 01/20/22 01/20/22 05:29 07:27 11:51 Temperature 98.4 F 97.7 F Pulse Rate 66 63 Respiratory 22 22 Rate Blood Pressure 111/73 125/79 O2 Sat by Pulse 100 97 100 Oximetry General appearance: Present: no acute distress, well-nourished - EENT Eyes: PERRL, EOM intact ENT: hearing intact, clear oral mucosa Ears: bilateral: normal - Neck Neck: supple, normal ROM - Respiratory Respiratory effort: normal Respiratory: bilateral: CTA - Breasts Breasts: normal - Cardiovascular Heart rate: 78 Rhythm: regular Heart Sounds: Present: S1 & S2. Absent: gallop, rub Extremities: pulses intact, normal color, Full ROM Extremity abnormal: edema (3+ pedal edema) - Gastrointestinal General gastrointestinal: Present: soft, non-tender, non-distended, normal bowel sounds - Genitourinary Male genitourinary: normal - Integumentary Integumentary: clear, warm, dry - Musculoskeletal Musculoskeletal: 1, strength equal bilaterally - Neurologic Neurologic: moves all extremities - Psychiatric Psychiatric: memory intact, appropriate mood/affect, intact judgment & insight - Labs CBC & Chem 7: 01/18/22 07:58 01/21/22 06:42 Labs: Abnormal lab results 01/19/22 01/20/22 01/20/22 Range/Units 20:52 06:41 07:51 Potassium 5.1 H (3.6-5.0) mmol/L BUN 31 H (9-20) mg/dL Glucose 137 H (75-100) mg/dL POC Glucose 142 H 139 H (70-105) mg/dL 01/20/22 Range/Units 11:28 Potassium (3.6-5.0) mmol/L BUN (9-20) mg/dL Glucose (75-100) mg/dL POC Glucose 161 H (70-105) mg/dL HEART Score - HEART Score Age: 45-65 Risk factors: > 3 risk factors or hx of atherosclerotic disease Troponin: Troponin T 0.043 ng/mL (0.00-0.029) H 01/18/22 22:33 Troponin: 1-3x normal limit - Critical Actions Critical Actions: 4-6 pts:12-16.6% risk of adverse cardiac event. Should be admitted
[2022-01-21] MEDS: FUROSEMIDE 40 MG/4 ML INJ IV SCH (06:00)
[2022-01-21 07:17] LABS: Calcium 9.2 mg/dL (8.4-10.2)
[2022-01-21] MEDS: INSULIN REGULAR, HUMAN 100 UNITS/1 ML SUB-Q SCH ×4 (08:52→21:26)
--- NOTE | 2022-01-21 11:41 | Progress Note ---
Assessment and Plan Patient is a 66-year-old male with past medical history of HFrEF, hypertension, hyperlipidemia, peripheral vascular disease s/p AKA, GERD who came to the hospital via EMS shortness of breath which has been ongoing for 1 month Acute on chronic HFrEF Hypertension Acute respiratory failure COPD Peripheral vascular disease s/p AKA GERD Diabetes Thrombocytopenia Medical noncompliance Echo 06/23/2021-EF 30 to 35%, left ventricle is mildly dilated moderate global hypokinesis of LV. Left atrium is mildly dilated. Right ventricle systolic function is normal Plan: Patient edema has improved. Patient appears near euvolemic on exam. Will convert to Lasix 40 mg p.o. daily Patient currently on Eliquis, Lipitor, Plavix, lisinopril, metoprolol, Aldactone Cardiac status otherwise stable for discharge Patient patient should follow-up with Dr. Neely, [facility] software quality assurance specialist, on 02/16/2022 at 9:15 AM in our [place] location. Phone #[phone] Patient seen in conjunction with Dr. Neely who agrees with this plan of care - Patient Problems (1) Acute respiratory failure with hypoxia Current Visit: Yes Status: Acute (2) Hyperlipidemia Current Visit: Yes Status: Chronic Qualifiers: Hyperlipidemia type: mixed hyperlipidemia Qualified Code(s): E78.2 - Mixed hyperlipidemia (3) Pleural effusion, bilateral Current Visit: Yes Status: Acute (4) Volume overload Current Visit: Yes Status: Acute (5) GERD (gastroesophageal reflux disease) Current Visit: Yes Status: Chronic (6) Acute on chronic HFrEF (heart failure with reduced ejection fraction) Current Visit: No Status: Acute (7) Anasarca Current Visit: No Status: Acute (8) Diabetes Current Visit: No Status: Acute (9) Dilated cardiomyopathy Current Visit: No Status: Acute (10) Hyperlipidemia Current Visit: No Status: Acute Qualifiers: (11) Peripheral vascular disease Current Visit: No Status: Acute Subjective Date of service: 01/21/22 Principal diagnosis: Acute on chronic HFrEF Interval history: Patient sitting in bed in no acute distress Patient sinus 60s-70s on monitor with no event Objective Vital Signs Temp Pulse Resp BP Pulse Ox 01/21/22 04:55 97.4 F L 60 18 116/75 100 01/20/22 22:57 18 01/20/22 22:00 61 110/62 01/20/22 21:57 18 01/20/22 21:29 97.7 F 61 18 110/56 100 01/20/22 19:00 98 01/20/22 17:10 97.9 F 63 24 92/57 100 01/20/22 11:51 97.7 F 63 22 125/79 100 - Physical Examination General: No Apparent Distress HEENT: Positive: PERRL, Normocephaly Neck: Positive: trachea midline Cardiac: Positive: Reg Rate and Rhythm Neuro: Positive: Grossly Intact Abdomen: Positive: Distended Skin: Negative: Rash, Suspicious Lesions, Ulceration Extremities: Present: upper extr. pulses, edema - Labs and Meds Comprehensive Metabolic Panel 01/21/22 Range/Units 06:42 Sodium 138 (137-145) mmol/L Potassium 5.1 H (3.6-5.0) mmol/L Chloride 100.2 (98-107) mmol/L Carbon Dioxide 31 H (22-30) mmol/L BUN 36 H (9-20) mg/dL Creatinine 1.3 (0.8-1.3) mg/dL Glucose 122 H (75-100) mg/dL Calcium 9.2 (8.4-10.2) mg/dL - Imaging and Cardiology EKG: report reviewed (Sinus tachycardia, heart rate of 101-minute, anterior infarct) Echo: report reviewed - Telemetry EKG Rhythm: Sinus Rhythm - EKG Sinus rhythms and dysrhythmias: sinus rhythm Myocardial infarction: anterior [place] (old age or i
[2022-01-21] MEDS: APIXABAN 5 MG TAB PO SCH ×2 (11:45→21:20)
[2022-01-21] MEDS: LISINOPRIL 5 MG TAB PO SCH (11:46)
[2022-01-21] MEDS: PANTOPRAZOLE 40 MG TAB PO SCH (11:46)
[2022-01-21] MEDS: ESCITALOPRAM 10 MG TAB PO SCH (11:46)
[2022-01-21] MEDS: METOPROLOL TARTRATE 25 MG TAB PO SCH ×2 (11:46→21:20)
[2022-01-21] MEDS: CLOPIDOGREL 75 MG TAB PO SCH (11:46)
[2022-01-21] MEDS: SPIRONOLACTONE 50 MG TAB PO SCH (11:47)
[2022-01-21] MEDS: MULTIVITAMINS ,THERAPEUTIC TAB PO SCH (11:47)
[2022-01-21] MEDS: HYPROMELLOSE 0.5% OPHTH SOLN 15 ML OU SCH (11:51)
[2022-01-21] MEDS: ACETAMINOPHEN 325 MG TAB PO PRN (13:07)
--- NOTE | 2022-01-21 16:50 | Discharge Summary ---
Providers - Providers Date of Admission: 01/17/22 21:13 Date of discharge: 01/21/22 Attending physician: BEST URIBE 01/18/22 10:30 Consult to Physician [CONS] Routine Comment: Consulting Provider: BABAR OSBORN Physician Instructions: Reason For Exam: chf Primary care physician: CHERRY CUTTER Hospitalization Condition: Stable Hospital course: Subjective Date of service: 01/21/2022 Patient is admitted for acute exacerbation of CHF and bilateral lower extremity swelling IV Lasix 80 mg every 12 hours use Previous echocardiogram showed ejection fraction of 35 to 35% and dilated left ventricle and global hypokinesis. Patient counseled about compliance. Principal diagnosis: Acute on chronic HFrEF Interval history: Increase the Lasix dosage to 80 mg Patient still short of breath Cardiology follow-up appreciated Patient continues to have swelling of both lower extremities IV Lasix to be continued Assessment and Plan - Patient Problems (1) Acute respiratory failure with hypoxia Current Visit: Yes Status: Acute Plan to address problem: Improved (2) Acute HFrEF (heart failure with reduced ejection fraction) Current Visit: No Status: Acute Plan to address problem: Patient to be discharged on oral Lasix and Aldactone and antihypertensives Patient to be compliant with medications. Patient counseled. (3) Hypertension Current Visit: No Status: Chronic Qualifiers: Hypertension type: primary hypertension Qualified Code(s): I10 - Essential (primary) hypertension Plan to address problem: Continue antihypertensives and adjust medications (4) Hyperlipidemia Current Visit: Yes Status: Chronic Qualifiers: Hyperlipidemia type: mixed hyperlipidemia Qualified Code(s): E78.2 - Mixed hyperlipidemia Plan to address problem: Continue statin (5) Coronary artery disease Current Visit: Yes Status: Chronic Qualifiers: Coronary Disease-Associated Artery/Lesion type: [place] artery [place] vs. transplanted heart: [place] heart Plan to address problem: Continue Plavix and aspirin (6) GERD (gastroesophageal reflux disease) Current Visit: Yes Status: Chronic Plan to address problem: On PPIs (7) DVT prophylaxis Current Visit: No Status: Acute Plan to address problem: Anticoagulation and GI prophylaxis (8) Advance care planning Current Visit: No Status: Acute Plan to address problem: Disease education conducted, care plan discussed, diagnosis discussed, prognosis discussed. Patient is full code. Patient acknowledges understanding and agreement with care plan. +30 minutes. Disposition: HOME / SELF CARE / HOMELESS Final Discharge Diagnosis (Prints w/discharge instructions): Acute respiratory failure with hypoxia. Acute heart failure with reduced ejection fraction. CHF exacerbation. Hyperlipidemia. Hypertension. Coronary artery disease. GERD Time spent for discharge: 38 minutes - Discharge Diagnoses (1) Acute respiratory failure with hypoxia Status: Acute (2) Acute HFrEF (heart failure with reduced ejection fraction) Status: Acute (3) Hypertension Status: Chronic Qualifiers: Hypertension type: primary hypertension Qualified Code(s): I10 - Essential (primary) hypertension (4) Hyperlipidemia Status: Chronic Qualifiers: Hyperlipidemia type: mixed hyperlipidemia Qualified Code(s): E78.2 - Mixed hyperlipidemia (5) Coronary artery disease Status: Chronic Qualifiers: Coronary Disease-Associated Artery/Lesion type: [place] artery [place] vs. transplanted heart: [place] heart (6) GERD (gastroesophageal reflux disease) Status: Chronic (7) DVT prophylaxis Status: Acute (8) Advance care planning Status: Acute Core Measure Documentation - Palliative Care Palliative Care/ Comfort Measures: Not Applicable - Core Measures Any of the following diagnoses?: none Exam - Constitutional Vitals: Temp Pulse Resp BP Pulse Ox 97.3 F L 67 20 116/68 93 01/21/22 11:34 01/21/22 11:34 01/21/22 11:34 01/21/22 11:34 01/21/22 11:34 General appearance: Present: no acute distress, well-nourished - EENT Eyes: Present: PERRL ENT: hearing intact, clear oral mucosa - Neck Neck: Present: supple, normal ROM - Respiratory Respiratory effort: normal Respiratory: bilateral: CTA - Cardiovascular Heart rate: 78 Rhythm: regular Heart Sounds: Present: S1 & S2. Absent: rub, click - Extremities Extremities: pulses symmetrical, No edema Extremity abnormal: edema (2+ pitting edema present. Patient overall comfortable.) Peripheral Pulses: within normal limits - Abdominal General gastrointestinal: Present: soft, non-tender, non-distended, normal bowel sounds Male genitourinary: Present: normal - Integumentary Integumentary: Present: clear, warm, dry - Musculoskeletal Musculoskeletal: gait normal, strength equal bilaterally - Psychiatric Psychiatric: appropriate mood/affect, intact judgment & insight - Neurologic Neurologic: CNII-XII intact, moves all extremities Plan Activity: no restrictions Diet: low cholesterol, low salt Follow up with: YISSEL LLAMAS MD [Primary Care Provider] - 7 Days ROBERTO CARLOS JOHNSON MD [Staff Physician] - 7 Days
[2022-01-21 21:21] VITALS: BP 123/81
[2022-01-22] MEDS ORDERED: FUROSEMIDE 40 MG TAB PO SCH (10:00)
== END 2022-01-21 22:29 | disposition home or self-care (01) | DRG 291 ==
LOC: ED 13:20 → 3A 21:13
PROVIDERS: ADMIT Internal Medicine; ATTEND Internal Medicine
DX: I11.0 Hypertensive heart disease with heart failure (principal); I50.21 Acute systolic (congestive) heart failure; J96.01 Acute respiratory failure with hypoxia; E87.70 Fluid overload, unspecified; Z86.718 Personal history of other venous thrombosis and embolism; I25.10 Atherosclerotic heart disease of native coronary artery without angina pectoris; K21.9 Gastro-esophageal reflux disease without esophagitis; J44.9 Chronic obstructive pulmonary disease, unspecified; D69.6 Thrombocytopenia, unspecified; Z91.14 Patient's other noncompliance with medication regimen; E78.2 Mixed hyperlipidemia
CPT/HCPCS: 36415; 71045; 80048; 80053; 80061; 82962; 83880; 84484; 85025; 87641; 93005; 94640; 94760; G0378; Q9967; J1815; J1940

== ENCOUNTER 2022-02-15 01:13 | Inpatient (IN) | payer SELFPAY ==
[2022-02-15] MEDS ORDERED: FUROSEMIDE 40 MG/4 ML INJ IV ONE (01:28)
--- NOTE | 2022-02-15 01:33 | Emergency Department Report ---
ED Shortness of Breath HPI - General Stated Complaint: SHORTNESS OF BREATH Time Seen by Provider: 02/15/22 01:27 - History of Present Illness Initial Comments: 66-year-old male with a history of CHF, hypertension, diabetes, asthma and right AKA brought in by EMS with shortness of breath that has been going on for few days progressively getting worse. No fever or chills reported. Patient is saying help me help me. No other modifying or associated factors reported. - Related Data Home Medications Medication Instructions Recorded Confirmed Last Taken Multivit-Min/Iron/Folic Acid/K 1 tab PO DAILY 08/11/21 01/18/22 10/20/21 [Adults Multivitamin Caplet] Dextran 70/Hypromellose [Natural 1 drop OU QDAY 08/19/21 01/18/22 10/20/21 Balance Tears Eye Drop] Previous Rx's Medication Instructions Recorded Last Taken Type Albuterol Mdi (or & Nicu Only) 2 puff IH QID PRN #1 inhalation 06/03/21 10/20/21 Rx [ProAir HFA Inhaler] Furosemide [Lasix TAB] 40 mg PO QDAY #30 tablet 10/28/21 Unknown Rx Spironolactone [Aldactone] 25 mg PO QDAY 30 Days #30 tablet 10/28/21 Unknown Rx lisinopriL [Zestril TAB] 5 mg PO QDAY 30 Days #30 tablet 10/28/21 Unknown Rx ALBUTEROL NEB's [Proventil 0.083% 2.5 mg IH Q6HRT PRN #1 nebu 01/21/22 Unknown Rx NEBS] Apixaban [Eliquis] 5 mg PO Q12HR 30 Days #60 tablet 01/21/22 Unknown Rx Aspirin EC [Halfprin EC] 81 mg PO QDAY 30 Days #30 tablet 01/21/22 Unknown Rx AtorvaSTATin [Lipitor] 40 mg PO QHS 30 Days #30 tablet 01/21/22 Unknown Rx Clopidogrel [Plavix] 75 mg PO QDAY 30 Days #30 tablet 01/21/22 Unknown Rx Furosemide [Lasix TAB] 40 mg PO BID 30 Days #60 tablet 01/21/22 Unknown Rx Metoprolol [Lopressor TAB] 25 mg PO BID 30 Days #60 tablet 01/21/22 Unknown Rx Pantoprazole [Protonix TAB] 40 mg PO DAILY #30 tablet 01/21/22 Unknown Rx Potassium Chloride [K-Dur] 40 meq PO QDAY 3 Days #30 tablet 01/21/22 Unknown Rx Spironolactone [Aldactone] 50 mg PO BID #60 tablet 01/21/22 Unknown Rx lisinopriL [Zestril TAB] 5 mg PO QDAY #30 tablet 01/21/22 Unknown Rx Allergies Allergy/AdvReac Type Severity Reaction Status Date / Time No Known Allergies Allergy Verified 08/19/21 15:15 ED Review of Systems ROS: Stated complaint: SHORTNESS OF BREATH Other details as noted in HPI Comment: All other systems reviewed and negative Constitutional: denies: chills, fever Respiratory: shortness of breath, SOB with exertion. denies: wheezing Cardiovascular: denies: chest pain, palpitations ED Past Medical Hx - Past Medical History Hx Hypertension: Yes (Had acute CHF exacerbation 06/2021) Hx Heart Attack/AMI: Yes (02/10) Hx Congestive Heart Failure: Yes (H/X CHF. RESOLVED NOW.) Hx Diabetes: Yes (DOES NOT USE INSULIN DUE TO COST) Hx Deep Vein Thrombosis: Yes (RIGHT LEG,RIGHT BKA) Hx Renal Disease: No Hx Asthma: Yes Hx COPD: No Hx HIV: No - Surgical History Additional Surgical History: right leg amputation 2020 - Social History Smoking Status: Smoker, Current Status Unknown - Medications Home Medications: Home Medications Medication Instructions Recorded Confirmed Last Taken Type Albuterol Mdi (or & Nicu Only) 2 puff IH QID PRN #1 inhalation 06/03/21 01/18/22 10/20/21 Rx [ProAir HFA Inhaler] Multivit-Min/Iron/Folic Acid/K 1 tab PO DAILY 08/11/21 01/18/22 10/20/21 History [Adults Multivitamin Caplet] Dextran 70/Hypromellose [Natural 1 drop OU QDAY 08/19/21 01/18/22 10/20/21 History Balance Tears Eye Drop] Furosemide [Lasix TAB] 40 mg PO QDAY #30 tablet 10/28/21 01/18/22 Unknown Rx Spironolactone [Aldactone] 25 mg PO QDAY 30 Days #30 tablet 10/28/21 01/18/22 Unknown Rx lisinopriL [Zestril TAB] 5 mg PO QDAY 30 Days #30 tablet 10/28/21 01/18/22 Unknown Rx ALBUTEROL NEB's [Proventil 0.083% 2.5 mg IH Q6HRT PRN #1 nebu 01/21/22 Unknown Rx NEBS] Apixaban [Eliquis] 5 mg PO Q12HR 30 Days #60 tablet 01/21/22 Unknown Rx Aspirin EC [Halfprin EC] 81 mg PO QDAY 30 Days #30 tablet 01/21/22 Unknown Rx AtorvaSTATin [Lipitor] 40 mg PO QHS 30 Days #30 tablet 01/21/22 Unknown Rx Clopidogrel [Plavix] 75 mg PO QDAY 30 Days #30 tablet 01/21/22 Unknown Rx Furosemide [Lasix TAB] 40 mg PO BID 30 Days #60 tablet 01/21/22 Unknown Rx Metoprolol [Lopressor TAB] 25 mg PO BID 30 Days #60 tablet 01/21/22 Unknown Rx Pantoprazole [Protonix TAB] 40 mg PO DAILY #30 tablet 01/21/22 Unknown Rx Potassium Chloride [K-Dur] 40 meq PO QDAY 3 Days #30 tablet 01/21/22 Unknown Rx Spironolactone [Aldactone] 50 mg PO BID #60 tablet 01/21/22 Unknown Rx lisinopriL [Zestril TAB] 5 mg PO QDAY #30 tablet 01/21/22 Unknown Rx ED Physical Exam - General Limitations: Physical Limitation General appearance: alert, in distress (Due to difficulty breathing) - Head Head exam: Present: normal inspection - Eye Eye exam: Present: normal appearance Pupils: Present: normal accommodation - ENT ENT exam: Present: mucous membranes dry - Neck Neck exam: Absent: tenderness - Respiratory Respiratory exam: Present: respiratory distress, accessory muscle use, other (Distant heart sound) - Cardiovascular Cardiovascular Exam: Present: tachycardia - GI/Abdominal GI/Abdominal exam: Present: soft, rigid, other (Peripheral anterior abdominal/mid abdomen edema) - Extremities Exam Extremities exam: Present: pedal edema (Left lower leg with chronic ulcer), other (Right AKA) - Back Exam Back exam: Absent: tenderness - Neurological Exam Neurological exam: Present: alert - Psychiatric Psychiatric exam: Present: normal affect - Skin Skin exam: Present: warm, dry ED Course Vital Signs 02/15/22 02/15/22 02/15/22 01:26 01:30 01:32 Pulse Rate 127 H 122 H 105 H Respiratory 29 H 29 H 23 Rate Blood Pressure 181/128 193/113 Blood Pressure 181/128 [Right] O2 Sat by Pulse 100 100 100 Oximetry 02/15/22 02/15/22 02/15/22 01:45 02:01 02:15 Pulse Rate 119 H 117 H 111 H Respiratory 24 26 H 23 Rate Blood Pressure 180/109 167/102 155/99 Blood Pressure [Right] O2 Sat by Pulse 97 73 L 100 Oximetry ED Medical Decision Making - Lab Data Result diagrams: 02/15/22 01:47 02/15/22 01:47 - EKG Data -: EKG Interpreted by Me Rate: tachycardia - EKG Data 02/15/22 01:35 Noted with normal sinus tachycardia at a rate of [address] wave abnormality in this abnormal ECG. - Medical Decision Making Here with shortness of breath--among differential diagnosis could be but not limited to acute exacerbation of COPD, myocardiac infarction, pulmonary embolism, acute exacerbation of asthma, pneumothorax, pneumonia or Viral or Bacterial Upper/Lower respiratory tract infection or other systemic infection.--To rule out the above will go ahead and order EKG, cardiac enzyme including troponin, BNP, CKMB, chest x-ray, CBC, CMP, UA and or D-dimer. With noted lower leg edema up to mid abdomen this likely worsening CHF or new liver disease -- will go ahead and give Lasix 40 mg and start BiPAP for symptomatic relief-- Noted with petechiae rash on his right armpit -- this patient is likely septic -- will start protocol with initial ivf ns and antibiotics -- while waiting for the above result-- Also noted with BNP 21,116 with CXR noted with pulmonary edema with moderate pleural effusion--this consistent with exacerbation of CHF--will continue BiPAP and diuresing Also noted with Lactic acid 3.9 with tachycardia with hypotension -- this call for concern for sepsis unknown source at this point-- given Cefepine and ivf ns fluid protocol -- Will all the above will go ahead and consult the hospitalist -- Dr Dle Valle co nsulted who accept pt for further evaluation and treatment-- Critical Care Time: Yes (75) Critical care time in (mins) excluding proc time.: 75 Critical care attestation.: If time is entered above; I have spent that time in minutes in the direct care of this critically ill patient, excluding procedure time. Was called to the room with this patient brought in with severe dyspnea requiring BiPAP and high flow oxygen and due to high probability of clinically significant, life threatening deterioration, this patient required my highest level of preparedness to intervene emergently and I personally spent this critical care time directly and personally managing this patient. This critical care time included obtaining a history; examining this patient; pulse oximetry ; ordering and review of studies ; arranging urgent treatment with development of a management plan ; evaluation of patient's response to treatment ; frequent reassessment ; and, discussion with other providers. This critical care time was performed to assess and manage the high probability of imminent, life- threatening deterioration that could result in multiple organ damage if not done in a timely fashion. ED Disposition Clinical Impression: Sepsis associated hypotension Dyspnea Qualifiers: Dyspnea type: unspecified Qualified Code(s): R06.00 - Dyspnea, unspecified Edema Qualifiers: Edema type: generalized Qualified Code(s): R60.1 - Generalized edema Acute exacerbation of congestive heart failure Qualifiers: Heart failure type: unspecified Qualified Code(s): I50.9 - Heart failure, unspecified Disposition: 09 ADMITTED INPATIENT Is pt being admited?: Yes Does the pt Need Aspirin: No Condition: Stable Time of Disposition: 04:29
[2022-02-15] MEDS ORDERED: SODIUM CHLORIDE 0.9% 1000 ML 1,000 ML IV ONE (01:42)
[2022-02-15] MEDS ORDERED: SODIUM CHLORIDE 0.9% 1000 ML IV SOLN IV ONE (01:42)
[2022-02-15] MEDS ORDERED: ACETAMINOPHEN 325 MG TAB PO PRN ×2 (01:42→05:41)
[2022-02-15] MEDS ORDERED: HYDROmorphone 0.5 MG/0.5 ML INJ IV PRN (01:42)
[2022-02-15] MEDS ORDERED: CEFEPIME/NS 2 GM/100 ML 2 GM/100 ML BAG IV SCH ×2 (02:00→06:00)
[2022-02-15 02:06] LABS: Basophils % (Auto) 0.8 % (0.0-1.8); Eosinophils # (Auto) 0.2 K/mm3 (0.0-0.4); Eosinophils % (Auto) 3.6 % (0.0-4.3); Hematocrit 43.6 % (35.5-45.6); Lymphocytes # (Auto) 0.8 K/mm3 (1.2-5.4); Lymphocytes % (Auto) 17.6 % (13.4-35.0); Mean Corpuscular HGB Conc 32 % (32-34); Mean Corpuscular Volume 95 fl (84-94); Monocytes # (Auto) 0.3 K/mm3 (0.0-0.8); Monocytes % (Auto) 5.5 % (0.0-7.3); Platelet Count 165 K/mm3 (140-440); Red Blood Count 4.57 M/mm3 (3.65-5.03); Red Cell Distribution Width 16.5 % (13.2-15.2)
[2022-02-15 02:23] LABS: ABG Base Excess 0.1 mmol/L (-2.0-3.0); ABG HCO3 26.4 mmol/L (20.0-26.0); ABG Methemoglobin 0.5 % (0.0-1.5); ABG Oxygen Saturation 98.6 % (95.0-99.0); ABG PCO2 49.6 mm Hg; ABG PH 7.344 pH Units (7.350-7.450); ABG PO2 140.5 mm Hg (80.0-90.0)
--- NOTE | 2022-02-15 02:23 | XRay Report ---
CHEST 1 VIEW INDICATION / CLINICAL INFORMATION: dyspnea. COMPARISON: Chest x-ray 01/17/2022 FINDINGS: SUPPORT DEVICES: None. HEART / MEDIASTINUM: Borderline to mild cardiomegaly is stable. LUNGS / PLEURA: Interval worsening of perihilar interstitial markings and upper lung interstitial opa cities. More dense opacities within the lower chest suggesting dependent pleural fluid and/or atelect asis is stable. BONES: No significant osseous abnormality. ADDITIONAL FINDINGS: No significant additional findings. IMPRESSION: 1. Mild interval worsening of pulmonary edema not excluded. 2. Stable bilateral moderate pleural effusions. Signer Name: Trev Soni II, MD Signed: 02/15/2022 2:19 AM Workstation Name: [id number]
[2022-02-15 02:28] LABS: Alanine Aminotransferase 37 units/L (7-56); Albumin 3.5 g/dL (3.9-5); BUN/Creatinine Ratio 20; Blood Urea Nitrogen 22 mg/dL (9-20); Calcium 8.6 mg/dL (8.4-10.2); Hemolysis Index 4
[2022-02-15 02:37] LABS: Free T4 (Free Thyroxine) 1.14 ng/dL (0.76-1.46)
[2022-02-15 03:18] LABS: Chol/HDL Ratio 1.81 %; HDL Cholesterol 79 mg/dL (40-59); LDL Cholesterol,Direct 62 mg/dL (50-130)
[2022-02-15] MEDS ORDERED: ALBUTEROL 2.5 MG/3 ML NEBU IH PRN (05:41)
[2022-02-15] MEDS ORDERED: ONDANSETRON 4 MG/2 ML INJ IV PRN (05:41)
[2022-02-15] MEDS ORDERED: DEXTROSE 50% IN WATER (25GM) 50 ML SYRINGE IV PRN (05:41)
[2022-02-15] MEDS ORDERED: MORPHINE 2 MG/1 ML INJ IV PRN (05:41)
--- NOTE | 2022-02-15 05:51 | History and Physical Report ---
History of Present Illness Date of examination: 02/15/22 Date of admission: 02/15/22 Chief complaint: Dyspnea History of present illness: 65 years old male with history of hypertension, hyperlipidemia, GERD, peripheral vascular disease and diabetes was brought to the hospital because of shortness of breath for the last couple of days progressively getting worse. Patient also complained of edema. Patient is saying help me help me. in the ER patient is found to have acute [place] [address] and troponin 0 0.062. We are going to admit the patient we will put the patient on CHF pathway Past History Past Medical History: diabetes, hypertension, hyperlipidemia, other (PVD) Past Surgical History: Other (Right AKA) Social history: other (denies: smoking, alcohol abuse, prescription drug abuse)) Family history: hypertension Medications and Allergies Allergies Allergy/AdvReac Type Severity Reaction Status Date / Time No Known Allergies Allergy Verified 08/19/21 15:15 Home Medications Medication Instructions Recorded Confirmed Last Taken Type Albuterol Mdi (or & Nicu Only) 2 puff IH QID PRN #1 inhalation 06/03/21 01/18/22 10/20/21 Rx [ProAir HFA Inhaler] Multivit-Min/Iron/Folic Acid/K 1 tab PO DAILY 08/11/21 01/18/22 10/20/21 History [Adults Multivitamin Caplet] Dextran 70/Hypromellose [Natural 1 drop OU QDAY 08/19/21 01/18/22 10/20/21 History Balance Tears Eye Drop] Furosemide [Lasix TAB] 40 mg PO QDAY #30 tablet 10/28/21 01/18/22 Unknown Rx Spironolactone [Aldactone] 25 mg PO QDAY 30 Days #30 tablet 10/28/21 01/18/22 Unknown Rx lisinopriL [Zestril TAB] 5 mg PO QDAY 30 Days #30 tablet 10/28/21 01/18/22 Unknown Rx ALBUTEROL NEB's [Proventil 0.083% 2.5 mg IH Q6HRT PRN #1 nebu 01/21/22 Unknown Rx NEBS] Apixaban [Eliquis] 5 mg PO Q12HR 30 Days #60 tablet 01/21/22 Unknown Rx Aspirin EC [Halfprin EC] 81 mg PO QDAY 30 Days #30 tablet 01/21/22 Unknown Rx AtorvaSTATin [Lipitor] 40 mg PO QHS 30 Days #30 tablet 01/21/22 Unknown Rx Clopidogrel [Plavix] 75 mg PO QDAY 30 Days #30 tablet 01/21/22 Unknown Rx Furosemide [Lasix TAB] 40 mg PO BID 30 Days #60 tablet 01/21/22 Unknown Rx Metoprolol [Lopressor TAB] 25 mg PO BID 30 Days #60 tablet 01/21/22 Unknown Rx Pantoprazole [Protonix TAB] 40 mg PO DAILY #30 tablet 01/21/22 Unknown Rx Potassium Chloride [K-Dur] 40 meq PO QDAY 3 Days #30 tablet 01/21/22 Unknown Rx Spironolactone [Aldactone] 50 mg PO BID #60 tablet 01/21/22 Unknown Rx lisinopriL [Zestril TAB] 5 mg PO QDAY #30 tablet 01/21/22 Unknown Rx Active Meds: Active Medications Acetaminophen (Acetaminophen 325 Mg Tab) 650 mg PO Q6H PRN PRN Reason: Pain, Mild (1-3) Acetaminophen (Acetaminophen 325 Mg Tab) 650 mg PO Q4H PRN PRN Reason: Pain MILD(1-3)/Fever >100.5/PACHECO Albuterol (Albuterol 2.5 Mg/3 Ml Nebu) 2.5 mg IH Q3HRT PRN PRN Reason: Shortness Of Breath Albuterol/Ipratropium (Ipratropium/Albuterol Sulfate 3 Ml Ampul.Neb) 1 ampul IH Q6HRT LYNDSAY Aspirin (Aspirin Ec 81 Mg Tab) 81 mg PO QDAY LYNDSAY Atorvastatin Calcium (Atorvastatin 40 Mg Tab) 40 mg PO QHS LYNDSAY Clopidogrel Bisulfate (Clopidogrel 75 Mg Tab) 75 mg PO QDAY LYNDSAY Dextrose (Dextrose 50% In Water (25gm) 50 Ml Syringe) 50 ml IV Q30MIN PRN; Protocol PRN Reason: Hypoglycemia Famotidine (Famotidine 20 Mg Tab) 20 mg PO BID LYNDSAY Furosemide (Furosemide 40 Mg/4 Ml Inj) 40 mg IV BID@0600,1800 LYNDSAY Heparin Sodium (Porcine) (Heparin 5,000 Unit/1 Ml Vial) 5,000 unit SUB-Q Q12HR LYNDSAY Hydromorphone HCl (Hydromorphone 0.5 Mg/0.5 Ml Inj) 0.25 mg IV Q4H PRN PRN Reason: Pain, Moderate (4-6) Cefepime HCl (Cefepime/Ns 2 Gm/100 Ml) 2 gm in 100 mls @ 200 mls/hr IV Q8H [facility]; Protocol Last Admin: 02/15/22 02:23 Dose: 200 mls/hr Cefepime HCl (Cefepime/Ns 2 Gm/100 Ml) 2 gm in 100 mls @ 200 mls/hr IV Q8H LYNDSAY; Protocol Insulin Human Lispro (Insulin Lispro 100 Unit/Ml) 0 unit SUB-Q ACHS LYNDSAY; Protocol Lisinopril (Lisinopril 5 Mg Tab) 5 mg PO QDAY [facility] Metoprolol Tartrate (Metoprolol Tartrate 25 Mg Tab) 25 mg PO BID [facility] Miscellaneous Medication (Apixaban) 5 mg PO Q12HR [facility] Morphine Sulfate (Morphine 2 Mg/1 Ml Inj) 2 mg IV Q4H PRN PRN Reason: Pain, Moderate (4-6) Morphine Sulfate (Morphine 4 Mg/1 Ml Inj) 4 mg IV Q4H PRN PRN Reason: Pain , Severe (7-10) Ondansetron HCl (Ondansetron 4 Mg/2 Ml Inj) 4 mg IV Q8H PRN PRN Reason: Nausea And Vomiting Potassium Chloride (Potassium Chloride Er 20 Meq Tab) 40 meq PO QDAY [facility] Sodium Chloride (Sodium Chloride 0.9% 10 Ml Flush Syringe) 10 ml IV BID [facility] Sodium Chloride (Sodium Chloride 0.9% 10 Ml Flush Syringe) 10 ml IV PRN PRN PRN Reason: LINE FLUSH Spironolactone (Spironolactone 25 Mg Tab) 25 mg PO QDAY [facility] Review of Systems All systems: negative Cardiovascular: edema, shortness of breath, dyspnea on exertion Respiratory: shortness of breath, dyspnea on exertion Exam - Constitutional Vitals: Temp Pulse Resp BP Pulse Ox 102 H 20 141/89 100 02/15/22 05:31 02/15/22 05:31 02/15/22 05:31 02/15/22 05:31 General appearance: Present: no acute distress, well-nourished - EENT Eyes: Present: PERRL ENT: hearing intact, clear oral mucosa - Neck Neck: Present: supple, normal ROM - Respiratory Respiratory effort: normal Respiratory: bilateral: rales - Cardiovascular Heart Sounds: Present: S1 & S2. Absent: rub, click - Extremities Extremities: pulses symmetrical Extremity abnormal: edema Peripheral Pulses: within normal limits - Abdominal General gastrointestinal: Present: soft, non-tender, non-distended, normal bowel sounds Male genitourinary: Present: normal - Integumentary Integumentary: Present: clear, warm, dry - Musculoskeletal Musculoskeletal: gait normal, strength equal bilaterally - Psychiatric Psychiatric: appropriate mood/affect, intact judgment & insight - Neurologic Neurologic: CNII-XII intact, moves all extremities HEART Score - HEART Score Troponin: Troponin T 0.062 ng/mL (0.00-0.029) H 02/15/22 01:47 Results - Labs CBC & Chem 7: 02/15/22 01:47 02/15/22 01:47 Labs: Laboratory Last Values WBC 4.6 K/mm3 (4.5-11.0) 02/15/22 01:47 RBC 4.57 M/mm3 (3.65-5.03) 02/15/22 01:47 Hgb 14.0 gm/dl (11.8-15.2) 02/15/22 01:47 Hct 43.6 % (35.5-45.6) 02/15/22 01:47 MCV 95 fl (84-94) H 02/15/22 01:47 MCH 31 pg (28-32) 02/15/22 01:47 MCHC 32 % (32-34) 02/15/22 01:47 RDW 16.5 % (13.2-15.2) H 02/15/22 01:47 Plt Count 165 K/mm3 (140-440) 02/15/22 01:47 Lymph % (Auto) 17.6 % (13.4-35.0) 02/15/22 01:47 Holt % (Auto) 5.5 % (0.0-7.3) 02/15/22 01:47 Eos % (Auto) 3.6 % (0.0-4.3) 02/15/22 01:47 Baso % (Auto) 0.8 % (0.0-1.8) 02/15/22 01:47 Lymph # (Auto) 0.8 K/mm3 (1.2-5.4) L 02/15/22 01:47 Holt # (Auto) 0.3 K/mm3 (0.0-0.8) 02/15/22 01:47 Eos # (Auto) 0.2 K/mm3 (0.0-0.4) 02/15/22 01:47 Baso # (Auto) 0.0 K/mm3 (0.0-0.1) 02/15/22 01:47 Seg Neutrophils % 72.5 % (40.0-70.0) H 02/15/22 01:47 Seg Neutrophils # 3.3 K/mm3 (1.8-7.7) 02/15/22 01:47 ABG pH 7.344 pH Units (7.350-7.450) L 02/15/22 02:15 ABG pCO2 49.6 mm Hg 02/15/22 02:15 ABG pO2 140.5 mm Hg (80.0-90.0) H 02/15/22 02:15 ABG HCO3 26.4 mmol/L (20.0-26.0) H 02/15/22 02:15 ABG O2 Saturation 98.6 % (95.0-99.0) 02/15/22 02:15 ABG O2 Content 18.5 (0.0-44) 02/15/22 02:15 ABG Base Excess 0.1 mmol/L (-2.0-3.0) 02/15/22 02:15 ABG Hemoglobin 13.5 gm/dl (14.0-18.0) L 02/15/22 02:15 ABG Carboxyhemoglobin 1.5 % (0.0-5.0) 02/15/22 02:15 ABG Methemoglobin 0.5 % (0.0-1.5) 02/15/22 02:15 Oxyhemoglobin 96.6 % (95.0-99.0) 02/15/22 02:15 FiO2 80 % 02/15/22 02:15 Sodium 138 mmol/L (137-145) 02/15/22 01:47 Potassium 3.3 mmol/L (3.6-5.0) L 02/15/22 01:47 Chloride 98.5 mmol/L (98-107) 02/15/22 01:47 Carbon Dioxide 26 mmol/L (22-30) 02/15/22 01:47 Anion Gap 17 mmol/L 02/15/22 01:47 BUN 22 mg/dL (9-20) H 02/15/22 01:47 Creatinine 1.1 mg/dL (0.8-1.3) 02/15/22 01:47 Estimated GFR > 60 ml/min 02/15/22 01:47 BUN/Creatinine Ratio 20 % 02/15/22 01:47 Glucose 388 mg/dL (75-100) H 02/15/22 01:47 POC Glucose 309 mg/dL (70-105) H 02/15/22 01:31 Lactic Acid 2.40 mmol/L (0.7-2.0) H* 02/15/22 04:26 Calcium 8.6 mg/dL (8.4-10.2) 02/15/22 01:47 Total Bilirubin 1.00 mg/dL (0.1-1.2) 02/15/22 01:47 AST 45 units/L (5-40) H 02/15/22 01:47 ALT 37 units/L (7-56) 02/15/22 01:47 Alkaline Phosphatase 190 units/L (35-129) H 02/15/22 01:47 Troponin T 0.062 ng/mL (0.00-0.029) H 02/15/22 01:47 NT-Pro-B Natriuret Pep 10162 pg/mL (0-900) H 02/15/22 01:47 Total Protein 9.1 g/dL (6.3-8.2) H 02/15/22 01:47 Albumin 3.5 g/dL (3.9-5) L 02/15/22 01:47 Albumin/Globulin Ratio 0.6 % 02/15/22 01:47 Triglycerides 65 mg/dL (2-149) 02/15/22 01:47 Cholesterol 143 mg/dL (50-199) 02/15/22 01:47 LDL Cholesterol Direct 62 mg/dL (50-130) 02/15/22 01:47 HDL Cholesterol 79 mg/dL (40-59) H 02/15/22 01:47 Cholesterol/HDL Ratio 1.81 % 02/15/22 01:47 TSH 4.360 mlU/mL (0.270-4.200) H 02/15/22 01:47 Free T4 1.14 ng/dL (0.76-1.46) 02/15/22 01:47 Blood Type B POSITIVE 02/15/22 01:54 Antibody Screen Negative 02/15/22 01:54 - Imaging and Cardiology Chest x-ray: report reviewed Assessment and Plan VTE prophylaxis?: Chemical Plan of care discussed with patient/family: Yes - Patient Problems (1) Acute HFrEF (heart failure with reduced ejection fraction) Current Visit: No Status: Acute Plan to address problem: Admit the patient to the medical telemetry. Patient is on BiPAP. Fluid restriction maintain input output. Lasix 40 mg IV every 12 hours. Cardiogram. Cardiology evaluation (2) Lactic acidosis Current Visit: Yes Status: Acute Plan to address problem: Cefepime 2 g IV every 8 hours. We do the blood culture urine culture. Recheck lactic acid in the morning (3) Asthma Current Visit: No Status: Acute Plan to address problem: Oxygen by nasal cannula 3 L/min. DuoNeb by nebulizer every 4 hours. Albuterol via nebulizer every 4 hours as needed (4) Diabetes Current Visit: No Status: Acute Plan to address problem: 1800 kcal ADA diet. Humalog sliding scale with Accu-Chek moderate dose coverage . Diabetic education. BMP in the morning (5) Hyperlipidemia Current Visit: No Status: Acute Qualifiers: Plan to address problem: Lipitor 40 mg p.o. daily. Recheck the lipid panel (6) COPD (chronic obstructive pulmonary disease) Current Visit: No Status: Chronic Qualifiers: Emphysema type: unspecified Plan to address problem: Oxygen by nasal cannula 3 L/min. DuoNeb by nebulizer every 4 hours. Albuterol via nebulizer every 4 hours as needed (7) Hypertension Current Visit: No Status: Chronic Qualifiers: Hypertension type: primary hypertension Qualified Code(s): I10 - Essential (primary) hypertension Plan to address problem: Lisinopril 5 mg p.o. daily. Lopressor 25 mg p.o. twice daily. We continue the home medication (8) Peripheral arterial disease Current Visit: No Status: Chronic Plan to address problem: Aspirin 81 mg p.o. daily. Plavix 75 mg p.o. daily. Lipitor 40 mg p.o. daily. Outpatient follow-up with vascular surgeon (9) GERD (gastroesophageal reflux disease) Current Visit: No Status: Acute Qualifiers: Esophagitis presence: without esophagitis Qualified Code(s): K21.9 - Gastro-esophageal reflux disease without esophagitis Plan to address problem: Pepcid 20 mg p.o. twice daily for GI prophylaxis. We will continue the home medication (10) DVT prophylaxis Current Visit: No Status: Acute Plan to address problem: Eliquis 5 mg p.o. twice daily for DVT prophylaxis. Pepcid 20 mg p.o. twice daily for GI prophylaxis. Patient is a full code
[2022-02-15 05:53] LABS: Bilirubin,Urine Negative (Negative); Blood,Urine Large (Negative); Color,Urine Colorless (Yellow); Protein,Urine 300 mg/dL mg/dL (Negative); Urobilinogen,Urine 0.2 mg/dL (<2.0)
[2022-02-15 05:55] LABS: Bacteria,Urine 2+ /HPF (Negative); Hyaline Casts,Urine 16 /LPF; Mucus,Urine FEW /HPF
[2022-02-15] MEDS: FUROSEMIDE 40 MG/4 ML INJ IV SCH ×2 (07:13→19:36)
[2022-02-15] MEDS: INSULIN LISPRO 100 UNIT/ML SUB-Q SCH ×3 (07:21→18:45)
[2022-02-15] MEDS: IPRATROPIUM/ALBUTEROL SULFATE 3 ML AMPUL.NEB IH SCH ×3 (08:20→20:35)
[2022-02-15] MEDS: CLOPIDOGREL 75 MG TAB PO SCH (09:18)
[2022-02-15] MEDS: METOPROLOL TARTRATE 25 MG TAB PO SCH ×2 (09:18→19:36)
[2022-02-15] MEDS: SPIRONOLACTONE 25 MG TAB PO SCH (09:18)
[2022-02-15] MEDS: FAMOTIDINE 20 MG TAB PO SCH ×2 (09:18→21:06)
[2022-02-15] MEDS: LISINOPRIL 5 MG TAB PO SCH (09:18)
[2022-02-15] MEDS: APIXABAN 5 MG TAB PO SCH ×2 (09:19→21:06)
[2022-02-15] MEDS: POTASSIUM CHLORIDE ER 20 MEQ TAB PO SCH (09:19)
--- NOTE | 2022-02-15 09:42 | Electrocardiograph Report ---
[facility] Test Date: 2022-02-15 Test Time: 01:28:51 Pat Name: LYNDSEY PERALTA Department: Room: A474 Gender: M Md Ophthalmologist: WHIT : 1955 Requested By: PAO GAN Order Number: [id number] Reading MD: Herber Ayala Measurements Intervals [place] Rate: 125 P: 25 NM: 126 QRS: 138 QRSD: 92 T: QT: 292 QTc: 420 Interpretive Statements Sinus tachycardia Ventricular premature complex Left posterior fascicular block Anterior infarct, old Compared to ECG 01/17/2022 15:37:14 Ventricular premature complex(es) now present Left posterior fascicular block now present Myocardial infarct finding still present Electronically Signed On 02-15-2022 9:42:16 EDT by Herber Ayala
[2022-02-15] MEDS ORDERED: HEPARIN 5,000 UNIT/1 ML VIAL SUB-Q SCH (10:00)
[2022-02-15] MEDS ORDERED: ASPIRIN EC 81 MG TAB PO SCH (10:00)
[2022-02-15] MEDS: POTASSIUM CHLORIDE 10 MEQ 10 MEQ/100 ML BAG IV SCH ×4 (11:42→20:50)
[2022-02-15] MEDS: dexAMETHasone 4 MG/ML VIAL IV SCH (13:38)
--- NOTE | 2022-02-15 13:49 | Consultation ---
History of Present Illness Consult date: 02/15/22 Requesting physician: KENNETH ACUNA Consult reason: congestive heart failure History of present illness: Patient is a 66-year-old male with past medical history of HFrEF, hypertension, hyperlipidemia, peripheral vascular disease s/p AKA, GERD who came to the hospital via EMS shortness of breath which has been ongoing for several days. History is difficult to obtain due to patient being poor historian. Patient repeats that it is difficult to breathe and he reports lower extremity swelling, abdominal, scrotal swelling, and swelling in his upper extremities. Patient does not report any complaints of chest pain, nausea, vomiting, diaphoresis, or palpitations. Patient does report orthopnea. Patient was found to have elevated BNP, minimally elevated troponins, and chest x-ray showed pulmonary ed velvet and bilateral pleural effusions. Patient was previously seen by our practice during admission during this past earlier this month (patient discharged January 21), October and June. Patient never follows up as an outpatient. Patient reports that he has not taken any medications. Cardiology is consulted for CHF exacerbation Past History Past Medical History: diabetes, heart failure, hypertension, hyperlipidemia, other (PVD) Past Surgical History: Other (Right AKA) Social history: other (denies: smoking, alcohol abuse, prescription drug abuse)) Family history: hypertension Medications and Allergies Allergies Allergy/AdvReac Type Severity Reaction Status Date / Time No Known Allergies Allergy Verified 08/19/21 15:15 Home Medications Medication Instructions Recorded Confirmed Last Taken Type Albuterol Mdi (or & Nicu Only) 2 puff IH QID PRN #1 inhalation 06/03/21 01/18/22 10/20/21 Rx [ProAir HFA Inhaler] Multivit-Min/Iron/Folic Acid/K 1 tab PO DAILY 08/11/21 01/18/22 10/20/21 History [Adults Multivitamin Caplet] Dextran 70/Hypromellose [Natural 1 drop OU QDAY 08/19/21 01/18/22 10/20/21 History Balance Tears Eye Drop] Furosemide [Lasix TAB] 40 mg PO QDAY #30 tablet 10/28/21 01/18/22 Unknown Rx Spironolactone [Aldactone] 25 mg PO QDAY 30 Days #30 tablet 10/28/21 01/18/22 Unknown Rx lisinopriL [Zestril TAB] 5 mg PO QDAY 30 Days #30 tablet 10/28/21 01/18/22 Unknown Rx ALBUTEROL NEB's [Proventil 0.083% 2.5 mg IH Q6HRT PRN #1 nebu 01/21/22 Unknown Rx NEBS] Apixaban [Eliquis] 5 mg PO Q12HR 30 Days #60 tablet 01/21/22 Unknown Rx Aspirin EC [Halfprin EC] 81 mg PO QDAY 30 Days #30 tablet 01/21/22 Unknown Rx AtorvaSTATin [Lipitor] 40 mg PO QHS 30 Days #30 tablet 01/21/22 Unknown Rx Clopidogrel [Plavix] 75 mg PO QDAY 30 Days #30 tablet 01/21/22 Unknown Rx Furosemide [Lasix TAB] 40 mg PO BID 30 Days #60 tablet 01/21/22 Unknown Rx Metoprolol [Lopressor TAB] 25 mg PO BID 30 Days #60 tablet 01/21/22 Unknown Rx Pantoprazole [Protonix TAB] 40 mg PO DAILY #30 tablet 01/21/22 Unknown Rx Potassium Chloride [K-Dur] 40 meq PO QDAY 3 Days #30 tablet 01/21/22 Unknown Rx Spironolactone [Aldactone] 50 mg PO BID #60 tablet 01/21/22 Unknown Rx lisinopriL [Zestril TAB] 5 mg PO QDAY #30 tablet 01/21/22 Unknown Rx Active Meds: Active Medications Acetaminophen (Acetaminophen 325 Mg Tab) 650 mg PO Q4H PRN PRN Reason: Pain MILD(1-3)/Fever >100.5/PACHECO Albuterol (Albuterol 2.5 Mg/3 Ml Nebu) 2.5 mg IH Q3HRT PRN PRN Reason: Shortness Of Breath Albuterol/Ipratropium (Ipratropium/Albuterol Sulfate 3 Ml Ampul.Neb) 1 ampul IH Q6HRT [facility] Last Admin: 02/15/22 08:20 Dose: 1 ampul Apixaban (Apixaban 5 Mg Tab) 5 mg PO Q12HR [facility] Last Admin: 02/15/22 09:19 Dose: 5 mg Atorvastatin Calcium (Atorvastatin 40 Mg Tab) 40 mg PO QHS [facility] Clopidogrel Bisulfate (Clopidogrel 75 Mg Tab) 75 mg PO QDAY [facility] Last Admin: 02/15/22 09:18 Dose: 75 mg Dexamethasone (Dexamethasone 4 Mg/Ml Vial) 8 mg IV DAILY [facility] Stop: 02/25/22 12:59 Last Admin: 02/15/22 13:38 Dose: 8 mg Dextrose (Dextrose 50% In Water (25gm) 50 Ml Syringe) 0 ml IV Q30MIN PRN; Protocol PRN Reason: Hypoglycemia Famotidine (Famotidine 20 Mg Tab) 20 mg PO BID [facility] Last Admin: 02/15/22 09:18 Dose: 20 mg Furosemide (Furosemide 40 Mg/4 Ml Inj) 40 mg IV BID@0600,1800 [facility] Last Admin: 02/15/22 07:13 Dose: 40 mg Insulin Human Lispro (Insulin Lispro 100 Unit/Ml) 0 unit SUB-Q ACHS [facility]; Protocol Last Admin: 02/15/22 13:40 Dose: Not Given Lisinopril (Lisinopril 5 Mg Tab) 5 mg PO QDAY [facility] Last Admin: 02/15/22 09:18 Dose: 5 mg Metoprolol Tartrate (Metoprolol Tartrate 25 Mg Tab) 25 mg PO BID@0800,1700 [facility] Last Admin: 02/15/22 09:18 Dose: 25 mg Morphine Sulfate (Morphine 2 Mg/1 Ml Inj) 2 mg IV Q4H PRN PRN Reason: Pain, Moderate (4-6) Last Admin: 02/15/22 11:32 Dose: 2 mg Morphine Sulfate (Morphine 4 Mg/1 Ml Inj) 4 mg IV Q4H PRN PRN Reason: Pain , Severe (7-10) Ondansetron HCl (Ondansetron 4 Mg/2 Ml Inj) 4 mg IV Q8H PRN PRN Reason: Nausea And Vomiting Potassium Chloride (Potassium Chloride Er 20 Meq Tab) 40 meq PO QDAY [facility] Last Admin: 02/15/22 09:19 Dose: 40 meq Sodium Chloride (Sodium Chloride 0.9% 10 Ml Flush Syringe) 10 ml IV BID [facility] Last Admin: 02/15/22 13:39 Dose: 10 ml Sodium Chloride (Sodium Chloride 0.9% 10 Ml Flush Syringe) 10 ml IV PRN PRN PRN Reason: LINE FLUSH Spironolactone (Spironolactone 25 Mg Tab) 25 mg PO QDAY [facility] Last Admin: 02/15/22 09:18 Dose: 25 mg Review of Systems Constitutional: no weight loss, no weight gain, no fever Ears, nose, mouth and throat: no sinus pressure, no sinus pain Cardiovascular: orthopnea, edema, shortness of breath, dyspnea on exertion, leg edema, no chest pain Respiratory: shortness of breath, dyspnea on exertion Gastrointestinal: no abdominal pain, no nausea, no vomiting Musculoskeletal: no neck stiffness, no neck pain Integumentary: no rash, no pruritis, no redness Neurological: no head injury, no transient paralysis Psychiatric: no anxiety, no memory loss Endocrine: no cold intolerance, no heat intolerance Hematologic/Lymphatic: no easy bruising, no easy bleeding Physical Examination Vital Signs Pulse Resp BP Pulse Ox 125 H 22 181/128 93 02/15/22 01:26 02/15/22 01:26 02/15/22 01:02/15/22 01:26 General appearance: no acute distress HEENT: Positive: Normocephaly Neck: Positive: trachea midline Cardiac: Positive: Reg Rate and Rhythm Lungs: Positive: Decreased Breath Sounds Neuro: Positive: Grossly Intact Abdomen: Positive: Soft, Distended Skin: Positive: Cool Extremities: Present: upper extr. pulses, edema Results 02/15/22 01:47 02/15/22 01:47 Cardiac Enzymes 02/15/22 Range/Units 01:47 AST 45 H (5-40) units/L Lipids 02/15/22 Range/Units 01:47 Triglycerides 65 (2-149) mg/dL Cholesterol 143 (50-199) mg/dL HDL Cholesterol 79 H (40-59) mg/dL Cholesterol/HDL Ratio 1.81 % CBC 02/15/22 Range/Units 01:47 WBC 4.6 (4.5-11.0) K/mm3 RBC 4.57 (3.65-5.03) M/mm3 Hgb 14.0 (11.8-15.2) gm/dl Hct 43.6 (35.5-45.6) % Plt Count 165 (140-440) K/mm3 Lymph # (Auto) 0.8 L (1.2-5.4) K/mm3 Coleman # (Auto) 0.3 (0.0-0.8) K/mm3 Eos # (Auto) 0.2 (0.0-0.4) K/mm3 Baso # (Auto) 0.0 (0.0-0.1) K/mm3 Comprehensive Metabolic Panel 02/15/22 Range/Units 01:47 Sodium 138 (137-145) mmol/L Potassium 3.3 L (3.6-5.0) mmol/L Chloride 98.5 (98-107) mmol/L Carbon Dioxide 26 (22-30) mmol/L BUN 22 H (9-20) mg/dL Creatinine 1.1 (0.8-1.3) mg/dL Glucose 388 H (75-100) mg/dL Calcium 8.6 (8.4-10.2) mg/dL AST 45 H (5-40) units/L ALT 37 (7-56) units/L Alkaline Phosphatase 190 H (35-129) units/L Total Protein 9.1 H (6.3-8.2) g/dL Albumin 3.5 L (3.9-5) g/dL - Imaging and Cardiology Echo: report reviewed EKG interpretations - Telemetry EKG Rhythm: Sinus Tachycardia - EKG Sinus rhythms and dysrhythmias: sinus tachycardia AV and intraventricular conduction: left posterior fascicular Assessment and Plan Patient is a 66-year-old male with past medical history of HFrEF, hypertension, hyperlipidemia, peripheral vascular disease s/p AKA, GERD who came to the hospital via EMS shortness of breath which Acute on chronic HFrEF Sepsis [id number] follow Hypertension Acute respiratory failure-currently on BiPAP COPD Peripheral vascular disease s/p AKA GERD Diabetes Thrombocytopenia Medical noncompliance Echo 06/23/2021-EF 30 to 35%, left ventricle is mildly dilated moderate global hypokinesis of LV. Left atrium is mildly dilated. Right ventricle systolic function is normal Plan: EKG shows sinus tach 125 with PVC and left posterior fascicular block. No acute ischemic changes. Troponins minimally elevated 0.06->0.05 Patient denies any complaints of chest pain Suspect troponin leakage as a result of acute on chronic HFrEF BNP noted to be elevated, patient reports shortness of breath, patient has lower extremity edema. Agree with Lasix 40 mg IV twice daily for diuresis. Repeat BMP in the a.m. strict I&O's with close monitoring of renal function Patient currently on Eliquis, Lipitor, Plavix, lisinopril, metoprolol, Aldactone Spoke with patient's son who reported he was unsure if patient was taking medications or what medications patient is prescribed. Stressed importance of medication compliance and compliance with follow-up. Patient son verbalized un derstanding and acknowledged Patient seen in conjunction with Dr. Ayala who agrees with this plan of care - Patient Problems (1) Sepsis Current Visit: Yes Status: Acute (2) COVID-19 Current Visit: Yes Status: Acute (3) Dilated cardiomyopathy Current Visit: No Status: Acute (4) Hyperlipemia, mixed Current Visit: No Status: Chronic (5) Peripheral arterial disease Current Visit: No Status: Chronic (6) COPD (chronic obstructive pulmonary disease) Current Visit: No Status: Chronic Qualifiers: Emphysema type: unspecified (7) Hyperlipidemia Current Visit: No Status: Chronic Qualifiers: Hyperlipidemia type: mixed hyperlipidemia Qualified Code(s): E78.2 - Mixed hyperlipidemia (8) Hypertension Current Visit: No Status: Chronic Qualifiers: Hypertension type: primary hypertension Qualified Code(s): I10 - Essential (primary) hypertension (9) Acute on chronic HFrEF (heart failure with reduced ejection fraction) Current Visit: No Status: Acute (10) Volume overload Current Visit: No Status: Acute (11) Lactic acidosis Current Visit: Yes Status: Acute
--- NOTE | 2022-02-15 17:28 | Consultation ---
History of Present Illness - Reason for Consult Consult date: 02/15/22 - History of Present Illness 65-year-old man past medical history hypertension, peripheral vascular disease, diabetes presented to hospital complaining of shortness of breath. This began 3 days prior to admission was in worse since onset. He also complains of worsening peripheral edema. He was found to have an acute CHF exacerbation. He also tested positive for COVID, as such we are consulted. Afebrile since admission with a normal white count. COVID-positive. Normal renal function. Pro-Tio only mildly elevated. Blood cultures no growth so far. Currently on dexamethasone. On nasal cannula. Imaging personally reviewed: Chest x-ray: Bilateral pulmonary edema. Bilateral pleural effusions. Review of systems: Deferred to reduce to the risk of transmission of COVID-19 Past History Past Medical History: diabetes, heart failure, hypertension, hyperlipidemia, other (PVD) Past Surgical History: Other (Right AKA) Social history: other (denies: smoking, alcohol abuse, prescription drug abuse)) Family history: hypertension Medications and Allergies Allergies Allergy/AdvReac Type Severity Reaction Status Date / Time No Known Allergies Allergy Verified 08/19/21 15:15 Home Medications Medication Instructions Recorded Confirmed Last Taken Type Albuterol Mdi (or & Nicu Only) 2 puff IH QID PRN #1 inhalation 06/03/21 01/18/22 10/20/21 Rx [ProAir HFA Inhaler] Multivit-Min/Iron/Folic Acid/K 1 tab PO DAILY 08/11/21 01/18/22 10/20/21 History [Adults Multivitamin Caplet] Dextran 70/Hypromellose [Natural 1 drop OU QDAY 08/19/21 01/18/22 10/20/21 History Balance Tears Eye Drop] Furosemide [Lasix TAB] 40 mg PO QDAY #30 tablet 10/28/21 01/18/22 Unknown Rx Spironolactone [Aldactone] 25 mg PO QDAY 30 Days #30 tablet 10/28/21 01/18/22 Unknown Rx lisinopriL [Zestril TAB] 5 mg PO QDAY 30 Days #30 tablet 10/28/21 01/18/22 Unknown Rx ALBUTEROL NEB's [Proventil 0.083% 2.5 mg IH Q6HRT PRN #1 nebu 01/21/22 Unknown Rx NEBS] Apixaban [Eliquis] 5 mg PO Q12HR 30 Days #60 tablet 01/21/22 Unknown Rx Aspirin EC [Halfprin EC] 81 mg PO QDAY 30 Days #30 tablet 01/21/22 Unknown Rx AtorvaSTATin [Lipitor] 40 mg PO QHS 30 Days #30 tablet 01/21/22 Unknown Rx Clopidogrel [Plavix] 75 mg PO QDAY 30 Days #30 tablet 01/21/22 Unknown Rx Furosemide [Lasix TAB] 40 mg PO BID 30 Days #60 tablet 01/21/22 Unknown Rx Metoprolol [Lopressor TAB] 25 mg PO BID 30 Days #60 tablet 01/21/22 Unknown Rx Pantoprazole [Protonix TAB] 40 mg PO DAILY #30 tablet 01/21/22 Unknown Rx Potassium Chloride [K-Dur] 40 meq PO QDAY 3 Days #30 tablet 01/21/22 Unknown Rx Spironolactone [Aldactone] 50 mg PO BID #60 tablet 01/21/22 Unknown Rx lisinopriL [Zestril TAB] 5 mg PO QDAY #30 tablet 01/21/22 Unknown Rx Active Meds: Active Medications Acetaminophen (Acetaminophen 325 Mg Tab) 650 mg PO Q4H PRN PRN Reason: Pain MILD(1-3)/Fever >100.5/PACHECO Albuterol (Albuterol 2.5 Mg/3 Ml Nebu) 2.5 mg IH Q3HRT PRN PRN Reason: Shortness Of Breath Albuterol/Ipratropium (Ipratropium/Albuterol Sulfate 3 Ml Ampul.Neb) 1 ampul IH Q6HRT [facility] Last Admin: 02/15/22 14:07 Dose: 1 ampul Apixaban (Apixaban 5 Mg Tab) 5 mg PO Q12HR [facility] Last Admin: 02/15/22 09:19 Dose: 5 mg Atorvastatin Calcium (Atorvastatin 40 Mg Tab) 40 mg PO QHS [facility] Clopidogrel Bisulfate (Clopidogrel 75 Mg Tab) 75 mg PO QDAY [facility] Last Admin: 02/15/22 09:18 Dose: 75 mg Dexamethasone (Dexamethasone 4 Mg/Ml Vial) 8 mg IV DAILY [facility] Stop: 02/25/22 12:59 Last Admin: 02/15/22 13:38 Dose: 8 mg Dextrose (Dextrose 50% In Water (25gm) 50 Ml Syringe) 0 ml IV Q30MIN PRN; Protocol PRN Reason: Hypoglycemia Famotidine (Famotidine 20 Mg Tab) 20 mg PO BID [facility] Last Admin: 02/15/22 09:18 Dose: 20 mg Furosemide (Furosemide 40 Mg/4 Ml Inj) 40 mg IV BID@0600,1800 [facility] Last Admin: 02/15/22 07:13 Dose: 40 mg Insulin Human Lispro (Insulin Lispro 100 Unit/Ml) 0 unit SUB-Q ACHS [facility]; Pr otocol Last Admin: 02/15/22 13:40 Dose: Not Given Lisinopril (Lisinopril 5 Mg Tab) 5 mg PO QDAY [facility] Last Admin: 02/15/22 09:18 Dose: 5 mg Metoprolol Tartrate (Metoprolol Tartrate 25 Mg Tab) 25 mg PO BID@0800,1700 [facility] Last Admin: 02/15/22 09:18 Dose: 25 mg Morphine Sulfate (Morphine 2 Mg/1 Ml Inj) 2 mg IV Q4H PRN PRN Reason: Pain, Moderate (4-6) Last Admin: 02/15/22 11:32 Dose: 2 mg Morphine Sulfate (Morphine 4 Mg/1 Ml Inj) 4 mg IV Q4H PRN PRN Reason: Pain , Severe (7-10) Ondansetron HCl (Ondansetron 4 Mg/2 Ml Inj) 4 mg IV Q8H PRN PRN Reason: Nausea And Vomiting Potassium Chloride (Potassium Chloride Er 20 Meq Tab) 40 meq PO QDAY [facility] Last Admin: 02/15/22 09:19 Dose: 40 meq Sodium Chloride (Sodium Chloride 0.9% 10 Ml Flush Syringe) 10 ml IV BID [facility] Last Admin: 02/15/22 13:39 Dose: 10 ml Sodium Chloride (Sodium Chloride 0.9% 10 Ml Flush Syringe) 10 ml IV PRN PRN PRN Reason: LINE FLUSH Spironolactone (Spironolactone 25 Mg Tab) 25 mg PO QDAY [facility] Last Admin: 02/15/22 09:18 Dose: 25 mg Physical Examination - Physical Exam Narrative exam: Physical exam deferred to reduce risk of transmission of COVID-19. Please refer to primary team's note. - Constitutional Vitals: Vital Signs Temp Pulse Resp BP Pulse Ox 98.3 F 86 22 118/85 99 02/15/22 16:00 02/15/22 16:00 02/15/22 16:00 02/15/22 16:00 02/15/22 16:00 Temperature -Last 24 Hours Temperature 98.3 F Temperature 98.5 F Temperature 98.3 F Results - Labs CBC & Chem 7: 02/15/22 01:47 02/15/22 01:47 Labs: Abnormal lab results 02/15/22 02/15/22 02/15/22 Range/Units 01:31 01:47 01:47 MCV 95 H (84-94) fl RDW 16.5 H (13.2-15.2) % Lymph # (Auto) 0.8 L (1.2-5.4) K/mm3 Seg Neutrophils % 72.5 H (40.0-70.0) % ABG pH (7.350-7.450) pH Units ABG pO2 (80.0-90.0) mm Hg ABG HCO3 (20.0-26.0) mmol/L ABG Hemoglobin (14.0-18.0) gm/dl Potassium 3.3 L (3.6-5.0) mmol/L BUN 22 H (9-20) mg/dL Glucose 388 H (75-100) mg/dL POC Glucose 309 H (70-105) mg/dL Lactic Acid (0.7-2.0) mmol/L AST 45 H (5-40) units/L Alkaline Phosphatase 190 H (35-129) units/L Troponin T 0.062 H (0.00-0.029) ng/mL NT-Pro-B Natriuret Pep 12983 H (0-900) pg/mL Total Protein 9.1 H (6.3-8.2) g/dL Albumin 3.5 L (3.9-5) g/dL HDL Cholesterol 79 H (40-59) mg/dL TSH (0.270-4.200) mlU/mL Urine Blood (Negative) Urine WBC (Auto) (0.0-6.0) /HPF SARS-CoV-2 (PCR) (Negative) 02/15/22 02/15/22 02/15/22 Range/Units 01:47 01:54 02:15 MCV (84-94) fl RDW (13.2-15.2) % Lymph # (Auto) (1.2-5.4) K/mm3 Seg Neutrophils % (40.0-70.0) % ABG pH 7.344 L (7.350-7.450) pH Units ABG pO2 140.5 H (80.0-90.0) mm Hg ABG HCO3 26.4 H (20.0-26.0) mmol/L ABG Hemoglobin 13.5 L (14.0-18.0) gm/dl Potassium (3.6-5.0) mmol/L BUN (9-20) mg/dL Glucose (75-100) mg/dL POC Glucose (70-105) mg/dL Lactic Acid 3.90 H* (0.7-2.0) mmol/L AST (5-40) units/L Alkaline Phosphatase (35-129) units/L Troponin T (0.00-0.029) ng/mL NT-Pro-B Natriuret Pep (0-900) pg/mL Total Protein (6.3-8.2) g/dL Albumin (3.9-5) g/dL HDL Cholesterol (40-59) mg/dL TSH 4.360 H (0.270-4.200) mlU/mL Urine Blood (Negative) Urine WBC (Auto) (0.0-6.0) /HPF SARS-CoV-2 (PCR) (Negative) 02/15/22 02/15/22 02/15/22 Range/Units 04:26 05:40 07:19 MCV (84-94) fl RDW (13.2-15.2) % Lymph # (Auto) (1.2-5.4) K/mm3 Seg Neutrophils % (40.0-70.0) % ABG pH (7.350-7.450) pH Units ABG pO2 (80.0-90.0) mm Hg ABG HCO3 (20.0-26.0) mmol/L ABG Hemoglobin (14.0-18.0) gm/dl Potassium (3.6-5.0) mmol/L BUN (9-20) mg/dL Glucose (75-100) mg/dL POC Glucose 206 H (70-105) mg/dL Lactic Acid 2.40 H* (0.7-2.0) mmol/L AST (5-40) units/L Alkaline Phosphatase (35-129) units/L Troponin T (0.00-0.029) ng/mL NT-Pro-B Natriuret Pep (0-900) pg/mL Total Protein (6.3-8.2) g/dL Albumin (3.9-5) g/dL HDL Cholesterol (40-59) mg/dL TSH (0.270-4.200) mlU/mL Urine Blood Large A (Negative) Urine WBC (Auto) 10.0 H (0.0-6.0) /HPF SARS-CoV-2 (PCR) (Negative) 02/15/22 02/15/22 02/15/22 Range/Units 08:19 08:19 10:15 MCV (84-94) fl RDW (13.2-15.2) % Lymph # (Auto) (1.2-5.4) K/mm3 Seg Neutrophils % (40.0-70.0) % ABG pH (7.350-7.450) pH Units ABG pO2 (80.0-90.0) mm Hg ABG HCO3 (20.0-26.0) mmol/L ABG Hemoglobin (14.0-18.0) gm/dl Potassium (3.6-5.0) mmol/L BUN (9-20) mg/dL Glucose (75-100) mg/dL POC Glucose (70-105) mg/dL Lactic Acid 2.90 H* 3.30 H* (0.7-2.0) mmol/L AST (5-40) units/L Alkaline Phosphatase (35-129) units/L Troponin T 0.051 H (0.00-0.029) ng/mL NT-Pro-B Natriuret Pep (0-900) pg/mL Total Protein (6.3-8.2) g/dL Albumin (3.9-5) g/dL HDL Cholesterol (40-59) mg/dL TSH (0.270-4.200) mlU/mL Urine Blood (Negative) Urine WBC (Auto) (0.0-6.0) /HPF SARS-CoV-2 (PCR) (Negative) 02/15/22 02/15/22 02/15/22 Range/Units 11:35 12:04 13:24 MCV (84-94) fl RDW (13.2-15.2) % Lymph # (Auto) (1.2-5.4) K/mm3 Seg Neutrophils % (40.0-70.0) % ABG pH (7.350-7.450) pH Units ABG pO2 (80.0-90.0) mm Hg ABG HCO3 (20.0-26.0) mmol/L ABG Hemoglobin (14.0-18.0) gm/dl Potassium (3.6-5.0) mmol/L BUN (9-20) mg/dL Glucose (75-100) mg/dL POC Glucose 108 H (70-105) mg/dL Lactic Acid 3.80 H* (0.7-2.0) mmol/L AST (5-40) units/L Alkaline Phosphatase (35-129) units/L Troponin T (0.00-0.029) ng/mL NT-Pro-B Natriuret Pep (0-900) pg/mL Total Protein (6.3-8.2) g/dL Albumin (3.9-5) g/dL HDL Cholesterol (40-59) mg/dL TSH (0.270-4.200) mlU/mL Urine Blood (Negative) Urine WBC (Auto) (0.0-6.0) /HPF SARS-CoV-2 (PCR) Positive A (Negative) Assessment and Plan Cultures: Blood culture no growth so far A/P: 66-year-old man past medical history hypertension, PAD now with: #Acute COVID-19: The background acute CHF. Currently on nasal cannula. #Acute hypoxic respiratory failure: On nasal cannula. Probably more likely driven by his acute CHF and fluid overload in the COVID-19 itself. 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 -Anticoagulation per protocol -No need for antibiotics at present time Thank you for the consult, we will continue to follow. MD Jing [facility] O: [phone] F: [phone]
--- NOTE | 2022-02-15 18:39 | Event Note ---
Date: 02/15/22 The patient was evaluated, needs found to be hemodynamically stable. The patient was utilizing BiPAP this morning for management of acute hypoxic respiratory failure. #Acute hypoxic respiratory failure #COVID-19 infection - etiology: Acute on chronic systolic heart failure + COVID-19 infection - baseline oxygen requirements: Room air - supplemental oxygen: BiPAP - Continue protocol: continue pulse oximetry, wean oxygen as tolerated, ordered incentive spirometry and educated patient on how to use it and its importance. Starting IV dexamethasone 8 mg daily x10 doses. Discontinued antibiotics. Pending procalcitonin. - Infectious disease consulted; appreciate recs. - continue to monitor #Acute on chronic systolic heart failure #Lactic acidosisworsening #Medication noncompliance - Continue CHF exacerbation protocol: Telemetry, Strict I/O, monitor urine output every shift, daily weights, afterload reduction, low-sodium diet, and fluid restriction of approximately 1.5 mL/day, IV Lasix 40 mg twice daily Continue goal-directed medical therapy. - Supplemental oxygen: BiPAP - ProBNP on admission: 21,116 - Cardiology consulted; appreciate recs -Lactic acid 3.90--> 2.40--> 2.9. Continue to trend - Continue to monitor #Non-insulin dependent type II diabetes mellitus - hemoglobin A1c: Unknown - home regimen: Unknown - current regimen: Moderate SSI - blood glucose goal 140-180 while inpatient - continue to monitor #COPD #Mild intermittent asthma Continue DuoNebs 6 hours and albuterol nebs every 4 hours as needed #Hyperlipidemia #Hypertension - home medications: Lisinopril 5 mg daily, spironolactone 25 mg daily, metoprolol tartrate 25 mg twice daily, p.o. Lasix 40 mg daily, atorvastatin 40 mg daily - current medications: Atorvastatin 40 mg daily, lisinopril 5 mg daily, metoprolol tartrate 25 mg twice daily, Aldactone 25 mg daily - SBP goal <160 and DBP goal <90 while inpatient - continue to monitor #Peripheral arterial disease #Right [id number] amputation Continue aspirin 81 mg daily, Plavix 75 mg daily, and Lipitor 40 mg daily Pending arterial Doppler of left lower extremity to evaluate for possible limb ischemia #Hypokalemia Potassium 3.3 Repleted. Monitor with repeat BMP tomorrow morning. #GERD Continue Pepcid 20 mg twice daily #Mild protein caloric malnutrition Albumin 3.5 Starting dietary supplementation once patient has been weaned off of BiPAP. #Obesity #Weight loss counseling #Exercise counseling - BMI 30.1 - Counseled patient on the importance of weight loss, incorporating exercise, and dietary changes (lean meats, fresh fruits and vegetables, and water intake). Patient expresses understanding. - Time: +15 min #Coordination of CARE time: 30 minutes. Total visit time equals 30 or more minutes with greater than 50% spent [id number] on coordination of care and counseling. Critical Care Billing: The high probability of a clinically significant, sudden or life threatening deterioration of the [respiratory] system(s) required my full and direct attention, intervention and personal management. The aggregate critical care time was [60] minutes. This time is in addition to time spent performing reported procedures but includes the following: [x] Data Review and interpretation [x] Patient assessment and monitoring of vital signs [x] Documentation [x] Medication orders and management
[2022-02-15] MEDS: MORPHINE 4 MG/1 ML INJ IV PRN (21:05)
[2022-02-16] MEDS: INSULIN LISPRO 100 UNIT/ML SUB-Q SCH ×5 (01:23→22:03)
[2022-02-16] MEDS: IPRATROPIUM/ALBUTEROL SULFATE 3 ML AMPUL.NEB IH SCH ×4 (01:43→19:45)
[2022-02-16] MEDS: FUROSEMIDE 40 MG/4 ML INJ IV SCH ×2 (05:59→17:13)
[2022-02-16 07:57] LABS: Eosinophils % (Auto) 0.1 % (0.0-4.3); Hematocrit 43.6 % (35.5-45.6); Hemoglobin 13.8 gm/dl (11.8-15.2); Lymphocytes # (Auto) 0.6 K/mm3 (1.2-5.4); Lymphocytes % (Auto) 13.8 % (13.4-35.0); Mean Corpuscular HGB Conc 32 % (32-34); Mean Corpuscular Volume 95 fl (84-94); Monocytes # (Auto) 0.3 K/mm3 (0.0-0.8); Monocytes % (Auto) 7.5 % (0.0-7.3); Platelet Count 143 K/mm3 (140-440); Red Cell Distribution Width 16.1 % (13.2-15.2)
[2022-02-16 08:22] LABS: Calcium 8.2 mg/dL (8.4-10.2)
[2022-02-16] MEDS: METOPROLOL TARTRATE 25 MG TAB PO SCH ×2 (08:32→17:14)
--- NOTE | 2022-02-16 09:03 | Progress Note ---
Assessment and Plan Assessment and plan: Date: 02/15/22 The patient was evaluated, needs found to be hemodynamically stable. The patient was utilizing BiPAP this morning for management of acute hypoxic respiratory failure. Acute kidney injury #Acute kidney injury ; Due to vasomotor nephropathy #Acute hypoxic respiratory failure #COVID-19 infection - etiology: Acute on chronic systolic heart failure + COVID-19 infection - baseline oxygen requirements: Room air - supplemental oxygen: BiPAP - Continue protocol: continue pulse oximetry, wean oxygen as tolerated, ordered incentive spirometry and educated patient on how to use it and its importance. Starting IV dexamethasone 8 mg daily x10 doses. Discontinued antibiotics. Pending procalcitonin. - Infectious disease consulted; appreciate recs. - continue to monitor #Acute on chronic systolic heart failure[EF 30-35 in 2020] #Lactic acidosisworsening #Medication noncompliance - Continue CHF exacerbation protocol: Telemetry, Strict I/O, monitor urine output every shift, daily weights, afterload reduction, low-sodium diet, and fluid restriction of approximately 1.5 mL/day, IV Lasix 40 mg twice daily Continue goal-directed medical therapy. - Supplemental oxygen: BiPAP - ProBNP on admission: - Cardiology consulted; appreciate recs -Lactic acid 3.90--> 2.40--> 2.9. Continue to trend - Continue to monitor #Non-insulin dependent type II diabetes mellitus - hemoglobin A1c: Unknown - home regimen: Unknown - current regimen: Moderate SSI - blood glucose goal 140-180 while inpatient - continue to monitor #COPD #Mild intermittent asthma Continue DuoNebs 6 hours and albuterol nebs every 4 hours as needed #Hyperlipidemia #Hypertension - home medications: Lisinopril 5 mg daily, spironolactone 25 mg daily, metoprolol tartrate 25 mg twice daily, p.o. Lasix 40 mg daily, atorvastatin 40 mg daily - current medications: Atorvastatin 40 mg daily, lisinopril 5 mg daily, metoprolol tartrate 25 mg twice daily, Aldactone 25 mg daily - SBP goal <160 and DBP goal <90 while inpatient - continue to monitor #Peripheral arterial disease #Right [id number] amputation Continue aspirin 81 mg daily, Plavix 75 mg daily, and Lipitor 40 mg daily Pending arterial Doppler of left lower extremity to evaluate for possible limb ischemia #Hypokalemia Potassium 3.3 Repleted. Monitor with repeat BMP tomorrow morning. #GERD Continue Pepcid 20 mg twice daily #Mild protein caloric malnutrition Albumin 3.5 Starting dietary supplementation once patient has been weaned off of BiPAP. #Obesity #Weight loss counseling #Exercise counseling - BMI 30.1 - Counseled patient on the importance of weight loss, incorporating exercise, and dietary changes (lean meats, fresh fruits and vegetables, and water intake). Patient expresses understanding. - Time: +15 min Closely monitor the patient and adjust management as needed ID evaluation recommendations noted and appreciated Closely monitor renal function if no improvement consult nephrology Plan of care reviewed with the patient and his nurse Closely monitor the patient and adjust management as needed Guillotine Trimmer recommendations noted and appreciated History Interval history: I have seen and examined the patient at the bedside Isolation precautions and PPE protocols strictly followed Vital signs noted No new events reported by the nursing Patient is on 3 L of nasal cannula oxygen Hospitalist Physical - Constitutional Vitals: Temp Pulse Resp BP Pulse Ox 97.6 F 75 18 111/68 99 02/15/22 21:50 02/16/22 08:32 02/16/22 08:00 02/16/22 08:32 02/16/22 08:23 General appearance: Present: no acute distress, well-nourished - EENT Eyes: Present: PERRL, EOM intact - Neck Neck: Present: supple, normal ROM - Respiratory Respiratory effort: normal Respiratory: bilateral: diminished, negative: rales, rhonchi, wheezing - Cardiovascular Rhythm: regular Heart Sounds: Present: S1 & S2 - Extremities Extremities: no ischemia, No edema - Abdominal General gastrointestinal: soft, non-tender, non-distended, normal bowel sounds - Integumentary Integumentary: Present: clear, warm - Psychiatric Psychiatric: appropriate mood/affect, agitated - Neurologic Neurologic: CNII-XII intact, moves all extremities HEART Score - HEART Score Troponin: Troponin T 0.051 ng/mL (0.00-0.029) H 02/15/22 08:19 Results - Labs CBC & Chem 7: 02/16/22 07:17 02/16/22 07:17 Labs: Laboratory Last Values WBC 4.6 K/mm3 (4.5-11.0) 02/16/22 07:17 RBC 4.60 M/mm3 (3.65-5.03) 02/16/22 07:17 Hgb 13.8 gm/dl (11.8-15.2) 02/16/22 07:17 Hct 43.6 % (35.5-45.6) 02/16/22 07:17 MCV 95 fl (84-94) H 02/16/22 07:17 MCH 30 pg (28-32) 02/16/22 07:17 MCHC 32 % (32-34) 02/16/22 07:17 RDW 16.1 % (13.2-15.2) H 02/16/22 07:17 Plt Count 143 K/mm3 (140-440) 02/16/22 07:17 Lymph % (Auto) 13.8 % (13.4-35.0) 02/16/22 07:17 [place] % (Auto) 7.5 % (0.0-7.3) H 02/16/22 07:17 Eos % (Auto) 0.1 % (0.0-4.3) 02/16/22 07:17 Baso % (Auto) Ventilation Mechanic 02/16/22 07:17 Lymph # (Auto) 0.6 K/mm3 (1.2-5.4) L 02/16/22 07:17 [place] # (Auto) 0.3 K/mm3 (0.0-0.8) 02/16/22 07:17 Eos # (Auto) 0.0 K/mm3 (0.0-0.4) 02/16/22 07:17 Baso # (Auto) 0.0 K/mm3 (0.0-0.1) 02/16/22 07:17 Seg Neutrophils % 78.0 % (40.0-70.0) H 02/16/22 07:17 Seg Neutrophils # 3.6 K/mm3 (1.8-7.7) 02/16/22 07:17 ABG pH 7.344 pH Units (7.350-7.450) L 02/15/22 02:15 ABG pCO2 49.6 mm Hg 02/15/22 02:15 ABG pO2 140.5 mm Hg (80.0-90.0) H 02/15/22 02:15 ABG HCO3 26.4 mmol/L (20.0-26.0) H 02/15/22 02:15 ABG O2 Saturation 98.6 % (95.0-99.0) 02/15/22 02:15 ABG O2 Content 18.5 (0.0-44) 02/15/22 02:15 ABG Base Excess 0.1 mmol/L (-2.0-3.0) 02/15/22 02:15 ABG Hemoglobin 13.5 gm/dl (14.0-18.0) L 02/15/22 02:15 ABG Carboxyhemoglobin 1.5 % (0.0-5.0) 02/15/22 02:15 ABG Methemoglobin 0.5 % (0.0-1.5) 02/15/22 02:15 Oxyhemoglobin 96.6 % (95.0-99.0) 02/15/22 02:15 FiO2 80 % 02/15/22 02:15 Sodium 136 mmol/L (137-145) L 02/16/22 07:17 Potassium 4.7 mmol/L (3.6-5.0) D 02/16/22 07:17 Chloride 99.8 mmol/L (98-107) 02/16/22 07:17 Carbon Dioxide 26 mmol/L (22-30) 02/16/22 07:17 Anion Gap 15 mmol/L 02/16/22 07:17 BUN 31 mg/dL (9-20) H 02/16/22 07:17 Creatinine 1.4 mg/dL (0.8-1.3) H 02/16/22 07:17 Estimated GFR 51 ml/min 02/16/22 07:17 BUN/Creatinine Ratio 22 % 02/16/22 07:17 Glucose 206 mg/dL (75-100) H 02/16/22 07:17 POC Glucose 180 mg/dL (70-105) H 02/16/22 07:18 Lactic Acid 3.70 mmol/L (0.7-2.0) H* 02/16/22 07:17 Calcium 8.2 mg/dL (8.4-10.2) L 02/16/22 07:17 Total Bilirubin 1.00 mg/dL (0.1-1.2) 02/15/22 01:47 AST 45 units/L (5-40) H 02/15/22 01:47 ALT 37 units/L (7-56) 02/15/22 01:47 Alkaline Phosphatase 190 units/L (35-129) H 02/15/22 01:47 Troponin T 0.051 ng/mL (0.00-0.029) H 02/15/22 08:19 NT-Pro-B Natriuret Pep 73465 pg/mL (0-900) H 02/15/22 01:47 Total Protein 9.1 g/dL (6.3-8.2) H 02/15/22 01:47 Albumin 3.5 g/dL (3.9-5) L 02/15/22 01:47 Albumin/Globulin Ratio 0.6 % 02/15/22 01:47 Triglycerides 65 mg/dL (2-149) 02/15/22 01:47 Cholesterol 143 mg/dL (50-199) 02/15/22 01:47 LDL Cholesterol Direct 62 mg/dL (50-130) 02/15/22 01:47 HDL Cholesterol 79 mg/dL (40-59) H 02/15/22 01:47 Cholesterol/HDL Ratio 1.81 % 02/15/22 01:47 Procalcitonin 0.49 ng/mL (<0.15) 02/15/22 08:19 TSH 4.360 mlU/mL (0.270-4.200) H 02/15/22 01:47 Free T4 1.14 ng/dL (0.76-1.46) 02/15/22 01:47 Urine Color Colorless (Yellow) 02/15/22 05:40 Urine Turbidity Clear (Clear) 02/15/22 05:40 Urine pH 6.0 (5.0-7.0) 02/15/22 05:40 Ur Specific [place] 1.020 (1.003-1.030) 02/15/22 05:40 Urine Protein 300 mg/dl mg/dL (Negative) 02/15/22 05:40 Urine Glucose (UA) Negative mg/dL (Negative) 02/15/22 05:40 Urine Ketones Negative mg/dL (Negative) 02/15/22 05:40 Urine Blood Large (Negative) A 02/15/22 05:40 Urine Nitrite Negative (Negative) 02/15/22 05:40 Urine Bilirubin Negative (Negative) 02/15/22 05:40 Urine Urobilinogen 0.2 mg/dL (<2.0) 02/15/22 05:40 Ur Leukocyte Esterase Negative (Negative) 02/15/22 05:40 Urine WBC (Auto) 10.0 /HPF (0.0-6.0) H 02/15/22 05:40 Urine RBC (Auto) 19.0 /HPF (0.0-6.0) 02/15/22 05:40 U Epithel Cells (Auto) 3.0 /HPF (0-13.0) 02/15/22 05:40 Urine Bacteria (Auto) 2+ /HPF (Negative) 02/15/22 05:40 Hyaline Casts 16 /LPF 02/15/22 05:40 Urine Mucus Few /HPF 02/15/22 05:40 SARS-CoV-2 (PCR) Positive (Negative) A 02/15/22 11:35 Blood Type B POSITIVE 02/15/22 01:54 Antibody Screen Negative 02/15/22 01:54 Microbiology: Microbiology 02/15/22 01:54 Peripheral/Venous Blood Culture - Preliminary Culture in Progress 02/15/22 02:02 Peripheral/Venous Blood Culture - Preliminary Culture in Progress Doss/IV: Voiding Method Condom Catheter Active Medications - Current Medications Current Medications: Generic Name Dose Route Start Last Admin Trade Name Freq PRN Reason Stop Dose Admin Acetaminophen 650 mg 02/15/22 05:41 Acetaminophen 325 Mg Tab PO Q4H PRN Pain MILD(1-3)/Fever >100.5/PACHECO Albuterol 2.5 mg 02/15/22 05:41 Albuterol 2.5 Mg/3 Ml Nebu IH Q3HRT PRN Shortness Of Breath Albuterol/Ipratropium 1 ampul 02/15/22 08:00 02/16/22 08:21 Ipratropium/Albuterol Sulfate 3 Ml Ampul.Neb IH 1 ampul Q6HRT LYNDSAY Administration Apixaban 5 mg 02/15/22 10:00 02/15/22 21:06 Apixaban 5 Mg Tab PO 5 mg Q12HR LYNDSAY Administration Atorvastatin Calcium 40 mg 02/15/22 22:00 02/15/22 21:06 Atorvastatin 40 Mg Tab PO 40 mg QHS LYNDSAY Administration Clopidogrel Bisulfate 75 mg 02/15/22 10:00 02/15/22 09:18 Clopidogrel 75 Mg Tab PO 75 mg QDAY LYNDSAY Administration Dexamethasone 8 mg 02/15/22 13:00 02/15/22 13:38 Dexamethasone 4 Mg/Ml Vial IV 02/25/22 12:59 8 mg DAILY LYNDSAY Administration Dextrose 0 ml 02/15/22 05:41 Dextrose 50% In Water (25gm) 50 Ml Syringe IV Q30MIN PRN Hypoglycemia Protocol Famotidine 20 mg 02/15/22 10:00 02/15/22 21:06 Famotidine 20 Mg Tab PO 20 mg BID LYNDSAY Administration Furosemide 40 mg 02/15/22 06:00 02/16/22 05:59 Furosemide 40 Mg/4 Ml Inj IV 40 mg BID@0600,1800 LYNDSAY Administration Insulin Human Lispro 0 unit 02/15/22 07:30 02/16/22 08:31 Insulin Lispro 100 Unit/Ml SUB-Q 2 unit ACHS LYNDSAY Administration Protocol Lisinopril 5 mg 02/15/22 10:00 02/15/22 09:18 Lisinopril 5 Mg Tab PO 5 mg QDAY LYNDSAY Administration Metoprolol Tartrate 25 mg 02/15/22 08:00 02/16/22 08:32 Metoprolol Tartrate 25 Mg Tab PO 25 mg BID@0800,1700 LYNDSAY Administration Morphine Sulfate 2 mg 02/15/22 05:41 02/15/22 11:32 Morphine 2 Mg/1 Ml Inj IV 2 mg Q4H PRN Administration Pain, Moderate (4-6) Morphine Sulfate 4 mg 02/15/22 05:41 02/15/22 21:05 Morphine 4 Mg/1 Ml Inj IV 4 mg Q4H PRN Administration Pain , Severe (7-10) Ondansetron HCl 4 mg 02/15/22 05:41 Ondansetron 4 Mg/2 Ml Inj IV Q8H PRN Nausea And Vomiting Potassium Chloride 40 meq 02/15/22 10:00 02/15/22 09:19 Potassium Chloride Er 20 Meq Tab PO 40 meq QDAY LYNDSAY Administration Sodium Chloride 10 ml 02/15/22 10:00 02/15/22 21:07 Sodium Chloride 0.9% 10 Ml Flush Syringe IV 10 ml BID LYNDSAY Administration Sodium Chloride 10 ml 02/15/22 05:41 Sodium Chloride 0.9% 10 Ml Flush Syringe IV PRN PRN LINE FLUSH Spironolactone 25 mg 02/15/22 10:00 02/15/22 09:18 Spironolactone 25 Mg Tab PO 25 mg QDAY LYNDSAY Administration Nutrition/Malnutrition Assess - Dietary Evaluation Nutrition/Malnutrition Findings: Nutrition Notes Start: 02/15/22 14:18 Freq: Status: Active Protocol: Document 02/15/22 14:18 ERICK (Rec: 02/15/22 14:41 ERICK [id number]) Nutrition Notes Need for Assessment generated from: MD Order,Education Initial or Follow up Brief Note Current Diagnosis COPD,Diabetes,Sepsis, Hypertension,Respiratory Failure,Hyperlipidemia Other Pertinent Diagnosis HFrEF, PVD, PAD, COVID-19, PER , Pleural Effusion, Cardiomyopathy, ... Current Diet Cardiac/Consistent Carbohydrates Diet (since B ). Height 5 ft 5 in Weight 82 kg [place] Body Weight (kg) 61.81 BMI 30.0 Intake Prior to Admission Good Weight change and time frame Pt denies having loss body weight [employer]. Weight Status Obese Subjective/Other Information RD consult for nutrition education assessment. No reports available on Pt's PO intake of meals at the time , will assess at F/U. Pt is on Room Air, O2 saturation @ 94%, according to Physical Assessment History notes. Pt has missing teeth, according to Physical Assessment History notes. Pt presents an open blister on L-LE as sign of concern for skin risk at the time, according to Physical Assessment History notes. Pt presents generalized edema, specially affecting L-LE, according to History & Physical notes. Pt has R-AKA, according to Progress notes. Pt still in critical condition , not a candidate for Nutrition Education at the time, will assess feasibility on F/U. Percent of energy/protein needs met: Prescribed Cardiac/Consistent Carbohydrates Diet provides for energy/protein needs (1, 977 Kcal/86 g) during LOS. Nutrition Intervention Follow-Up By: 02/22/22 Additional Comments Nutrition education will be provided at F/U, if feasible. Continue monitoring food tolerance, %PO intake of meals , and BM.
[2022-02-16] MEDS: CLOPIDOGREL 75 MG TAB PO SCH (09:36)
[2022-02-16] MEDS: dexAMETHasone 4 MG/ML VIAL IV SCH (09:36)
[2022-02-16] MEDS: APIXABAN 5 MG TAB PO SCH ×2 (09:36→22:03)
[2022-02-16] MEDS: FAMOTIDINE 20 MG TAB PO SCH ×2 (09:36→22:03)
[2022-02-16] MEDS: LISINOPRIL 5 MG TAB PO SCH (09:37)
[2022-02-16] MEDS: POTASSIUM CHLORIDE ER 20 MEQ TAB PO SCH (09:44)
[2022-02-16] MEDS: SPIRONOLACTONE 25 MG TAB PO SCH (09:44)
--- NOTE | 2022-02-16 11:31 | Progress Note ---
Assessment and Plan Patient is a 66-year-old male with past medical history of HFrEF, hypertension, hyperlipidemia, peripheral vascular disease s/p AKA, GERD who came to the hospital via EMS shortness of breath which Acute on chronic HFrEF Sepsis [id number] follow Hypertension Acute respiratory failure-currently on BiPAP COPD Peripheral vascular disease s/p AKA GERD Diabetes Thrombocytopenia Medical noncompliance Echo 06/23/2021-EF 30 to 35%, left ventricle is mildly dilated moderate global hypokinesis of LV. Left atrium is mildly dilated. Right ventricle systolic function is normal Plan: n Suspect troponin leakage as a result of acute on chronic HFrEF BNP noted to be elevated, patient reports shortness of breath, patient has lower extremity edema. Creatinine noted to be elevated however patient does have lower extremity edema, shortness of breath and elevated BNP. Primary team may wish to consider nephrology consult if creatinine worsens Continue diuresis with Lasix 40 mg IV twice daily. Repeat BMP in the a.m. strict I&O's with close monitoring of renal function Patient currently on Eliquis, Lipitor, Plavix, lisinopril, metoprolol, Aldactone Lower extremity Doppler pending to rule out limb ischemia Patient seen in conjunction with Dr. Ayala who agrees with this plan of care - Patient Problems (1) Sepsis Current Visit: Yes Status: Acute (2) COVID-19 Current Visit: Yes Status: Acute (3) Dilated cardiomyopathy Current Visit: No Status: Acute (4) Hyperlipemia, mixed Current Visit: No Status: Chronic (5) Peripheral arterial disease Current Visit: No Status: Chronic (6) COPD (chronic obstructive pulmonary disease) Current Visit: No Status: Chronic Qualifiers: Emphysema type: unspecified (7) Hyperlipidemia Current Visit: No Status: Chronic Qualifiers: Hyperlipidemia type: mixed hyperlipidemia Qualified Code(s): E78.2 - Mixed hyperlipidemia (8) Hypertension Current Visit: No Status: Chronic Qualifiers: Hypertension type: primary hypertension Qualified Code(s): I10 - Essential (primary) hypertension (9) Acute on chronic HFrEF (heart failure with reduced ejection fraction) Current Visit: No Status: Acute (10) Volume overload Current Visit: No Status: Acute (11) Lactic acidosis Current Visit: Yes Status: Acute Subjective Date of service: 02/16/22 Principal diagnosis: Acute on chronic HFrEF, COVID-19 Interval history: Patient transferred to third floor due to testing positive for COVID Patient noncompliant on monitor tech Objective Vital Signs Temp Pulse Pulse Resp Resp Resp BP 02/16/22 09:44 75 111/68 02/16/22 09:37 75 111/68 02/16/22 08:32 75 111/68 02/16/22 08:23 02/16/22 08:00 77 18 02/16/22 03:00 24 02/16/22 01:43 78 19 02/15/22 23:00 02/15/22 21:50 97.6 F 78 18 125/77 02/15/22 20:36 02/15/22 20:00 76 19 02/15/22 17:55 97.3 F L 73 18 131/99 02/15/22 17:21 98.1 F 88 18 136/92 02/15/22 16:00 98.3 F 86 22 02/15/22 15:43 84 02/15/22 15:40 49 L 22 118/85 02/15/22 14:09 02/15/22 14:00 83 19 02/15/22 12:07 98.5 F 77 18 114/70 02/15/22 11:57 23 02/15/22 11:53 79 BP Pulse Ox 02/16/22 09:44 02/16/22 09:37 02/16/22 08:32 02/16/22 08:23 99 02/16/22 08:00 02/16/22 03:00 02/16/22 01:43 02/15/22 23:00 100 02/15/22 21:50 98 02/15/22 20:36 94 02/15/22 20:00 02/15/22 17:55 98 02/15/22 17:21 100 02/15/22 16:00 118/85 99 02/15/22 15:43 98 02/15/22 15:40 82 L 02/15/22 14:09 96 02/15/22 14:00 02/15/22 12:07 99 02/15/22 11:57 94 02/15/22 11:53 - Physical Examination General: No Apparent Distress HEENT: Positive: Normocephaly Neck: Positive: trachea midline Cardiac: Positive: Reg Rate and Rhythm Lungs: Positive: Decreased Breath Sounds Neuro: Positive: Grossly Intact Abdomen: Positive: Soft, Distended Skin: Positive: Cool Extremities: Present: upper extr. pulses, edema, Cool - Labs and Meds CBC 02/16/22 Range/Units 07:17 WBC 4.6 (4.5-11.0) K/mm3 RBC 4.60 (3.65-5.03) M/mm3 Hgb 13.8 (11.8-15.2) gm/dl Hct 43.6 (35.5-45.6) % Plt Count 143 (140-440) K/mm3 Lymph # (Auto) 0.6 L (1.2-5.4) K/mm3 [place] # (Auto) 0.3 (0.0-0.8) K/mm3 Eos # (Auto) 0.0 (0.0-0.4) K/mm3 Baso # (Auto) 0.0 (0.0-0.1) K/mm3 Comprehensive Metabolic Panel 02/16/22 Range/Units 07:17 Sodium 136 L (137-145) mmol/L Potassium 4.7 D (3.6-5.0) mmol/L Chloride 99.8 (98-107) mmol/L Carbon Dioxide 26 (22-30) mmol/L BUN 31 H (9-20) mg/dL Creatinine 1.4 H (0.8-1.3) mg/dL Glucose 206 H (75-100) mg/dL Calcium 8.2 L (8.4-10.2) mg/dL - Imaging and Cardiology Echo: report reviewed - EKG Sinus rhythms and dysrhythmias: sinus tachycardia AV and intraventricular conduction: left posterior fascicular
--- NOTE | 2022-02-16 13:43 | Event Note ---
Date: 02/16/22 Full consult to follow. Originally consulted for bipap management and heart failure. Patient has since been weaned off and is now on 3 liters with good sats. Responded well to diuresis and ID agrees this is more fluid overload than respiratory failure related to COVID. Continue to diurese and wean FiO2 as tolerated. Wean FiO2 for sats >88%
[2022-02-16 14:08] LABS: C-Reactive Protein 2.1 mg/dL (0.00-1.30)
--- NOTE | 2022-02-16 14:28 | Vascular Lab Report ---
DUPLEX DOPPLER LOWER EXTREMITY ARTERIAL, LEFT INDICATION / CLINICAL INFORMATION: Evaluate for possible LE ischemia. TECHNIQUE: Arterial duplex examination of the left lower extremity performed using B-mode, color flow and spectral Doppler assessment. FINDINGS: LEFT: Common Femoral Artery: PSV 65 cm/sec. Triphasic waveform. Proximal SFA: PSV 46 cm/sec. Triphasic waveform. Mid SFA: PSV 51 cm/sec. Monophasic waveform. Distal SFA: PSV 17 cm/sec. Monophasic waveform. Popliteal Artery: PSV 14 cm/sec. Monophasic waveform. Posterior Tibial Artery: PSV 13 cm/sec. Monophasic waveform. Dorsalis Pedis Artery: PSV 57 cm/sec. Monophasic waveform. ADDITIONAL FINDINGS: None. LEFT YANNICK: Not calculated. IMPRESSION: 1. There is significant atherosclerotic plaque noted throughout the left lower extremity. 2. Transition to abnormal monophasic waveforms with minimal flow noted from the mid superficial femor al artery to the ankle vasculature is again visualized. Ankle-Brachial Index (YANNICK): - Calcified arteries > 1.4 - Normal = 0.9-1.4 - Mild PAD = 0.7-0.89 - Moderate PAD = 0.51-0.69 - Severe PAD < 0.5 Doppler Waveform: - Triphasic is normal. - Biphasic is abnormal if clear transition from triphasic signal along vascular tree. - Monophasic is abnormal. Scribed by: Yahaira Castelan RDMS, RVT, ELIDA Scribed: 02/16/2022 1:01 PM I have reviewed the images, agree with this report, and edited this report as needed. Signer Name: Estevan Julian MD Signed: 02/16/2022 2:24 PM Workstation Name: [id number]
--- NOTE | 2022-02-16 16:32 | Progress Note ---
Assessment and Plan Cultures: Blood culture no growth so far A/P: 66-year-old man past medical history hypertension, PAD now with: #Acute COVID-19: The background acute CHF. Currently on nasal cannula. #Acute hypoxic respiratory failure: On nasal cannula. Probably more likely driven by his acute CHF and fluid overload in the COVID-19 itself. 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 -Anticoagulation per protocol -No need for antibiotics at present time Thank you for the consult, we will continue to follow. Chriss Parmar MD [facility] O: [phone] F: [phone] Subjective Date of service: 02/16/22 Principal diagnosis: Acute on chronic HFrEF, COVID-19 Interval history: Afebrile, normal white count. No acute change. Objective - Exam Narrative Exam: Physical exam deferred to reduce risk of transmission of COVID-19. Please refer to primary team's note. - Constitutional Vitals: Vital Signs Temp Pulse Resp BP Pulse Ox 98.2 F 71 18 121/71 98 02/16/22 13:46 02/16/22 14:00 02/16/22 14:00 02/16/22 13:46 02/16/22 13:46 Temperature -Last 24 Hours Temperature 98.2 F Temperature 97.6 F Temperature 97.3 F Temperature 98.1 F - Labs CBC & Chem 7: 02/16/22 07:17 02/16/22 07:17 Labs: Abnormal lab results 02/15/22 02/16/22 02/16/22 Range/Units 17:29 07:17 07:17 MCV 95 H (84-94) fl RDW 16.1 H (13.2-15.2) % [place] % (Auto) 7.5 H (0.0-7.3) % Lymph # (Auto) 0.6 L (1.2-5.4) K/mm3 Seg Neutrophils % 78.0 H (40.0-70.0) % Sodium (137-145) mmol/L BUN (9-20) mg/dL Creatinine (0.8-1.3) mg/dL Glucose (75-100) mg/dL POC Glucose 167 H (70-105) mg/dL Lactic Acid 3.70 H* (0.7-2.0) mmol/L Calcium (8.4-10.2) mg/dL Ferritin (30.0-300.0) ng/mL Lactate Dehydrogenase (91-180) units/L C-Reactive Protein (0.00-1.30) mg/dL 02/16/22 02/16/22 02/16/22 Range/Units 07:17 07:18 09:03 MCV (84-94) fl RDW (13.2-15.2) % [place] % (Auto) (0.0-7.3) % Lymph # (Auto) (1.2-5.4) K/mm3 Seg Neutrophils % (40.0-70.0) % Sodium 136 L (137-145) mmol/L BUN 31 H (9-20) mg/dL Creatinine 1.4 H (0.8-1.3) mg/dL Glucose 206 H (75-100) mg/dL POC Glucose 180 H (70-105) mg/dL Lactic Acid (0.7-2.0) mmol/L Calcium 8.2 L (8.4-10.2) mg/dL Ferritin 1411.0 H (30.0-300.0) ng/mL Lactate Dehydrogenase (91-180) units/L C-Reactive Protein (0.00-1.30) mg/dL 02/16/22 02/16/22 02/16/22 Range/Units 09:03 11:30 11:39 MCV (84-94) fl RDW (13.2-15.2) % [place] % (Auto) (0.0-7.3) % Lymph # (Auto) (1.2-5.4) K/mm3 Seg Neutrophils % (40.0-70.0) % Sodium (137-145) mmol/L BUN (9-20) mg/dL Creatinine (0.8-1.3) mg/dL Glucose (75-100) mg/dL POC Glucose 181 H (70-105) mg/dL Lactic Acid 4.20 H* (0.7-2.0) mmol/L Calcium (8.4-10.2) mg/dL Ferritin (30.0-300.0) ng/mL Lactate Dehydrogenase 425 H (91-180) units/L C-Reactive Protein 2.10 H (0.00-1.30) mg/dL
[2022-02-16] MEDS: MORPHINE 4 MG/1 ML INJ IV PRN (22:03)
[2022-02-17] MEDS: IPRATROPIUM/ALBUTEROL SULFATE 3 ML AMPUL.NEB IH SCH ×4 (01:26→19:18)
[2022-02-17] MEDS: FUROSEMIDE 40 MG/4 ML INJ IV SCH ×2 (06:09→17:03)
[2022-02-17] MEDS: INSULIN LISPRO 100 UNIT/ML SUB-Q SCH ×4 (08:50→21:23)
[2022-02-17] MEDS: METOPROLOL TARTRATE 25 MG TAB PO SCH ×2 (08:51→16:28)
[2022-02-17 09:54] LABS: Calcium 8.4 mg/dL (8.4-10.2)
[2022-02-17] MEDS: LISINOPRIL 5 MG TAB PO SCH (10:56)
[2022-02-17] MEDS: dexAMETHasone 4 MG/ML VIAL IV SCH (10:56)
[2022-02-17] MEDS: FAMOTIDINE 20 MG TAB PO SCH ×2 (10:56→21:25)
[2022-02-17] MEDS: POTASSIUM CHLORIDE ER 20 MEQ TAB PO SCH (10:56)
[2022-02-17] MEDS: SPIRONOLACTONE 25 MG TAB PO SCH (10:56)
[2022-02-17] MEDS: CLOPIDOGREL 75 MG TAB PO SCH (10:56)
[2022-02-17] MEDS: APIXABAN 5 MG TAB PO SCH ×2 (10:57→21:23)
[2022-02-17] MEDS ORDERED: DOBUTamine/D5W 500 MG/250 ML 500 MG/250 ML BAG IV SCH (11:00)
--- NOTE | 2022-02-17 11:35 | Progress Note ---
Assessment and Plan Patient is a 66-year-old male with past medical history of HFrEF, hypertension, hyperlipidemia, peripheral vascular disease s/p AKA, GERD who came to the hospital via EMS shortness of breath which Acute on chronic HFrEF Sepsis [id number] follow Hypertension Acute respiratory failure-currently on BiPAP COPD Peripheral vascular disease s/p AKA GERD Diabetes Thrombocytopenia Medical noncompliance Echo 06/23/2021-EF 30 to 35%, left ventricle is mildly dilated moderate global hypokinesis of LV. Left atrium is mildly dilated. Right ventricle systolic function is normal Plan: Suspect troponin leakage as a result of acute on chronic HFrEF Patient has lower extremity edema and is not having significant output with diuresis. Will attempt dobutamine try to increase forward output Creatinine noted to be elevated however patient does have lower extremity edema, shortness of breath and elevated BNP. Recommend nephrology consult due to elevated creatinine Continue diuresis with Lasix 40 mg IV twice daily if okay with nephrology Repeat BMP in the a.m. strict I&O's with close monitoring of renal function Patient currently on Eliquis, Lipitor, Plavix, lisinopril, metoprolol, Aldactone Lower extremity Doppler shows severe peripheral vascular disease. Primary team may wish to consult vascular team Patient seen in conjunction with Dr. Ayala who agrees with this plan of care - Patient Problems (1) Sepsis Current Visit: Yes Status: Acute (2) COVID-19 Current Visit: Yes Status: Acute (3) Dilated cardiomyopathy Current Visit: No Status: Acute (4) Hyperlipemia, mixed Current Visit: No Status: Chronic (5) Peripheral arterial disease Current Visit: No Status: Chronic (6) COPD (chronic obstructive pulmonary disease) Current Visit: No Status: Chronic Qualifiers: Emphysema type: unspecified (7) Hyperlipidemia Current Visit: No Status: Chronic Qualifiers: Hyperlipidemia type: mixed hyperlipidemia Qualified Code(s): E78.2 - Mixed hyperlipidemia (8) Hypertension Current Visit: No Status: Chronic Qualifiers: Hypertension type: primary hypertension Qualified Code(s): I10 - Essential (primary) hypertension (9) Acute on chronic HFrEF (heart failure with reduced ejection fraction) Current Visit: No Status: Acute (10) Volume overload Current Visit: No Status: Acute (11) Lactic acidosis Current Visit: Yes Status: Acute Subjective Date of service: 02/17/22 Principal diagnosis: Acute on chronic HFrEF, COVID-19 Interval history: Patient resting in bed in no acute distress Patient noncompliant on laboratory monitor Objective Vital Signs Temp Pulse Pulse Resp Resp BP BP 02/17/22 10:56 65 115/68 02/17/22 08:51 65 115/68 02/17/22 07:26 02/17/22 05:03 97.8 F 63 18 132/84 02/16/22 23:00 02/16/22 22:01 97.8 F 18 L 18 121/71 02/16/22 19:48 79 20 02/16/22 17:32 98.0 F 71 18 144/75 02/16/22 17:14 68 121/78 02/16/22 14:00 71 18 02/16/22 13:46 98.2 F 68 18 121/71 Pulse Ox 02/17/22 10:56 02/17/22 08:51 02/17/22 07:26 97 02/17/22 05:03 98 02/16/22 23:00 98 02/16/22 22:01 95 02/16/22 19:48 98 02/16/22 17:32 94 02/16/22 17:14 02/16/22 14:00 02/16/22 13:46 98 - Physical Examination General: No Apparent Distress HEENT: Positive: Normocephaly Neck: Positive: trachea midline Cardiac: Positive: Reg Rate and Rhythm Lungs: Positive: Decreased Breath Sounds Neuro: Positive: Grossly Intact Abdomen: Positive: Soft, Distended Skin: Positive: Cool Extremities: Present: upper extr. pulses, edema, Cool, Other (Wound on left lower extremity around the knee) - Labs and Meds Cardiac Enzymes 02/16/22 Range/Units 09:03 Lactate Dehydrogenase 425 H (91-180) units/L Comprehensive Metabolic Panel 02/17/22 Range/Units 09:18 Sodium 134 L (137-145) mmol/L Potassium 5.0 (3.6-5.0) mmol/L Chloride 99.9 (98-107) mmol/L Carbon Dioxide 23 (22-30) mmol/L BUN 46 H (9-20) mg/dL Creatinine 1.6 H (0.8-1.3) mg/dL Glucose 207 H (75-100) mg/dL Calcium 8.4 (8.4-10.2) mg/dL - Imaging and Cardiology Echo: report reviewed - EKG Sinus rhythms and dysrhythmias: sinus tachycardia AV and intraventricular conduction: left posterior fascicular
--- NOTE | 2022-02-17 12:23 | Consultation ---
History of Present Illness Consult date: 02/17/22 Reason for consult: hypoxemia, other (COVID) History of present illness: 66 y/o male admitted with acute respiratory failure, most likely from heart failure and volume overload but found to be cOVID positive as well. was initially on bipap but has since been weaned to 2 liters. Past History Past Medical History: diabetes, heart failure, hypertension, hyperlipidemia, other (PVD) Past Surgical History: Other (Right AKA) Social history: other (denies: smoking, alcohol abuse, prescription drug abuse)) Family history: hypertension Medications and Allergies Allergies Allergy/AdvReac Type Severity Reaction Status Date / Time No Known Allergies Allergy Verified 08/19/21 15:15 Home Medications Medication Instructions Recorded Confirmed Last Taken Type Albuterol Mdi (or & Nicu Only) 2 puff IH QID PRN #1 inhalation 06/03/21 02/15/22 10/20/21 Rx [ProAir HFA Inhaler] Multivit-Min/Iron/Folic Acid/K 1 tab PO DAILY 08/11/21 02/15/22 10/20/21 History [Adults Multivitamin Caplet] Dextran 70/Hypromellose [Natural 1 drop OU QDAY 08/19/21 02/15/22 10/20/21 History Balance Tears Eye Drop] Furosemide [Lasix TAB] 40 mg PO QDAY #30 tablet 10/28/21 02/15/22 Unknown Rx Spironolactone [Aldactone] 25 mg PO QDAY 30 Days #30 tablet 10/28/21 02/15/22 Unknown Rx lisinopriL [Zestril TAB] 5 mg PO QDAY 30 Days #30 tablet 10/28/21 02/15/22 Unknown Rx ALBUTEROL NEB's [Proventil 0.083% 2.5 mg IH Q6HRT PRN #1 nebu 01/21/22 02/15/22 Unknown Rx NEBS] Apixaban [Eliquis] 5 mg PO Q12HR 30 Days #60 tablet 01/21/22 02/15/22 Unknown Rx Aspirin EC [Halfprin EC] 81 mg PO QDAY 30 Days #30 tablet 01/21/22 02/15/22 Unknown Rx AtorvaSTATin [Lipitor] 40 mg PO QHS 30 Days #30 tablet 01/21/22 02/15/22 Unknown Rx Clopidogrel [Plavix] 75 mg PO QDAY 30 Days #30 tablet 01/21/22 02/15/22 Unknown Rx Furosemide [Lasix TAB] 40 mg PO BID 30 Days #60 tablet 01/21/22 02/15/22 Unknown Rx Metoprolol [Lopressor TAB] 25 mg PO BID 30 Days #60 tablet 01/21/22 02/15/22 Unknown Rx Pantoprazole [Protonix TAB] 40 mg PO DAILY #30 tablet 01/21/22 02/15/22 Unknown Rx Potassium Chloride [K-Dur] 40 meq PO QDAY 3 Days #30 tablet 01/21/22 02/15/22 Unknown Rx Spironolactone [Aldactone] 50 mg PO BID #60 tablet 01/21/22 02/15/22 Unknown Rx lisinopriL [Zestril TAB] 5 mg PO QDAY #30 tablet 01/21/22 02/15/22 Unknown Rx Active Meds: Active Medications Acetaminophen (Acetaminophen 325 Mg Tab) 650 mg PO Q4H PRN PRN Reason: Pain MILD(1-3)/Fever >100.5/PACHECO Albuterol (Albuterol 2.5 Mg/3 Ml Nebu) 2.5 mg IH Q3HRT PRN PRN Reason: Shortness Of Breath Albuterol/Ipratropium (Ipratropium/Albuterol Sulfate 3 Ml Ampul.Neb) 1 ampul IH Q6HRT [facility] Last Admin: 02/17/22 07:26 Dose: Not Given Apixaban (Apixaban 5 Mg Tab) 5 mg PO Q12HR [facility] Last Admin: 02/17/22 10:57 Dose: 5 mg Atorvastatin Calcium (Atorvastatin 40 Mg Tab) 40 mg PO QHS [facility] Last Admin: 02/16/22 22:03 Dose: 40 mg Clopidogrel Bisulfate (Clopidogrel 75 Mg Tab) 75 mg PO QDAY [facility] Last Admin: 02/17/22 10:56 Dose: 75 mg Dexamethasone (Dexamethasone 4 Mg/Ml Vial) 8 mg IV DAILY [facility] Stop: 02/25/22 12:59 Last Admin: 02/17/22 10:56 Dose: 8 mg Dextrose (Dextrose 50% In Water (25gm) 50 Ml Syringe) 0 ml IV Q30MIN PRN; Protocol PRN Reason: Hypoglycemia Famotidine (Famotidine 20 Mg Tab) 20 mg PO BID [facility] Last Admin: 02/17/22 10:56 Dose: 20 mg Furosemide (Furosemide 40 Mg/4 Ml Inj) 40 mg IV BID@0600,1800 [facility] Last Admin: 02/17/22 06:09 Dose: 40 mg Dobutamine HCl/Dextrose (Dobutrex Drip 500mg/D5w 250ml) 500 mg in 250 mls @ 6.15 mls/hr IV DIRECT [facility]; Protocol Insulin Human Lispro (Insulin Lispro 100 Unit/Ml) 0 unit SUB-Q ACHS [facility]; Protocol Last Admin: 02/17/22 11:33 Dose: 3 unit Lisinopril (Lisinopril 5 Mg Tab) 5 mg PO QDAY [facility] Last Admin: 02/17/22 10:56 Dose: 5 mg Metoprolol Tartrate (Metoprolol Tartrate 25 Mg Tab) 25 mg PO BID@0800,1700 [facility] Last Admin: 02/17/22 08:51 Dose: 25 mg Morphine Sulfate (Morphine 2 Mg/1 Ml Inj) 2 mg IV Q4H PRN PRN Reason: Pain, Moderate (4-6) Last Admin: 02/15/22 11:32 Dose: 2 mg Morphine Sulfate (Morphine 4 Mg/1 Ml Inj) 4 mg IV Q4H PRN PRN Reason: Pain , Severe (7-10) Last Admin: 02/16/22 22:03 Dose: 4 mg Ondansetron HCl (Ondansetron 4 Mg/2 Ml Inj) 4 mg IV Q8H PRN PRN Reason: Nausea And Vomiting Potassium Chloride (Potassium Chloride Er 20 Meq Tab) 40 meq PO QDAY [facility] Last Admin: 02/17/22 10:56 Dose: 40 meq Sodium Chloride (Sodium Chloride 0.9% 10 Ml Flush Syringe) 10 ml IV BID [facility] Last Admin: 02/17/22 10:57 Dose: 10 ml Sodium Chloride (Sodium Chloride 0.9% 10 Ml Flush Syringe) 10 ml IV PRN PRN PRN Reason: LINE FLUSH Last Admin: 02/17/22 06:09 Dose: 10 ml Spironolactone (Spironolactone 25 Mg Tab) 25 mg PO QDAY [facility] Last Admin: 02/17/22 10:56 Dose: 25 mg Review of Systems All systems: negative Physical Examination Vital signs: Vital Signs Pulse Resp BP Pulse Ox 125 H 22 181/128 93 02/15/22 01:26 02/15/22 01:26 02/15/22 01:26 02/15/22 01:26 Deferred given COVID positive status Results - Laboratory Findings CBC and BMP: 02/16/22 07:17 02/17/22 09:18 ABG ABG pH 7.344 pH Units (7.350-7.450) L 02/15/22 02:15 ABG pCO2 49.6 mm Hg 02/15/22 02:15 ABG pO2 140.5 mm Hg (80.0-90.0) H 02/15/22 02:15 ABG O2 Saturation 98.6 % (95.0-99.0) 02/15/22 02:15 PT/INR, D-dimer D-Dimer 6704.75 ng/mlDDU (0-234) H 02/17/22 09:18 Abnormal lab findings: Abnormal Labs 02/15/22 02/15/22 02/15/22 01:31 01:47 01:47 MCV 95 H RDW 16.5 H Martin % (Auto) Lymph # (Auto) 0.8 L Seg Neutrophils % 72.5 H D-Dimer ABG pH ABG pO2 ABG HCO3 ABG Hemoglobin Sodium Potassium 3.3 L BUN 22 H Creatinine Glucose 388 H POC Glucose 309 H Lactic Acid Calcium Ferritin AST 45 H Alkaline Phosphatase 190 H Lactate Dehydrogenase Troponin T 0.062 H C-Reactive Protein NT-Pro-B Natriuret Pep 27976 H Total Protein 9.1 H Albumin 3.5 L HDL Cholesterol 79 H TSH Urine Blood Urine WBC (Auto) SARS-CoV-2 (PCR) 02/15/22 02/15/22 02/15/22 01:47 01:54 02:15 MCV RDW Martin % (Auto) Lymph # (Auto) Seg Neutrophils % D-Dimer ABG pH 7.344 L ABG pO2 140.5 H ABG HCO3 26.4 H ABG Hemoglobin 13.5 L Sodium Potassium BUN Creatinine Glucose POC Glucose Lactic Acid 3.90 H* Calcium Ferritin AST Alkaline Phosphatase Lactate Dehydrogenase Troponin T C-Reactive Protein NT-Pro-B Natriuret Pep Total Protein Albumin HDL Cholesterol TSH 4.360 H Urine Blood Urine WBC (Auto) SARS-CoV-2 (PCR) 02/15/22 02/15/22 02/15/22 04:26 05:40 07:19 MCV RDW Martin % (Auto) Lymph # (Auto) Seg Neutrophils % D-Dimer ABG pH ABG pO2 ABG HCO3 ABG Hemoglobin Sodium Potassium BUN Creatinine Glucose POC Glucose 206 H Lactic Acid 2.40 H* Calcium Ferritin AST Alkaline Phosphatase Lactate Dehydrogenase Troponin T C-Reactive Protein NT-Pro-B Natriuret Pep Total Protein Albumin HDL Cholesterol TSH Urine Blood Large A Urine WBC (Auto) 10.0 H SARS-CoV-2 (PCR) 02/15/22 02/15/22 02/15/22 08:19 08:19 10:15 MCV RDW Martin % (Auto) Lymph # (Auto) Seg Neutrophils % D-Dimer ABG pH ABG pO2 ABG HCO3 ABG Hemoglobin Sodium Potassium BUN Creatinine Glucose POC Glucose Lactic Acid 2.90 H* 3.30 H* Calcium Ferritin AST Alkaline Phosphatase Lactate Dehydrogenase Troponin T 0.051 H C-Reactive Protein NT-Pro-B Natriuret Pep Total Protein Albumin HDL Cholesterol TSH Urine Blood Urine WBC (Auto) SARS-CoV-2 (PCR) 02/15/22 02/15/22 02/15/22 11:35 12:04 13:24 MCV RDW Martin % (Auto) Lymph # (Auto) Seg Neutrophils % D-Dimer ABG pH ABG pO2 ABG HCO3 ABG Hemoglobin Sodium Potassium BUN Creatinine Glucose POC Glucose 108 H Lactic Acid 3.80 H* Calcium Ferritin AST Alkaline Phosphatase Lactate Dehydrogenase Troponin T C-Reactive Protein NT-Pro-B Natriuret Pep Total Protein Albumin HDL Cholesterol TSH Urine Blood Urine WBC (Auto) SARS-CoV-2 (PCR) Positive A 02/15/22 02/16/22 02/16/22 17:29 07:17 07:17 MCV 95 H RDW 16.1 H Martin % (Auto) 7.5 H Lymph # (Auto) 0.6 L Seg Neutrophils % 78.0 H D-Dimer ABG pH ABG pO2 ABG HCO3 ABG Hemoglobin Sodium Potassium BUN Creatinine Glucose POC Glucose 167 H Lactic Acid 3.70 H* Calcium Ferritin AST Alkaline Phosphatase Lactate Dehydrogenase Troponin T C-Reactive Protein NT-Pro-B Natriuret Pep Total Protein Albumin HDL Cholesterol TSH Urine Blood Urine WBC (Auto) SARS-CoV-2 (PCR) 02/16/22 02/16/22 02/16/22 07:17 07:18 09:03 MCV RDW Martin % (Auto) Lymph # (Auto) Seg Neutrophils % D-Dimer ABG pH ABG pO2 ABG HCO3 ABG Hemoglobin Sodium 136 L Potassium BUN 31 H Creatinine 1.4 H Glucose 206 H POC Glucose 180 H Lactic Acid Calcium 8.2 L Ferritin 1411.0 H AST Alkaline Phosphatase Lactate Dehydrogenase Troponin T C-Reactive Protein NT-Pro-B Natriuret Pep Total Protein Albumin HDL Cholesterol TSH Urine Blood Urine WBC (Auto) SARS-CoV-2 (PCR) 02/16/22 02/16/22 02/16/22 09:03 11:30 11:39 MCV RDW Martin % (Auto) Lymph # (Auto) Seg Neutrophils % D-Dimer ABG pH ABG pO2 ABG HCO3 ABG Hemoglobin Sodium Potassium BUN Creatinine Glucose POC Glucose 181 H Lactic Acid 4.20 H* Calcium Ferritin AST Alkaline Phosphatase Lactate Dehydrogenase 425 H Troponin T C-Reactive Protein 2.10 H NT-Pro-B Natriuret Pep Total Protein Albumin HDL Cholesterol TSH Urine Blood Urine WBC (Auto) SARS-CoV-2 (PCR) 02/16/22 02/16/22 02/17/22 17:30 21:23 08:47 MCV RDW Martin % (Auto) Lymph # (Auto) Seg Neutrophils % D-Dimer ABG pH ABG pO2 ABG HCO3 ABG Hemoglobin Sodium Potassium BUN Creatinine Glucose POC Glucose 306 H 264 H 189 H Lactic Acid Calcium Ferritin AST Alkaline Phosphatase Lactate Dehydrogenase Troponin T C-Reactive Protein NT-Pro-B Natriuret Pep Total Protein Albumin HDL Cholesterol TSH Urine Blood Urine WBC (Auto) SARS-CoV-2 (PCR) 02/17/22 02/17/22 02/17/22 09:18 09:18 09:18 MCV RDW Martin % (Auto) Lymph # (Auto) Seg Neutrophils % D-Dimer 6704.75 H ABG pH ABG pO2 ABG HCO3 ABG Hemoglobin Sodium 134 L Potassium BUN 46 H Creatinine 1.6 H Glucose 207 H POC Glucose Lactic Acid 3.10 H* Calcium Ferritin AST Alkaline Phosphatase Lactate Dehydrogenase Troponin T C-Reactive Protein NT-Pro-B Natriuret Pep Total Protein Albumin HDL Cholesterol TSH Urine Blood Urine WBC (Auto) SARS-CoV-2 (PCR) 02/17/22 11:18 MCV RDW Martin % (Auto) Lymph # (Auto) Seg Neutrophils % D-Dimer ABG pH ABG pO2 ABG HCO3 ABG Hemoglobin Sodium Potassium BUN Creatinine Glucose POC Glucose 207 H Lactic Acid Calcium Ferritin AST Alkaline Phosphatase Lactate Dehydrogenase Troponin T C-Reactive Protein NT-Pro-B Natriuret Pep Total Protein Albumin HDL Cholesterol TSH Urine Blood Urine WBC (Auto) SARS-CoV-2 (PCR) - Diagnostic Findings Chest x-ray: image reviewed Assessment and Plan Patient had marked improvement just with diuresis. Agree with ID and holding on Remdesivir. Continue diuresis and wean FiO2 to off for sats >88%. Will need walk test prior to discharge. Agree with steroids. Suggest changing to PO
--- NOTE | 2022-02-17 15:52 | Progress Note ---
Assessment and Plan Assessment and plan: Patient was seen and examined at the bedside this morning Patient's chart and medications reviewed COVID-positive in isolation, feels slightly better, on 2 L nasal cannula oxygen today --Acute hypoxic respiratory failure Requiring supplemental oxygen 2 L nasal cannula Wean as tolerated, prone positioning Home O2 evaluation prior to discharge s/p BiPAP on admission currently on nasal cannula 2 L --COVID-19 infection [COVID-19 test + 02/15/2022] Requiring 2 L nasal cannula oxygen. Continue IV dexamethasone 8 mg daily x10 doses. No remdesivir due to acute kidney injury Inflammatory markers, ID following Discontinued antibiotics. Procalcitonin is normal range Wean oxygen as tolerated, home O2 evaluation prior to discharge Prone positioning Encouraged --Acute kidney injury ; Due to vasomotor nephropathy Closely monitor renal function, avoid nephrotoxins nephrology consult input output monitoring --Acute on chronic systolic heart failure[EF 30-35 in 2020] Continue anti failure medications, diuretics, beta-blockers, no DARIAN inhibitors due to KARENA Low-sodium diet, fluid restriction, cardiology following Input output monitoring, fluid restriction and supportive care Cardiology initiated dobutamine drip Patient could not be transferred to telemetry due to positive COVID status Checked with IMCU charge nurse, planning transfer to IMCU For close monitoring during dobutamine drip --Lactic acidosistrending down --Non-insulin dependent type II diabetes mellitus hemoglobin A1c: 7.9% in July 2021 Accu-Chek, sliding scale coverage, ADA diet long-acting insulin as needed Diabetic education, diabetic diet education Home health nurse for disease monitoring at discharge --History of COPD; Oxygen titrate O2 sats to more than 90%, nebulizers, IV steroids Supportive care, pulmonary following Home O2 evaluation prior to discharge --Medication noncompliance Patient counseled the importance of adhering to the treatment plan Diet, medications, follow-up visits patient verbalized understanding --Mild intermittent asthma Continue DuoNebs 6 hours and albuterol nebs every 4 hours as needed --Hyperlipidemia; low-cholesterol diet, statin --Hypertension; moderate control Continue current antihypertensives, as needed medications Low-sodium diet, ambulate as tolerated --Peripheral arterial disease; History of BKA converted to right AKA July 2021 Supportive care --Right [id number] amputation Continue aspirin and statin, supportive care --Hypokalemia Replenished, closely monitor electrolytes --Gastroesophageal reflux disease ; Continue Pepcid 20 mg twice daily --Mild protein caloric malnutrition Albumin 3.5, nutrition supplements and supportive care --Superficial abrasions and ulcers on the lower extremities; No evidence of infection, advised dressing/Band-Aid -Obesity; BMI 30.1; Counseling done and advised dietary modification, Counseling done and advised exercise as tolerated and weight reduction when medically stable Advance care plan; 35 minutes Patient counseled the importance of adhering to the treatment plan Diet, medications, follow-up visits patient verbalized understanding Patient also encouraged to educate himself about his diagnosis For the treatment plan, and the tests and reports Also explained to maintain his medical file and take it to the hospital/Dr. Every time he visits, patient agreed with the above counseling and recommendations Preventative health care plan and counseling; 32 minutes Advised to quit recreational drug use Strongly advised to comply with medications, diet, follow-up visits Advised exercise as tolerated and weight reduction when stable Patient had some questions , answered all of them patient verbalized understanding Closely monitor the patient and adjust management as needed Wood Last Maker recommendations noted and appreciated Transfer the patient to [facility] to initiate dobutamine drip per protocol as recommended by cardiology And also for close monitoring Plan of care reviewed with the patient, patient's nurse, charge nurse and the case management Total critical care time 62 minutes. Critical Care statement: The high probability of a clinically significant, sudden or life threatening deterioration of the [respiratory, CVS, infectious disease, metabolic, renal and vascular] system(s) required my full and direct attention, intervention and personal management. The aggregate critical care time was [62] minutes. This time is in addition to time spent performing reported procedures but includes the following: [x] Data Review and interpretation [x] Patient assessment and monitoring of vital signs [x] Documentation and patient counseling [x] Medication orders and management History Interval history: I have seen and examined the patient at the bedside Patient's chart and medications reviewed Isolation precautions and PPE protocols strictly followed Cardiology initiated dobutamine drip per protocol Unable to send the patient to telemetry due to COVID positive status. No new events reported by the nursing Patient is on 3 L of nasal cannula oxygen Hospitalist Physical - Constitutional Vitals: Temp Pulse Resp BP Pulse Ox 96.5 F L 55 L 22 115/70 99 02/17/22 11:22 02/17/22 11:22 02/17/22 11:22 02/17/22 11:22 02/17/22 11:22 General appearance: Present: mild distress, well-nourished, obese - EENT Eyes: Present: PERRL, EOM intact - Neck Neck: Present: supple, normal ROM - Respiratory Respiratory effort: normal, labored Respiratory: bilateral: diminished, rhonchi, negative: rales, wheezing - Cardiovascular Rhythm: regular Heart Sounds: Present: S1 & S2 - Extremities Extremities: no ischemia, abnormal (Right AKA) Extremity abnormal: other (Left lower extremity chronic ulcer, not infected) - Abdominal General gastrointestinal: soft, non-tender, non-distended, normal bowel sounds - Integumentary Integumentary: Present: clear, warm - Psychiatric Psychiatric: appropriate mood/affect, cooperative - Neurologic Neurologic: moves all extremities HEART Score - HEART Score Troponin: Troponin T 0.051 ng/mL (0.00-0.029) H 02/15/22 08:19 Results - Labs CBC & Chem 7: 02/16/22 07:17 02/17/22 09:18 Labs: Laboratory Last Values WBC 4.6 K/mm3 (4.5-11.0) 02/16/22 07:17 RBC 4.60 M/mm3 (3.65-5.03) 02/16/22 07:17 Hgb 13.8 gm/dl (11.8-15.2) 02/16/22 07:17 Hct 43.6 % (35.5-45.6) 02/16/22 07:17 MCV 95 fl (84-94) H 02/16/22 07:17 MCH 30 pg (28-32) 02/16/22 07:17 MCHC 32 % (32-34) 02/16/22 07:17 RDW 16.1 % (13.2-15.2) H 02/16/22 07:17 Plt Count 143 K/mm3 (140-440) 02/16/22 07:17 Lymph % (Auto) 13.8 % (13.4-35.0) 02/16/22 07:17 [place] % (Auto) 7.5 % (0.0-7.3) H 02/16/22 07:17 Eos % (Auto) 0.1 % (0.0-4.3) 02/16/22 07:17 Baso % (Auto) Intensive Care Specialist 02/16/22 07:17 Lymph # (Auto) 0.6 K/mm3 (1.2-5.4) L 02/16/22 07:17 [place] # (Auto) 0.3 K/mm3 (0.0-0.8) 02/16/22 07:17 Eos # (Auto) 0.0 K/mm3 (0.0-0.4) 02/16/22 07:17 Baso # (Auto) 0.0 K/mm3 (0.0-0.1) 02/16/22 07:17 Seg Neutrophils % 78.0 % (40.0-70.0) H 02/16/22 07:17 Seg Neutrophils # 3.6 K/mm3 (1.8-7.7) 02/16/22 07:17 D-Dimer 6704.75 ng/mlDDU (0-234) H 02/17/22 09:18 ABG pH 7.344 pH Units (7.350-7.450) L 02/15/22 02:15 ABG pCO2 49.6 mm Hg 02/15/22 02:15 ABG pO2 140.5 mm Hg (80.0-90.0) H 02/15/22 02:15 ABG HCO3 26.4 mmol/L (20.0-26.0) H 02/15/22 02:15 ABG O2 Saturation 98.6 % (95.0-99.0) 02/15/22 02:15 ABG O2 Content 18.5 (0.0-44) 02/15/22 02:15 ABG Base Excess 0.1 mmol/L (-2.0-3.0) 02/15/22 02:15 ABG Hemoglobin 13.5 gm/dl (14.0-18.0) L 02/15/22 02:15 ABG Carboxyhemoglobin 1.5 % (0.0-5.0) 02/15/22 02:15 ABG Methemoglobin 0.5 % (0.0-1.5) 02/15/22 02:15 Oxyhemoglobin 96.6 % (95.0-99.0) 02/15/22 02:15 FiO2 80 % 02/15/22 02:15 Sodium 134 mmol/L (137-145) L 02/17/22 09:18 Potassium 5.0 mmol/L (3.6-5.0) 02/17/22 09:18 Chloride 99.9 mmol/L (98-107) 02/17/22 09:18 Carbon Dioxide 23 mmol/L (22-30) 02/17/22 09:18 Anion Gap 16 mmol/L 02/17/22 09:18 BUN 46 mg/dL (9-20) H 02/17/22 09:18 Creatinine 1.6 mg/dL (0.8-1.3) H 02/17/22 09:18 Estimated GFR 44 ml/min 02/17/22 09:18 BUN/Creatinine Ratio 29 % 02/17/22 09:18 Glucose 207 mg/dL (75-100) H 02/17/22 09:18 POC Glucose 207 mg/dL (70-105) H 02/17/22 11:18 Lactic Acid 3.10 mmol/L (0.7-2.0) H* 02/17/22 09:18 Calcium 8.4 mg/dL (8.4-10.2) 02/17/22 09:18 Magnesium 2.00 mg/dL (1.7-2.3) 02/17/22 09:18 Ferritin 1411.0 ng/mL (30.0-300.0) H 02/16/22 09:03 Total Bilirubin 1.00 mg/dL (0.1-1.2) 02/15/22 01:47 AST 45 units/L (5-40) H 02/15/22 01:47 ALT 37 units/L (7-56) 02/15/22 01:47 Alkaline Phosphatase 190 units/L (35-129) H 02/15/22 01:47 Lactate Dehydrogenase 425 units/L (91-180) H 02/16/22 09:03 Troponin T 0.051 ng/mL (0.00-0.029) H 02/15/22 08:19 C-Reactive Protein 2.10 mg/dL (0.00-1.30) H 02/16/22 09:03 NT-Pro-B Natriuret Pep 47255 pg/mL (0-900) H 02/15/22 01:47 Total Protein 9.1 g/dL (6.3-8.2) H 02/15/22 01:47 Albumin 3.5 g/dL (3.9-5) L 02/15/22 01:47 Albumin/Globulin Ratio 0.6 % 02/15/22 01:47 Triglycerides 65 mg/dL (2-149) 02/15/22 01:47 Cholesterol 143 mg/dL (50-199) 02/15/22 01:47 LDL Cholesterol Direct 62 mg/dL (50-130) 02/15/22 01:47 HDL Cholesterol 79 mg/dL (40-59) H 02/15/22 01:47 Cholesterol/HDL Ratio 1.81 % 02/15/22 01:47 Procalcitonin 0.49 ng/mL (<0.15) 02/15/22 08:19 TSH 4.360 mlU/mL (0.270-4.200) H 02/15/22 01:47 Free T4 1.14 ng/dL (0.76-1.46) 02/15/22 01:47 Urine Color Colorless (Yellow) 02/15/22 05:40 Urine Turbidity Clear (Clear) 02/15/22 05:40 Urine pH 6.0 (5.0-7.0) 02/15/22 05:40 Ur Specific [place] 1.020 (1.003-1.030) 02/15/22 05:40 Urine Protein 300 mg/dl mg/dL (Negative) 02/15/22 05:40 Urine Glucose (UA) Negative mg/dL (Negative) 02/15/22 05:40 Urine Ketones Negative mg/dL (Negative) 02/15/22 05:40 Urine Blood Large (Negative) A 02/15/22 05:40 Urine Nitrite Negative (Negative) 02/15/22 05:40 Urine Bilirubin Negative (Negative) 02/15/22 05:40 Urine Urobilinogen 0.2 mg/dL (<2.0) 02/15/22 05:40 Ur Leukocyte Esterase Negative (Negative) 02/15/22 05:40 Urine WBC (Auto) 10.0 /HPF (0.0-6.0) H 02/15/22 05:40 Urine RBC (Auto) 19.0 /HPF (0.0-6.0) 02/15/22 05:40 U Epithel Cells (Auto) 3.0 /HPF (0-13.0) 02/15/22 05:40 Urine Bacteria (Auto) 2+ /HPF (Negative) 02/15/22 05:40 Hyaline Casts 16 /LPF 02/15/22 05:40 Urine Mucus Few /HPF 02/15/22 05:40 SARS-CoV-2 (PCR) Positive (Negative) A 02/15/22 11:35 Blood Type B POSITIVE 02/15/22 01:54 Antibody Screen Negative 02/15/22 01:54 Microbiology: Microbiology 02/15/22 05:40 Urine,Clean Catch Urine Culture - Final 02/15/22 01:54 Peripheral/Venous Blood Culture - Preliminary NO GROWTH AFTER 48 HOURS 02/15/22 02:02 Peripheral/Venous Blood Culture - Preliminary NO GROWTH AFTER 48 HOURS Doss/IV: Voiding Method Indwelling Catheter Active Medications - Current Medications Current Medications: Generic Name Dose Route Start Last Admin Trade Name Freq PRN Reason Stop Dose Admin Acetaminophen 650 mg 02/15/22 05:41 Acetaminophen 325 Mg Tab PO Q4H PRN Pain MILD(1-3)/Fever >100.5/PACHECO Albuterol 2.5 mg 02/15/22 05:41 Albuterol 2.5 Mg/3 Ml Nebu IH Q3HRT PRN Shortness Of Breath Albuterol/Ipratropium 1 ampul 02/15/22 08:00 02/17/22 13:29 Ipratropium/Albuterol Sulfate 3 Ml Ampul.Neb IH Not Given Q6HRT LYNDSAY Apixaban 5 mg 02/15/22 10:00 02/17/22 10:57 Apixaban 5 Mg Tab PO 5 mg Q12HR LYNDSAY Administration Atorvastatin Calcium 40 mg 02/15/22 22:00 02/16/22 22:03 Atorvastatin 40 Mg Tab PO 40 mg QHS LYNDSAY Administration Clopidogrel Bisulfate 75 mg 02/15/22 10:00 02/17/22 10:56 Clopidogrel 75 Mg Tab PO 75 mg QDAY LYNDSAY Administration Dexamethasone 8 mg 02/15/22 13:00 02/17/22 10:56 Dexamethasone 4 Mg/Ml Vial IV 02/25/22 12:59 8 mg DAILY LYNDSAY Administration Dextrose 0 ml 02/15/22 05:41 Dextrose 50% In Water (25gm) 50 Ml Syringe IV Q30MIN PRN Hypoglycemia Protocol Famotidine 20 mg 02/15/22 10:00 02/17/22 10:56 Famotidine 20 Mg Tab PO 20 mg BID LYNDSAY Administration Furosemide 40 mg 02/15/22 06:00 02/17/22 06:09 Furosemide 40 Mg/4 Ml Inj IV 40 mg BID@0600,1800 LYNDSAY Administration Dobutamine HCl/Dextrose 500 mg in 250 mls @ 6.15 mls/hr 02/17/22 11:00 Dobutrex Drip 500mg/D5w 250ml IV DIRECT LYNDSAY Protocol 2.5 MCG/KG/MIN Insulin Human Lispro 0 unit 02/15/22 07:30 02/17/22 11:33 Insulin Lispro 100 Unit/Ml SUB-Q 3 unit ACHS LYNDSAY Administration Protocol Lisinopril 5 mg 02/15/22 10:00 02/17/22 10:56 Lisinopril 5 Mg Tab PO 5 mg QDAY LYNSDAY Administration Metoprolol Tartrate 25 mg 02/15/22 08:00 02/17/22 08:51 Metoprolol Tartrate 25 Mg Tab PO 25 mg BID@0800,1700 LYNDSAY Administration Morphine Sulfate 2 mg 02/15/22 05:41 02/15/22 11:32 Morphine 2 Mg/1 Ml Inj IV 2 mg Q4H PRN Administration Pain, Moderate (4-6) Morphine Sulfate 4 mg 02/15/22 05:41 02/16/22 22:03 Morphine 4 Mg/1 Ml Inj IV 4 mg Q4H PRN Administration Pain , Severe (7-10) Ondansetron HCl 4 mg 02/15/22 05:41 Ondansetron 4 Mg/2 Ml Inj IV Q8H PRN Nausea And Vomiting Potassium Chloride 40 meq 02/15/22 10:00 02/17/22 10:56 Potassium Chloride Er 20 Meq Tab PO 40 meq QDAY LYNDSAY Administration Sodium Chloride 10 ml 02/15/22 10:00 02/17/22 10:57 Sodium Chloride 0.9% 10 Ml Flush Syringe IV 10 ml BID LYNDSAY Administration Sodium Chloride 10 ml 02/15/22 05:41 02/17/22 06:09 Sodium Chloride 0.9% 10 Ml Flush Syringe IV 10 ml PRN PRN Administration LINE FLUSH Spironolactone 25 mg 02/15/22 10:00 02/17/22 10:56 Spironolactone 25 Mg Tab PO 25 mg QDAY LYNDSAY Administration Nutrition/Malnutrition Assess - Dietary Evaluation Nutrition/Malnutrition Findings: Nutrition Notes Start: 02/15/22 14:18 Freq: Status: Active Protocol: Document 02/15/22 14:18 ERICK (Rec: 02/15/22 14:41 ERICK [email or web address]) Nutrition Notes Need for Assessment generated from: MD Order,Education Initial or Follow up Brief Note Current Diagnosis COPD,Diabetes,Sepsis, Hypertension,Respiratory Failure,Hyperlipidemia Other Pertinent Diagnosis HFrEF, PVD, PAD, COVID-19, PER , Pleural Effusion, Cardiomyopathy, ... Current Diet Cardiac/Consistent Carbohydrates Diet (since B ). 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 Weight Status Obese Subjective/Other Information RD consult for nutrition education assessment. No reports available on Pt's PO intake of meals at the time , will assess at F/U. Pt is on Room Air, O2 saturation @ 94%, according to Physical Assessment History notes. Pt has missing teeth, according to Physical Assessment History notes. Pt presents an open blister on L-LE as sign of concern for skin risk at the time, according to Physical Assessment History notes. Pt presents generalized edema, specially affecting L-LE, according to History & Physical notes. Pt has R-AKA, according to Progress notes. Pt still in critical condition , not a candidate for Nutrition Education at the time, will assess feasibility on F/U. Percent of energy/protein needs met: Prescribed Cardiac/Consistent Carbohydrates Diet provides for energy/protein needs (1, 977 Kcal/86 g) during LOS. Nutrition Intervention Follow-Up By: 02/22/22 Additional Comments Nutrition education will be provided at F/U, if feasible. Continue monitoring food tolerance, %PO intake of meals , and BM.
[2022-02-18] MEDS: IPRATROPIUM/ALBUTEROL SULFATE 3 ML AMPUL.NEB IH SCH ×4 (03:45→20:01)
[2022-02-18] MEDS: FUROSEMIDE 40 MG/4 ML INJ IV SCH ×2 (06:02→19:59)
[2022-02-18 06:19] LABS: Calcium 8.4 mg/dL (8.4-10.2)
[2022-02-18] MEDS: INSULIN LISPRO 100 UNIT/ML SUB-Q SCH ×3 (09:00→19:59)
[2022-02-18] MEDS ORDERED: dexAMETHasone 4 MG/ML VIAL PO SCH (10:00)
[2022-02-18] MEDS: METOPROLOL TARTRATE 25 MG TAB PO SCH ×2 (10:12→19:59)
--- NOTE | 2022-02-18 11:01 | Consultation ---
History of Present Illness - Reason for Consult Consult date: 02/18/22 acute renal failure - History of Present Illness This is a 66-year-old male with past medical history of HFrEF, hypertension, hyperlipidemia, peripheral vascular disease s/p AKA, GERD who came to the hospital with dyspnea. Unable to obtain history, patient minimally cooperative with visit, poor historian. Past History Past Medical History: diabetes, heart failure, hypertension, hyperlipidemia, other (PVD) Past Surgical History: Other (Right AKA) Social history: other (denies: smoking, alcohol abuse, prescription drug abuse)) Family history: hypertension Medications and Allergies Allergies Allergy/AdvReac Type Severity Reaction Status Date / Time No Known Allergies Allergy Verified 08/19/21 15:15 Home Medications Medication Instructions Recorded Confirmed Last Taken Type Albuterol Mdi (or & Nicu Only) 2 puff IH QID PRN #1 inhalation 06/03/21 02/15/22 10/20/21 Rx [ProAir HFA Inhaler] Multivit-Min/Iron/Folic Acid/K 1 tab PO DAILY 08/11/21 02/15/22 10/20/21 History [Adults Multivitamin Caplet] Dextran 70/Hypromellose [Natural 1 drop OU QDAY 08/19/21 02/15/22 10/20/21 History Balance Tears Eye Drop] Furosemide [Lasix TAB] 40 mg PO QDAY #30 tablet 10/28/21 02/15/22 Unknown Rx Spironolactone [Aldactone] 25 mg PO QDAY 30 Days #30 tablet 10/28/21 02/15/22 Unknown Rx lisinopriL [Zestril TAB] 5 mg PO QDAY 30 Days #30 tablet 10/28/21 02/15/22 Unknown Rx ALBUTEROL NEB's [Proventil 0.083% 2.5 mg IH Q6HRT PRN #1 nebu 01/21/22 02/15/22 Unknown Rx NEBS] Apixaban [Eliquis] 5 mg PO Q12HR 30 Days #60 tablet 01/21/22 02/15/22 Unknown Rx Aspirin EC [Halfprin EC] 81 mg PO QDAY 30 Days #30 tablet 01/21/22 02/15/22 Unknown Rx AtorvaSTATin [Lipitor] 40 mg PO QHS 30 Days #30 tablet 01/21/22 02/15/22 Unknown Rx Clopidogrel [Plavix] 75 mg PO QDAY 30 Days #30 tablet 01/21/22 02/15/22 Unknown Rx Furosemide [Lasix TAB] 40 mg PO BID 30 Days #60 tablet 01/21/22 02/15/22 Unknown Rx Metoprolol [Lopressor TAB] 25 mg PO BID 30 Days #60 tablet 01/21/22 02/15/22 Unknown Rx Pantoprazole [Protonix TAB] 40 mg PO DAILY #30 tablet 01/21/22 02/15/22 Unknown Rx Potassium Chloride [K-Dur] 40 meq PO QDAY 3 Days #30 tablet 01/21/22 02/15/22 Unknown Rx Spironolactone [Aldactone] 50 mg PO BID #60 tablet 01/21/22 02/15/22 Unknown Rx lisinopriL [Zestril TAB] 5 mg PO QDAY #30 tablet 01/21/22 02/15/22 Unknown Rx Active Meds: Active Medications Acetaminophen (Acetaminophen 325 Mg Tab) 650 mg PO Q4H PRN PRN Reason: Pain MILD(1-3)/Fever >100.5/PACHECO Albuterol (Albuterol 2.5 Mg/3 Ml Nebu) 2.5 mg IH Q3HRT PRN PRN Reason: Shortness Of Breath Albuterol/Ipratropium (Ipratropium/Albuterol Sulfate 3 Ml Ampul.Neb) 1 ampul IH Q6HRT [facility] Last Admin: 02/18/22 09:34 Dose: Not Given Apixaban (Apixaban 5 Mg Tab) 5 mg PO Q12HR [facility] Last Admin: 02/17/22 21:23 Dose: 5 mg Atorvastatin Calcium (Atorvastatin 40 Mg Tab) 40 mg PO QHS [facility] Last Admin: 02/17/22 21:25 Dose: 40 mg Clopidogrel Bisulfate (Clopidogrel 75 Mg Tab) 75 mg PO QDAY [facility] Last Admin: 02/17/22 10:56 Dose: 75 mg Dexamethasone (Dexamethasone 4 Mg Tab) 8 mg PO QDAY [facility] Stop: 02/24/22 10:01 Dextrose (Dextrose 50% In Water (25gm) 50 Ml Syringe) 0 ml IV Q30MIN PRN; Protocol PRN Reason: Hypoglycemia Famotidine (Famotidine 20 Mg Tab) 20 mg PO BID [facility] Last Admin: 02/17/22 21:25 Dose: 20 mg Furosemide (Furosemide 40 Mg/4 Ml Inj) 40 mg IV BID@0600,1800 [facility] Last Admin: 02/18/22 06:02 Dose: 40 mg Dobutamine HCl/Dextrose (Dobutrex Drip 500mg/D5w 250ml) 500 mg in 250 mls @ 6.15 mls/hr IV DIRECT LYNDSAY; Protocol Last Admin: 02/17/22 21:26 Dose: 2.5 mcg/kg/min, 6.15 mls/hr Insulin Human Lispro (Insulin Lispro 100 Unit/Ml) 0 unit SUB-Q ACHS [facility]; Protocol Last Admin: 02/17/22 21:23 Dose: 4 unit Lisinopril (Lisinopril 5 Mg Tab) 5 mg PO QDAY [facility] Last Admin: 02/17/22 10:56 Dose: 5 mg Metoprolol Tartrate (Metoprolol Tartrate 25 Mg Tab) 25 mg PO BID@0800,1700 [facility] Last Admin: 02/17/22 16:28 Dose: 25 mg Morphine Sulfate (Morphine 2 Mg/1 Ml Inj) 2 mg IV Q4H PRN PRN Reason: Pain, Moderate (4-6) Last Admin: 02/15/22 11:32 Dose: 2 mg Morphine Sulfate (Morphine 4 Mg/1 Ml Inj) 4 mg IV Q4H PRN PRN Reason: Pain , Severe (7-10) Last Admin: 02/16/22 22:03 Dose: 4 mg Ondansetron HCl (Ondansetron 4 Mg/2 Ml Inj) 4 mg IV Q8H PRN PRN Reason: Nausea And Vomiting Last Admin: 02/17/22 21:27 Dose: 4 mg Potassium Chloride (Potassium Chloride Er 20 Meq Tab) 40 meq PO QDAY [facility] Last Admin: 02/17/22 10:56 Dose: 40 meq Sodium Chloride (Sodium Chloride 0.9% 10 Ml Flush Syringe) 10 ml IV BID [facility] Last Admin: 02/17/22 21:26 Dose: 10 ml Sodium Chloride (Sodium Chloride 0.9% 10 Ml Flush Syringe) 10 ml IV PRN PRN PRN Reason: LINE FLUSH Last Admin: 02/17/22 06:09 Dose: 10 ml Spironolactone (Spironolactone 25 Mg Tab) 25 mg PO QDAY [facility] Last Admin: 07/28/22 10:56 Dose: 25 mg Review of Systems ROS unobtainable: due to mental status Exam - Vital Signs Vital signs: Vital Signs Pulse Resp BP Pulse Ox 125 H 22 181/128 93 02/15/22 01:26 02/15/22 01:26 02/15/22 01:02/15/22 01:26 - Physical Exam Narrative exam: General appearance: Present: mild distress, well-nourished, obese - EENT Eyes: Present: PERRL, EOM intact - Neck Neck: Present: supple, normal ROM - Respiratory Respiratory effort: normal, labored Respiratory: bilateral: diminished, rhonchi, negative: rales, wheezing - Cardiovascular Rhythm: regular Heart Sounds: Present: S1 & S2 - Extremities Extremities: no ischemia, abnormal (Right AKA) Extremity abnormal: other (Left lower extremity chronic ulcer, not infected) - Abdominal General gastrointestinal: soft, non-tender, non-distended, normal bowel sounds - Integumentary Integumentary: Present: clear, warm - Psychiatric Psychiatric: appropriate mood/affect, cooperative - Neurologic Neurologic: moves all extremities Results - Lab Results 02/16/22 07:17 02/18/22 13:02 Most recent lab results ABG pH 7.344 pH Units (7.350-7.450) L 02/15/22 02:15 ABG pCO2 49.6 mm Hg 02/15/22 02:15 ABG pO2 140.5 mm Hg (80.0-90.0) H 02/15/22 02:15 ABG HCO3 26.4 mmol/L (20.0-26.0) H 02/15/22 02:15 ABG O2 Saturation 98.6 % (95.0-99.0) 02/15/22 02:15 Calcium 8.4 mg/dL (8.4-10.2) 02/18/22 05:46 Magnesium 2.00 mg/dL (1.7-2.3) 02/17/22 09:18 Assessment and Plan This is a 66-year-old male with DM, HTN, HLD, COPD, PVD s/p right AKA, GERD admitted with acute on chronic CHF exacerbation, COVID-19 infection # Acute Kidney Injury: suspect tubular injury with soft BP as well as cardio- renal changes. Non-oliguric - ok to continue IV diuretics for now - will hold DARIAN-I for now given KARENA, hyperkalemia; also hold MRA for now - urinalysis with blood, check serologies - check PTH - strict Is/Os - avoid nephrotoxins - renally dose medications # Mild Hyperkalemia: note K 5.5- hold DARIAN-I, MRA for now with KARENA # CHF: cardiology following, continue diuretics for now as does appear volume overloaded # COVID-19, Respiratory Failure: pulmonary, ID following # HTN: BP, HR soft
--- NOTE | 2022-02-18 11:36 | Progress Note ---
Assessment and Plan Patient is a 66-year-old male with past medical history of HFrEF, hypertension, hyperlipidemia, peripheral vascular disease s/p AKA, GERD who came to the hospital via EMS shortness of breath which Acute on chronic HFrEF [id number] follow KARENA-nephrology follow Acute respiratory failure-pulmonology following COPD Peripheral vascular disease s/p AKA GERD Hypertension Diabetes Thrombocytopenia Medical noncompliance Echo 06/23/2021-EF 30 to 35%, left ventricle is mildly dilated moderate global hypokinesis of LV. Left atrium is mildly dilated. Right ventricle systolic function is normal Plan: Patient transferred to [facility]. Per conversation with staff patient is being noncompliant with monitor and aggressive to staff Patient is clinically deteriorating due to noncompliance Patient does appear to have somewhat altered mental status today. Suspect likely due to decompensation. Discussed with primary team. Will defer to them Lower extremity Doppler shows severe peripheral vascular disease. Primary team may wish to consult vascular team Recommend continuing dobutamine try to increase forward output Creatinine noted to be elevated however patient does have lower extremity edema, shortness of breath and elevated BNP. Recommend nephrology consult due to elevated creatinine Continue diuresis with Lasix 40 mg IV twice daily if okay with nephrology Repeat BMP in the a.m. strict I&O's with close monitoring of renal function Patient currently on Eliquis, Lipitor, Plavix, lisinopril, metoprolol, Aldactone Patient seen in conjunction with Dr. Ayala who agrees with this plan of care - Patient Problems (1) Sepsis Current Visit: Yes Status: Acute (2) COVID-19 Current Visit: Yes Status: Acute (3) Dilated cardiomyopathy Current Visit: No Status: Acute (4) Hyperlipemia, mixed Current Visit: No Status: Chronic (5) Peripheral arterial disease Current Visit: No Status: Chronic (6) COPD (chronic obstructive pulmonary disease) Current Visit: No Status: Chronic Qualifiers: Emphysema type: unspecified (7) Hyperlipidemia Current Visit: No Status: Chronic Qualifiers: Hyperlipidemia type: mixed hyperlipidemia Qualified Code(s): E78.2 - Mixed hyperlipidemia (8) Hypertension Current Visit: No Status: Chronic Qualifiers: Hypertension type: primary hypertension Qualified Code(s): I10 - Essential (primary) hypertension (9) Acute on chronic HFrEF (heart failure with reduced ejection fraction) Current Visit: No Status: Acute (10) Volume overload Current Visit: No Status: Acute (11) Lactic acidosis Current Visit: Yes Status: Acute Subjective Date of service: 02/18/22 Principal diagnosis: Acute on chronic HFrEF, COVID-19 Interval history: Patient transferred to [facility] Patient noncompliant on secured entrance monitor Objective Vital Signs Temp Pulse Pulse Pulse Resp Resp BP 02/18/22 06:30 59 L 11 L 122/66 02/18/22 06:15 66 18 111/65 02/18/22 06:01 61 18 111/65 02/18/22 05:45 63 13 104/55 02/18/22 05:31 57 L 13 104/55 02/18/22 05:15 58 L 9 L 118/64 02/18/22 05:00 58 L 8 L 118/64 02/18/22 04:45 61 8 L 123/65 02/18/22 04:30 123/65 02/18/22 04:15 124/78 02/18/22 04:00 64 56 L 12 124/78 02/18/22 03:51 134/89 02/18/22 03:15 56 L 7 L 134/89 02/18/22 03:01 58 L 6 L 134/89 02/18/22 02:45 58 L 7 L 134/89 02/18/22 02:31 62 8 L 134/89 02/18/22 02:15 65 12 134/89 02/18/22 02:00 64 12 134/89 02/18/22 01:45 63 11 L 132/94 02/18/22 01:30 61 9 L 132/73 02/18/22 01:15 61 124/82 02/18/22 01:00 62 10 L 122/76 02/18/22 00:45 54 L 6 L 98/66 02/18/22 00:30 56 L 7 L 108/69 02/18/22 00:15 56 L 7 L 103/70 02/18/22 00:00 97.8 F 56 L 56 L 6 L 117/75 02/17/22 23:45 58 L 10 L 121/76 02/17/22 23:30 57 L 9 L 122/73 02/17/22 23:15 66 18 129/72 02/17/22 23:00 61 17 133/74 02/17/22 22:56 61 9 L 110/82 02/17/22 22:46 56 L 8 L 131/82 02/17/22 22:30 59 L 8 L 121/83 02/17/22 22:15 59 L 12 121/83 02/17/22 22:00 59 L 7 L 110/82 02/17/22 21:56 59 L 13 110/82 02/17/22 21:46 60 56 L 11 L 118/79 02/17/22 21:30 63 13 124/82 02/17/22 21:16 56 L 12 103/85 02/17/22 21:00 61 15 116/80 02/17/22 20:46 58 L 16 119/89 02/17/22 20:43 97.6 F 02/17/22 20:30 59 L 13 02/17/22 20:26 67 13 02/17/22 19:24 02/17/22 19:21 64 18 02/17/22 16:28 65 115/68 02/17/22 16:10 96.6 F L 60 22 114/65 Pulse Ox 02/18/22 06:30 99 02/18/22 06:15 99 02/18/22 06:01 100 02/18/22 05:45 100 02/18/22 05:31 100 02/18/22 05:15 100 02/18/22 05:00 100 02/18/22 04:45 100 02/18/22 04:30 97 02/18/22 04:15 96 02/18/22 04:00 100 02/18/22 03:51 100 02/18/22 03:15 97 02/18/22 03:01 97 02/18/22 02:45 94 02/18/22 02:31 97 02/18/22 02:15 97 02/18/22 02:00 92 02/18/22 01:45 100 02/18/22 01:30 100 02/18/22 01:15 100 02/18/22 01:00 100 02/18/22 00:45 100 02/18/22 00:30 100 02/18/22 00:15 100 02/18/22 00:00 100 02/17/22 23:45 100 02/17/22 23:30 100 02/17/22 23:15 97 02/17/22 23:00 100 02/17/22 22:56 02/17/22 22:46 02/17/22 22:30 100 02/17/22 22:15 100 02/17/22 22:00 100 02/17/22 21:56 100 02/17/22 21:46 93 02/17/22 21:30 02/17/22 21:16 100 02/17/22 21:00 02/17/22 20:46 02/17/22 20:43 02/17/22 20:30 02/17/22 20:26 02/17/22 19:24 94 02/17/22 19:21 02/17/22 16:28 02/17/22 16:10 94 - Physical Examination General: No Apparent Distress HEENT: Positive: Normocephaly Neck: Positive: trachea midline Cardiac: Positive: Reg Rate and Rhythm Lungs: Positive: Decreased Breath Sounds Neuro: Positive: Grossly Intact Abdomen: Positive: Soft, Distended Skin: Positive: Cool Extremities: Present: upper extr. pulses, edema, Cool, Other (Wound on left lower extremity around the knee) - Labs and Meds Comprehensive Metabolic Panel 02/18/22 Range/Units 05:46 Sodium 134 L (137-145) mmol/L Potassium 5.3 H (3.6-5.0) mmol/L Chloride 100.4 (98-107) mmol/L Carbon Dioxide 25 (22-30) mmol/L BUN 53 H (9-20) mg/dL Creatinine 1.7 H (0.8-1.3) mg/dL Glucose 201 H (75-100) mg/dL Calcium 8.4 (8.4-10.2) mg/dL - Imaging and Cardiology Echo: report reviewed - EKG Sinus rhythms and dysrhythmias: sinus tachycardia AV and intraventricular conduction: left posterior fascicular
[2022-02-18] MEDS ORDERED: HALOPERIDOL LACTATE 5 MG/1 ML INJ IV PRN (13:00)
[2022-02-18 14:31] LABS: Calcium 8.5 mg/dL (8.4-10.2)
--- NOTE | 2022-02-18 14:35 | Progress Note ---
Assessment and Plan Assessment and plan: This is a 66-year-old male with DM, HTN, HLD, COPD, PVD s/p right AKA, GERD admitted with acute on chronic CHF exacerbation and COVID-19 infection Neuro: Aggressive -As needed Haldol -Started on Seroquel -If mentation does not improve then will need a CT head -Reorientation as needed -Maintain sleep-wake cycle -Verbal de-escalation -As needed analgesia Cardiac: Acute on chronic systolic heart failure, h/o HTN, HLD -Cardiology consulted, appreciate recommendations -Blood pressure monitoring per protocol -Dobutamine drip -06/2021 echocardiogram shows EF of 30 to 35%, mild to moderate global hypokinesis of left ventricle -Continue home Eliquis, Lipitor, Plavix, metoprolol, lisinopril, Aldactone -Lasix IV 40 mg twice daily -Discontinued daily potassium as potassium is 5.3 today Respiratory: Acute on chronic hypoxic respiratory failure, h/o COPD -Pulmonology consulted, appreciate recommendations -S/p BiPAP -Currently on nasal cannula -SPO2 monitor per protocol -Pulmonary hygiene -Albuterol, DuoNeb GI: Obesity, h/o GERD -24 hours -140 -PPI -CC diet -BR: Colace : Acute kidney injury, hyperkalemia, hyponatremia -Nephrology consulted, appreciate recommendations -Monitor intake and output -Renally dose medications -Avoid nephrotoxic medications -Urine lytes pending -Trend BMP ID: COVID-19 infection -Infectious disease consulted, appreciate recommendation -Decadron 8 mg daily (02/15 - 02/24) -Contact/droplet precautions -02/15/19 PCR positive -Trend COVID-19 inflammatory markers -f/u blood culture -02/15 blood cultures no growth to date, urine culture with normal beau -Monitor WBC and temperature curve Endo: h/o DM -Hemoglobin A1c 7.9 in July 2021 -Avoid hypoglycemia -SSI -Lantus, titrate as needed -Accu-Cheks ACHS Heme: h/o PVD s/p R AKA -Left lower extremity arterial Doppler shows significant atherosclerotic plaque noted throughout the left lower extremity, transition to abnormal monophasic waveforms with minimal flow noted from the mid superficial femoral artery to ank le -Trend CBC -Transfuse hemoglobin less than 7 -SCDs to LLE while in bed Critical Care statement: The high probability of a clinically significant, sudden or life threatening deterioration of the [respiratory, CVS, infectious disease, metabolic, renal and vascular] system(s) required my full and direct attention, intervention and personal management. The aggregate critical care time was [60] minutes. This time is in addition to time spent performing reported procedures but includes the following: [x] Data Review and interpretation [x] Patient assessment and monitoring of vital signs [x] Documentation and patient counseling [x] Medication orders and management Disposition Plan: cu Total Time Spent with Patient (Minutes): 60 History Interval history: This is a 66-year-old female with DM, CHF HTN, COPD, medical noncompliance HLD, PVD s/p right AKA, GERD who presented to the hospital on 02/15 with shortness of breath over the past couple days, edema and asked for help. In the emergency room patient was found to have acute CHF exacerbation [place] proBNP [place] 77131. Patient was admitted to the hospitalist service with CHF exacerbation, COVID-19 PUI with consults to cardiology, infectious disease and eventually pulmonology. Hospital course to date: 02/15: Utilization of BiPAP on examination 02/17: Transferred patient to [facility] to initiate dobutamine drip per protocol as recommended by cardiology 02/18: Patient is aggressive with staff, complaining of bugs in her apartment, patient is removing his leads. Unable to fully assess the patient this morning. Cardiology will continue dobutamine drip and diuresis with Lasix. Nephrology was consulted due to worsening renal function. Hospitalist Physical - Constitutional Vitals: Temp Pulse Resp BP Pulse Ox 97.8 F 59 L 11 L 122/66 99 02/18/22 00:00 02/18/22 06:30 02/18/22 06:30 02/18/22 06:30 02/18/22 06:30 General appearance: Present: mild distress, well-nourished, obese HEART Score - HEART Score Troponin: Troponin T 0.051 ng/mL (0.00-0.029) H 02/15/22 08:19 Results - Labs CBC & Chem 7: 02/16/22 07:17 02/18/22 13:02 Labs: Laboratory Last Values WBC 4.6 K/mm3 (4.5-11.0) 02/16/22 07:17 RBC 4.60 M/mm3 (3.65-5.03) 02/16/22 07:17 Hgb 13.8 gm/dl (11.8-15.2) 02/16/22 07:17 Hct 43.6 % (35.5-45.6) 02/16/22 07:17 MCV 95 fl (84-94) H 02/16/22 07:17 MCH 30 pg (28-32) 02/16/22 07:17 MCHC 32 % (32-34) 02/16/22 07:17 RDW 16.1 % (13.2-15.2) H 02/16/22 07:17 Plt Count 143 K/mm3 (140-440) 02/16/22 07:17 Lymph % (Auto) 13.8 % (13.4-35.0) 02/16/22 07:17 [place] % (Auto) 7.5 % (0.0-7.3) H 02/16/22 07:17 Eos % (Auto) 0.1 % (0.0-4.3) 02/16/22 07:17 Baso % (Auto) [employer] 02/16/22 07:17 Lymph # (Auto) 0.6 K/mm3 (1.2-5.4) L 02/16/22 07:17 [place] # (Auto) 0.3 K/mm3 (0.0-0.8) 02/16/22 07:17 Eos # (Auto) 0.0 K/mm3 (0.0-0.4) 02/16/22 07:17 Baso # (Auto) 0.0 K/mm3 (0.0-0.1) 02/16/22 07:17 Seg Neutrophils % 78.0 % (40.0-70.0) H 02/16/22 07:17 Seg Neutrophils # 3.6 K/mm3 (1.8-7.7) 02/16/22 07:17 D-Dimer 6704.75 ng/mlDDU (0-234) H 02/17/22 09:18 ABG pH 7.344 pH Units (7.350-7.450) L 02/15/22 02:15 ABG pCO2 49.6 mm Hg 02/15/22 02:15 ABG pO2 140.5 mm Hg (80.0-90.0) H 02/15/22 02:15 ABG HCO3 26.4 mmol/L (20.0-26.0) H 02/15/22 02:15 ABG O2 Saturation 98.6 % (95.0-99.0) 02/15/22 02:15 ABG O2 Content 18.5 (0.0-44) 02/15/22 02:15 ABG Base Excess 0.1 mmol/L (-2.0-3.0) 02/15/22 02:15 ABG Hemoglobin 13.5 gm/dl (14.0-18.0) L 02/15/22 02:15 ABG Carboxyhemoglobin 1.5 % (0.0-5.0) 02/15/22 02:15 ABG Methemoglobin 0.5 % (0.0-1.5) 02/15/22 02:15 Oxyhemoglobin 96.6 % (95.0-99.0) 02/15/22 02:15 FiO2 80 % 02/15/22 02:15 Sodium 135 mmol/L (137-145) L 02/18/22 13:02 Potassium 5.3 mmol/L (3.6-5.0) H 02/18/22 05:46 Chloride 100.8 mmol/L (98-107) 02/18/22 13:02 Carbon Dioxide 25 mmol/L (22-30) 02/18/22 13:02 Anion Gap 15 mmol/L 02/18/22 13:02 BUN 54 mg/dL (9-20) H 02/18/22 13:02 Creatinine 1.6 mg/dL (0.8-1.3) H 02/18/22 13:02 Estimated GFR 44 ml/min 02/18/22 13:02 BUN/Creatinine Ratio 34 % 02/18/22 13:02 Glucose 259 mg/dL (75-100) H 02/18/22 13:02 POC Glucose 185 mg/dL (70-105) H 02/18/22 09:39 Lactic Acid 3.10 mmol/L (0.7-2.0) H* 02/17/22 09:18 Calcium 8.5 mg/dL (8.4-10.2) 02/18/22 13:02 Magnesium 2.00 mg/dL (1.7-2.3) 02/17/22 09:18 Ferritin 1411.0 ng/mL (30.0-300.0) H 02/16/22 09:03 Total Bilirubin 1.00 mg/dL (0.1-1.2) 02/15/22 01:47 AST 45 units/L (5-40) H 02/15/22 01:47 ALT 37 units/L (7-56) 02/15/22 01:47 Alkaline Phosphatase 190 units/L (35-129) H 02/15/22 01:47 Lactate Dehydrogenase 425 units/L (91-180) H 02/16/22 09:03 Troponin T 0.051 ng/mL (0.00-0.029) H 02/15/22 08:19 C-Reactive Protein 2.10 mg/dL (0.00-1.30) H 02/16/22 09:03 NT-Pro-B Natriuret Pep 68467 pg/mL (0-900) H 02/15/22 01:47 Total Protein 9.1 g/dL (6.3-8.2) H 02/15/22 01:47 Albumin 3.5 g/dL (3.9-5) L 02/15/22 01:47 Albumin/Globulin Ratio 0.6 % 02/15/22 01:47 Triglycerides 65 mg/dL (2-149) 02/15/22 01:47 Cholesterol 143 mg/dL (50-199) 02/15/22 01:47 LDL Cholesterol Direct 62 mg/dL (50-130) 02/15/22 01:47 HDL Cholesterol 79 mg/dL (40-59) H 02/15/22 01:47 Cholesterol/HDL Ratio 1.81 % 02/15/22 01:47 Procalcitonin 0.49 ng/mL (<0.15) 02/15/22 08:19 TSH 4.360 mlU/mL (0.270-4.200) H 02/15/22 01:47 Free T4 1.14 ng/dL (0.76-1.46) 02/15/22 01:47 Urine Color Colorless (Yellow) 02/15/22 05:40 Urine Turbidity Clear (Clear) 02/15/22 05:40 Urine pH 6.0 (5.0-7.0) 02/15/22 05:40 Ur Specific [place] 1.020 (1.003-1.030) 02/15/22 05:40 Urine Protein 300 mg/dl mg/dL (Negative) 02/15/22 05:40 Urine Glucose (UA) Negative mg/dL (Negative) 02/15/22 05:40 Urine Ketones Negative mg/dL (Negative) 02/15/22 05:40 Urine Blood Large (Negative) A 02/15/22 05:40 Urine Nitrite Negative (Negative) 02/15/22 05:40 Urine Bilirubin Negative (Negative) 02/15/22 05:40 Urine Urobilinogen 0.2 mg/dL (<2.0) 02/15/22 05:40 Ur Leukocyte Esterase Negative (Negative) 02/15/22 05:40 Urine WBC (Auto) 10.0 /HPF (0.0-6.0) H 02/15/22 05:40 Urine RBC (Auto) 19.0 /HPF (0.0-6.0) 02/15/22 05:40 U Epithel Cells (Auto) 3.0 /HPF (0-13.0) 02/15/22 05:40 Urine Bacteria (Auto) 2+ /HPF (Negative) 02/15/22 05:40 Hyaline Casts 16 /LPF 02/15/22 05:40 Urine Mucus Few /HPF 02/15/22 05:40 SARS-CoV-2 (PCR) Positive (Negative) A 02/15/22 11:35 Blood Type B POSITIVE 02/15/22 01:54 Antibody Screen Negative 02/15/22 01:54 Microbiology: Microbiology 02/15/22 01:54 Peripheral/Venous Blood Culture - Preliminary NO GROWTH AFTER 72 HOURS 02/15/22 02:02 Peripheral/Venous Blood Culture - Preliminary NO GROWTH AFTER 72 HOURS 02/15/22 05:40 Urine,Clean Catch Urine Culture - Final Doss/IV: Voiding Method Condom Catheter Active Medications - Current Medications Current Medications: Generic Name Dose Route Start Last Admin Trade Name Freq PRN Reason Stop Dose Admin Acetaminophen 650 mg 02/15/22 05:41 Acetaminophen 325 Mg Tab PO Q4H PRN Pain MILD(1-3)/Fever >100.5/PACHECO Albuterol 2.5 mg 02/15/22 05:41 Albuterol 2.5 Mg/3 Ml Nebu IH Q3HRT PRN Shortness Of Breath Albuterol/Ipratropium 1 ampul 02/15/22 08:00 02/18/22 09:34 Ipratropium/Albuterol Sulfate 3 Ml Ampul.Neb IH Not Given Q6HRT LYNDSAY Apixaban 5 mg 02/15/22 10:00 02/17/22 21:23 Apixaban 5 Mg Tab PO 5 mg Q12HR LYNDSAY Administration Atorvastatin Calcium 40 mg 02/15/22 22:00 02/17/22 21:25 Atorvastatin 40 Mg Tab PO 40 mg QHS LYNDSAY Administration Clopidogrel Bisulfate 75 mg 02/15/22 10:00 02/17/22 10:56 Clopidogrel 75 Mg Tab PO 75 mg QDAY LYNDSAY Administration Dexamethasone 8 mg 02/18/22 10:00 Dexamethasone 4 Mg Tab PO 02/24/22 10:01 QDAY LYNDSAY Dextrose 0 ml 02/15/22 05:41 Dextrose 50% In Water (25gm) 50 Ml Syringe IV Q30MIN PRN Hypoglycemia Protocol Docusate Sodium 100 mg 02/18/22 22:00 Docusate Sodium 100 Mg Cap PO BID LYNDSAY Famotidine 20 mg 02/15/22 10:00 02/17/22 21:25 Famotidine 20 Mg Tab PO 20 mg BID LYNDSAY Administration Furosemide 40 mg 02/15/22 06:00 02/18/22 06:02 Furosemide 40 Mg/4 Ml Inj IV 40 mg BID@0600,1800 LYNDSAY Administration Haloperidol Lactate 2.5 mg 02/18/22 13:00 Haloperidol Lactate 5 Mg/1 Ml Inj IV Q6H PRN Agitation Dobutamine HCl/Dextrose 500 mg in 250 mls @ 6.15 mls/hr 02/17/22 11:00 02/17/22 21:26 Dobutrex Drip 500mg/D5w 250ml IV 2.5 mcg/kg/min DIRECT LYNDSAY 6.15 mls/hr Administration Protocol 2.5 MCG/KG/MIN Insulin Glargine 5 units 02/18/22 22:00 Insulin Glargine 100 Units/Ml SUB-Q QHS LYNDSAY Insulin Human Lispro 0 unit 02/15/22 07:30 02/17/22 21:23 Insulin Lispro 100 Unit/Ml SUB-Q 4 unit ACHS LYNDSAY Administration Protocol Lisinopril 5 mg 02/15/22 10:00 02/17/22 10:56 Lisinopril 5 Mg Tab PO 5 mg QDAY LYNDSAY Administration Metoprolol Tartrate 25 mg 02/15/22 08:00 02/17/22 16:28 Metoprolol Tartrate 25 Mg Tab PO 25 mg BID@0800,1700 LYNDSAY Administration Morphine Sulfate 2 mg 02/15/22 05:41 02/15/22 11:32 Morphine 2 Mg/1 Ml Inj IV 2 mg Q4H PRN Administration Pain, Moderate (4-6) Morphine Sulfate 4 mg 02/15/22 05:41 02/16/22 22:03 Morphine 4 Mg/1 Ml Inj IV 4 mg Q4H PRN Administration Pain , Severe (7-10) Ondansetron HCl 4 mg 02/15/22 05:41 02/17/22 21:27 Ondansetron 4 Mg/2 Ml Inj IV 4 mg Q8H PRN Administration Nausea And Vomiting Quetiapine Fumarate 50 mg 02/18/22 22:00 Quetiapine 25 Mg Tab PO BID LYNDSAY Sodium Chloride 10 ml 02/15/22 10:00 02/17/22 21:26 Sodium Chloride 0.9% 10 Ml Flush Syringe IV 10 ml BID LYNDSAY Administration Sodium Chloride 10 ml 02/15/22 05:41 02/17/22 06:09 Sodium Chloride 0.9% 10 Ml Flush Syringe IV 10 ml PRN PRN Administration LINE FLUSH Spironolactone 25 mg 02/15/22 10:00 02/17/22 10:56 Spironolactone 25 Mg Tab PO 25 mg QDAY LYNDSAY Administration Nutrition/Malnutrition Assess - Dietary Evaluation Nutrition/Malnutrition Findings: Nutrition Notes Start: 02/15/22 14:18 Freq: Status: Active Protocol: Document 02/15/22 14:18 ERICK (Rec: 02/15/22 14:41 ERICK [id number]) Nutrition Notes Need for Assessment generated from: MD Order,Education Initial or Follow up Brief Note Current Diagnosis COPD,Diabetes,Sepsis, Hypertension,Respiratory Failure,Hyperlipidemia Other Pertinent Diagnosis HFrEF, PVD, PAD, COVID-19, PER , Pleural Effusion, Cardiomyopathy, ... Current Diet Cardiac/Consistent Carbohydrates Diet (since B ). Height 5 ft 5 in Weight 82 kg [place] Body Weight (kg) 61.81 BMI 30.0 Intake Prior to Admission Good Weight change and time frame Pt denies having loss body weight [employer]. Weight Status Obese Subjective/Other Information RD consult for nutrition education assessment. No reports available on Pt's PO intake of meals at the time , will assess at F/U. Pt is on Room Air, O2 saturation @ 94%, according to Physical Assessment History notes. Pt has missing teeth, according to Physical Assessment History notes. Pt presents an open blister on L-LE as sign of concern for skin risk at the time, according to Physical Assessment History notes. Pt presents generalized edema, specially affecting L-LE, according to History & Physical notes. Pt has R-AKA, according to Progress notes. Pt still in critical condition , not a candidate for Nutrition Education at the time, will assess feasibility on F/U. Percent of energy/protein needs met: Prescribed Cardiac/Consistent Carbohydrates Diet provides for energy/protein needs (1, 977 Kcal/86 g) during LOS. Nutrition Intervention Follow-Up By: 02/22/22 Additional Comments Nutrition education will be provided at F/U, if feasible. Continue monitoring food tolerance, %PO intake of meals , and BM.
[2022-02-18] MEDS: SPIRONOLACTONE 25 MG TAB PO SCH (15:01)
[2022-02-18] MEDS: DEXAMETHASONE 4 MG TAB PO SCH (15:02)
[2022-02-18] MEDS: APIXABAN 5 MG TAB PO SCH (15:02)
[2022-02-18] MEDS: FAMOTIDINE 20 MG TAB PO SCH (15:02)
[2022-02-18] MEDS: LISINOPRIL 5 MG TAB PO SCH (15:02)
[2022-02-18] MEDS: CLOPIDOGREL 75 MG TAB PO SCH (15:02)
[2022-02-18] MEDS ORDERED: ALBUTEROL 2.5 MG/3 ML NEBU IH PRN (17:15)
--- NOTE | 2022-02-18 17:22 | Progress Note ---
Assessment and Plan Cultures: Blood culture no growth so far A/P: 66-year-old man past medical history hypertension, PAD now with: #Acute COVID-19: The background acute CHF. Currently on nasal cannula. #Acute hypoxic respiratory failure: On nasal cannula. Probably more likely driven by his acute CHF and fluid overload in the COVID-19 itself. 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 -Anticoagulation per protocol -No need for antibiotics at present time Thank you for the consult, we will sign off. Please call questions. Chriss Parmar MD [facility] O: [phone] F: [phone] Subjective Date of service: 02/18/22 Principal diagnosis: Acute on chronic HFrEF, COVID-19 Interval history: Afebrile, normal white count. Objective - Exam Narrative Exam: Physical exam deferred to reduce risk of transmission of COVID-19. Please refer to primary team's note. - Constitutional Vitals: Vital Signs Temp Pulse Resp BP Pulse Ox 97.8 F 70 14 124/70 95 02/18/22 00:00 02/18/22 11:45 02/18/22 11:15 02/18/22 14:01 02/18/22 17:07 Temperature -Last 24 Hours Temperature 97.8 F Temperature 97.6 F - Labs CBC & Chem 7: 02/16/22 07:17 02/18/22 13:02 Labs: Abnormal lab results 02/17/22 02/18/22 02/18/22 Range/Units 20:34 05:46 09:39 Sodium 134 L (137-145) mmol/L Potassium 5.3 H (3.6-5.0) mmol/L BUN 53 H (9-20) mg/dL Creatinine 1.7 H (0.8-1.3) mg/dL Glucose 201 H (75-100) mg/dL POC Glucose 256 H 185 H (70-105) mg/dL Ammonia (25-60) umol/L 02/18/22 02/18/22 Range/Units 13:02 13:02 Sodium 135 L (137-145) mmol/L Potassium 5.5 H (3.6-5.0) mmol/L BUN 54 H (9-20) mg/dL Creatinine 1.6 H (0.8-1.3) mg/dL Glucose 259 H (75-100) mg/dL POC Glucose (70-105) mg/dL Ammonia 18.0 L (25-60) umol/L
[2022-02-18] MEDS: POTASSIUM CHLORIDE ER 20 MEQ TAB PO SCH (20:00)
[2022-02-18] MEDS ORDERED: QUEtiapine 25 MG TAB PO SCH (22:00)
[2022-02-18] MEDS ORDERED: DOCUSATE SODIUM 100 MG CAP PO SCH (22:00)
[2022-02-18] MEDS ORDERED: INSULIN GLARGINE 100 UNITS/ML SUB-Q SCH (22:00)
[2022-02-19] MEDS: IPRATROPIUM/ALBUTEROL SULFATE 3 ML AMPUL.NEB IH SCH ×2 (08:30→14:00)
--- NOTE | 2022-02-19 11:05 | Event Note ---
Date: 02/19/22 Patient refusing therapy.
--- NOTE | 2022-02-19 11:24 | Electrocardiograph Report ---
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
--- NOTE | 2022-02-19 11:55 | Consultation ---
History of Present Illness - Reason for Consult Consult date: 02/19/22 Reason for consult: agitation - History of Present Psychiatric Illness HPI: 66-year-old male with a history of CHF, hypertension, diabetes, asthma and right AKA brought in by EMS with shortness of breath that has been going on for few days progressively getting worse. No fever or chills reported. Patient is saying help me help me. No other modifying or associated factors reported. The patient was seen today. He says he is not feeling well and came to the hospital because he couldn't breathe. He says "I'm not good. I'm sick and can't breathe." The patient's nurse was notified. The patient says "help me, people here are trying to kill me." He says he slept good, but "they bothered me while I was trying to sleep." He is asking about food. When asking the patient if he sees a psychiatrist, he initially says "yes, I see a psychiatrist." Then he says "no, I'm not going to tell you. I'm not going to tell you anything else." The nurse caring for the patient states he has been irritable, pulling things out, agitated and talking loudly. PAST PSYCHIATRIC HISTORY: Unable to assess PAST MEDICAL HISTORY: Unable to obtain Family Psychiatric History Unable to obtain SOCIAL HISTORY Unable to assess REVIEW OF SYSTEMS Unable to obtain Diagnoses: Delirium Treatment Plan Valproic 500mg po q12h Increased Seroquel 50mg po TID Agree with Haldol order Medical: Per primary Disposition: Do not recommend acute psychiatric inpatient treatment Will follow for med management. Thanks Case staffed with Dr. Frye Medications and Allergies Allergies Allergy/AdvReac Type Severity Reaction Status Date / Time No Known Allergies Allergy Verified 08/19/21 15:15 Home Medications Medication Instructions Recorded Confirmed Last Taken Type Albuterol Mdi (or & Nicu Only) 2 puff IH QID PRN #1 inhalation 06/03/21 02/15/22 10/20/21 Rx [ProAir HFA Inhaler] Multivit-Min/Iron/Folic Acid/K 1 tab PO DAILY 08/11/21 02/15/22 10/20/21 History [Adults Multivitamin Caplet] Dextran 70/Hypromellose [Natural 1 drop OU QDAY 08/19/21 02/15/22 10/20/21 History Balance Tears Eye Drop] Furosemide [Lasix TAB] 40 mg PO QDAY #30 tablet 10/28/21 02/15/22 Unknown Rx Spironolactone [Aldactone] 25 mg PO QDAY 30 Days #30 tablet 10/28/21 02/15/22 Unknown Rx lisinopriL [Zestril TAB] 5 mg PO QDAY 30 Days #30 tablet 10/28/21 02/15/22 Unknown Rx ALBUTEROL NEB's [Proventil 0.083% 2.5 mg IH Q6HRT PRN #1 nebu 01/21/22 02/15/22 Unknown Rx NEBS] Apixaban [Eliquis] 5 mg PO Q12HR 30 Days #60 tablet 01/21/22 02/15/22 Unknown Rx Aspirin EC [Halfprin EC] 81 mg PO QDAY 30 Days #30 tablet 01/21/22 02/15/22 Unkn own Rx AtorvaSTATin [Lipitor] 40 mg PO QHS 30 Days #30 tablet 01/21/22 02/15/22 Unknown Rx Clopidogrel [Plavix] 75 mg PO QDAY 30 Days #30 tablet 01/21/22 02/15/22 Unknown Rx Furosemide [Lasix TAB] 40 mg PO BID 30 Days #60 tablet 01/21/22 02/15/22 Unknown Rx Metoprolol [Lopressor TAB] 25 mg PO BID 30 Days #60 tablet 01/21/22 02/15/22 Unknown Rx Pantoprazole [Protonix TAB] 40 mg PO DAILY #30 tablet 01/21/22 02/15/22 Unknown Rx Potassium Chloride [K-Dur] 40 meq PO QDAY 3 Days #30 tablet 01/21/22 02/15/22 Unknown Rx Spironolactone [Aldactone] 50 mg PO BID #60 tablet 01/21/22 02/15/22 Unknown Rx lisinopriL [Zestril TAB] 5 mg PO QDAY #30 tablet 01/21/22 02/15/22 Unknown Rx Active Meds: Active Medications Acetaminophen (Acetaminophen 325 Mg Tab) 650 mg PO Q4H PRN PRN Reason: Pain MILD(1-3)/Fever >100.5/PACHECO Albuterol (Albuterol 2.5 Mg/3 Ml Nebu) 2.5 mg IH Q3HRT PRN PRN Reason: Shortness Of Breath Albuterol/Ipratropium (Ipratropium/Albuterol Sulfate 3 Ml Ampul.Neb) 1 ampul IH TIDRT [facility] Last Admin: 02/19/22 08:30 Dose: Not Given Apixaban (Apixaban 5 Mg Tab) 5 mg PO Q12HR [facility] Last Admin: 02/18/22 15:02 Dose: Not Given Atorvastatin Calcium (Atorvastatin 40 Mg Tab) 40 mg PO QHS [facility] Last Admin: 02/17/22 21:25 Dose: 40 mg Clopidogrel Bisulfate (Clopidogrel 75 Mg Tab) 75 mg PO QDAY [facility] Last Admin: 02/18/22 15:02 Dose: Not Given Dexamethasone (Dexamethasone 4 Mg Tab) 8 mg PO QDAY [facility] Stop: 02/24/22 10:01 Last Admin: 02/18/22 15:02 Dose: Not Given Dextrose (Dextrose 50% In Water (25gm) 50 Ml Syringe) 0 ml IV Q30MIN PRN; Protocol PRN Reason: Hypoglycemia Docusate Sodium (Docusate Sodium 100 Mg Cap) 100 mg PO BID [facility] Famotidine (Famotidine 20 Mg Tab) 20 mg PO BID [facility] Last Admin: 02/18/22 15:02 Dose: Not Given Furosemide (Furosemide 40 Mg/4 Ml Inj) 40 mg IV BID@0600,1800 [facility] Last Admin: 02/18/22 19:59 Dose: Not Given Haloperidol Lactate (Haloperidol Lactate 5 Mg/1 Ml Inj) 2.5 mg IV Q6H PRN PRN Reason: Agitation Dobutamine HCl/Dextrose (Dobutrex Drip 500mg/D5w 250ml) 500 mg in 250 mls @ 6.15 mls/hr IV DIRECT [facility]; Protocol Last Infusion: 02/18/22 08:30 Dose: 0 mcg/kg/min, 0 mls/hr Insulin Glargine (Insulin Glargine 100 Units/Ml) 5 units SUB-Q QHS [facility] Insulin Human Lispro (Insulin Lispro 100 Unit/Ml) 0 unit SUB-Q ACHS [facility]; Protocol Last Admin: 02/18/22 19:59 Dose: Not Given Metoprolol Tartrate (Metoprolol Tartrate 25 Mg Tab) 25 mg PO BID@0800,1700 [facility] Last Admin: 02/18/22 19:59 Dose: Not Given Morphine Sulfate (Morphine 2 Mg/1 Ml Inj) 2 mg IV Q4H PRN PRN Reason: Pain, Moderate (4-6) Last Admin: 02/15/22 11:32 Dose: 2 mg Morphine Sulfate (Morphine 4 Mg/1 Ml Inj) 4 mg IV Q4H PRN PRN Reason: Pain , Severe (7-10) Last Admin: 02/16/22 22:03 Dose: 4 mg Ondansetron HCl (Ondansetron 4 Mg/2 Ml Inj) 4 mg IV Q8H PRN PRN Reason: Nausea And Vomiting Last Admin: 02/17/22 21:27 Dose: 4 mg Quetiapine Fumarate (Quetiapine 25 Mg Tab) 50 mg PO BID [facility] Sodium Chloride (Sodium Chloride 0.9% 10 Ml Flush Syringe) 10 ml IV BID [facility] Last Admin: 02/18/22 15:02 Dose: Not Given Sodium Chloride (Sodium Chloride 0.9% 10 Ml Flush Syringe) 10 ml IV PRN PRN PRN Reason: LINE FLUSH Last Admin: 02/17/22 06:09 Dose: 10 ml Mental Status Exam - Vital signs Last Vital Signs Temp 98.9 F 02/18/22 08:00 Pulse 70 02/18/22 11:45 Resp 14 02/18/22 11:15 BP 124/70 02/18/22 14:01 Pulse Ox 95 02/18/22 17:07 Results Result Diagrams: 02/16/22 07:17 02/18/22 13:02 Abnormal lab results 02/18/22 02/18/22 Range/Units 13:02 13:02 Sodium 135 L (137-145) mmol/L Potassium 5.5 H (3.6-5.0) mmol/L BUN 54 H (9-20) mg/dL Creatinine 1.6 H (0.8-1.3) mg/dL Glucose 259 H (75-100) mg/dL Ammonia 18.0 L (25-60) umol/L All other labs normal.
--- NOTE | 2022-02-19 11:57 | Progress Note ---
Assessment and Plan Impression * Acute kidney injury * Hyperkalemia * COVID-19 infection * Fluid overload * Hypertension Recommendations * His baseline creatinine is approximately 0.8-1.0 * His urine shows 4+ protein and large blood. Patient most likely has ATN. However need to rule out glomerular disease as well. Follow-up results of vasculitis work-up * Patient is clinically still volume overloaded. Add loop diuretic * Continue to hold DARIAN inhibitor for now * Shall also administer Lokelma for his hyperkalemia * Management of COVID-19 infection as per primary team * Avoid nephrotoxins * Monitor fluid status and electrolytes closely Subjective Date of service: 02/19/22 Principal diagnosis: Acute on chronic HFrEF, COVID-19 Interval history: Patient is comfortable today. Denies any shortness of breath. Currently on oxygen via nasal cannula at 2 L/min. Objective - General Appearance General appearance: well-developed, well-nourished, appears stated age EENT: PERRL, mucous membranes moist Neck: no JVD, no thyromegaly, no carotid bruit, supple Respiratory: Present: Clear to Ascultation Cardiology: regular, normal heart rate, S1S2, no murmurs Gastrointestinal: normal, normoactive bowel sounds Integumentary: other (1+ pitting edema. Right above-knee amputation) - Lab 02/16/22 07:17 02/18/22 13:02 Most recent lab results ABG pH 7.344 pH Units (7.350-7.450) L 02/15/22 02:15 ABG pCO2 49.6 mm Hg 02/15/22 02:15 ABG pO2 140.5 mm Hg (80.0-90.0) H 02/15/22 02:15 ABG HCO3 26.4 mmol/L (20.0-26.0) H 02/15/22 02:15 ABG O2 Saturation 98.6 % (95.0-99.0) 02/15/22 02:15 Calcium 8.5 mg/dL (8.4-10.2) 02/18/22 13:02 Magnesium 2.00 mg/dL (1.7-2.3) 02/17/22 09:18 Medications & Allergies - Medications Allergies/Adverse Reactions: Allergies No Known Allergies Allergy (Verified 08/19/21 15:15) Home Medications: Home Medications Medication Instructions Recorded Confirmed Last Taken Type Albuterol Mdi (or & Nicu Only) 2 puff IH QID PRN #1 inhalation 06/03/21 02/15/22 10/20/21 Rx [ProAir HFA Inhaler] Multivit-Min/Iron/Folic Acid/K 1 tab PO DAILY 08/11/21 02/15/22 10/20/21 History [Adults Multivitamin Caplet] Dextran 70/Hypromellose [Natural 1 drop OU QDAY 08/19/21 02/15/22 10/20/21 History Balance Tears Eye Drop] Furosemide [Lasix TAB] 40 mg PO QDAY #30 tablet 10/28/21 02/15/22 Unknown Rx Spironolactone [Aldactone] 25 mg PO QDAY 30 Days #30 tablet 10/28/21 02/15/22 Unknown Rx lisinopriL [Zestril TAB] 5 mg PO QDAY 30 Days #30 tablet 10/28/21 02/15/22 Unknown Rx ALBUTEROL NEB's [Proventil 0.083% 2.5 mg IH Q6HRT PRN #1 nebu 01/21/22 02/15/22 Unknown Rx NEBS] Apixaban [Eliquis] 5 mg PO Q12HR 30 Days #60 tablet 01/21/22 02/15/22 Unknown Rx Aspirin EC [Halfprin EC] 81 mg PO QDAY 30 Days #30 tablet 01/21/22 02/15/22 Unknown Rx AtorvaSTATin [Lipitor] 40 mg PO QHS 30 Days #30 tablet 01/21/22 02/15/22 Unknown Rx Clopidogrel [Plavix] 75 mg PO QDAY 30 Days #30 tablet 01/21/22 02/15/22 Unknown Rx Furosemide [Lasix TAB] 40 mg PO BID 30 Days #60 tablet 01/21/22 02/15/22 Unknown Rx Metoprolol [Lopressor TAB] 25 mg PO BID 30 Days #60 tablet 01/21/22 02/15/22 Unknown Rx Pantoprazole [Protonix TAB] 40 mg PO DAILY #30 tablet 01/21/22 02/15/22 Unknown Rx Potassium Chloride [K-Dur] 40 meq PO QDAY 3 Days #30 tablet 01/21/22 02/15/22 Unknown Rx Spironolactone [Aldactone] 50 mg PO BID #60 tablet 01/21/22 02/15/22 Unknown Rx lisinopriL [Zestril TAB] 5 mg PO QDAY #30 tablet 01/21/22 02/15/22 Unknown Rx Active Medications: Generic Name Dose Route Start Last Admin Trade Name Freq PRN Reason Stop Dose Admin Acetaminophen 650 mg 02/15/22 05:41 Acetaminophen 325 Mg Tab PO Q4H PRN Pain MILD(1-3)/Fever >100.5/PACHECO Albuterol 2.5 mg 02/18/22 17:15 Albuterol 2.5 Mg/3 Ml Nebu IH Q3HRT PRN Shortness Of Breath Albuterol/Ipratropium 1 ampul 02/18/22 20:00 02/19/22 08:30 Ipratropium/Albuterol Sulfate 3 Ml Ampul.Neb IH Not Given TIDRT [facility] Apixaban 5 mg 02/15/22 10:00 02/18/22 15:02 Apixaban 5 Mg Tab PO Not Given Q12HR [facility] Atorvastatin Calcium 40 mg 02/15/22 22:00 02/17/22 21:25 Atorvastatin 40 Mg Tab PO 40 mg QHS [facility] Administration Clopidogrel Bisulfate 75 mg 02/15/22 10:00 02/18/22 15:02 Clopidogrel 75 Mg Tab PO Not Given QDAY [facility] Dexamethasone 8 mg 02/18/22 10:00 02/18/22 15:02 Dexamethasone 4 Mg Tab PO 02/24/22 10:01 Not Given QDAY [facility] Dextrose 0 ml 02/15/22 05:41 Dextrose 50% In Water (25gm) 50 Ml Syringe IV Q30MIN PRN Hypoglycemia Protocol Docusate Sodium 100 mg 02/18/22 22:00 Docusate Sodium 100 Mg Cap PO BID [facility] Famotidine 20 mg 02/15/22 10:00 02/18/22 15:02 Famotidine 20 Mg Tab PO Not Given BID [facility] Furosemide 40 mg 02/15/22 06:00 02/18/22 19:59 Furosemide 40 Mg/4 Ml Inj IV Not Given BID@0600,1800 [facility] Haloperidol Lactate 2.5 mg 02/18/22 13:00 Haloperidol Lactate 5 Mg/1 Ml Inj IV Q6H PRN Agitation Dobutamine HCl/Dextrose 500 mg in 250 mls @ 6.15 mls/hr 02/17/22 11:00 02/18/22 08:30 Dobutrex Drip 500mg/D5w 250ml IV 0 mcg/kg/min DIRECT [facility] 0 mls/hr Infusion Protocol 2.5 MCG/KG/MIN Insulin Glargine 5 units 02/18/22 22:00 Insulin Glargine 100 Units/Ml SUB-Q QHS [facility] Insulin Human Lispro 0 unit 02/15/22 07:30 02/18/22 19:59 Insulin Lispro 100 Unit/Ml SUB-Q Not Given ACHS [facility] Protocol Metoprolol Tartrate 25 mg 02/15/22 08:00 02/18/22 19:59 Metoprolol Tartrate 25 Mg Tab PO Not Given BID@0800,1700 [facility] Morphine Sulfate 2 mg 02/15/22 05:41 02/15/22 11:32 Morphine 2 Mg/1 Ml Inj IV 2 mg Q4H PRN Administration Pain, Moderate (4-6) Morphine Sulfate 4 mg 02/15/22 05:41 02/16/22 22:03 Morphine 4 Mg/1 Ml Inj IV 4 mg Q4H PRN Administration Pain , Severe (7-10) Ondansetron HCl 4 mg 02/15/22 05:41 02/17/22 21:27 Ondansetron 4 Mg/2 Ml Inj IV 4 mg Q8H PRN Administration Nausea And Vomiting Quetiapine Fumarate 50 mg 02/18/22 22:00 Quetiapine 25 Mg Tab PO BID [facility] Sodium Chloride 10 ml 02/15/22 10:00 02/18/22 15:02 Sodium Chloride 0.9% 10 Ml Flush Syringe IV Not Given BID [facility] Sodium Chloride 10 ml 02/15/22 05:41 02/17/22 06:09 Sodium Chloride 0.9% 10 Ml Flush Syringe IV 10 ml PRN PRN Administration LINE FLUSH
[2022-02-19] MEDS ORDERED: SODIUM POLYSTYRENE 15 GM/60 ML ORAL LIQD PO ONE (11:58)
[2022-02-19 12:17] VITALS: BP 139/88
[2022-02-19] MEDS: INSULIN LISPRO 100 UNIT/ML SUB-Q SCH ×2 (12:24→12:26)
[2022-02-19] MEDS: APIXABAN 5 MG TAB PO SCH (12:24)
[2022-02-19] MEDS: FAMOTIDINE 20 MG TAB PO SCH (12:25)
[2022-02-19] MEDS: METOPROLOL TARTRATE 25 MG TAB PO SCH (12:25)
[2022-02-19] MEDS: DEXAMETHASONE 4 MG TAB PO SCH (12:25)
[2022-02-19] MEDS: CLOPIDOGREL 75 MG TAB PO SCH (12:25)
[2022-02-19] MEDS: FUROSEMIDE 40 MG/4 ML INJ IV SCH ×2 (12:25→17:00)
[2022-02-19] MEDS ORDERED: VALPROATE SODIUM 500 MG in SODIUM CHLORIDE 0.9% 100 ML IV SCH (13:00)
[2022-02-19] MEDS ORDERED: QUEtiapine 25 MG TAB PO SCH (14:00)
--- NOTE | 2022-02-19 15:16 | Progress Note ---
<SINDHUPAVANAnuradha - Last Filed: 02/19/22 15:16> Assessment and Plan Assessment and plan: This is a 66-year-old male with DM, HTN, HLD, COPD, PVD s/p right AKA, GERD admitted with acute on chronic CHF exacerbation and COVID-19 infection Neuro: Aggressive, and compliance -Patient is refusing therapies and monitoring -Psych consulted, appreciate recommendations -As needed Haldol -Seroquel and Valproic acid -If mentation does not improve then will need a CT head -Reorientation as needed -Maintain sleep-wake cycle -Verbal de-escalation -As needed analgesia Cardiac: Acute on chronic systolic heart failure, h/o HTN, HLD -Cardiology consulted, appreciate recommendations -Blood pressure monitoring per protocol -Dobutamine drip -patient refuses -06/2021 echocardiogram shows EF of 30 to 35%, mild to moderate global hypokinesis of left ventricle -Continue home Eliquis, Lipitor, Plavix, metoprolol, lisinopril, Aldactone -Lasix IV 40 mg twice daily Respiratory: Acute on chronic hypoxic respiratory failure, h/o COPD -Pulmonology consulted, appreciate recommendations -S/p BiPAP -Currently on nasal cannula -SPO2 monitor per protocol -Pulmonary hygiene -Albuterol, DuoNeb GI: Obesity, h/o GERD -24 hours -140 ml -PPI -CC diet -BR: Colace : Acute kidney injury, hyperkalemia, hyponatremia -Nephrology consulted, appreciate recommendations -Monitor intake and output -Renally dose medications -Avoid nephrotoxic medications -Urine lytes pending -Trend BMP ID: COVID-19 infection -Infectious disease consulted, appreciate recommendation -Decadron 8 mg daily (02/15 - 02/24) -Contact/droplet precautions -02/15/19 PCR positive -Trend COVID-19 inflammatory markers -f/u blood culture -02/15 blood cultures no growth to date, urine culture with normal beau -Monitor WBC and temperature curve Endo: h/o DM -Hemoglobin A1c 7.9 in July 2021 -Avoid hypoglycemia -SSI -Lantus, titrate as needed -Accu-Cheks ACHS Heme: h/o PVD s/p R AKA -Left lower extremity arterial Doppler shows significant atherosclerotic plaque noted throughout the left lower extremity, transition to abnormal monophasic waveforms with minimal flow noted from the mid superficial femoral artery to ankle -Trend CBC -Transfuse hemoglobin less than 7 -SCDs to LLE while in bed Critical Care statement: The high probability of a clinically significant, sudden or life threatening deterioration of the [respiratory, CVS, infectious disease, metabolic, renal and vascular] system(s) required my full and direct attention, intervention and personal management. The aggregate critical care time was [60] minutes. This time is in addition to time spent performing reported procedures but includes the following: [x] Data Review and interpretation [x] Patient assessment and monitoring of vital signs [x] Documentation and patient counseling [x] Medication orders and management Disposition Plan: [facility] Total Time Spent with Patient (Minutes): 60 History Interval history: This is a 66-year-old female with DM, CHF HTN, COPD, medical noncompliance HLD, PVD s/p right AKA, GERD who presented to the hospital on 02/15 with shortness of breath over the past couple days, edema and asked for help. In the emergency room patient was found to have acute CHF exacerbation as [place] admit proBNP was 68431. Patient was admitted to the hospitalist service with CHF exacerbation, COVID-19 PUI with consults to cardiology, infectious disease and eventually pulmonology. Hospital course to date: 02/15: Utilization of BiPAP on examination 02/17: Transferred patient to [facility] to initiate dobutamine drip per protocol as recommended by cardiology 02/18: Patient is aggressive with staff, complaining of bugs in her apartment, patient is removing his leads. Unable to fully assess the patient this morning. Cardiology will continue dobutamine drip and diuresis with Lasix. Nephrology was consulted due to worsening renal function. 02/19: Patient still refusing medications, refusing to be monitored. Patient stopped and aggressive to staff. Patient started on loop diuretics. Psych consulted who started patient on valproic acid and increased Seroquel. content manager sent PD to address. Hospitalist Physical - Physical exam Narrative exam: Unable to complete assessment below waist as patient was uncooperative and aggressive. - Constitutional Vitals: Temp Pulse Resp BP Pulse Ox 98.9 F 77 8 L 139/88 98 02/18/22 08:00 02/19/22 12:15 02/19/22 12:00 02/19/22 12:15 02/19/22 12:00 General appearance: Present: mild distress, well-nourished, obese - EENT Eyes: Present: PERRL, EOM intact ENT: poor dentition - Neck Neck: Present: normal ROM - Respiratory Respiratory effort: normal Respiratory: bilateral: diminished - Cardiovascular Rhythm: regular Heart Sounds: Present: S1 & S2. Absent: systolic murmur, diastolic murmur - Abdominal General gastrointestinal: soft, non-tender, non-distended, normal bowel sounds - Integumentary Integumentary: Present: warm, dry - Psychiatric Psychiatric: agitated - Neurologic Neurologic: other - Allied Health Allied health notes reviewed: nursing, RT, social work HEART Score - HEART Score Troponin: Troponin T 0.051 ng/mL (0.00-0.029) H 02/15/22 08:19 Results - Labs CBC & Chem 7: 02/16/22 07:17 02/18/22 13:02 Labs: Laboratory Last Values WBC 4.6 K/mm3 (4.5-11.0) 02/16/22 07:17 RBC 4.60 M/mm3 (3.65-5.03) 02/16/22 07:17 Hgb 13.8 gm/dl (11.8-15.2) 02/16/22 07:17 Hct 43.6 % (35.5-45.6) 02/16/22 07:17 MCV 95 fl (84-94) H 02/16/22 07:17 MCH 30 pg (28-32) 02/16/22 07:17 MCHC 32 % (32-34) 02/16/22 07:17 RDW 16.1 % (13.2-15.2) H 02/16/22 07:17 Plt Count 143 K/mm3 (140-440) 02/16/22 07:17 Lymph % (Auto) 13.8 % (13.4-35.0) 02/16/22 07:17 [place] % (Auto) 7.5 % (0.0-7.3) H 02/16/22 07:17 Eos % (Auto) 0.1 % (0.0-4.3) 02/16/22 07:17 Baso % (Auto) Associate Quality Engineer 02/16/22 07:17 Lymph # (Auto) 0.6 K/mm3 (1.2-5.4) L 02/16/22 07:17 [place] # (Auto) 0.3 K/mm3 (0.0-0.8) 02/16/22 07:17 Eos # (Auto) 0.0 K/mm3 (0.0-0.4) 02/16/22 07:17 Baso # (Auto) 0.0 K/mm3 (0.0-0.1) 02/16/22 07:17 Seg Neutrophils % 78.0 % (40.0-70.0) H 02/16/22 07:17 Seg Neutrophils # 3.6 K/mm3 (1.8-7.7) 02/16/22 07:17 D-Dimer 6704.75 ng/mlDDU (0-234) H 02/17/22 09:18 ABG pH 7.344 pH Units (7.350-7.450) L 02/15/22 02:15 ABG pCO2 49.6 mm Hg 02/15/22 02:15 ABG pO2 140.5 mm Hg (80.0-90.0) H 02/15/22 02:15 ABG HCO3 26.4 mmol/L (20.0-26.0) H 02/15/22 02:15 ABG O2 Saturation 98.6 % (95.0-99.0) 02/15/22 02:15 ABG O2 Content 18.5 (0.0-44) 02/15/22 02:15 ABG Base Excess 0.1 mmol/L (-2.0-3.0) 02/15/22 02:15 ABG Hemoglobin 13.5 gm/dl (14.0-18.0) L 02/15/22 02:15 ABG Carboxyhemoglobin 1.5 % (0.0-5.0) 02/15/22 02:15 ABG Methemoglobin 0.5 % (0.0-1.5) 02/15/22 02:15 Oxyhemoglobin 96.6 % (95.0-99.0) 02/15/22 02:15 FiO2 80 % 02/15/22 02:15 Sodium 135 mmol/L (137-145) L 02/18/22 13:02 Potassium 5.5 mmol/L (3.6-5.0) H 02/18/22 13:02 Chloride 100.8 mmol/L (98-107) 02/18/22 13:02 Carbon Dioxide 25 mmol/L (22-30) 02/18/22 13:02 Anion Gap 15 mmol/L 02/18/22 13:02 BUN 54 mg/dL (9-20) H 02/18/22 13:02 Creatinine 1.6 mg/dL (0.8-1.3) H 02/18/22 13:02 Estimated GFR 44 ml/min 02/18/22 13:02 BUN/Creatinine Ratio 34 % 02/18/22 13:02 Glucose 259 mg/dL (75-100) H 02/18/22 13:02 POC Glucose 185 mg/dL (70-105) H 02/18/22 09:39 Lactic Acid 3.10 mmol/L (0.7-2.0) H* 02/17/22 09:18 Calcium 8.5 mg/dL (8.4-10.2) 02/18/22 13:02 Magnesium 2.00 mg/dL (1.7-2.3) 02/17/22 09:18 Ferritin 1411.0 ng/mL (30.0-300.0) H 02/16/22 09:03 Total Bilirubin 1.00 mg/dL (0.1-1.2) 02/15/22 01:47 AST 45 units/L (5-40) H 02/15/22 01:47 ALT 37 units/L (7-56) 02/15/22 01:47 Alkaline Phosphatase 190 units/L (35-129) H 02/15/22 01:47 Ammonia 18.0 umol/L (25-60) L 02/18/22 13:02 Lactate Dehydrogenase 425 units/L (91-180) H 02/16/22 09:03 Troponin T 0.051 ng/mL (0.00-0.029) H 02/15/22 08:19 C-Reactive Protein 2.10 mg/dL (0.00-1.30) H 02/16/22 09:03 NT-Pro-B Natriuret Pep 83249 pg/mL (0-900) H 02/15/22 01:47 Total Protein 9.1 g/dL (6.3-8.2) H 02/15/22 01:47 Albumin 3.5 g/dL (3.9-5) L 02/15/22 01:47 Albumin/Globulin Ratio 0.6 % 02/15/22 01:47 Triglycerides 65 mg/dL (2-149) 02/15/22 01:47 Cholesterol 143 mg/dL (50-199) 02/15/22 01:47 LDL Cholesterol Direct 62 mg/dL (50-130) 02/15/22 01:47 HDL Cholesterol 79 mg/dL (40-59) H 02/15/22 01:47 Cholesterol/HDL Ratio 1.81 % 02/15/22 01:47 Procalcitonin 0.49 ng/mL (<0.15) 02/15/22 08:19 TSH 4.360 mlU/mL (0.270-4.200) H 02/15/22 01:47 Free T4 1.14 ng/dL (0.76-1.46) 02/15/22 01:47 Urine Color Colorless (Yellow) 02/15/22 05:40 Urine Turbidity Clear (Clear) 02/15/22 05:40 Urine pH 6.0 (5.0-7.0) 02/15/22 05:40 Ur Specific [place] 1.020 (1.003-1.030) 02/15/22 05:40 Urine Protein 300 mg/dl mg/dL (Negative) 02/15/22 05:40 Urine Glucose (UA) Negative mg/dL (Negative) 02/15/22 05:40 Urine Ketones Negative mg/dL (Negative) 02/15/22 05:40 Urine Blood Large (Negative) A 02/15/22 05:40 Urine Nitrite Negative (Negative) 02/15/22 05:40 Urine Bilirubin Negative (Negative) 02/15/22 05:40 Urine Urobilinogen 0.2 mg/dL (<2.0) 02/15/22 05:40 Ur Leukocyte Esterase Negative (Negative) 02/15/22 05:40 Urine WBC (Auto) 10.0 /HPF (0.0-6.0) H 02/15/22 05:40 Urine RBC (Auto) 19.0 /HPF (0.0-6.0) 02/15/22 05:40 U Epithel Cells (Auto) 3.0 /HPF (0-13.0) 02/15/22 05:40 Urine Bacteria (Auto) 2+ /HPF (Negative) 02/15/22 05:40 Hyaline Casts 16 /LPF 02/15/22 05:40 Urine Mucus Few /HPF 02/15/22 05:40 SARS-CoV-2 (PCR) Positive (Negative) A 02/15/22 11:35 Blood Type B POSITIVE 02/15/22 01:54 Antibody Screen Negative 02/15/22 01:54 Microbiology: Microbiology 02/15/22 01:54 Peripheral/Venous Blood Culture - Preliminary NO GROWTH AFTER 4 DAYS 02/15/22 02:02 Peripheral/Venous Blood Culture - Preliminary NO GROWTH AFTER 4 DAYS 02/16/22 02:00 Nares - Left MRSA Culture - Preliminary Doss/IV: Voiding Method Condom Catheter Active Medications - Current Medications Current Medications: Generic Name Dose Route Start Last Admin Trade Name Freq PRN Reason Stop Dose Admin Acetaminophen 650 mg 02/15/22 05:41 Acetaminophen 325 Mg Tab PO Q4H PRN Pain MILD(1-3)/Fever >100.5/PACHECO Albuterol 2.5 mg 02/18/22 17:15 Albuterol 2.5 Mg/3 Ml Nebu IH Q3HRT PRN Shortness Of Breath Albuterol/Ipratropium 1 ampul 02/18/22 20:00 02/19/22 08:30 Ipratropium/Albuterol Sulfate 3 Ml Ampul.Neb IH Not Given TIDRT LYNDSAY Apixaban 5 mg 02/15/22 10:00 02/19/22 12:24 Apixaban 5 Mg Tab PO Not Given Q12HR LYNDSAY Atorvastatin Calcium 40 mg 02/15/22 22:00 02/17/22 21:25 Atorvastatin 40 Mg Tab PO 40 mg QHS LYNDSAY Administration Clopidogrel Bisulfate 75 mg 02/15/22 10:00 02/19/22 12:25 Clopidogrel 75 Mg Tab PO Not Given QDAY LYNDSAY Dexamethasone 8 mg 02/18/22 10:00 02/19/22 12:25 Dexamethasone 4 Mg Tab PO 02/24/22 10:01 Not Given QDAY LYNDSAY Dextrose 0 ml 02/15/22 05:41 Dextrose 50% In Water (25gm) 50 Ml Syringe IV Q30MIN PRN Hypoglycemia Protocol Docusate Sodium 100 mg 02/18/22 22:00 02/19/22 12:24 Docusate Sodium 100 Mg Cap PO Not Given BID [facility] Famotidine 20 mg 02/15/22 10:00 02/19/22 12:25 Famotidine 20 Mg Tab PO Not Given BID [facility] Furosemide 40 mg 02/15/22 06:00 02/19/22 12:25 Furosemide 40 Mg/4 Ml Inj IV Not Given BID@0600,1800 [facility] Haloperidol Lactate 2.5 mg 02/18/22 13:00 Haloperidol Lactate 5 Mg/1 Ml Inj IV Q6H PRN Agitation Dobutamine HCl/Dextrose 500 mg in 250 mls @ 6.15 mls/hr 02/17/22 11:00 02/18/22 08:30 Dobutrex Drip 500mg/D5w 250ml IV 0 mcg/kg/min DIRECT [facility] 0 mls/hr Infusion Protocol 2.5 MCG/KG/MIN Valproate Sodium 500 mg/ 105 mls @ 100 mls/hr 02/19/22 13:00 Sodium Chloride IV Q12HR [facility] Insulin Glargine 5 units 02/18/22 22:00 Insulin Glargine 100 Units/Ml SUB-Q QHS [facility] Insulin Human Lispro 0 unit 02/15/22 07:30 02/19/22 12:26 Insulin Lispro 100 Unit/Ml SUB-Q Not Given ACHS [facility] Protocol Metoprolol Tartrate 25 mg 02/15/22 08:00 02/19/22 12:25 Metoprolol Tartrate 25 Mg Tab PO Not Given BID@0800,1700 [facility] Morphine Sulfate 2 mg 02/15/22 05:41 02/15/22 11:32 Morphine 2 Mg/1 Ml Inj IV 2 mg Q4H PRN Administration Pain, Moderate (4-6) Morphine Sulfate 4 mg 02/15/22 05:41 02/16/22 22:03 Morphine 4 Mg/1 Ml Inj IV 4 mg Q4H PRN Administration Pain , Severe (7-10) Ondansetron HCl 4 mg 02/15/22 05:41 02/17/22 21:27 Ondansetron 4 Mg/2 Ml Inj IV 4 mg Q8H PRN Administration Nausea And Vomiting Quetiapine Fumarate 50 mg 02/19/22 14:00 Quetiapine 25 Mg Tab PO TID [facility] Sodium Chloride 10 ml 02/15/22 10:00 02/19/22 12:25 Sodium Chloride 0.9% 10 Ml Flush Syringe IV Not Given BID LYNDSAY Sodium Chloride 10 ml 02/15/22 05:41 02/17/22 06:09 Sodium Chloride 0.9% 10 Ml Flush Syringe IV 10 ml PRN PRN Administration LINE FLUSH Nutrition/Malnutrition Assess - Dietary Evaluation Nutrition/Malnutrition Findings: Nutrition Notes Start: 02/15/22 14:18 Freq: Status: Active Protocol: Document 02/15/22 14:18 ERICK (Rec: 02/15/22 14:41 ERICK [id number]) Nutrition Notes Need for Assessment generated from: MD Order,Education Initial or Follow up Brief Note Current Diagnosis COPD,Diabetes,Sepsis, Hypertension,Respiratory Failure,Hyperlipidemia Other Pertinent Diagnosis HFrEF, PVD, PAD, COVID-19, PER , Pleural Effusion, Cardiomyopathy, ... Current Diet Cardiac/Consistent Carbohydrates Diet (since B ). 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 Weight Status Obese Subjective/Other Information RD consult for nutrition education assessment. No reports available on Pt's PO intake of meals at the time , will assess at F/U. Pt is on Room Air, O2 saturation @ 94%, according to Physical Assessment History notes. Pt has missing teeth, according to Physical Assessment History notes. Pt presents an open blister on L-LE as sign of concern for skin risk at the time, according to Physical Assessment History notes. Pt presents generalized edema, specially affecting L-LE, according to History & Physical notes. Pt has R-AKA, according to Progress notes. Pt still in critical condition , not a candidate for Nutrition Education at the time, will assess feasibility on F/U. Percent of energy/protein needs met: Prescribed Cardiac/Consistent Carbohydrates Diet provides for energy/protein needs (1, 977 Kcal/86 g) during LOS. Nutrition Intervention Follow-Up By: 02/22/22 Additional Comments Nutrition education will be provided at F/U, if feasible. Continue monitoring food tolerance, %PO intake of meals , and BM. <MAURO FROST - Last Filed: 02/20/22 07:18> Assessment and Plan Assessment and plan: I saw and evaluated the patient. I agree with the findings and the plan of care as documented in the Nurse Practitioner's~note, with the following corrections and additions. will get a pSYCH CONSULT Hospitalist Physical - Constitutional Vitals: Temp Pulse Resp BP Pulse Ox 98.9 F 77 8 L 139/88 98 02/18/22 08:00 02/19/22 12:15 02/19/22 12:00 02/19/22 12:15 02/19/22 12:00 HEART Score - HEART Score Troponin: Troponin T 0.051 ng/mL (0.00-0.029) H 02/15/22 08:19 Results - Labs CBC & Chem 7: 02/16/22 07:17 02/18/22 13:02 Labs: Laboratory Last Values WBC 4.6 K/mm3 (4.5-11.0) 02/16/22 07:17 RBC 4.60 M/mm3 (3.65-5.03) 02/16/22 07:17 Hgb 13.8 gm/dl (11.8-15.2) 02/16/22 07:17 Hct 43.6 % (35.5-45.6) 02/16/22 07:17 MCV 95 fl (84-94) H 02/16/22 07:17 MCH 30 pg (28-32) 02/16/22 07:17 MCHC 32 % (32-34) 02/16/22 07:17 RDW 16.1 % (13.2-15.2) H 02/16/22 07:17 Plt Count 143 K/mm3 (140-440) 02/16/22 07:17 Lymph % (Auto) 13.8 % (13.4-35.0) 02/16/22 07:17 [place] % (Auto) 7.5 % (0.0-7.3) H 02/16/22 07:17 Eos % (Auto) 0.1 % (0.0-4.3) 02/16/22 07:17 Baso % (Auto) Associate Quality Engineer 02/16/22 07:17 Lymph # (Auto) 0.6 K/mm3 (1.2-5.4) L 02/16/22 07:17 [place] # (Auto) 0.3 K/mm3 (0.0-0.8) 02/16/22 07:17 Eos # (Auto) 0.0 K/mm3 (0.0-0.4) 02/16/22 07:17 Baso # (Auto) 0.0 K/mm3 (0.0-0.1) 02/16/22 07:17 Seg Neutrophils % 78.0 % (40.0-70.0) H 02/16/22 07:17 Seg Neutrophils # 3.6 K/mm3 (1.8-7.7) 02/16/22 07:17 D-Dimer 6704.75 ng/mlDDU (0-234) H 02/17/22 09:18 ABG pH 7.344 pH Units (7.350-7.450) L 02/15/22 02:15 ABG pCO2 49.6 mm Hg 02/15/22 02:15 ABG pO2 140.5 mm Hg (80.0-90.0) H 02/15/22 02:15 ABG HCO3 26.4 mmol/L (20.0-26.0) H 02/15/22 02:15 ABG O2 Saturation 98.6 % (95.0-99.0) 02/15/22 02:15 ABG O2 Content 18.5 (0.0-44) 02/15/22 02:15 ABG Base Excess 0.1 mmol/L (-2.0-3.0) 02/15/22 02:15 ABG Hemoglobin 13.5 gm/dl (14.0-18.0) L 02/15/22 02:15 ABG Carboxyhemoglobin 1.5 % (0.0-5.0) 02/15/22 02:15 ABG Methemoglobin 0.5 % (0.0-1.5) 02/15/22 02:15 Oxyhemoglobin 96.6 % (95.0-99.0) 02/15/22 02:15 FiO2 80 % 02/15/22 02:15 Sodium 135 mmol/L (137-145) L 02/18/22 13:02 Potassium 5.5 mmol/L (3.6-5.0) H 02/18/22 13:02 Chloride 100.8 mmol/L (98-107) 02/18/22 13:02 Carbon Dioxide 25 mmol/L (22-30) 02/18/22 13:02 Anion Gap 15 mmol/L 02/18/22 13:02 BUN 54 mg/dL (9-20) H 02/18/22 13:02 Creatinine 1.6 mg/dL (0.8-1.3) H 02/18/22 13:02 Estimated GFR 44 ml/min 02/18/22 13:02 BUN/Creatinine Ratio 34 % 02/18/22 13:02 Glucose 259 mg/dL (75-100) H 02/18/22 13:02 POC Glucose 185 mg/dL (70-105) H 02/18/22 09:39 Lactic Acid 3.10 mmol/L (0.7-2.0) H* 02/17/22 09:18 Calcium 8.5 mg/dL (8.4-10.2) 02/18/22 13:02 Magnesium 2.00 mg/dL (1.7-2.3) 02/17/22 09:18 Ferritin 1411.0 ng/mL (30.0-300.0) H 02/16/22 09:03 Total Bilirubin 1.00 mg/dL (0.1-1.2) 02/15/22 01:47 AST 45 units/L (5-40) H 02/15/22 01:47 ALT 37 units/L (7-56) 02/15/22 01:47 Alkaline Phosphatase 190 units/L (35-129) H 02/15/22 01:47 Ammonia 18.0 umol/L (25-60) L 02/18/22 13:02 Lactate Dehydrogenase 425 units/L (91-180) H 02/16/22 09:03 Troponin T 0.051 ng/mL (0.00-0.029) H 02/15/22 08:19 C-Reactive Protein 2.10 mg/dL (0.00-1.30) H 02/16/22 09:03 NT-Pro-B Natriuret Pep 78110 pg/mL (0-900) H 02/15/22 01:47 Total Protein 9.1 g/dL (6.3-8.2) H 02/15/22 01:47 Albumin 3.5 g/dL (3.9-5) L 02/15/22 01:47 Albumin/Globulin Ratio 0.6 % 02/15/22 01:47 Triglycerides 65 mg/dL (2-149) 02/15/22 01:47 Cholesterol 143 mg/dL (50-199) 02/15/22 01:47 LDL Cholesterol Direct 62 mg/dL (50-130) 02/15/22 01:47 HDL Cholesterol 79 mg/dL (40-59) H 02/15/22 01:47 Cholesterol/HDL Ratio 1.81 % 02/15/22 01:47 Procalcitonin 0.49 ng/mL (<0.15) 02/15/22 08:19 TSH 4.360 mlU/mL (0.270-4.200) H 02/15/22 01:47 Free T4 1.14 ng/dL (0.76-1.46) 02/15/22 01:47 Urine Color Colorless (Yellow) 02/15/22 05:40 Urine Turbidity Clear (Clear) 02/15/22 05:40 Urine pH 6.0 (5.0-7.0) 02/15/22 05:40 Ur Specific [place] 1.020 (1.003-1.030) 02/15/22 05:40 Urine Protein 300 mg/dl mg/dL (Negative) 02/15/22 05:40 Urine Glucose (UA) Negative mg/dL (Negative) 02/15/22 05:40 Urine Ketones Negative mg/dL (Negative) 02/15/22 05:40 Urine Blood Large (Negative) A 02/15/22 05:40 Urine Nitrite Negative (Negative) 02/15/22 05:40 Urine Bilirubin Negative (Negative) 02/15/22 05:40 Urine Urobilinogen 0.2 mg/dL (<2.0) 02/15/22 05:40 Ur Leukocyte Esterase Negative (Negative) 02/15/22 05:40 Urine WBC (Auto) 10.0 /HPF (0.0-6.0) H 02/15/22 05:40 Urine RBC (Auto) 19.0 /HPF (0.0-6.0) 02/15/22 05:40 U Epithel Cells (Auto) 3.0 /HPF (0-13.0) 02/15/22 05:40 Urine Bacteria (Auto) 2+ /HPF (Negative) 02/15/22 05:40 Hyaline Casts 16 /LPF 02/15/22 05:40 Urine Mucus Few /HPF 02/15/22 05:40 SARS-CoV-2 (PCR) Positive (Negative) A 02/15/22 11:35 Blood Type B POSITIVE 02/15/22 01:54 Antibody Screen Negative 02/15/22 01:54 Microbiology: Microbiology 02/16/22 02:00 Nares - Left MRSA Culture - Final 02/15/22 01:54 Peripheral/Venous Blood Culture - Preliminary NO GROWTH AFTER 4 DAYS 02/15/22 02:02 Peripheral/Venous Blood Culture - Preliminary NO GROWTH AFTER 4 DAYS Doss/IV: Voiding Method Condom Catheter Nutrition/Malnutrition Assess - Dietary Evaluation Nutrition/Malnutrition Findings: Nutrition Notes Start: 02/15/22 14:18 Freq: Status: Discharge Protocol: Document 02/15/22 14:18 ERICK (Rec: 02/15/22 14:41 ERICK [id number]) Nutrition Notes Need for Assessment generated from: MD Order,Education Initial or Follow up Brief Note Current Diagnosis COPD,Diabetes,Sepsis, Hypertension,Respiratory Failure,Hyperlipidemia Other Pertinent Diagnosis HFrEF, PVD, PAD, COVID-19, PER , Pleural Effusion, Cardiomyopathy, ... Current Diet Cardiac/Consistent Carbohydrates Diet (since B ). 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 Weight Status Obese Subjective/Other Information RD consult for nutrition education assessment. No reports available on Pt's PO intake of meals at the time , will assess at F/U. Pt is on Room Air, O2 saturation @ 94%, according to Physical Assessment History notes. Pt has missing teeth, according to Physical Assessment History notes. Pt presents an open blister on L-LE as sign of concern for skin risk at the time, according to Physical Assessment History notes. Pt presents generalized edema, specially affecting L-LE, according to History & Physical notes. Pt has R-AKA, according to Progress notes. Pt still in critical condition , not a candidate for Nutrition Education at the time, will assess feasibility on F/U. Percent of energy/protein needs met: Prescribed Cardiac/Consistent Carbohydrates Diet provides for energy/protein needs (1, 977 Kcal/86 g) during LOS. Nutrition Intervention Follow-Up By: 02/22/22 Additional Comments Nutrition education will be provided at F/U, if feasible. Continue monitoring food tolerance, %PO intake of meals , and BM.
--- NOTE | 2022-02-19 19:43 | Progress Note ---
Assessment and Plan Discontinue dobutamine infusion. Psychiatry evaluation. - Patient Problems (1) Acute respiratory failure Current Visit: Yes Status: Acute (2) Acute on chronic HFrEF (heart failure with reduced ejection fraction) Current Visit: Yes Status: Acute (3) Cardiomyopathy Current Visit: Yes Status: Chronic (4) COVID-19 Current Visit: Yes Status: Acute (5) KARENA (acute kidney injury) Current Visit: Yes Status: Acute (6) COPD (chronic obstructive pulmonary disease) Current Visit: Yes Status: Chronic (7) Hypertension Current Visit: Yes Status: Chronic Qualifiers: Hypertension type: primary hypertension Qualified Code(s): I10 - Essential (primary) hypertension (8) Diabetes mellitus Current Visit: Yes Status: Chronic Subjective Date of service: 02/19/22 Principal diagnosis: Acute on chronic HFrEF, COVID-19 Interval history: While on rounds this morning, the nurse and hospitalist informed me that the patient had refused all medications and was taken out IV lines and leads. Objective Vital Signs Pulse Resp BP Pulse Ox 02/19/22 12:15 77 139/88 02/19/22 12:00 76 8 L 139/88 98 02/19/22 11:45 77 13 147/92 02/19/22 11:41 81 14 147/92 - Physical Examination General: No Apparent Distress HEENT: Positive: EOMI, Normocephaly, Mucus Membranes Moist Neck: Positive: trachea midline Cardiac: Positive: Regular Rhythm Neuro: Positive: Grossly Intact Abdomen: Positive: Soft, Distended Skin: Positive: Clear Musculoskeletal: Normal Range of Motion Extremities: Present: edema, Other (Wound on left lower extremity around the knee) - Imaging and Cardiology Echo: report reviewed AV and intraventricular conduction: left posterior fascicular
--- NOTE | 2022-02-20 07:58 | Discharge Summary ---
<PAVAN MANLEY. - Last Filed: 02/20/22 07:54> Providers - Providers Date of Admission: 02/15/22 05:41 Attending physician: MAURO FROST MD 02/15/22 05:41 Consult to Dietitian/Nutrition [CONS] Routine Physician Instructions: Reason For Exam: Reason for Consult: Diet education Consult to Physician [CONS] Routine Comment: Consulting Provider: BABAR OSBORN Physician Instructions: Reason For Exam: chf 02/15/22 12:36 Consult to Physician [CONS] Routine Comment: Consulting Provider: KEYSHAWN AGUIRRE Physician Instructions: Reason For Exam: BIPAP management + COVID + HF 02/15/22 12:37 Consult to Physician [CONS] Routine Comment: Consulting Provider: BARBARA GERARD Physician Instructions: Reason For Exam: COVID + BIPAP 02/17/22 16:01 Consult to Physician [CONS] Routine Comment: Consulting Provider: JOSETTE LOWE Physician Instructions: Reason For Exam: Worsening renal function/KARENA/COVID-positive 02/17/22 17:05 Consult to Wound/ET Nurse [CONS] Routine Reason For Exam: wound eval 02/19/22 10:26 Consult to Physician [CONS] Routine Comment: Consulting Provider: OCTAVIA CONNORS Physician Instructions: Reason For Exam: aggression, visual hallucination Primary care physician: CURB WORKER Hospitalization Condition: Stable Hospital course: This is a 66-year-old female with DM, CHF HTN, COPD, medical noncompliance HLD, PVD s/p right AKA, GERD who presented to the hospital on 02/15 with shortness of breath over the past couple days, edema and asked for help. In the emergency room patient was found to have acute CHF exacerbation as his admit proBNP was [id number]. Patient was admitted to the hospitalist service with CHF exacerbation, COVID-19 PUI with consults to cardiology, infectious disease and eventually pulmonology. Hospital course to date: 02/15: Utilization of BiPAP on examination 02/17: Transferred patient to [facility] to initiate dobutamine drip per protocol as recommended by cardiology 02/18: Patient is aggressive with staff, complaining of bugs in her apartment, patient is removing his leads. Unable to fully assess the patient this morning. Cardiology will continue dobutamine drip and diuresis with Lasix. Nephrology was consulted due to worsening renal function. 02/19: Patient still refusing medications, refusing to be monitored. Patient stopped and aggressive to staff. Patient started on loop diuretics. Psych consulted who started patient on valproic acid and increased Seroquel. meat market manager sent PD to address. Patient eventually left AMA with family. See nurses notes for details Neuro: Aggressive and noncompliant -Patient is refusing therapies and monitoring -Psych consulted, appreciate recommendations -As needed Haldol -Seroquel and Valproic acid -If mentation does not improve then will need a CT head -Reorientation as needed -Maintain sleep-wake cycle -Verbal de-escalation -As needed analgesia Cardiac: Acute on chronic systolic heart failure, h/o HTN, HLD -Cardiology consulted, appreciate recommendations -Blood pressure monitoring per protocol -Dobutamine drip -patient refuses -06/2021 echocardiogram shows EF of 30 to 35%, mild to moderate global hypokinesis of left ventricle -Continue home Eliquis, Lipitor, Plavix, metoprolol, lisinopril, Aldactone -Lasix IV 40 mg twice daily Respiratory: Acute on chronic hypoxic respiratory failure, h/o COPD -Pulmonology consulted, appreciate recommendations -S/p BiPAP -Currently on nasal cannula -SPO2 monitor per protocol -Pulmonary hygiene -Albuterol, DuoNeb GI: Obesity, h/o GERD -24 hours -140 ml -PPI -CC diet -BR: Colace : Acute kidney injury, hyperkalemia, hyponatremia -Nephrology consulted, appreciate recommendations -Monitor intake and output -Renally dose medications -Avoid nephrotoxic medications -Urine lytes pending -Trend BMP ID: COVID-19 infection -Infectious disease consulted, appreciate recommendation -Decadron 8 mg daily (02/15 - 02/24) -Contact/droplet precautions -02/15/19 PCR positive -Trend COVID-19 inflammatory markers -f/u blood culture -02/15 blood cultures no growth to date, urine culture with normal beau -Monitor WBC and temperature curve Endo: h/o DM -Hemoglobin A1c 7.9 in July 2021 -Avoid hypoglycemia -SSI -Lantus, titrate as needed -Accu-Cheks ACHS Heme: h/o PVD s/p R AKA -Left lower extremity arterial Doppler shows significant atherosclerotic plaque noted throughout the left lower extremity, transition to abnormal monophasic waveforms with minimal flow noted from the mid superficial femoral artery to ankle -Trend CBC -Transfuse hemoglobin less than 7 -SCDs to LLE while in bed Disposition: LEFT AGAINST MEDICAL ADVICE Final Discharge Diagnosis (Prints w/discharge instructions): COVID 19 infection, Acute on Chronic Heart Failure, Acute kidney injury, hyperkalemia, hyponatremia, Acute on chronic hypoxic respiratory failure. h/o HTN, HLD, COPD, Obesity, GERD Time spent for discharge: 30 Core Measure Documentation - Palliative Care Palliative Care/ Comfort Measures: Not Applicable - Core Measures Any of the following diagnoses?: heart failure - Heart Failure Discharge Requirements DARIAN/ARB for LVSD if EF <40%: Not Applicable Reason for no DARIAN/ARB: Patient refusal Beta mary at discharge: No Reason for no beta mary on DC: Patient refusal Heart failure comment: left AMA Exam - Constitutional Vitals: Temp Pulse Resp BP Pulse Ox 98.9 F 77 8 L 139/88 98 02/18/22 08:00 02/19/22 12:15 02/19/22 12:00 02/19/22 12:15 02/19/22 12:00 Plan Follow up with: PRIMARY CAREMD [Primary Care Provider] - 3-5 Days <MAURO FROST - Last Filed: 02/21/22 07:35> Providers - Providers Date of Admission: 02/15/22 05:41 Attending physician: MAURO FROST MD 02/15/22 05:41 Consult to Dietitian/Nutrition [CONS] Routine Physician Instructions: Reason For Exam: Reason for Consult: Diet education Consult to Physician [CONS] Routine Comment: Consulting Provider: BABAR OSBORN Physician Instructions: Reason For Exam: chf 02/15/22 12:36 Consult to Physician [CONS] Routine Comment: Consulting Provider: KEYSHAWN AGUIRRE Physician Instructions: Reason For Exam: BIPAP management + COVID + HF 02/15/22 12:37 Consult to Physician [CONS] Routine Comment: Consulting Provider: BARBARA GERARD Physician Instructions: Reason For Exam: COVID + BIPAP 02/17/22 16:01 Consult to Physician [CONS] Routine Comment: Consulting Provider: JOSETTE LOWE Physician Instructions: Reason For Exam: Worsening renal function/KARENA/COVID-positive 02/17/22 17:05 Consult to Wound/ET Nurse [CONS] Routine Reason For Exam: wound eval 02/19/22 10:26 Consult to Physician [CONS] Routine Comment: Consulting Provider: OCTAVIA CONNORS Physician Instructions: Reason For Exam: aggression, visual hallucination Primary care physician: CURB WORKER Hospitalization Hospital course: I saw and evaluated the patient. I agree with the findings and the plan of care as documented in the Nurse Practitioner's~note, with the following corrections and additions. Exam - Constitutional Vitals: Temp Pulse Resp BP Pulse Ox 98.9 F 77 8 L 139/88 98 02/18/22 08:00 02/19/22 12:15 02/19/22 12:00 02/19/22 12:15 02/19/22 12:00
== END 2022-02-19 18:40 | disposition left against medical advice (07) | DRG 871 ==
LOC: ED 01:13 → 4A 05:41 → 3A 17:44 → IMCU 02-17 20:50
PROVIDERS: ADMIT Hospitalist; ATTEND Internal Medicine
PROC: 4A033R1 Measurement of Arterial Saturation, Peripheral, Percutaneous Approach (ICD-10-PCS; principal; 2022-02-15)
PROC: 5A09357 Assistance with Respiratory Ventilation, Less than 24 Consecutive Hours, Continuous Positive Airway Pressure (ICD-10-PCS; 2022-02-15)
DX: A41.9 Sepsis, unspecified organism (principal); U07.1 COVID-19; N17.0 Acute kidney failure with tubular necrosis; I50.23 Acute on chronic systolic (congestive) heart failure; J96.21 Acute and chronic respiratory failure with hypoxia; E44.1 Mild protein-calorie malnutrition; E87.1 Hypo-osmolality and hyponatremia; I42.0 Dilated cardiomyopathy; Z68.30 Body mass index [BMI] 30.0-30.9, adult; E11.51 Type 2 diabetes mellitus with diabetic peripheral angiopathy without gangrene; E78.5 Hyperlipidemia, unspecified; K21.9 Gastro-esophageal reflux disease without esophagitis; J43.9 Emphysema, unspecified; Z91.19 Patient's noncompliance with other medical treatment and regimen; D69.6 Thrombocytopenia, unspecified; I11.0 Hypertensive heart disease with heart failure; E87.6 Hypokalemia; E66.9 Obesity, unspecified; Z71.3 Dietary counseling and surveillance; E87.5 Hyperkalemia; Z89.611 Acquired absence of right leg above knee; Z79.899 Other long term (current) drug therapy; Z79.82 Long term (current) use of aspirin; Z82.49 Family history of ischemic heart disease and other diseases of the circulatory system; Z53.29 Procedure and treatment not carried out because of patient's decision for other reasons
CPT/HCPCS: 36415; 71045; 80048; 80053; 80061; 81001; 82140; 82728; 82803; 82962; 83615; 83735; 83880; 84145; 84439; 84443; 84484; 85025; 85379; 86140; 86850; 86900; 86901; 87040; 87086; 87116; 93005; 94640; 94760; G0378; Q9967; J0692; J1100; J1250; J1630; J1815; J1940; J2270; J2405; J3480; J7030; U0003

== ENCOUNTER 2022-03-02 08:07 | Emergency (ER) | payer SELFPAY ==
--- NOTE | 2022-03-02 10:36 | XRay Report ---
CHEST 1 VIEW 03/02/2022 10:21 AM INDICATION / CLINICAL INFORMATION: sob. COMPARISON: 02/15/2022 chest FINDINGS: SUPPORT DEVICES: None. HEART / MEDIASTINUM: Stable cardiomegaly LUNGS / PLEURA: Improvement in CHF with improved perihilar edema and decreased volume of the bilatera l pleural effusions. Persistent central pulmonary venous congestion and small bibasilar pleural effus ions with adjacent atelectasis. No evidence for pneumonia. No pneumothorax. ADDITIONAL FINDINGS: None IMPRESSION: 1. Improved CHF since the prior exam on 02/15/2022, as detailed above. 2. Persistent central pulmonary venous congestion and small bibasilar pleural effusions with adjacent atelectasis. Signer Name: Dank Ruiz MD Signed: 03/02/2022 10:31 AM Workstation Name: [email or web address]
[2022-03-02 10:55] VITALS: BP 155/93
--- NOTE | 2022-03-02 11:16 | Emergency Department Report ---
ED Shortness of Breath HPI - General Chief Complaint: Dyspnea/Respdistress Stated Complaint: PAIN ALL OVER BODY Time Seen by Provider: 03/02/22 08:53 Source: family, old records reviewed Mode of arrival: Wheelchair Limitations: Physical Limitation - History of Present Illness Initial Comments: 66-year-old female with DM, CHF HTN, COPD, medical noncompliance HLD, PVD s/p right AKA, GERD, and recent COVID infection diagnosed end of January presents to the hospital with complaints of left arm pain, left leg pain, and shortness of breath. Patient speaks [place] and Swazi. His son is at the bedside attempting to assist with history of present illness and past medical history. His son has physical disabilities and memory issues as well. Patient was at [facility] yesterday for similar symptoms and was evaluated in the ER subsequently discharged. Neither the patient nor his son is able to express his work-up or diagnosis during his [facility] visit. As per medical record his current medication should include Eliquis. Compliance is unclear - Related Data Home Medications Medication Instructions Recorded Confirmed Last Taken Multivit-Min/Iron/Folic Acid/K 1 tab PO DAILY 08/11/21 02/15/22 10/20/21 [Adults Multivitamin Caplet] Dextran 70/Hypromellose [Natural 1 drop OU QDAY 08/19/21 02/15/22 10/20/21 Balance Tears Eye Drop] Previous Rx's Medication Instructions Recorded Last Taken Type Albuterol Mdi (or & Nicu Only) 2 puff IH QID PRN #1 inhalation 06/03/21 10/20/21 Rx [ProAir HFA Inhaler] Furosemide [Lasix TAB] 40 mg PO QDAY #30 tablet 10/28/21 Unknown Rx Spironolactone [Aldactone] 25 mg PO QDAY 30 Days #30 tablet 10/28/21 Unknown Rx lisinopriL [Zestril TAB] 5 mg PO QDAY 30 Days #30 tablet 10/28/21 Unknown Rx ALBUTEROL NEB's [Proventil 0.083% 2.5 mg IH Q6HRT PRN #1 nebu 01/21/22 Unknown Rx NEBS] Apixaban [Eliquis] 5 mg PO Q12HR 30 Days #60 tablet 01/21/22 Unknown Rx Aspirin EC [Halfprin EC] 81 mg PO QDAY 30 Days #30 tablet 01/21/22 Unknown Rx AtorvaSTATin [Lipitor] 40 mg PO QHS 30 Days #30 tablet 01/21/22 Unknown Rx Clopidogrel [Plavix] 75 mg PO QDAY 30 Days #30 tablet 01/21/22 Unknown Rx Furosemide [Lasix TAB] 40 mg PO BID 30 Days #60 tablet 01/21/22 Unknown Rx Metoprolol [Lopressor TAB] 25 mg PO BID 30 Days #60 tablet 01/21/22 Unknown Rx Pantoprazole [Protonix TAB] 40 mg PO DAILY #30 tablet 01/21/22 Unknown Rx Potassium Chloride [K-Dur] 40 meq PO QDAY 3 Days #30 tablet 01/21/22 Unknown Rx Spironolactone [Aldactone] 50 mg PO BID #60 tablet 01/21/22 Unknown Rx lisinopriL [Zestril TAB] 5 mg PO QDAY #30 tablet 01/21/22 Unknown Rx Allergies Allergy/AdvReac Type Severity Reaction Status Date / Time No Known Allergies Allergy Verified 08/19/21 15:15 ED Review of Systems ROS: Stated complaint: PAIN ALL OVER BODY Other details as noted in HPI Comment: Unobtainable due to pts medical conditions (Limited communication) ED Past Medical Hx - Past Medical History Hx Hypertension: Yes (Had acute CHF exacerbation 06/2021) Hx Heart Attack/AMI: Yes (02/10) Hx Congestive Heart Failure: Yes (H/X CHF. RESOLVED NOW.) Hx Diabetes: Yes (DOES NOT USE INSULIN DUE TO COST) Hx Deep Vein Thrombosis: Yes (RIGHT LEG,RIGHT BKA) Hx Renal Disease: No Hx Asthma: Yes Hx COPD: No Hx HIV: No - Surgical History Additional Surgical History: right leg amputation 2020 - Social History Smoking Status: Former Smoker - Medications Home Medications: Home Medications Medication Instructions Recorded Confirmed Last Taken Type Albuterol Mdi (or & Nicu Only) 2 puff IH QID PRN #1 inhalation 06/03/21 02/15/22 10/20/21 Rx [ProAir HFA Inhaler] Multivit-Min/Iron/Folic Acid/K 1 tab PO DAILY 08/11/21 02/15/22 10/20/21 History [Adults Multivitamin Caplet] Dextran 70/Hypromellose [Natural 1 drop OU QDAY 08/19/21 02/15/22 10/20/21 History Balance Tears Eye Drop] Furosemide [Lasix TAB] 40 mg PO QDAY #30 tablet 10/28/21 02/15/22 Unknown Rx Spironolactone [Aldactone] 25 mg PO QDAY 30 Days #30 tablet 10/28/21 02/15/22 Unknown Rx lisinopriL [Zestril TAB] 5 mg PO QDAY 30 Days #30 tablet 10/28/21 02/15/22 Unknown Rx ALBUTEROL NEB's [Proventil 0.083% 2.5 mg IH Q6HRT PRN #1 nebu 01/21/22 02/15/22 Unknown Rx NEBS] Apixaban [Eliquis] 5 mg PO Q12HR 30 Days #60 tablet 01/21/22 02/15/22 Unknown Rx Aspirin EC [Halfprin EC] 81 mg PO QDAY 30 Days #30 tablet 01/21/22 02/15/22 Unknown Rx AtorvaSTATin [Lipitor] 40 mg PO QHS 30 Days #30 tablet 01/21/22 02/15/22 Unknown Rx Clopidogrel [Plavix] 75 mg PO QDAY 30 Days #30 tablet 01/21/22 02/15/22 Unknown Rx Furosemide [Lasix TAB] 40 mg PO BID 30 Days #60 tablet 01/21/22 02/15/22 Unknown Rx Metoprolol [Lopressor TAB] 25 mg PO BID 30 Days #60 tablet 01/21/22 02/15/22 Unknown Rx Pantoprazole [Protonix TAB] 40 mg PO DAILY #30 tablet 01/21/22 02/15/22 Unknown Rx Potassium Chloride [K-Dur] 40 meq PO QDAY 3 Days #30 tablet 01/21/22 02/15/22 Unknown Rx Spironolactone [Aldactone] 50 mg PO BID #60 tablet 01/21/22 02/15/22 Unknown Rx lisinopriL [Zestril TAB] 5 mg PO QDAY #30 tablet 01/21/22 02/15/22 Unknown Rx ED Physical Exam - General Limitations: Physical Limitation - Other Other exam information: General: Complaining of pain Head: Atraumatic Eyes: normal appearance ENT: Moist mucous membranes Neck: Normal appearance, no midline tenderness Chest: Clear to auscultation bilaterally CV: Tachycardic regular rhythm Abdomen: Soft, normal bowel sounds, nontender, nondistended, no rebound or guarding Back: Normal inspection Extremity: Left lower extremity with a circular ulcer to the proximal medial lower leg. Unable to palpate DP pulses. Full range of motion of toes. Left hand spasms noted Neuro: Alert O x 3, no facial asymmetry, speech clear, no gross motor sensory deficit Psych: Appropriate behavior Skin: No rash ED Course Vital Signs 03/02/22 03/02/22 08:24 10:46 Temperature 98.9 F Pulse Rate 120 H 121 H Respiratory 19 18 Rate Blood Pressure 167/95 155/93 [Right] O2 Sat by Pulse 95 97 Oximetry ED Medical Decision Making - Lab Data Result diagrams: 03/02/22 10:48 - Radiology Data Radiology results: report reviewed CHEST 1 VIEW 03/02/2022 10:21 AM INDICATION / CLINICAL INFORMATION: sob. COMPARISON: 02/15/2022 chest FINDINGS: SUPPORT DEVICES: None. HEART / MEDIASTINUM: Stable cardiomegaly LUNGS / PLEURA: Improvement in CHF with improved perihilar edema and decreased volume of the bilateral pleural effusions. Persistent central pulmonary venous congestion and small bibasilar pleural effusions with adjacent atelectasis. No evidence for pneumonia. No pneumothorax. ADDITIONAL FINDINGS: None IMPRESSION: 1. Improved CHF since the prior exam on 02/15/2022, as detailed above. 2. Persistent central pulmonary venous congestion and small bibasilar pleural effusions with adjacent atelectasis. - Medical Decision Making 66-year male presents to the hospital complaining of shortness of breath, left arm pain, and left leg pain. Very poor historian. As per medical record review patient is very noncompliant and recently signed out AGAINST MEDICAL ADVICE during his recent admission. Patient also was at [facility] yesterday. During my initial assist patient appeared to be agitated with mild tachycardia. While awaiting results patient signed out AGAINST MEDICAL ADVICE. CBC was pending. Troponin elevation noted and appears to be chronic. Patient had a room air saturation 97%. Patient signed out prior to obtaining reevaluating with language line assistance cbc has not resulted as of 2:08pm Critical Care Time: No Critical care attestation.: If time is entered above; I have spent that time in minutes in the direct care of this critically ill patient, excluding procedure time. ED Disposition Clinical Impression: PAD (peripheral artery disease), Left leg pain, Left arm pain Disposition: LEFT AGAINST MEDICAL ADVICE Is pt being admited?: No Condition: Stable Referrals: PRIMARY CARE, [Primary Care Provider] - 3-5 Days Forms: AMA Form Time of Disposition: 11:15
--- NOTE | 2022-03-02 11:24 | Electrocardiograph Report ---
[facility] Test Date: 2022-03-02 Test Time: 08:48:59 Pat Name: LYNDSEY PERALTA Department: Room: Gender: M Primary Operator: BRIAN : 1955 Requested By: LYLE CAMACHO Order Number: [id number] Reading MD: Crow Neely Measurements Intervals [place] Rate: 117 P: 58 WI: 142 QRS: 141 QRSD: 104 T: 30 QT: 330 QTc: 461 Interpretive Statements Sinus tachycardia Probable left atrial enlargement Left posterior fascicular block Anterior infarct, old Compared to ECG 02/19/2022 08:45:02 Myocardial infarct finding still present Electronically Signed On 03-02-2022 11:24:19 EDT by Crow Neely
[2022-03-02 11:44] LABS: Alanine Aminotransferase 35 units/L (7-56); Albumin 3.3 g/dL (3.9-5); BUN/Creatinine Ratio 40; Blood Urea Nitrogen 36 mg/dL (9-20); Calcium 9.2 mg/dL (8.4-10.2); Hemolysis Index 7
[2022-03-02 12:31] LABS: Chol/HDL Ratio 2.2 %
[2022-03-02 12:43] LABS: INR 1.09 (0.87-1.13)
[2022-03-02 12:45] LABS: Partial Thromboplastin Time 33.8 Sec. (24.2-36.6)
[2022-03-02 15:27] LABS: Basophils # (Auto) 0.1 K/mm3 (0.0-0.1); Basophils % (Auto) 0.5 % (0.0-1.8); Eosinophils # (Auto) 0.1 K/mm3 (0.0-0.4); Eosinophils % (Auto) 0.9 % (0.0-4.3); Hemoglobin 14.2 gm/dl (11.8-15.2); Lymphocytes # (Auto) 0.9 K/mm3 (1.2-5.4); Lymphocytes % (Auto) 8.3 % (13.4-35.0); Mean Corpuscular HGB Conc 34 % (32-34); Mean Corpuscular Volume 92 fl (84-94); Monocytes # (Auto) 0.5 K/mm3 (0.0-0.8); Monocytes % (Auto) 4.9 % (0.0-7.3); Platelet Count 139 K/mm3 (140-440); Red Blood Count 4.58 M/mm3 (3.65-5.03); Red Cell Distribution Width 15.5 % (13.2-15.2)
== END 2022-03-02 11:21 | disposition left against medical advice (07) ==
LOC: ED 08:07
DX: I73.9 Peripheral vascular disease, unspecified (principal); M79.605 Pain in left leg; M79.602 Pain in left arm; I11.0 Hypertensive heart disease with heart failure; I50.9 Heart failure, unspecified; J45.909 Unspecified asthma, uncomplicated; Z79.82 Long term (current) use of aspirin; Z79.899 Other long term (current) drug therapy; Z79.01 Long term (current) use of anticoagulants
CPT/HCPCS: 36415; 71045; 80053; 80061; 83880; 84484; 85025; 85610; 85730; 93005; 99284

== ENCOUNTER 2022-03-22 22:48 | Inpatient (IN) | payer SELFPAY ==
[2022-03-23] MEDS ORDERED: fentaNYL 100 MCG/2 ML INJ IV ONE (06:22)
--- NOTE | 2022-03-23 06:22 | Emergency Department Report ---
ED General Adult HPI - General Chief complaint: Abdominal Pain Stated complaint: Lower extremity pain and swelling. Abdominal swelling Time Seen by Provider: 03/23/22 06:09 Source: patient, EMS ( EMS documentation not available at time of chart dictation ), RN notes reviewed Mode of arrival: Stretcher Limitations: Physical Limitation - History of Present Illness Initial comments: The patient was evaluated in the emergency department for symptoms described in the history of present illness. He/she was evaluated in the context of the global COVID-19 pandemic, which necessitated consideration that the patient might be at risk for infection with the virus that causes COVID-19. Institutional protocols and algorithms that pertain to the evaluation of patients at risk for COVID-19 are in a state of rapid change based on information released by regulatory bodies including the CDC and federal and state organizations. These policies and algorithms were followed during the patient's care in the emergency department. Please note that these policies, procedures and recommendations changed on a rapid basis. Past medical history: Diabetes, CHF, hypertension, COPD, peripheral vascular disease, status post right AKA, GERD, hyperlipidemia. This patient is a 66-year-old gentleman who presents to the department today with complaint of left lower extremity pain and swelling, and abdominal wall swelling. His symptoms have been going on for a few weeks to a few months. He reports noncompliance with his medications. He endorses that he is short of breath, and is requesting oxygen. No vomiting, fevers, chills, or urinary symptoms. Not accompanied by friends or family at this time for collateral information. Does not specifically endorse whether or not lower extremity pain and swelling increases with range of motion, ambulation or not. Is underlying mobility status is not known -: days(s), week(s), month(s) Location: abdomen, left, right, lower extremity Quality: aching Consistency: other Improves with: other Worsens with: other - Related Data Home Medications Medication Instructions Recorded Confirmed Last Taken Multivit-Min/Iron/Folic Acid/K 1 tab PO DAILY 08/11/21 02/15/22 10/20/21 [Adults Multivitamin Caplet] Dextran 70/Hypromellose [Natural 1 drop OU QDAY 08/19/21 02/15/22 10/20/21 Balance Tears Eye Drop] Previous Rx's Medication Instructions Recorded Last Taken Type Albuterol Mdi (or & Nicu Only) 2 puff IH QID PRN #1 inhalation 06/03/21 10/20/21 Rx [ProAir HFA Inhaler] Furosemide [Lasix TAB] 40 mg PO QDAY #30 tablet 10/28/21 Unknown Rx Spironolactone [Aldactone] 25 mg PO QDAY 30 Days #30 tablet 10/28/21 Unknown Rx lisinopriL [Zestril TAB] 5 mg PO QDAY 30 Days #30 tablet 10/28/21 Unknown Rx ALBUTEROL NEB's [Proventil 0.083% 2.5 mg IH Q6HRT PRN #1 nebu 01/21/22 Unknown Rx NEBS] Apixaban [Eliquis] 5 mg PO Q12HR 30 Days #60 tablet 01/21/22 Unknown Rx Aspirin EC [Halfprin EC] 81 mg PO QDAY 30 Days #30 tablet 01/21/22 Unknown Rx AtorvaSTATin [Lipitor] 40 mg PO QHS 30 Days #30 tablet 01/21/22 Unknown Rx Clopidogrel [Plavix] 75 mg PO QDAY 30 Days #30 tablet 01/21/22 Unknown Rx Furosemide [Lasix TAB] 40 mg PO BID 30 Days #60 tablet 01/21/22 Unknown Rx Metoprolol [Lopressor TAB] 25 mg PO BID 30 Days #60 tablet 01/21/22 Unknown Rx Pantoprazole [Protonix TAB] 40 mg PO DAILY #30 tablet 01/21/22 Unknown Rx Potassium Chloride [K-Dur] 40 meq PO QDAY 3 Days #30 tablet 01/21/22 Unknown Rx Spironolactone [Aldactone] 50 mg PO BID #60 tablet 01/21/22 Unknown Rx lisinopriL [Zestril TAB] 5 mg PO QDAY #30 tablet 01/21/22 Unknown Rx Allergies Allergy/AdvReac Type Severity Reaction Status Date / Time No Known Allergies Allergy Verified 08/19/21 15:15 ED Review of Systems ROS: Stated complaint: ABD PAIN/LEFT LEG PAIN Other details as noted in HPI Constitutional: denies: fever Eyes: denies: eye discharge Respiratory: shortness of breath Cardiovascular: denies: chest pain Gastrointestinal: abdominal pain Musculoskeletal: joint swelling, arthralgia, myalgia Skin: rash, lesions Neurological: weakness Hematological/Lymphatic: denies: easy bleeding ED Past Medical Hx - Past Medical History Hx Hypertension: Yes (Had acute CHF exacerbation 06/2021) Hx Heart Attack/AMI: Yes (02/10) Hx Congestive Heart Failure: Yes (H/X CHF. RESOLVED NOW.) Hx Diabetes: Yes (DOES NOT USE INSULIN DUE TO COST) Hx Deep Vein Thrombosis: Yes (RIGHT LEG,RIGHT BKA) Hx Renal Disease: No Hx Asthma: Yes Hx COPD: No Hx HIV: No - Surgical History Additional Surgical History: right leg amputation 2020 - Social History Smoking Status: Former Smoker - Medications Home Medications: Home Medications Medication Instructions Recorded Confirmed Last Taken Type Albuterol Mdi (or & Nicu Only) 2 puff IH QID PRN #1 inhalation 06/03/21 02/15/22 10/20/21 Rx [ProAir HFA Inhaler] Multivit-Min/Iron/Folic Acid/K 1 tab PO DAILY 08/11/21 02/15/22 10/20/21 History [Adults Multivitamin Caplet] Dextran 70/Hypromellose [Natural 1 drop OU QDAY 08/19/21 02/15/22 10/20/21 History Balance Tears Eye Drop] Furosemide [Lasix TAB] 40 mg PO QDAY #30 tablet 10/28/21 02/15/22 Unknown Rx Spironolactone [Aldactone] 25 mg PO QDAY 30 Days #30 tablet 10/28/21 02/15/22 U nknown Rx lisinopriL [Zestril TAB] 5 mg PO QDAY 30 Days #30 tablet 10/28/21 02/15/22 Unknown Rx ALBUTEROL NEB's [Proventil 0.083% 2.5 mg IH Q6HRT PRN #1 nebu 01/21/22 02/15/22 Unknown Rx NEBS] Apixaban [Eliquis] 5 mg PO Q12HR 30 Days #60 tablet 01/21/22 02/15/22 Unknown Rx Aspirin EC [Halfprin EC] 81 mg PO QDAY 30 Days #30 tablet 01/21/22 02/15/22 Unknown Rx AtorvaSTATin [Lipitor] 40 mg PO QHS 30 Days #30 tablet 01/21/22 02/15/22 Unknown Rx Clopidogrel [Plavix] 75 mg PO QDAY 30 Days #30 tablet 01/21/22 02/15/22 Unknown Rx Furosemide [Lasix TAB] 40 mg PO BID 30 Days #60 tablet 01/21/22 02/15/22 Unknown Rx Metoprolol [Lopressor TAB] 25 mg PO BID 30 Days #60 tablet 01/21/22 02/15/22 Unknown Rx Pantoprazole [Protonix TAB] 40 mg PO DAILY #30 tablet 01/21/22 02/15/22 Unknown Rx Potassium Chloride [K-Dur] 40 meq PO QDAY 3 Days #30 tablet 01/21/22 02/15/22 Unknown Rx Spironolactone [Aldactone] 50 mg PO BID #60 tablet 01/21/22 02/15/22 Unknown Rx lisinopriL [Zestril TAB] 5 mg PO QDAY #30 tablet 01/21/22 02/15/22 Unknown Rx ED Physical Exam - General Limitations: Physical Limitation General appearance: alert, anxious - Head Head exam: Present: atraumatic, normocephalic - Eye Eye exam: Present: normal appearance, EOMI. Absent: nystagmus - ENT ENT exam: Present: normal exam, normal orophraynx, mucous membranes moist, normal external ear exam - Neck Neck exam: Present: normal inspection, full ROM. Absent: tenderness, meningismus - Respiratory Respiratory exam: Present: respiratory distress, rales. Absent: rhonchi, stridor - Cardiovascular Cardiovascular Exam: Present: regular rate, normal rhythm, normal heart sounds. Absent: bradycardia, irregular rhythm, systolic murmur, diastolic murmur, rubs, gallop - GI/Abdominal GI/Abdominal exam: Present: soft. Absent: distended, tenderness, guarding, rebound, rigid, pulsatile mass - Rectal Rectal exam: Present: deferred - Extremities Exam Extremities exam: Present: full ROM (Sensation is intact to light touch in 4 extremities.), pedal edema, other (1+ radial pulses appreciated bilaterally. Femoral pulses not appreciated bilaterally. Lower extremity compartments are soft.). Absent: normal inspection (Right lower extremity status post above-knee amputation. Left lower extremity but with multiple chronic appearing wounds. There is no redness, pus or streaking), tenderness, calf tenderness - Back Exam Back exam: Present: normal inspection. Absent: tenderness, CVA tenderness (R), CVA tenderness (L), paraspinal tenderness, vertebral tenderness - Neurological Exam Neurological exam: Present: alert, oriented X3 - Psychiatric Psychiatric exam: Present: anxious, other (There is no facial droop. The tongue is midline. EOMI. 5 out of 5 strength in 4 extremities) - Skin Skin exam: Present: dry, intact. Absent: diaphoretic, urticaria, vesicles, abrasion, ecchymosis ED Course Vital Signs 03/23/22 03/23/22 00:04 03:31 Temperature 98.4 F Pulse Rate 94 H 96 H Respiratory 16 20 Rate Blood Pressure 140/94 152/95 [Right] O2 Sat by Pulse 94 95 Oximetry - Reevaluation(s) Reevaluation #1: 03/23/22 10:47 Differential diagnosis, include but not limited to: Peripheral artery disease, congestive heart failure, noncompliance Assessment and plan: 66-year-old gentleman with diabetes congestive heart failure, hypertension, COPD, peripheral artery disease, noncompliance, likely presenting with CHF, COPD exacerbation, and chronic progression of lower extremity peripheral artery disease. His muscular compartments are soft, and there is no pain with passive range of motion of the left great toe. Lower extremities are cool, and it appears that he is having progression of his underlying peripheral artery disease. Abdomen is soft and benign, without rebound, guarding or peritoneal signs. DVT is ruled out on lower extremity DVT study. Lower extremity duplex studies appreciated. Have requested vascular surgery consult. Treat with albuterol, Atrovent, Lasix, admit to medical service for decompensated congestive heart failure, CHF, as well as symptomatic peripheral artery disease. Patient resting upright, with 4 to 5 cm of JVD, requires 2 to 3 L of supplemental oxygen. He is agreeable to admission and hospitalization. Abdomen is soft and benign, without rebound, guarding peritoneal signs, and there is no pulsatile abdominal mass 03/23/22 11:34 Laboratory studies reviewed and appreciated. I am informed that vascular surgeon, Dr. Caldera, is currently in the operating room. We will discussed with him as soon as is feasible. Thus far he has been paged twice. [place] paging a third time. Heparin will be started. Endorsed to hospital physician, Dr. Wise for further management. 03/23/22 11:59 As per recommendations from Dr. Caldera, "that is not an acute occlusion so he does not require a heparin drip from a vascular standpoint. His heart is the issue." No further vascular surgery recommendations at this time. We will cancel heparin drip. - EJ/Peripheral Line Neck L Time Out Performed: Yes Indications: nurses unable to establis Skin Cleansed in Sterile Fashion: Yes Size: 20 Dressing Placed: Tegaderm Patient Tolerated Procedure: well ED Medical Decision Making - Lab Data Result diagrams: 03/23/22 06:36 03/23/22 10:07 Vital Signs 03/23/22 03/23/22 00:04 03:31 Temperature 98.4 F Pulse Rate 94 H 96 H Respiratory 16 20 Rate Blood Pressure 140/94 152/95 [Right] O2 Sat by Pulse 94 95 Oximetry Lab Results 03/23/22 03/23/22 Range/Units 06:36 10:07 WBC 6.3 (4.5-11.0) K/mm3 RBC 4.75 (3.65-5.03) M/mm3 Hgb 14.9 (11.8-15.2) gm/dl Hct 45.4 (35.5-45.6) % MCV 96 H (84-94) fl MCH 31 (28-32) pg MCHC 33 (32-34) % RDW 17.8 H (13.2-15.2) % Plt Count 92 L (140-440) K/mm3 Lymph % (Auto) 18.8 (13.4-35.0) % Cocke % (Auto) 7.8 H (0.0-7.3) % Eos % (Auto) 8.3 H (0.0-4.3) % Baso % (Auto) 1.1 (0.0-1.8) % Lymph # (Auto) 1.2 (1.2-5.4) K/mm3 Cocke # (Auto) 0.5 (0.0-0.8) K/mm3 Eos # (Auto) 0.5 H (0.0-0.4) K/mm3 Baso # (Auto) 0.1 (0.0-0.1) K/mm3 Seg Neutrophils % 64.0 (40.0-70.0) % Seg Neutrophils # 4.0 (1.8-7.7) K/mm3 Sodium 138 (137-145) mmol/L Potassium 5.0 (3.6-5.0) mmol/L Chloride 101.7 (98-107) mmol/L Carbon Dioxide 25 (22-30) mmol/L Anion Gap 16 mmol/L BUN 38 H (9-20) mg/dL Creatinine 1.1 (0.8-1.3) mg/dL Estimated GFR > 60 ml/min BUN/Creatinine Ratio 35 % Glucose 173 H (75-100) mg/dL Calcium 8.8 (8.4-10.2) mg/dL Magnesium 2.00 (1.7-2.3) mg/dL Total Bilirubin 0.80 (0.1-1.2) mg/dL AST 30 (5-40) units/L ALT 46 (7-56) units/L Alkaline Phosphatase 145 H (35-129) units/L Total Creatine Kinase 206 H (55-170) units/L Troponin T 0.080 H (0.00-0.029) ng/mL NT-Pro-B Natriuret Pep 79402 H (0-900) pg/mL Total Protein 7.6 (6.3-8.2) g/dL Albumin 3.2 L (3.9-5) g/dL Albumin/Globulin Ratio 0.7 % - EKG Data 03/23/22 10:41 The EKG is interpreted at 06: 45 AM Sinus rhythm, 89 bpm. Rightward axis deviation. Low voltage. QTc 4 to 5 ms. Poor R wave progression. Motion artifact. Abnormal EKG. Not a STEMI. - Radiology Data Radiology results: pending, report reviewed, image reviewed DUPLEX DOPPLER LOWER EXTREMITY ARTERIAL, BILATERAL INDICATION / CLINICAL INFORMATION: Peripheral artery disease, lower extremity pain sw. TECHNIQUE: Arterial duplex examination of both lower extremities performed using B-mode, color flow and spectral Doppler assessment. COMPARISON: Ultrasound 02/16/2022. FINDINGS: RIGHT: - Atherosclerotic Plaque & Vessel: Diffuse calcified atherosclerotic plaque. - Elevated Velocity (>200 cm/s) & Vessel: None. - Abnormal Waveform & Vessel: None. -There is occlusion of the superficial femoral artery mid to distally. LEFT: - Atherosclerotic Plaque & Vessel: Diffuse atherosclerotic plaque. - Elevated Velocity (>200 cm/s) & Vessel: None. - Abnormal Waveform & Vessel: There are abnormal monophasic waveforms throughout extending proximally from the mid superficial femoral artery to the ankle. ADDITIONAL FINDINGS: None. IMPRESSION: 1. On the right, no flow is seen within the distal superficial femoral artery. 2. On the left, there are persistent monophasic waveforms as described on the prior from one month ago. There is also very slow flow at the left knee and below. These findings are consistent with significant peripheral vascular disease. Ankle-Brachial Index (YANNICK): - Calcified arteries > 1.4 - Normal = 0.9- 1.4 - Mild PAD = 0.7-0.89 - Moderate PAD = 0.51-0.69 - Severe PAD < 0.5 Doppler Waveform: - Triphasic is normal. - Biphasic is abnormal if clear transition from triphasic signal along vascular tree. - Monophasic is abnormal. Signer Name: Hardy Doshi MD Signed: 03/23/2022 9:21 AM Workstation Name: [id number] DUPLEX DOPPLER LOWER EXTREMITY VEINS, LEFT INDICATION / CLINICAL INFORMATION: Lower extremity pain and swelling. TECHNIQUE: Duplex doppler imaging was performed through the veins of the left lower extremity using venous compression and other maneuvers. COMPARISON: 09/09/2021 FINDINGS: LEFT COMMON FEMORAL VEIN: Negative. LEFT FEMORAL VEIN: Negative. LEFT POPLITEAL VEIN: Negative. LEFT CALF VEINS: Negative. ADDITIONAL FINDINGS: There is a 1.6 cm popliteal cyst. IMPRESSION: 1. No sonographic evidence for DVT in the left lower extremity. S igner Name: Hardy Doshi MD Signed: 03/23/2022 9:16 AM Workstation Name: [email or web address] Chest single view INDICATION: Chest pain IMPRESSION: Worsening pleural- parenchymal opacities within both lower lungs when compared to 03/02/2022. Low lung volumes. Cardiomegaly persists. Signer Name: Mike Lynch MD Signed: 03/23/2022 5:49 AM Workstation Name: [id number] Critical Care Time: Yes Critical care time in (mins) excluding proc time.: 35 Critical care attestation.: If time is entered above; I have spent that time in minutes in the direct care of this critically ill patient, excluding procedure time. ED Disposition Clinical Impression: CHF (congestive heart failure), COPD (chronic obstructive pulmonary disease), Peripheral vascular disease, Anasarca, Volume overload, Pulmonary edema Disposition: 09 ADMITTED INPATIENT Is pt being admited?: Yes Does the pt Need Aspirin: No Condition: Fair Instructions: Pulmonary Edema (ED), Chronic Obstructive Pulmonary Disease (ED) Referrals: JAYLAN WEST MD [Primary Care Provider] - 3-5 Days
--- NOTE | 2022-03-23 06:54 | XRay Report ---
Chest single view INDICATION: Chest pain IMPRESSION: Worsening pleural-parenchymal opacities within both lower lungs when compared to 2. Low lung volumes. Cardiomegaly persists. Signer Name: Mike Lynch MD Signed: 03/23/2022 6:49 AM Workstation Name: [id number]
[2022-03-23 07:26] LABS: Basophils # (Auto) 0.1 K/mm3 (0.0-0.1); Basophils % (Auto) 1.1 % (0.0-1.8); Eosinophils # (Auto) 0.5 K/mm3 (0.0-0.4); Eosinophils % (Auto) 8.3 % (0.0-4.3); Hematocrit 45.4 % (35.5-45.6); Hemoglobin 14.9 gm/dl (11.8-15.2); Lymphocytes # (Auto) 1.2 K/mm3 (1.2-5.4); Lymphocytes % (Auto) 18.8 % (13.4-35.0); Mean Corpuscular HGB Conc 33 % (32-34); Mean Corpuscular Volume 96 fl (84-94); Monocytes # (Auto) 0.5 K/mm3 (0.0-0.8); Monocytes % (Auto) 7.8 % (0.0-7.3); Red Blood Count 4.75 M/mm3 (3.65-5.03); Red Cell Distribution Width 17.8 % (13.2-15.2)
[2022-03-23 07:53] LABS: Platelet Count 92 K/mm3 (140-440)
--- NOTE | 2022-03-23 10:20 | Vascular Lab Report ---
DUPLEX DOPPLER LOWER EXTREMITY VEINS, LEFT INDICATION / CLINICAL INFORMATION: Lower extremity pain and swelling. TECHNIQUE: Duplex doppler imaging was performed through the veins of the left lower extremity using v enous compression and other maneuvers. COMPARISON: 09/09/2021 FINDINGS: LEFT COMMON FEMORAL VEIN: Negative. LEFT FEMORAL VEIN: Negative. LEFT POPLITEAL VEIN: Negative. LEFT CALF VEINS: Negative. ADDITIONAL FINDINGS: There is a 1.6 cm popliteal cyst. IMPRESSION: 1. No sonographic evidence for DVT in the left lower extremity. Signer Name: Hardy Doshi MD Signed: 03/23/2022 10:16 AM Workstation Name: [email or web address]
--- NOTE | 2022-03-23 10:25 | Vascular Lab Report ---
DUPLEX DOPPLER LOWER EXTREMITY ARTERIAL, BILATERAL INDICATION / CLINICAL INFORMATION: Peripheral artery disease, lower extremity pain sw. TECHNIQUE: Arterial duplex examination of both lower extremities performed using B-mode, color flow and spectral Doppler assessment. COMPARISON: Ultrasound 02/16/2022. FINDINGS: RIGHT: - Atherosclerotic Plaque & Vessel: Diffuse calcified atherosclerotic plaque. - Elevated Velocity (>200 cm/s) & Vessel: None. - Abnormal Waveform & Vessel: None. -There is occlusion of the superficial femoral artery mid to distally. LEFT: - Atherosclerotic Plaque & Vessel: Diffuse atherosclerotic plaque. - Elevated Velocity (>200 cm/s) & Vessel: None. - Abnormal Waveform & Vessel: There are abnormal monophasic waveforms throughout extending proximally from the mid superficial femoral artery to the ankle. ADDITIONAL FINDINGS: None. IMPRESSION: 1. On the right, no flow is seen within the distal superficial femoral artery. 2. On the left, there are persistent monophasic waveforms as described on the prior from one month ag o. There is also very slow flow at the left knee and below. These findings are consistent with signif icant peripheral vascular disease. Ankle-Brachial Index (YANNICK): - Calcified arteries > 1.4 - Normal = 0.9-1.4 - Mild PAD = 0.7-0.89 - Moderate PAD = 0.51-0.69 - Severe PAD < 0.5 Doppler Waveform: - Triphasic is normal. - Biphasic is abnormal if clear transition from triphasic signal along vascular tree. - Monophasic is abnormal. Signer Name: Hardy Doshi MD Signed: 03/23/2022 10:21 AM Workstation Name: [id number]
[2022-03-23] MEDS ORDERED: fentaNYL 100 MCG/2 ML INJ ONE (10:38)
[2022-03-23] MEDS ORDERED: IPRATROPIUM 0.02% NEBU 2.5 ML IH ONE (10:49)
[2022-03-23] MEDS ORDERED: methylPREDNISolone Sod Succinate 125 MG/2 ML INJ IV ONE (10:49)
[2022-03-23] MEDS ORDERED: ALBUTEROL 2.5 MG/3 ML NEBU IH ONE (10:49)
[2022-03-23] MEDS ORDERED: FUROSEMIDE 40 MG/4 ML INJ IV ONE (10:50)
[2022-03-23 11:24] LABS: Alanine Aminotransferase 46 units/L (7-56); Albumin 3.2 g/dL (3.9-5); BUN/Creatinine Ratio 35; Blood Urea Nitrogen 38 mg/dL (9-20); Calcium 8.8 mg/dL (8.4-10.2); Hemolysis Index 32
--- NOTE | 2022-03-23 11:32 | History and Physical Report ---
History of Present Illness Chief complaint: My leg hurts and is hard to breathe History of present illness: 66 YO Male with HTN, HLD, GERD, PVD presents to ED for evaluation. Patient reports "my leg hurts and it is also hard to breathe". Patient states that he has experienced pain and swelling in his left leg over the past several weeks with persistent symptoms over the same timeframe. Patient also reports that he has experienced shortness of breath over the same timeframe. Patient knowledges 7 pound weight gain over the past week. Patient denies orthopnea, paroxysmal nocturnal dyspnea, dyspnea on exertion as well as dyspnea at rest. EMS was notified and upon arrival the patient was found to be in distress and subsequently transported to [facility] for further care and evaluation of the aforementioned symptoms. The patient was seen and evaluated in the emergency department. All lab and imaging studies reviewed. Patient was found to have a pulse oximetry of 87% on room air which is consistent with acute hypoxemic respiratory failure. Patient also found to have clinical findings consistent with CHF decompensation, as well as lab findings consistent with NSTEMI, and chest x-ray findings consistent with bilateral pneumonia. Patient admitted to IMCU and initiated on pneumonia protocol. Patient also initiated on ACS protocol. . Vascular surgery team consulted in ED. cardiology team consulted in ED. Patient denies fever, chills, chest pain, palpitation, productive cough, recent ill contacts, known exposure to COVID-19. No prior admission for review. Prior admission 02/15/2022 reviewed. All medication listed at time of admission has been reconciled. Advanced care planning conducted in the ED. Past History Past Medical History: GERD, hypertension, hyperlipidemia, PVD Past Surgical History: Other (Right BKA) Social history: single. denies: smoking, alcohol abuse, prescription drug abuse Family history: hypertension Medications and Allergies Allergies Allergy/AdvReac Type Severity Reaction Status Date / Time No Known Allergies Allergy Verified 08/19/21 15:15 Home Medications Medication Instructions Recorded Confirmed Last Taken Type Albuterol Mdi (or & Nicu Only) 2 puff IH QID PRN #1 inhalation 06/03/21 02/15/22 10/20/21 Rx [ProAir HFA Inhaler] Multivit-Min/Iron/Folic Acid/K 1 tab PO DAILY 08/11/21 02/15/22 10/20/21 History [Adults Multivitamin Caplet] Dextran 70/Hypromellose [Natural 1 drop OU QDAY 08/19/21 02/15/22 10/20/21 History Balance Tears Eye Drop] Furosemide [Lasix TAB] 40 mg PO QDAY #30 tablet 10/28/21 02/15/22 Unknown Rx Spironolactone [Aldactone] 25 mg PO QDAY 30 Days #30 tablet 10/28/21 02/15/22 Unknown Rx lisinopriL [Zestril TAB] 5 mg PO QDAY 30 Days #30 tablet 10/28/21 02/15/22 Unknown Rx ALBUTEROL NEB's [Proventil 0.083% 2.5 mg IH Q6HRT PRN #1 nebu 01/21/22 02/15/22 Unknown Rx NEBS] Apixaban [Eliquis] 5 mg PO Q12HR 30 Days #60 tablet 01/21/22 02/15/22 Unknown Rx Aspirin EC [Halfprin EC] 81 mg PO QDAY 30 Days #30 tablet 01/21/22 02/15/22 Unknown Rx AtorvaSTATin [Lipitor] 40 mg PO QHS 30 Days #30 tablet 01/21/22 02/15/22 Unknown Rx Clopidogrel [Plavix] 75 mg PO QDAY 30 Days #30 tablet 01/21/22 02/15/22 Unknown Rx Furosemide [Lasix TAB] 40 mg PO BID 30 Days #60 tablet 01/21/22 02/15/22 Unknown Rx Metoprolol [Lopressor TAB] 25 mg PO BID 30 Days #60 tablet 01/21/22 02/15/22 Unknown Rx Pantoprazole [Protonix TAB] 40 mg PO DAILY #30 tablet 01/21/22 02/15/22 Unknown Rx Potassium Chloride [K-Dur] 40 meq PO QDAY 3 Days #30 tablet 01/21/22 02/15/22 Unknown Rx Spironolactone [Aldactone] 50 mg PO BID #60 tablet 01/21/22 02/15/22 Unknown Rx lisinopriL [Zestril TAB] 5 mg PO QDAY #30 tablet 01/21/22 02/15/22 Unknown Rx Review of Systems Constitutional: weight gain, no weight loss, no fever, no chills Ears, nose, mouth and throat: no ear pain, no ear discharge, no tinnitis, no decreased hearing, no nose pain, no nasal congestion Cardiovascular: orthopnea, shortness of breath, dyspnea on exertion, paroxysmal nocturnal dyspnea, decreased exercise tolerance, no chest pain Respiratory: no cough, no cough with sputum, no excessive sputum Gastrointestinal: no nausea, no vomiting, no diarrhea, no constipation Genitourinary Male: no hematuria, no flank pain, no discharge, no urinary frequency, no urinary hesitancy Rectal: no pain, no incontinence, no bleeding Musculoskeletal: no neck stiffness, no neck pain, no shooting arm pain, no arm numbness/tingling, no low back pain, no shooting leg pain Integumentary: no rash, no pruritis, no redness, no sores, no wounds Neurological: no head injury, no transient paralysis, no paralysis, no weakness, no parathesias, no numbness, no tingling Psychiatric: no anxiety, no memory loss, no change in sleep habits, no sleep disturbances, no insomnia, no hypersomnia, no change in appetite Endocrine: no cold intolerance, no polyphagia, no polyuria, no excessive sweating Hematologic/Lymphatic: no easy bruising, no easy bleeding Allergic/Immunologic: no urticaria, no allergic rhinitis, no wheezing Exam - Constitutional Vitals: Temp Pulse Resp BP Pulse Ox 98.4 F 96 H 20 152/95 95 03/23/22 00:04 03/23/22 03:31 03/23/22 03:31 03/23/22 03:31 03/23/22 03:31 General appearance: Present: mild distress - EENT Eyes: Present: PERRL ENT: hearing intact, clear oral mucosa - Neck Neck: Present: supple, normal ROM, masses or JVD - Respiratory Respiratory effort: labored, accessory muscle use Respiratory: bilateral: diminished, rales - Cardiovascular Heart Sounds: Present: S1 & S2. Absent: rub, click - Extremities Extremities: pulses symmetrical, No edema Peripheral Pulses: within normal limits - Abdominal General gastrointestinal: Present: soft, non-tender, non-distended, normal bowel sounds Male genitourinary: Present: normal - Integumentary Integumentary: Present: clear, warm, dry - Musculoskeletal Musculoskeletal: generalized weakness - Psychiatric Psychiatric: appropriate mood/affect, intact judgment & insight - Neurologic Neurologic: CNII-XII intact, moves all extremities HEART Score - HEART Score Troponin: Troponin T 0.080 ng/mL (0.00-0.029) H 03/23/22 10:07 Results - Labs CBC & Chem 7: 03/23/22 06:36 03/23/22 10:07 Labs: Abnormal lab results 03/23/22 03/23/22 Range/Units 06:36 10:07 MCV 96 H (84-94) fl RDW 17.8 H (13.2-15.2) % Plt Count 92 L (140-440) K/mm3 [place] % (Auto) 7.8 H (0.0-7.3) % Eos % (Auto) 8.3 H (0.0-4.3) % Eos # (Auto) 0.5 H (0.0-0.4) K/mm3 BUN 38 H (9-20) mg/dL Glucose 173 H (75-100) mg/dL Alkaline Phosphatase 145 H (35-129) units/L Total Creatine Kinase 206 H (55-170) units/L Troponin T 0.080 H (0.00-0.029) ng/mL NT-Pro-B Natriuret Pep 46026 H (0-900) pg/mL Albumin 3.2 L (3.9-5) g/dL Assessment and Plan - Patient Problems (1) CHF (congestive heart failure) Current Visit: Yes Status: Chronic Qualifiers: Heart failure type: systolic Heart failure chronicity: acute Qualified Code(s): I50.21 - Acute systolic (congestive) heart failure Plan to address problem: Strict I's/O, monitor urine output every shift, daily weight, afterload reductio n and blood pressure control, thyroid panel, magnesium level, echocardiogram from 06/23/2021 reviewed. Cardiology team consulted in ED. Diuresis, further care and evaluation as per cardiology team. (2) Acute respiratory failure with hypoxia Current Visit: No Status: Acute Plan to address problem: Chest x-ray, supplemental oxygen, pulse oximetry, nebulizer therapy, pulmonary toilet, (3) Pneumonia Current Visit: Yes Status: Acute Plan to address problem: Pneumonia protocol: Chest x-ray, CBC, CMP, supplemental oxygen, pulse oximetry, nebulizer therapy, IV antibiotic therapy. (4) NSTEMI (non-ST elevated myocardial infarction) Current Visit: Yes Status: Acute Plan to address problem: ACS protocol: Serial cardiac enzymes, EKG, telemetry monitoring, morphine, submental oxygen, nitro, aspirin, supportive care. Cardiology team consulted. (5) Peripheral vascular disease Current Visit: Yes Status: Acute Plan to address problem: Supportive care, continue to monitor. Vascular surgery team consulted. (6) GERD (gastroesophageal reflux disease) Current Visit: No Status: Chronic Qualifiers: Esophagitis presence: without esophagitis Qualified Code(s): K21.9 - Gastro-esophageal reflux disease without esophagitis Plan to address problem: PPI therapy, supportive care. (7) Hyperlipidemia Current Visit: No Status: Chronic Qualifiers: Hyperlipidemia type: mixed hyperlipidemia Qualified Code(s): E78.2 - Mixed hyperlipidemia Plan to address problem: Statin therapy, supportive care, low-cholesterol diet. (8) Hypertension Current Visit: No Status: Chronic Qualifiers: Hypertension type: primary hypertension Qualified Code(s): I10 - Essential (primary) hypertension Plan to address problem: Monitor blood pressure every shift, continue medical management. (9) DVT prophylaxis Current Visit: No Status: Acute Plan to address problem: SCD to bilateral extremities while in bed (10) Advance care planning Current Visit: No Status: Acute Plan to address problem: Disease education data, care plan discussed, diagnoses discussed, prognosis discussed, patient is full code, +30 minutes. (11) Preventative health care Current Visit: Yes Status: Acute Plan to address problem: Patient counseled regarding risk factor reduction, medication compliance, outpatient follow-up with primary care physician for all age and risk factor appropriate screening test. +30 minutes.
[2022-03-23] MEDS ORDERED: HEPARIN 10,000 UNITS/10 ML VIAL IV PRN (11:33)
[2022-03-23] MEDS ORDERED: HEPARIN 10,000 UNITS/10 ML VIAL IV ONE (11:33)
[2022-03-23 11:37] LABS: Chol/HDL Ratio 2.33 %; HDL Cholesterol 69 mg/dL (40-59); LDL Cholesterol,Direct 78 mg/dL (50-130)
--- NOTE | 2022-03-23 11:54 | Consultation ---
History of Present Illness - Reason for Consult Consult date: 03/23/22 Left Lower Extremity Peripheral Vascular Disease Requesting physician: GEMA STAFFORD - History of Present Illness The patient is a 66-year-old male who was brought to the emergency department by EMS. Upon my exam the patient is not responding to verbal or physical stimuli so the record was used to obtain the HPI. Per the record the patient was brought to the emergency department complaints of abdominal pain as well as left lower extremity pain. He has a history of peripheral vascular disease with previous right lower extremity intervention but eventually went on to have an above-knee amputation. I am unable to elicit any complaints at this time. Past History Past Medical History: diabetes, heart failure, hypertension, PVD Past Surgical History: Other (Right lower extremity angiogram with intervention, right above-knee amputation) Family history: no significant family history Medications and Allergies Allergies Allergy/AdvReac Type Severity Reaction Status Date / Time No Known Allergies Allergy Verified 08/19/21 15:15 Home Medications Medication Instructions Recorded Confirmed Last Taken Type Albuterol Mdi (or & Nicu Only) 2 puff IH QID PRN #1 inhalation 06/03/21 02/15/22 10/20/21 Rx [ProAir HFA Inhaler] Multivit-Min/Iron/Folic Acid/K 1 tab PO DAILY 08/11/21 02/15/22 10/20/21 History [Adults Multivitamin Caplet] Dextran 70/Hypromellose [Natural 1 drop OU QDAY 08/19/21 02/15/22 10/20/21 History Balance Tears Eye Drop] Furosemide [Lasix TAB] 40 mg PO QDAY #30 tablet 10/28/21 02/15/22 Unknown Rx Spironolactone [Aldactone] 25 mg PO QDAY 30 Days #30 tablet 10/28/21 02/15/22 Unknown Rx lisinopriL [Zestril TAB] 5 mg PO QDAY 30 Days #30 tablet 10/28/21 02/15/22 Unkn own Rx ALBUTEROL NEB's [Proventil 0.083% 2.5 mg IH Q6HRT PRN #1 nebu 01/21/22 02/15/22 Unknown Rx NEBS] Apixaban [Eliquis] 5 mg PO Q12HR 30 Days #60 tablet 01/21/22 02/15/22 Unknown Rx Aspirin EC [Halfprin EC] 81 mg PO QDAY 30 Days #30 tablet 01/21/22 02/15/22 Unknown Rx AtorvaSTATin [Lipitor] 40 mg PO QHS 30 Days #30 tablet 01/21/22 02/15/22 Unknown Rx Clopidogrel [Plavix] 75 mg PO QDAY 30 Days #30 tablet 01/21/22 02/15/22 Unknown Rx Furosemide [Lasix TAB] 40 mg PO BID 30 Days #60 tablet 01/21/22 02/15/22 Unknown Rx Metoprolol [Lopressor TAB] 25 mg PO BID 30 Days #60 tablet 01/21/22 02/15/22 Unknown Rx Pantoprazole [Protonix TAB] 40 mg PO DAILY #30 tablet 01/21/22 02/15/22 Unknown Rx Potassium Chloride [K-Dur] 40 meq PO QDAY 3 Days #30 tablet 01/21/22 02/15/22 Unknown Rx Spironolactone [Aldactone] 50 mg PO BID #60 tablet 01/21/22 02/15/22 Unknown Rx lisinopriL [Zestril TAB] 5 mg PO QDAY #30 tablet 01/21/22 02/15/22 Unknown Rx Active Meds: Active Medications Heparin Sodium (Porcine) (Heparin 10,000 Units/10 Ml Vial) 3,400 unit 40 unit/kg (3400 unit) IV Q6H PRN PRN Reason: Anti-Xa Assay < 0.1 units/ml Heparin Sodium/Sodium Chloride (Heparin/ 0.45% Nacl-25,000 Unit/500 Ml) 25,000 unit in 500 mls @ 24 mls/hr IV TITR LYNDSAY; Protocol Review of Systems ROS unobtainable: due to mental status Exam - Constitutional Vitals: Temp Pulse Resp BP Pulse Ox 98.4 F 96 H 20 152/95 95 03/23/22 00:04 03/23/22 03:31 03/23/22 03:31 03/23/22 03:31 03/23/22 03:31 General appearance: Present: other (Patient on nonrebreather and obtunded at the time of the exam, patient did not respond to verbal or physical stimuli) - Respiratory Respiratory effort: other (Patient on nonrebreather) - Cardiovascular Rhythm: regular - Extremities Extremities: abnormal (Left lower extremity with 3+ pitting edema up to the thigh) Extremity abnormal: ulceration (Multiple superficial ulcerations on the left lower extremity including at the knee and multiple areas on the calf), other (Right above-knee amputation is well-healed) - Abdominal General gastrointestinal: Present: deferred Male genitourinary: Present: deferred - Rectal Rectal Exam: deferred Results - Labs CBC & Chem 7: 03/23/22 06:36 03/23/22 10:07 Labs: Abnormal lab results 03/23/22 03/23/22 Range/Units 06:36 10:07 MCV 96 H (84-94) fl RDW 17.8 H (13.2-15.2) % Plt Count 92 L (140-440) K/mm3 [place] % (Auto) 7.8 H (0.0-7.3) % Eos % (Auto) 8.3 H (0.0-4.3) % Eos # (Auto) 0.5 H (0.0-0.4) K/mm3 BUN 38 H (9-20) mg/dL Glucose 173 H (75-100) mg/dL Alkaline Phosphatase 145 H (35-129) units/L Total Creatine Kinase 206 H (55-170) units/L Troponin T 0.080 H (0.00-0.029) ng/mL NT-Pro-B Natriuret Pep 79626 H (0-900) pg/mL Albumin 3.2 L (3.9-5) g/dL HDL Cholesterol 69 H (40-59) mg/dL - Imaging and Cardiology Venous US: other (Arterial duplex of the left lower extremity films were reviewed) Assessment and Plan The patient is a 66-year-old male who was brought to the emergency department with reports of abdominal and left lower extremity pain. At the time of my exam the patient is obtunded and unable to answer any questions. Additionally the patient does not respond to any painful stimuli. The patient had a venous duplex that is negative for any DVT. He had an arterial duplex that demonstrates occlusion of the SFA however there is collateral flow refill in the popliteal artery. In addition to the flow noted on the arterial duplex today the patient has had multiple left lower extremity arterial duplex over the past several months which all demonstrate a chronic occlusion of the left SFA. The patient has a chest x-ray with evidence of pulmonary edema. His BNP is greater than 19,000. He has pitting edema of his left lower extremity which is likely secondary to his exacerbation of CHF. Would recommend admission and cardiology consult to optimize his medications. Additionally the patient has thrombocytopenia with 92,000 platelets. Would recommend further work-up to evaluate the cause of the thrombocytopenia. The patient does not require anticoagulation as this is a chronic occlusion of his SFA. The patient's superficial ulcers appear to be secondary to his swelling as well as pressure. Would recommend elevating the leg as well as optimizing meds to improve his CHF. There is no need for urgent vascular surgery intervention and would not intervene until he is medically optimized. May require CT of his head given his current mental status.
[2022-03-23] MEDS ORDERED: HEPARIN/ 0.45% NACL DRIP 25,000 UNIT/500 ML BAG IV SCH (12:00)
[2022-03-23 12:08] LABS: INR 1.23 (0.87-1.13)
[2022-03-23 12:09] LABS: Partial Thromboplastin Time 35.2 Sec. (24.2-36.6)
[2022-03-23] MEDS ORDERED: HYDROmorphone 0.5 MG/0.5 ML INJ IV PRN (12:42)
[2022-03-23] MEDS ORDERED: ONDANSETRON 4 MG/2 ML INJ IV PRN (12:42)
[2022-03-23] MEDS ORDERED: oxyCODONE /ACETAMINOPHEN 5-325MG TAB PO PRN (12:42)
[2022-03-23] MEDS ORDERED: ALBUTEROL 2.5 MG/3 ML NEBU IH PRN (12:42)
[2022-03-23] MEDS ORDERED: ACETAMINOPHEN 325 MG TAB PO PRN ×2 (12:42→12:45)
[2022-03-23] MEDS ORDERED: traMADol 50 MG TAB PO PRN (12:45)
[2022-03-23] MEDS ORDERED: NITROGLYCERIN 0.4 MG TAB SUBL SL PRN (12:45)
[2022-03-23] MEDS ORDERED: ASPIRIN 81 MG TAB CHEW PO STA (12:54)
[2022-03-23 14:37] LABS: Free T4 (Free Thyroxine) 0.9 ng/dL (0.76-1.46)
--- NOTE | 2022-03-23 15:54 | Consultation ---
History of Present Illness Consult date: 03/23/22 Requesting physician: FORTINO DIAS Consult reason: congestive heart failure History of present illness: Patient is a 66-year-old male with past medical history of HFrEF, hypertension, hyperlipidemia, peripheral vascular disease s/p AKA, GERD who came to the hospital via EMS for abd and lower extremity pain. She obtained from chart. Patient not responding to verbal stimuli. Patient was found to have elevated BNP, minimally elevated troponins, and chest x-ray showed worsening pleural-parenchymal opacities within both lungs. Patient has been previously seen by our practice on numerous admissions for HFrEF and is typically noncompliant with medication. Patient does not follows up as an outpatient. Cardiology is consulted for CHF exacerbation Past History Past Medical History: GERD, heart failure, hypertension, hyperlipidemia, PVD Past Surgical History: Other (Right BKA) Social history: single. denies: smoking, alcohol abuse, prescription drug abuse Family history: hypertension Medications and Allergies Allergies Allergy/AdvReac Type Severity Reaction Status Date / Time No Known Allergies Allergy Verified 08/19/21 15:15 Home Medications Medication Instructions Recorded Confirmed Last Taken Type Albuterol Mdi (or & Nicu Only) 2 puff IH QID PRN #1 inhalation 06/03/21 02/15/22 10/20/21 Rx [ProAir HFA Inhaler] Multivit-Min/Iron/Folic Acid/K 1 tab PO DAILY 08/11/21 02/15/22 10/20/21 History [Adults Multivitamin Caplet] Dextran 70/Hypromellose [Natural 1 drop OU QDAY 08/19/21 02/15/22 10/20/21 History Balance Tears Eye Drop] Furosemide [Lasix TAB] 40 mg PO QDAY #30 tablet 10/28/21 02/15/22 Unknown Rx Spironolactone [Aldactone] 25 mg PO QDAY 30 Days #30 tablet 10/28/21 02/15/22 Unknown Rx lisinopriL [Zestril TAB] 5 mg PO QDAY 30 Days #30 tablet 10/28/21 02/15/22 Unknown Rx ALBUTEROL NEB's [Proventil 0.083% 2.5 mg IH Q6HRT PRN #1 nebu 01/21/22 02/15/22 Unknown Rx NEBS] Apixaban [Eliquis] 5 mg PO Q12HR 30 Days #60 tablet 01/21/22 02/15/22 Unknown Rx Aspirin EC [Halfprin EC] 81 mg PO QDAY 30 Days #30 tablet 01/21/22 02/15/22 Unknown Rx AtorvaSTATin [Lipitor] 40 mg PO QHS 30 Days #30 tablet 01/21/22 02/15/22 Unknown Rx Clopidogrel [Plavix] 75 mg PO QDAY 30 Days #30 tablet 01/21/22 02/15/22 Unknown Rx Furosemide [Lasix TAB] 40 mg PO BID 30 Days #60 tablet 01/21/22 02/15/22 Unknown Rx Metoprolol [Lopressor TAB] 25 mg PO BID 30 Days #60 tablet 01/21/22 02/15/22 Unknown Rx Pantoprazole [Protonix TAB] 40 mg PO DAILY #30 tablet 01/21/22 02/15/22 Unknown Rx Potassium Chloride [K-Dur] 40 meq PO QDAY 3 Days #30 tablet 01/21/22 02/15/22 Unknown Rx Spironolactone [Aldactone] 50 mg PO BID #60 tablet 01/21/22 02/15/22 Unknown Rx lisinopriL [Zestril TAB] 5 mg PO QDAY #30 tablet 01/21/22 02/15/22 Unknown Rx Active Meds: Active Medications Acetaminophen (Acetaminophen 325 Mg Tab) 650 mg PO Q6H PRN PRN Reason: Pain, Mild (1-3) Albuterol (Albuterol 2.5 Mg/3 Ml Nebu) 2.5 mg IH Q4HRT PRN PRN Reason: Shortness Of Breath Aspirin (Aspirin 81 Mg Tab Chew) 81 mg PO QDAY LYNDSAY Atorvastatin Calcium (Atorvastatin 40 Mg Tab) 40 mg PO QHS [facility] Azithromycin (Azithromycin 250 Mg Tab) 500 mg PO QDAY LYNDSAY; Protocol Furosemide (Furosemide 20 Mg/2 Ml Inj) 40 mg IV BID@0600,1800 [facility] Hydromorphone HCl (Hydromorphone 0.5 Mg/0.5 Ml Inj) 0.5 mg IV Q23H PRN PRN Reason: Pain , Severe (7-10) Ceftriaxone Sodium (Rocephin/Ns 2 Gm/100 Ml) 2 gm in 100 mls @ 200 mls/hr IV Q24H LYNDSAY; Protocol Lisinopril (Lisinopril 5 Mg Tab) 5 mg PO QDAY [facility] Metoprolol Tartrate (Metoprolol Tartrate 25 Mg Tab) 25 mg PO BID LYNDSAY Nitroglycerin (Nitroglycerin 0.4 Mg Tab Subl) 0.4 mg SL Q5M PRN PRN Reason: Chest Pain Ondansetron HCl (Ondansetron 4 Mg/2 Ml Inj) 4 mg IV Q8H PRN PRN Reason: Nausea And Vomiting Oxycodone/Acetaminophen (Oxycodone /Acetaminophen 5-325mg Tab) 1 tab PO Q16H PRN PRN Reason: Pain, Moderate (4-6) Sodium Chloride (Sodium Chloride 0.9% 10 Ml Flush Syringe) 10 ml IV BID LYNDSAY Sodium Chloride (Sodium Chloride 0.9% 10 Ml Flush Syringe) 10 ml IV PRN PRN PRN Reason: LINE FLUSH Sodium Chloride (Sodium Chloride 0.9% 10 Ml Flush Syringe) 10 ml IV PRN PRN PRN Reason: LINE FLUSH Spironolactone (Spironolactone 25 Mg Tab) 25 mg PO QDAY LYNDSAY Tramadol HCl (Tramadol 50 Mg Tab) 50 mg PO Q6H PRN PRN Reason: Pain, Moderate (4-6) Review of Systems ROS unobtainable: due to mental status Physical Examination Vital Signs Temp Pulse Resp BP Pulse Ox 98.4 F 94 H 16 140/94 94 03/23/22 00:04 03/23/22 00:04 03/23/22 00:04 03/23/22 00:04 03/23/22 00:04 General appearance: other (Nonresponsive) Neck: Positive: trachea midline Cardiac: Positive: Reg Rate and Rhythm Lungs: Positive: Decreased Breath Sounds Neuro: Positive: Other (Unable to assess) Abdomen: Positive: Soft Skin: Positive: Other. Negative: Rash, Suspicious Lesions Extremities: Present: edema, Cool, Other (Wounds on lower extremity) Results 03/23/22 06:36 03/23/22 10:07 Cardiac Enzymes 03/23/22 Range/Units 10:07 AST 30 (5-40) units/L Coagulation 03/23/22 Range/Units 11:20 PT 16.9 H (12.2-14.9) Sec. INR 1.23 H (0.87-1.13) APTT 35.2 (24.2-36.6) Sec. Lipids 03/23/22 Range/Units 10:07 Triglycerides 84 (2-149) mg/dL Cholesterol 161 (50-199) mg/dL HDL Cholesterol 69 H (40-59) mg/dL Cholesterol/HDL Ratio 2.33 % CBC 03/23/22 Range/Units 06:36 WBC 6.3 (4.5-11.0) K/mm3 RBC 4.75 (3.65-5.03) M/mm3 Hgb 14.9 (11.8-15.2) gm/dl Hct 45.4 (35.5-45.6) % Plt Count 92 L (140-440) K/mm3 Lymph # (Auto) 1.2 (1.2-5.4) K/mm3 [place] # (Auto) 0.5 (0.0-0.8) K/mm3 Eos # (Auto) 0.5 H (0.0-0.4) K/mm3 Baso # (Auto) 0.1 (0.0-0.1) K/mm3 Comprehensive Metabolic Panel 03/23/22 Range/Units 10:07 Sodium 138 (137-145) mmol/L Potassium 5.0 (3.6-5.0) mmol/L Chloride 101.7 (98-107) mmol/L Carbon Dioxide 25 (22-30) mmol/L BUN 38 H (9-20) mg/dL Creatinine 1.1 (0.8-1.3) mg/dL Glucose 173 H (75-100) mg/dL Calcium 8.8 (8.4-10.2) mg/dL AST 30 (5-40) units/L ALT 46 (7-56) units/L Alkaline Phosphatase 145 H (35-129) units/L Total Protein 7.6 (6.3-8.2) g/dL Albumin 3.2 L (3.9-5) g/dL - Imaging and Cardiology Echo: report reviewed EKG interpretations - Telemetry EKG Rhythm: Sinus Rhythm - EKG Sinus rhythms and dysrhythmias: sinus rhythm Assessment and Plan Patient is a 66-year-old male with past medical history of HFrEF, hypertension, hyperlipidemia, peripheral vascular disease s/p AKA, GERD who came to the hospital via EMS shortness of breath which Acute on chronic HFrEF Acute respiratory failure-pulmonology following COPD Peripheral vascular disease s/p AKA- Vascular following GERD Hypertension Diabetes Thrombocytopenia Medical noncompliance Echo 06/23/2021-EF 30 to 35%, left ventricle is mildly dilated moderate global hypokinesis of LV. Left atrium is mildly dilated. Right ventricle systolic function is normal Plan: EKG shows sinus rhythm 89 no acute ischemic changes. Troponins noted to be minimally elevated and downtrending Suspect troponin elevation in setting of acute on chronic HFrEF BNP noted to be elevated and patient does have lower extremity edema Will increase to Lasix 40 mg IV twice daily for diuresis Repeat BMP in the a.m. strict I&O's with close monitoring of renal function Will resume Lipitor 40 mg p.o. nightly, lisinopril 5 mg p.o. daily, metoprolol 25 mg p.o. twice daily, Aldactone 25 mg p.o. daily Patient seen in conjunction with Dr. Neely who agrees with this plan of care - Patient Problems (1) Anasarca Current Visit: Yes Status: Acute (2) Peripheral vascular disease Current Visit: Yes Status: Acute (3) Volume overload Current Visit: Yes Status: Acute (4) Acute on chronic HFrEF (heart failure with reduced ejection fraction) Current Visit: No Status: Acute (5) Acute respiratory failure Current Visit: No Status: Acute (6) Diabetes Current Visit: No Status: Acute (7) GERD (gastroesophageal reflux disease) Current Visit: No Status: Acute Qualifiers: Esophagitis presence: without esophagitis Qualified Code(s): K21.9 - Gastro-esophageal reflux disease without esophagitis (8) Hyperlipidemia Current Visit: No Status: Acute Qualifiers: (9) COPD (chronic obstructive pulmonary disease) Current Visit: No Status: Chronic Qualifiers: Emphysema type: unspecified (10) Cardiomyopathy Current Visit: No Status: Chronic (11) Hypertension Current Visit: No Status: Chronic Qualifiers: Hypertension type: primary hypertension Qualified Code(s): I10 - Essential (primary) hypertension (12) Peripheral arterial disease Current Visit: No Status: Chronic
[2022-03-23] MEDS: cefTRIAXone/NS 2 GM/100 ML 2 GM/100 ML BAG IV SCH (17:10)
[2022-03-23] MEDS: AZITHROMYCIN 250 MG TAB PO SCH (17:10)
[2022-03-23] MEDS ORDERED: FUROSEMIDE 20 MG/2 ML INJ IV SCH (18:00)
--- NOTE | 2022-03-23 18:13 | Electrocardiograph Report ---
[facility] Test Date: 2022-03-23 Test Time: 06:45:12 Pat Name: LYNDSEY PERALTA Department: Room: [facility] Gender: M Vegetable Tier: dm : 1955 Requested By: GEMA STAFFORD Order Number: [id number] Reading MD: Nii Lieberman Measurements Intervals [place] Rate: 89 P: 44 MA: 175 QRS: 134 QRSD: 103 T: -4 QT: 399 QTc: 485 Interpretive Statements Sinus rhythm Probable left atrial enlargement Right axis deviation Anterior infarct, old Low voltage QRS Compared to ECG 03/02/2022 08:48:59 Sinus tachycardia no longer present Left posterior fascicular block no longer present Myocardial infarct finding still present Electronically Signed On 03-23-2022 18:13:49 EDT by Nii Lieberman
[2022-03-23] MEDS: FUROSEMIDE 20 MG/2 ML INJ IV SCH (18:40)
[2022-03-23] MEDS: METOPROLOL TARTRATE 25 MG TAB PO SCH (23:19)
[2022-03-24] MEDS: FUROSEMIDE 20 MG/2 ML INJ IV SCH ×2 (05:17→17:01)
[2022-03-24] MEDS: SPIRONOLACTONE 25 MG TAB PO SCH (10:44)
[2022-03-24] MEDS: LISINOPRIL 5 MG TAB PO SCH (10:44)
[2022-03-24] MEDS: METOPROLOL TARTRATE 25 MG TAB PO SCH ×2 (10:44→21:44)
[2022-03-24] MEDS: ASPIRIN 81 MG TAB CHEW PO SCH (10:45)
[2022-03-24] MEDS: AZITHROMYCIN 250 MG TAB PO SCH (10:46)
[2022-03-24 11:10] LABS: Basophils % (Auto) 0.4 % (0.0-1.8); Hematocrit 45.5 % (35.5-45.6); Hemoglobin 14.4 gm/dl (11.8-15.2); Lymphocytes # (Auto) 0.5 K/mm3 (1.2-5.4); Lymphocytes % (Auto) 7.7 % (13.4-35.0); Mean Corpuscular HGB Conc 32 % (32-34); Mean Corpuscular Volume 94 fl (84-94); Monocytes # (Auto) 0.5 K/mm3 (0.0-0.8); Monocytes % (Auto) 6.7 % (0.0-7.3); Platelet Count 132 K/mm3 (140-440); Red Blood Count 4.83 M/mm3 (3.65-5.03); Red Cell Distribution Width 16.5 % (13.2-15.2)
[2022-03-24 11:14] LABS: Calcium 8.3 mg/dL (8.4-10.2)
--- NOTE | 2022-03-24 15:39 | Progress Note ---
Assessment and Plan Patient is a 66-year-old male with past medical history of HFrEF, hypertension, hyperlipidemia, peripheral vascular disease s/p AKA, GERD who came to the hospital via EMS shortness of breath which Acute on chronic HFrEF Acute respiratory failure-pulmonology following COPD Peripheral vascular disease s/p AKA- Vascular following GERD Hypertension Diabetes Thrombocytopenia Medical noncompliance Echo 06/23/2021-EF 30 to 35%, left ventricle is mildly dilated moderate global hypokinesis of LV. Left atrium is mildly dilated. Right ventricle systolic function is normal Plan: EKG shows sinus rhythm 89 no acute ischemic changes. Troponins noted to be minimally elevated and downtrending Suspect troponin elevation in setting of acute on chronic HFrEF BNP noted to be elevated and patient does have lower extremity edema Continue Lasix 40 mg IV twice daily for diuresis Repeat BMP in the a.m. strict I&O's with close monitoring of renal function Continue Lipitor 40 mg p.o. nightly, lisinopril 5 mg p.o. daily, metoprolol 25 mg p.o. twice daily, Aldactone 25 mg p.o. daily Patient seen in conjunction with Dr. Neely who agrees with this plan of care - Patient Problems (1) Anasarca Current Visit: Yes Status: Acute (2) Peripheral vascular disease Current Visit: Yes Status: Acute (3) Volume overload Current Visit: Yes Status: Acute (4) Acute on chronic HFrEF (heart failure with reduced ejection fraction) Current Visit: No Status: Acute (5) Acute respiratory failure Current Visit: No Status: Acute (6) Diabetes Current Visit: No Status: Acute (7) GERD (gastroesophageal reflux disease) Current Visit: No Status: Acute Qualifiers: Esophagitis presence: without esophagitis Qualified Code(s): K21.9 - Gastro-esophageal reflux disease without esophagitis (8) Hyperlipidemia Current Visit: No Status: Acute Qualifiers: (9) COPD (chronic obstructive pulmonary disease) Current Visit: No Status: Chronic Qualifiers: Emphysema type: unspecified (10) Cardiomyopathy Current Visit: No Status: Chronic (11) Hypertension Current Visit: No Status: Chronic Qualifiers: Hypertension type: primary hypertension Qualified Code(s): I10 - Essential (primary) hypertension (12) Peripheral arterial disease Current Visit: No Status: Chronic Subjective Date of service: 03/24/22 Principal diagnosis: Acute on chronic HFrEF Interval history: Patient transferred to the telemetry floor. Patient more alert however still with AMS Patient noncompliant with monitor Objective Vital Signs Temp Pulse Resp BP Pulse Ox 03/24/22 03:25 98.0 F 73 20 134/89 98 03/24/22 00:40 99 03/24/22 00:00 80 03/23/22 23:26 100 03/23/22 23:25 97.9 F 65 18 152/86 76 L 03/23/22 22:40 130/80 99 03/23/22 22:30 130/80 95 03/23/22 22:20 130/80 95 03/23/22 22:10 130/80 99 03/23/22 22:00 130/80 99 03/23/22 21:50 130/80 98 03/23/22 21:40 130/80 100 03/23/22 21:30 130/80 100 03/23/22 21:20 130/80 100 03/23/22 21:10 130/80 99 03/23/22 21:00 130/80 68 L 03/23/22 20:50 130/80 98 03/23/22 20:40 126/82 99 03/23/22 20:30 126/82 97 03/23/22 20:20 126/82 88 03/23/22 20:10 126/82 97 03/23/22 20:00 126/82 75 L 03/23/22 19:50 93 H 12 126/82 100 03/23/22 19:40 93 H 9 L 145/91 99 03/23/22 19:30 93 H 9 L 145/91 100 03/23/22 19:20 92 H 9 L 145/91 100 03/23/22 19:10 93 H 10 L 145/91 99 03/23/22 19:00 89 9 L 140/77 99 03/23/22 18:50 89 9 L 140/77 97 03/23/22 18:40 92 H 10 L 144/90 99 03/23/22 18:32 139/88 74 L 03/23/22 18:00 145/91 03/23/22 17:00 139/88 03/23/22 16:43 139/88 03/23/22 16:00 147/93 03/23/22 15:50 87 13 126/75 03/23/22 15:43 147/93 - Physical Examination General: No Apparent Distress HEENT: Positive: PERRL Neck: Positive: trachea midline Cardiac: Positive: Reg Rate and Rhythm Lungs: Positive: Decreased Breath Sounds Neuro: Positive: Other (Unable to assess) Abdomen: Positive: Soft Skin: Positive: Other. Negative: Rash, Suspicious Lesions Extremities: Present: edema, Cool, Other (Wounds on lower extremity) - Labs and Meds CBC 03/24/22 Range/Units 10:39 WBC 6.9 (4.5-11.0) K/mm3 RBC 4.83 (3.65-5.03) M/mm3 Hgb 14.4 (11.8-15.2) gm/dl Hct 45.5 (35.5-45.6) % Plt Count 132 L (140-440) K/mm3 Lymph # (Auto) 0.5 L (1.2-5.4) K/mm3 [place] # (Auto) 0.5 (0.0-0.8) K/mm3 Eos # (Auto) 0.0 (0.0-0.4) K/mm3 Baso # (Auto) 0.0 (0.0-0.1) K/mm3 Comprehensive Metabolic Panel 03/24/22 Range/Units 10:39 Sodium 135 L (137-145) mmol/L Potassium 5.0 (3.6-5.0) mmol/L Chloride 98.4 (98-107) mmol/L Carbon Dioxide 28 (22-30) mmol/L BUN 43 H (9-20) mg/dL Creatinine 1.3 (0.8-1.3) mg/dL Glucose 335 H (75-100) mg/dL Calcium 8.3 L (8.4-10.2) mg/dL - Imaging and Cardiology Echo: report reviewed - EKG Sinus rhythms and dysrhythmias: sinus rhythm
[2022-03-24] MEDS: cefTRIAXone/NS 2 GM/100 ML 2 GM/100 ML BAG IV SCH (17:04)
--- NOTE | 2022-03-24 17:11 | Progress Note ---
Assessment and Plan Assessment and Plan - Patient Problems (1) CHF (congestive heart failure) Current Visit: Yes Status: Chronic Qualifiers: Heart failure type: systolic Heart failure chronicity: acute Qualified Code(s): I50.21 - Acute systolic (congestive) heart failure Plan to address problem: Strict I's/O, monitor urine output every shift, daily weight, afterload reduction and blood pressure control, thyroid panel, magnesium level, echocardiogram from 06/23/2021 reviewed. Cardiology team consulted in ED. Diuresis, further care and evaluation as per cardiology team. (2) Acute respiratory failure with hypoxia Current Visit: No Status: Acute Plan to address problem: Chest x-ray, supplemental oxygen, pulse oximetry, nebulizer therapy, pulmonary toilet, (3) Pneumonia Current Visit: Yes Status: Acute Plan to address problem: Pneumonia protocol: Chest x-ray, CBC, CMP, supplemental oxygen, pulse oximetry, nebulizer therapy, IV antibiotic therapy. (4) NSTEMI (non-ST elevated myocardial infarction) Current Visit: Yes Status: Acute Plan to address problem: ACS protocol: Serial cardiac enzymes, EKG, telemetry monitoring, morphine, submental oxygen, nitro, aspirin, supportive care. Cardiology team consulted. (5) Peripheral vascular disease Current Visit: Yes Status: Acute Plan to address problem: Supportive care, continue to monitor. Vascular surgery team consulted. (6) GERD (gastroesophageal reflux disease) Current Visit: No Status: Chronic Qualifiers: Esophagitis presence: without esophagitis Qualified Code(s): K21.9 - Gastro-esophageal reflux disease without esophagitis Plan to address problem: PPI therapy, supportive care. (7) Hyperlipidemia Current Visit: No Status: Chronic Qualifiers: Hyperlipidemia type: mixed hyperlipidemia Qualified Code(s): E78.2 - Mixed hyperlipidemia Plan to address problem: Statin therapy, supportive care, low-cholesterol diet. (8) Hypertension Current Visit: No Status: Chronic Qualifiers: Hypertension type: primary hypertension Qualified Code(s): I10 - Essential (primary) hypertension Plan to address problem: Monitor blood pressure every shift, continue medical management. (9) DVT prophylaxis Current Visit: No Status: Acute Plan to address problem: SCD to bilateral extremities while in bed (10) Advance care planning Current Visit: No Status: Acute Plan to address problem: Disease education data, care plan discussed, diagnoses discussed, prognosis discussed, patient is full code, +30 minutes. (11) Preventative health care Current Visit: Yes Status: Acute Plan to address problem: Patient counseled regarding risk factor reduction, medication compliance, outpatient follow-up with primary care physician for all age and risk factor appropriate screening test. +30 minutes. Subjective Date of service: 03/24/22 Principal diagnosis: Acute on chronic HFrEF Interval history: 66 YO Male with HTN, HLD, GERD, PVD presents to ED for evaluation. Patient reports "my leg hurts and it is also hard to breathe". Patient states that he has experienced pain and swelling in his left leg over the past several weeks with persistent symptoms over the same timeframe. Patient also reports that he has experienced shortness of breath over the same timeframe. Patient knowledges 7 pound weight gain over the past week. Patient denies orthopnea, paroxysmal nocturnal dyspnea, dyspnea on exertion as well as dyspnea at rest. EMS was notified and upon arrival the patient was found to be in distress and subsequently transported to [facility] for further care and evaluation of the aforementioned symptoms. The patient was seen and evaluated in the emergency department. All lab and imaging studies reviewed. Patient was found to have a pulse oximetry of 87% on room air which is consistent with acute hypoxemic respiratory failure. Patient also found to have clinical findings consistent with CHF decompensation, as well as lab findings consistent with NSTEMI, and chest x-ray findings consistent with bilateral pneumonia. Patient admitted to [facility] and initiated on pneumonia protocol. Patient also initiated on ACS protocol. . Vascular surgery team consulted in ED. cardiology team consulted in ED. Patient denies fever, chills, chest pain, palpitation, productive cough, recent ill contacts, known exposure to COVID-19. No prior admission for review. Prior admission 02/15/2022 reviewed. All medication listed at time of admission has been reconciled. Advanced care planning conducted in the ED. Objective - Constitutional Vitals: Vital Signs - 12hr 03/24/22 03/24/22 10:38 16:48 Temperature 97.8 F 98.0 F Pulse Rate 86 56 L Respiratory 18 18 Rate Blood Pressure 122/77 100/64 O2 Sat by Pulse 97 Oximetry General appearance: Present: no acute distress, well-nourished - EENT Eyes: PERRL, EOM intact ENT: hearing intact, clear oral mucosa Ears: bilateral: normal - Neck Neck: supple, normal ROM - Respiratory Respiratory effort: normal Respiratory: bilateral: CTA - Breasts Breasts: normal - Cardiovascular Heart rate: 78 Rhythm: regular Heart Sounds: Present: S1 & S2. Absent: gallop, rub Extremities: pulses intact, No edema, normal color, Full ROM - Gastrointestinal General gastrointestinal: Present: soft, non-tender, non-distended, normal bowel sounds - Genitourinary Male genitourinary: normal - Integumentary Integumentary: clear, warm, dry - Musculoskeletal Musculoskeletal: 1, strength equal bilaterally - Neurologic Neurologic: moves all extremities - Psychiatric Psychiatric: memory intact, appropriate mood/affect, intact judgment & insight - Labs CBC & Chem 7: 03/24/22 10:39 03/24/22 10:39 Labs: Abnormal lab results 03/23/22 03/24/22 03/24/22 Range/Units 23:05 10:39 10:39 RDW 16.5 H (13.2-15.2) % Plt Count 132 L (140-440) K/mm3 Lymph % (Auto) 7.7 L (13.4-35.0) % Lymph # (Auto) 0.5 L (1.2-5.4) K/mm3 Seg Neutrophils % 85.2 H (40.0-70.0) % Sodium 135 L (137-145) mmol/L BUN 43 H (9-20) mg/dL Glucose 335 H (75-100) mg/dL Calcium 8.3 L (8.4-10.2) mg/dL Troponin T 0.061 H (0.00-0.029) ng/mL HEART Score - HEART Score Troponin: Troponin T 0.061 ng/mL (0.00-0.029) H 03/23/22 23:05
[2022-03-25] MEDS: FUROSEMIDE 20 MG/2 ML INJ IV SCH (05:30)
--- NOTE | 2022-03-25 10:24 | Progress Note ---
Assessment and Plan Assessment and plan: 66-year-old male past medical history of HFrEF, hypertension, hyperlipidemia, peripheral vascular disease status post AKA, GERD presented to the emergency department with complaints of SOB. Patient admitted with diagnosis below: Acute on chronic heart failure with reduced EF, EF 30-35% Cardiomyopathy Acute hypoxic respiratory failure COPD Peripheral vascular disease status post AKA GERD Hypertension Hyperlipidemia Diabetes mellitus type 2 Thrombocytopenia Medical noncompliance 03/25/2022. Patient is with minimally elevated troponins likely secondary to heart failure. BNP noted to be elevated along with lower extremity edema. Continue GDMT for heart failure with Lasix 40 mg IV twice daily, lisinopril 5 mg p.o. daily, metoprolol 25 mg p.o. twice daily and Aldactone 25 mg daily. Ca rdiology following. Continue Lipitor History Interval history: No new issues overnight Hospitalist Physical - Constitutional Vitals: Temp Pulse Resp BP Pulse Ox 98.0 F 68 18 124/80 99 03/25/22 03:39 03/25/22 03:39 03/25/22 03:39 03/25/22 03:39 03/25/22 03:39 General appearance: Present: no acute distress, well-nourished - EENT Eyes: Present: PERRL, EOM intact ENT: hearing intact, clear oral mucosa, dentition normal - Neck Neck: Present: supple, normal ROM - Respiratory Respiratory effort: normal Respiratory: bilateral: CTA - Cardiovascular Rhythm: regular Heart Sounds: Present: S1 & S2. Absent: gallop, rub - Extremities Extremities: no ischemia, No edema, Full ROM - Abdominal General gastrointestinal: soft, non-tender, non-distended, normal bowel sounds - Integumentary Integumentary: Present: clear, warm, dry - Neurologic Neurologic: CNII-XII intact, moves all extremities HEART Score - HEART Score Troponin: Troponin T 0.061 ng/mL (0.00-0.029) H 03/23/22 23:05 Results - Labs CBC & Chem 7: 03/24/22 10:39 03/24/22 10:39 Labs: Laboratory Last Values WBC 6.9 K/mm3 (4.5-11.0) 03/24/22 10:39 RBC 4.83 M/mm3 (3.65-5.03) 03/24/22 10:39 Hgb 14.4 gm/dl (11.8-15.2) 03/24/22 10:39 Hct 45.5 % (35.5-45.6) 03/24/22 10:39 MCV 94 fl (84-94) 03/24/22 10:39 MCH 30 pg (28-32) 03/24/22 10:39 MCHC 32 % (32-34) 03/24/22 10:39 RDW 16.5 % (13.2-15.2) H 03/24/22 10:39 Plt Count 132 K/mm3 (140-440) L 03/24/22 10:39 Lymph % (Auto) 7.7 % (13.4-35.0) L 03/24/22 10:39 Ritchie % (Auto) 6.7 % (0.0-7.3) 03/24/22 10:39 Eos % (Auto) 0.0 % (0.0-4.3) 03/24/22 10:39 Baso % (Auto) 0.4 % (0.0-1.8) 03/24/22 10:39 Lymph # (Auto) 0.5 K/mm3 (1.2-5.4) L 03/24/22 10:39 Ritchie # (Auto) 0.5 K/mm3 (0.0-0.8) 03/24/22 10:39 Eos # (Auto) 0.0 K/mm3 (0.0-0.4) 03/24/22 10:39 Baso # (Auto) 0.0 K/mm3 (0.0-0.1) 03/24/22 10:39 Seg Neutrophils % 85.2 % (40.0-70.0) H 03/24/22 10:39 Seg Neutrophils # 5.8 K/mm3 (1.8-7.7) 03/24/22 10:39 PT 16.9 Sec. (12.2-14.9) H 03/23/22 11:20 INR 1.23 (0.87-1.13) H 03/23/22 11:20 APTT 35.2 Sec. (24.2-36.6) 03/23/22 11:20 Sodium 135 mmol/L (137-145) L 03/24/22 10:39 Potassium 5.0 mmol/L (3.6-5.0) 03/24/22 10:39 Chloride 98.4 mmol/L (98-107) 03/24/22 10:39 Carbon Dioxide 28 mmol/L (22-30) 03/24/22 10:39 Anion Gap 14 mmol/L 03/24/22 10:39 BUN 43 mg/dL (9-20) H 03/24/22 10:39 Creatinine 1.3 mg/dL (0.8-1.3) 03/24/22 10:39 Estimated GFR 56 ml/min 03/24/22 10:39 BUN/Creatinine Ratio 33 % 03/24/22 10:39 Glucose 335 mg/dL (75-100) H 03/24/22 10:39 Calcium 8.3 mg/dL (8.4-10.2) L 03/24/22 10:39 Magnesium 2.10 mg/dL (1.7-2.3) 03/23/22 14:11 Total Bilirubin 0.80 mg/dL (0.1-1.2) 03/23/22 10:07 AST 30 units/L (5-40) 03/23/22 10:07 ALT 46 units/L (7-56) 03/23/22 10:07 Alkaline Phosphatase 145 units/L (35-129) H 03/23/22 10:07 Total Creatine Kinase 206 units/L (55-170) H 03/23/22 10:07 Troponin T 0.061 ng/mL (0.00-0.029) H 03/23/22 23:05 NT-Pro-B Natriuret Pep 84880 pg/mL (0-900) H 03/23/22 10:07 Total Protein 7.6 g/dL (6.3-8.2) 03/23/22 10:07 Albumin 3.2 g/dL (3.9-5) L 03/23/22 10:07 Albumin/Globulin Ratio 0.7 % 03/23/22 10:07 Triglycerides 84 mg/dL (2-149) 03/23/22 10:07 Cholesterol 161 mg/dL (50-199) 03/23/22 10:07 LDL Cholesterol Direct 78 mg/dL (50-130) 03/23/22 10:07 HDL Cholesterol 69 mg/dL (40-59) H 03/23/22 10:07 Cholesterol/HDL Ratio 2.33 % 03/23/22 10:07 TSH 2.500 mlU/mL (0.270-4.200) 03/23/22 14:11 Free T4 0.90 ng/dL (0.76-1.46) 03/23/22 14:11 Doss/IV: Voiding Method Urinal Active Medications - Current Medications Current Medications: Generic Name Dose Route Start Last Admin Trade Name Freq PRN Reason Stop Dose Admin Acetaminophen 650 mg 03/23/22 12:45 Acetaminophen 325 Mg Tab PO Q6H PRN Pain, Mild (1-3) Albuterol 2.5 mg 03/23/22 12:42 Albuterol 2.5 Mg/3 Ml Nebu IH Q4HRT PRN Shortness Of Breath Aspirin 81 mg 03/24/22 10:00 03/24/22 10:45 Aspirin 81 Mg Tab Chew PO 81 mg QDAY LYNDSAY Administration Atorvastatin Calcium 40 mg 03/23/22 22:00 03/24/22 21:45 Atorvastatin 40 Mg Tab PO 40 mg QHS LYNDSAY Administration Azithromycin 500 mg 03/23/22 16:00 03/24/22 10:46 Azithromycin 250 Mg Tab PO 500 mg QDAY LYNDSAY Administration Protocol Furosemide 40 mg 03/23/22 18:00 03/25/22 05:30 Furosemide 20 Mg/2 Ml Inj IV 40 mg BID@0600,1800 LYNDSAY Administration Hydromorphone HCl 0.5 mg 03/23/22 12:42 Hydromorphone 0.5 Mg/0.5 Ml Inj IV Q23H PRN Pain , Severe (7-10) Ceftriaxone Sodium 2 gm in 100 mls @ 200 mls/hr 03/23/22 16:00 03/24/22 17:04 Rocephin/Ns 2 Gm/100 Ml IV 200 mls/hr Q24H LYNDSAY Administration Protocol Lisinopril 5 mg 03/24/22 10:00 03/24/22 10:44 Lisinopril 5 Mg Tab PO 5 mg QDAY LYNDSAY Administration Metoprolol Tartrate 25 mg 03/23/22 22:00 03/24/22 21:44 Metoprolol Tartrate 25 Mg Tab PO Not Given BID LYNDSAY Nitroglycerin 0.4 mg 03/23/22 12:45 Nitroglycerin 0.4 Mg Tab Subl SL Q5M PRN Chest Pain Ondansetron HCl 4 mg 03/23/22 12:42 Ondansetron 4 Mg/2 Ml Inj IV Q8H PRN Nausea And Vomiting Oxycodone/Acetaminophen 1 tab 03/23/22 12:42 Oxycodone /Acetaminophen 5-325mg Tab PO Q16H PRN Pain, Moderate (4-6) Sodium Chloride 10 ml 03/23/22 22:00 03/24/22 21:46 Sodium Chloride 0.9% 10 Ml Flush Syringe IV 10 ml BID LYNDSAY Administration Sodium Chloride 10 ml 03/23/22 12:45 Sodium Chloride 0.9% 10 Ml Flush Syringe IV PRN PRN LINE FLUSH Spironolactone 25 mg 03/24/22 10:00 03/24/22 10:44 Spironolactone 25 Mg Tab PO 25 mg QDAY LYNDSAY Administration Tramadol HCl 50 mg 03/23/22 12:45 03/24/22 10:44 Tramadol 50 Mg Tab PO 50 mg Q6H PRN Administration Pain, Moderate (4-6)
--- NOTE | 2022-03-25 10:51 | Discharge Summary ---
Providers - Providers Date of Admission: 03/23/22 12:42 Date of discharge: 03/25/22 Attending physician: KADI OCASIO 03/23/22 Consult to Cardiac Rehabilitation [CONS] Routine Reason For Exam: Phase I 03/23/22 10:39 Consult to Physician [CONS] Urgent Comment: Consulting Provider: DAVIDE FREY Physician Instructions: Reason For Exam: Peripheral vascular disease 03/23/22 12:47 Consult to Cardiology [CONS] Routine Consulting Provider: ANN SILVA Reason For Exam: chf 03/24/22 13:01 Physical Therapy Evaluation and Treat [CONS] Routine Comment: Pt kylah and sarah Reason For Exam: debility Primary care physician: JAYLAN WEST Hospitalization Reason for admission: SOB Condition: Fair Hospital course: 66-year-old male past medical history of HFrEF, hypertension, hyperlipidemia, peripheral vascular disease status post AKA, GERD presented to the emergency department with complaints of SOB. Patient admitted with diagnosis below: Acute on chronic heart failure with reduced EF, EF 30-35% Cardiomyopathy Acute hypoxic respiratory failure COPD Peripheral vascular disease status post AKA GERD Hypertension Hyperlipidemia Diabetes mellitus type 2 Thrombocytopenia Medical noncompliance 03/24/2022. Patient reportedly was noncompliant with medications and restarted on home medications with quick resolution of heart failure. The patient had a venous duplex that is negative for any DVT. He had an arterial duplex that demonstrates occlusion of the SFA however there is collateral flow refill in the popliteal artery. In addition to the flow noted on the arterial duplex today the patient has had multiple left lower extremity arterial duplex over the past several months which all demonstrate a chronic occlusion of the left SFA. Vascular surgery reports that The patient does not require anticoagulation as this is a chronic occlusion of his SFA. The patient's superficial ulcers appear to be secondary to his swelling as well as pressure. Would recommend elevating the leg as well as optimizing meds to improve his CHF. There is no need for urgent vascular surgery intervention and would not intervene until he is medically optimized. 03/25/2022. Patient is with minimally elevated troponins likely secondary to heart failure. BNP noted to be elevated along with lower extremity edema. Continue GDMT for heart failure with Lasix 40 mg IV twice daily, lisinopril 5 mg p.o. daily, metoprolol 25 mg p.o. twice daily and Aldactone 25 mg daily. Cardiology following. Continue Lipitor. Cardiology reports patient with resolution of heart failure and is stable from their standpoint for discharge. Dedicated discharge time 32 minutes Disposition: 01 HOME / SELF CARE / HOMELESS Final Discharge Diagnosis (Prints w/discharge instructions): Acute on chronic heart failure with reduced EF, EF 30-35%. Cardiomyopathy. Acute hypoxic respiratory failure. COPD. Peripheral vascular disease status post AKA. GERD. Hypertension. Hyperlipidemia. Diabetes mellitus type 2. Thrombocytopenia. Medical noncompliance Core Measure Documentation - Palliative Care Palliative Care/ Comfort Measures: Not Applicable - Core Measures Any of the following diagnoses?: none Exam - Constitutional Vitals: Temp Pulse Resp BP Pulse Ox 98.0 F 68 18 124/80 99 03/25/22 03:39 03/25/22 03:39 03/25/22 03:39 03/25/22 03:39 03/25/22 03:39 General appearance: Present: no acute distress, well-nourished - EENT Eyes: Present: PERRL ENT: hearing intact, clear oral mucosa - Neck Neck: Present: supple, normal ROM - Respiratory Respiratory effort: normal Respiratory: bilateral: CTA - Cardiovascular Heart Sounds: Present: S1 & S2. Absent: rub, click - Extremities Extremities: pulses symmetrical, No edema Peripheral Pulses: within normal limits - Abdominal General gastrointestinal: Present: soft, non-tender, non-distended, normal bowel sounds Male genitourinary: Present: normal - Integumentary Integumentary: Present: clear, warm, dry - Musculoskeletal Musculoskeletal: gait normal, strength equal bilaterally - Psychiatric Psychiatric: appropriate mood/affect, intact judgment & insight - Neurologic Neurologic: CNII-XII intact, moves all extremities Plan Activity: advance as tolerated Weight Bearing Status: Weight Bear as Tolerated Follow up with: JAYLAN WEST MD [Primary Care Provider] - 3-5 Days Prescriptions: Multivit-Min/Iron/Folic Acid/K [Adults Multivitamin Caplet] 1 tab PO DAILY #30 Spironolactone [Aldactone] 50 mg PO BID #60 tablet Apixaban [Eliquis] 5 mg PO Q12HR 30 Days #60 tablet Aspirin EC [Halfprin EC] 81 mg PO QDAY 30 Days #30 tablet Furosemide [Lasix TAB] 40 mg PO QDAY #30 tablet AtorvaSTATin [Lipitor] 40 mg PO QHS 30 Days #30 tablet Metoprolol [Lopressor TAB] 25 mg PO BID 30 Days #60 tablet Clopidogrel [Plavix] 75 mg PO QDAY 30 Days #30 tablet Pantoprazole [Protonix TAB] 40 mg PO DAILY #30 tablet lisinopriL [Zestril TAB] 5 mg PO QDAY 30 Days #30 tablet
[2022-03-25] MEDS: LISINOPRIL 5 MG TAB PO SCH (10:52)
[2022-03-25] MEDS: ASPIRIN 81 MG TAB CHEW PO SCH (10:52)
[2022-03-25] MEDS: AZITHROMYCIN 250 MG TAB PO SCH (10:52)
[2022-03-25] MEDS: METOPROLOL TARTRATE 25 MG TAB PO SCH ×2 (10:54→21:00)
[2022-03-25] MEDS: SPIRONOLACTONE 25 MG TAB PO SCH (10:55)
--- NOTE | 2022-03-25 12:12 | Progress Note ---
Assessment and Plan Patient is a 66-year-old male with past medical history of HFrEF, hypertension, hyperlipidemia, peripheral vascular disease s/p AKA, GERD who came to the hospital via EMS shortness of breath which Acute on chronic HFrEF Acute respiratory failure-pulmonology following COPD Peripheral vascular disease s/p AKA- Vascular following GERD Hypertension Diabetes Thrombocytopenia Medical noncompliance Echo 06/23/2021-EF 30 to 35%, left ventricle is mildly dilated moderate global hypokinesis of LV. Left atrium is mildly dilated. Right ventricle systolic function is normal Plan: Patient remains noncompliant with quality assurance monitor chassis I&O's not documented unclear urine output patient has had Patient appears near euvolemic. Convert to Lasix 40 mg p.o. daily Continue Lipitor 40 mg p.o. nightly, lisinopril 5 mg p.o. daily, metoprolol 25 mg p.o. twice daily, Aldactone 25 mg p.o. daily Will plan for outpatient ischemic eval Cardiac status appears otherwise stable Patient should follow-up with her PCP 1 to 2 weeks after discharge. Patient may also follow-up with our group, [facility] heart specialists, in 1 to 2 weeks after discharge. Phone #[phone] Patient seen in conjunction with Dr. Neely who agrees with this plan of care - Patient Problems (1) Anasarca Current Visit: Yes Status: Acute (2) Peripheral vascular disease Current Visit: Yes Status: Acute (3) Volume overload Current Visit: Yes Status: Acute (4) Acute on chronic HFrEF (heart failure with reduced ejection fraction) Current Visit: No Status: Acute (5) Acute respiratory failure Current Visit: No Status: Acute (6) Diabetes Current Visit: No Status: Acute (7) GERD (gastroesophageal reflux disease) Current Visit: No Status: Acute Qualifiers: Esophagitis presence: without esophagitis Qualified Code(s): K21.9 - Gastro-esophageal reflux disease without esophagitis (8) Hyperlipidemia Current Visit: No Status: Acute Qualifiers: (9) COPD (chronic obstructive pulmonary disease) Current Visit: No Status: Chronic Qualifiers: Emphysema type: unspecified (10) Cardiomyopathy Current Visit: No Status: Chronic (11) Hypertension Current Visit: No Status: Chronic Qualifiers: Hypertension type: primary hypertension Qualified Code(s): I10 - Essential (primary) hypertension (12) Peripheral arterial disease Current Visit: No Status: Chronic Subjective Date of service: 03/25/22 Principal diagnosis: Acute on chronic HFrEF Interval history: Patient resting in bed in no acute distress. Patient appears more alert today Patient noncompliant with monitor Objective Vital Signs Temp Pulse Resp BP BP Pulse Ox 03/25/22 08:00 65 16 114/75 99 03/25/22 03:39 98.0 F 68 18 124/80 99 03/24/22 23:10 97.6 F 66 18 110/68 91 03/24/22 23:06 16 95 03/24/22 20:15 59 L 03/24/22 19:20 97.5 F L 59 L 17 100/64 99 03/24/22 17:19 98.3 F 57 L 100/65 99 03/24/22 16:48 98.0 F 56 L 18 100/64 97 - Physical Examination General: No Apparent Distress HEENT: Positive: PERRL Neck: Positive: trachea midline Cardiac: Positive: Reg Rate and Rhythm Lungs: Positive: Normal Breath Sounds Neuro: Positive: Other (Unable to assess) Abdomen: Positive: Soft Skin: Positive: Other. Negative: Rash, Suspicious Lesions Extremities: Present: edema, Cool, Other (Wounds on lower extremity) - Imaging and Cardiology Echo: report reviewed - EKG Sinus rhythms and dysrhythmias: sinus rhythm
--- NOTE | 2022-03-25 13:31 | Electrocardiograph Report ---
[facility] Test Date: 2022-03-24 Test Time: 07:51:34 Pat Name: LYNDSEY PERALTA Department: Room: A467 1 Gender: M Biotechnician: EVERETTE : 1955 Requested By: FORTINO DIAS Order Number: [id number] Reading MD: Nii Lieberman Measurements Intervals [place] Rate: 70 P: 58 [place]: 168 QRS: 121 QRSD: 108 T: 240 QT: 479 QTc: 518 Interpretive Statements Sinus rhythm Right axis deviation Low voltage QRS Possible old anterior myocardial infarction Compared to ECG 03/23/2022 06:45:12 No significant change Electronically Signed On 03-25-2022 13:31:46 EDT by Nii Lieberman
--- NOTE | 2022-03-25 13:34 | Electrocardiograph Report ---
[facility] Test Date: 2022-03-24 Test Time: 12:09:52 Pat Name: LYNDSEY PERALTA Department: Room: A467 1 Gender: M Product Test Specialist: EVERETTE : 1955 Requested By: FORTINO DIAS Order Number: [id number] Reading MD: Nii Lieberman Measurements Intervals [place] Rate: 60 P: 38 [place]: 221 QRS: 119 QRSD: 97 T: QT: 497 QTc: 496 Interpretive Statements Sinus rhythm Right axis deviation Prolonged [place] interval Anterior infarct, old Compared to ECG 03/24/2022 07:51:34 No significant change Electronically Signed On 03-25-2022 13:34:28 EDT by Nii Lieberman
[2022-03-25 17:06] LABS: Calcium 8.5 mg/dL (8.4-10.2)
[2022-03-25] MEDS: cefTRIAXone/NS 2 GM/100 ML 2 GM/100 ML BAG IV SCH (18:55)
[2022-03-25 20:43] VITALS: BP 136/82
[2022-03-26] MEDS ORDERED: FUROSEMIDE 40 MG TAB PO SCH (10:00)
== END 2022-03-25 22:00 | disposition home or self-care (01) | DRG 280 ==
LOC: ED 22:48 → 4A 03-23 12:42
PROVIDERS: ADMIT Internal Medicine; ATTEND Hospitalist
DX: I21.4 Non-ST elevation (NSTEMI) myocardial infarction (principal); I50.23 Acute on chronic systolic (congestive) heart failure; J18.9 Pneumonia, unspecified organism; J96.01 Acute respiratory failure with hypoxia; I42.9 Cardiomyopathy, unspecified; J44.0 Chronic obstructive pulmonary disease with (acute) lower respiratory infection; I11.0 Hypertensive heart disease with heart failure; E11.51 Type 2 diabetes mellitus with diabetic peripheral angiopathy without gangrene; K21.9 Gastro-esophageal reflux disease without esophagitis; E78.2 Mixed hyperlipidemia; Z91.19 Patient's noncompliance with other medical treatment and regimen; D69.6 Thrombocytopenia, unspecified; Z79.899 Other long term (current) drug therapy; Z89.611 Acquired absence of right leg above knee; Z82.49 Family history of ischemic heart disease and other diseases of the circulatory system
CPT/HCPCS: 36415; 71045; 80048; 80053; 80061; 82550; 83735; 83880; 84439; 84443; 84484; 85025; 85610; 85730; 93005; 93925; 94640; 94760; 99406; G0378; J0696; J1940; J2930; J3010